=== PATIENT | female | born 1960 | race Caucasian/White ===

== ENCOUNTER → 2021-12-04 16:07 | Outpatient (BNVA) | payer OTHER, SELFPAY | PROVIDERS: PCP Pediatrics; Visit Provider Psychiatry & Neurology Psychiatry | DX: F41.8 Other specified anxiety disorders (principal); F43.12 Post-traumatic stress disorder, chronic; F34.1 Dysthymic disorder; F41.0 Panic disorder [episodic paroxysmal anxiety] | CPT/HCPCS: 90833 ==

== ENCOUNTER → 2022-02-12 12:57 | Outpatient (BNVA) | payer OTHER, SELFPAY | PROVIDERS: PCP Pediatrics; Visit Provider Psychiatry & Neurology Psychiatry | DX: F41.1 Generalized anxiety disorder (principal) ==

== ENCOUNTER → 2022-06-17 16:55 | Outpatient (BNVA) | payer OTHER, SELFPAY | PROVIDERS: PCP Pediatrics; Visit Provider Psychiatry & Neurology Psychiatry ==

== ENCOUNTER 2022-10-28 15:56 | Outpatient (AMB) | payer OTHER, SELFPAY ==
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
== END 2022-10-28 17:12 | disposition home or self-care (01) ==
LOC: HO.HOP 15:56
PROVIDERS: PCP Pediatrics; Visit Provider Psychiatry & Neurology Psychiatry
DX: F41.0 Panic disorder [episodic paroxysmal anxiety] (principal); F34.1 Dysthymic disorder; F43.12 Post-traumatic stress disorder, chronic; F41.1 Generalized anxiety disorder
CPT/HCPCS: 90833; 99213

== ENCOUNTER → 2022-10-28 15:56 | Outpatient (BNVA) | payer OTHER, SELFPAY | PROVIDERS: PCP Pediatrics; Visit Provider Psychiatry & Neurology Psychiatry ==

== ENCOUNTER 2023-02-18 12:26 | Outpatient (REF) | payer OTHER, SELFPAY ==
[2023-02-19 15:28] LABS: Influenza A PCR NEGATIVE (Negative); Influenza B PCR NEGATIVE (Negative); Resp Syncy Virus RNA Qual PCR POSITIVE (Negative); SARS COV2 PCR INHOUSE NEGATIVE (Negative)
== END 2023-02-18 12:27 | disposition home or self-care (01) ==
LOC: HO.LNP 12:26
PROVIDERS: Visit Provider Nurse Practitioner Family
DX: Z11.52 Encounter for screening for COVID-19 (principal); Z20.822 Contact with and (suspected) exposure to COVID-19; R68.89 Other general symptoms and signs
CPT/HCPCS: 0241U

== ENCOUNTER 2023-02-18 12:26 | Outpatient (AMB) | payer OTHER, SELFPAY ==
--- NOTE | 2023-02-18 12:35 | AM.OFFWIN_ITS ---
Intake Vital Signs 02/18/23 12:40 Height 5 ft 5.5 in Weight 169 lb 6 oz BMI 27.8 BP 130/78 Blood Pressure Location Lt brachial Position Sitting Pulse 73 Pulse Source Pulse Oximeter Temp 98.4 F Temp Source Oral Pulse Oximetry (%) 98 Oxygen Delivery Method Room Air Intake Visit Reasons: Cough sore throat,fever [id number] Intake Note: Patient si here with cough, sore throat, runny, stuffy nose for 1.5 weeks. She states she is coughing up green mucous, with chest congestion, and low grade fever. Patient Tobacco Use Status: Former Tobacco user Allergies erythromycin base [Erythromycin Base] Allergy (Mild, Verified 02/18/23 13:08) RASH sulfamethoxazole [From Bactrim] Allergy (Mild, Verified 02/18/23 13:08) RASH trimethoprim [From Bactrim] Allergy (Mild, Verified 02/18/23 13:08) RASH guaifenesin Allergy (Verified 02/18/23 13:08) Rash Medication List - Last Reconciled 02/18/23 by GENEVA Serrano atorvastatin 20 mg PO DAILY clonazepam 0.5 - 1 mg (1 - 2 x 0.5 mg) PO BEDTIME propranolol 10 mg PO DAILY PRN sertraline 150 mg (1.5 x 100 mg) PO DAILY 30 days Do you need a note to return to daycare/school/sports/work: Yes HPI HPI Comments History of Present Illness Details here today c/o flu like sx started about 10 days ago exposed to grandchild with RSV sx: fever, cough, runny nose, chest congestion, painful cough, sore throat. sore throat is now better at home: cough drops, nsaids w/o relief UTD on flu; did not have covid vaccines. home test x 3 negative [facility] Medical History (Updated 02/18/23 @ 13:20 by GENEVA Serrano) Panic disorder Dysthymic disorder Chronic post-traumatic stress disorder (PTSD) Generalized anxiety disorder Social History Patient Tobacco Use Status: Former Tobacco user Review of Systems Const All systems reviewed & are unremarkable except as noted in HPI and below Physical Exam Vital Signs: Last Vital Signs Temp 98.4 F 02/18/23 12:40 Pulse 73 02/18/23 12:40 BP 130/78 02/18/23 12:40 Pulse Ox 98 02/18/23 12:40 Oxygen Delivery Method Room Air 02/18/23 12:40 BMI result Body Mass Index 27.8 Const Other: awake alert mildly ill appearing eyes tearing, conjunctiva and sclera clear cerumen in R EAC, TM intact with mild injection on L Nares with clear drainage, turbinates wnl pharynx WNL voice hoarse LS CTAB, occassional cough RRR Assessment & Plan Assessment & Plan (1) Flu-like symptoms: Code(s): R68.89 - Other general symptoms and signs Plan: . Orders: Orders SARS-CoV2/FLU/RSV Today R68.89 - Other general symptoms and signs Medications: New prednisone 20 mg PO DAILY 5 tabs 0RF 5 days benzonatate 100 mg PO TID PRN 30 caps 1RF cough 10 days Patient Instructions: supportive care with above viral swab obtained will be called if + work note given edu on viral illness and no need for add'l tx. need to follow current CDC guidelines if viral swab + Coding Level of Care Code Est Pt Level 4 (77475) Diagnoses Flu-like symptoms R68.89 Time Spent (min) 30 Comment treatment plan, edu, answering questions
[2023-02-18 12:40] VITALS: BP 130/78; PULSE 73; TEMP 36.9; O2SAT 98; BMI 27.8
== END 2023-02-18 13:20 | disposition home or self-care (01) ==
PROVIDERS: PCP Pediatrics; Visit Provider Nurse Practitioner Family
DX: R68.89 Other general symptoms and signs (principal)
CPT/HCPCS: 99214

== ENCOUNTER 2023-04-13 15:32 | Outpatient (AMB) | payer OTHER, SELFPAY ==
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
== END 2023-04-13 17:23 | disposition home or self-care (01) ==
LOC: HO.HOP 15:33
PROVIDERS: PCP Pediatrics; Visit Provider Psychiatry & Neurology Psychiatry
DX: F34.1 Dysthymic disorder (principal); F43.12 Post-traumatic stress disorder, chronic; F41.1 Generalized anxiety disorder
CPT/HCPCS: 90833; 99213

== ENCOUNTER → 2023-04-13 15:32 | Outpatient (BNVA) | payer OTHER, SELFPAY | PROVIDERS: PCP Pediatrics; Visit Provider Psychiatry & Neurology Psychiatry ==

== ENCOUNTER 2023-05-18 14:35 | Outpatient (AMB) | payer OTHER, SELFPAY ==
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
== END 2023-05-18 16:40 | disposition home or self-care (01) ==
LOC: HO.HOP 14:35
PROVIDERS: PCP Pediatrics; Visit Provider Psychiatry & Neurology Psychiatry
DX: F41.0 Panic disorder [episodic paroxysmal anxiety] (principal); F34.1 Dysthymic disorder; F41.1 Generalized anxiety disorder; F43.12 Post-traumatic stress disorder, chronic
CPT/HCPCS: 99213

== ENCOUNTER → 2023-05-18 14:35 | Outpatient (BNVA) | payer OTHER, SELFPAY | PROVIDERS: PCP Pediatrics; Visit Provider Psychiatry & Neurology Psychiatry ==

== ENCOUNTER 2023-09-17 14:27 | Outpatient (AMB) | payer OTHER, SELFPAY ==
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
== END 2023-09-17 17:07 | disposition home or self-care (01) ==
LOC: HO.HOP 14:27
PROVIDERS: PCP Pediatrics; Visit Provider Psychiatry & Neurology Psychiatry
DX: F43.12 Post-traumatic stress disorder, chronic (principal); F41.1 Generalized anxiety disorder
CPT/HCPCS: 99213

== ENCOUNTER → 2023-09-17 14:27 | Outpatient (BNVA) | payer OTHER, SELFPAY | PROVIDERS: PCP Pediatrics; Visit Provider Psychiatry & Neurology Psychiatry ==

== ENCOUNTER 2023-11-19 14:59 | Outpatient (AMB) | payer MEDICARE, SELFPAY ==
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
== END 2023-11-19 18:32 | disposition home or self-care (01) ==
LOC: HO.HOP 14:59
PROVIDERS: PCP Pediatrics; Visit Provider Psychiatry & Neurology Psychiatry
DX: F43.12 Post-traumatic stress disorder, chronic (principal); F41.1 Generalized anxiety disorder; F33.9 Major depressive disorder, recurrent, unspecified
CPT/HCPCS: 90833; 99213

== ENCOUNTER → 2023-11-19 14:59 | Outpatient (BNVA) | payer OTHER, SELFPAY | PROVIDERS: PCP Pediatrics; Visit Provider Psychiatry & Neurology Psychiatry ==

== ENCOUNTER 2023-12-07 10:15 | Outpatient (RCR) | payer OTHER, SELFPAY ==
[2023-11-24 09:46] VITALS: BMI 27.7
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
[2023-11-24 11:28] VITALS: BP 140/60; PULSE 76
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
--- NOTE | 2023-11-26 15:02 | HO.PHP ---
Client's case has been opened and reviewed in team.
--- NOTE | 2023-11-27 13:19 | HO.PHP ---
Addendum entered by Uma Beach 11/30/23 15:29: OP therapy referral was placed not med management. Original Note: [facility] staff member faxed a referral over for med management for Nafisa to [facility]. [facility] staff member is awaiting a call with those appointment dates and times.
--- NOTE | 2023-11-30 15:27 | HO.PHP ---
[facility] staff member received a VM for Nafisa regarding her appointments for OP therapy intake appointment. The OP therapy appointment is scheduled with Iliana Boykin on December 11, 2023 at 10 AM at [address] [place] [address] .
--- NOTE | 2023-12-07 20:58 | P.PNPSP_ITS ---
Subjective Subjective Date of Service: 12/07/23 Reason For Visit: anxiety Interim History: Patient seen for follow-up, anticipating discharge at the end of program today.? Reports no acute issues or concerns. Medication compliant, medications well- tolerated. Denies any adverse effects.? Mood is stable.? Denies any hopelessness or SI. Denies thoughts of harming self or others at this time. Denies any aggressive ideation or HI. Denies any paranoia or AH or VH. Sleep, appetite, energy stable. Alert, oriented, in no acute distress. Calm, cooperative. Mood stable, affect appropriate. Speech normal. Thought process linear, coherent, more goal- directed. Thought content related to stressors, future-oriented, denies any helplessness, hopelessness or SI.? No aggressive ideation or HI. No paranoia or delusional content elicited. No evidence of psychosis. Insight and judgment fair-good. Discharge from [facility] Continue regular medications Refills sent to pharmacy Will defer further medication management to outpatient provider *Safety plan reviewed *Discharge diagnoses, treatment course, discharge plan have been reviewed with patient (including medication regime, medication management, potential side effects) as well as treatment rationale were also revisited *Discharge paperwork signed and given to patient, copy sent for scanning to chart Diagnostics Vital Signs (24Hr): BMI result Body Mass Index 27.7 Assessment & Plan Certification I certify that partial hospital treatment is medically necessary due to the symptoms and problems resulting from the patient's mental illness and the failure to treat the patient at the partial hospital level of care would likely result in the patient requiring inpatient psychiatric care which could not be prevented at a less intensive level of care. Total time managing care of this patient today ____ minutes. Discharge Plan Discharge Attending provider: Isabel Gu Additional Instructions: The OP therapy appointment is scheduled with Iliana Boykin on December 11, 2023 at 10 AM at [address] [place] [address] . Medications: Continued clonazepam 0.5 mg tablet 0.5 - 1 mg PO BEDTIME 30 Days Qty: 60 2RF Rx Instructions: administer 30 minutes before bedtime atorvastatin 20 mg tablet 20 mg PO DAILY propranolol 10 mg tablet 10 mg PO DAILY PRN (Reason: anxiety) Qty: 30 2RF sertraline 100 mg tablet 200 mg PO DAILY Patient Comments: Patient reports recently increased to 200 mg daily. No Action buspirone 10 mg tablet 10 mg PO BID Qty: 60 2RF Stand Alone Forms: Patient Portal Discharge page Patient Education: Depression (DC) Print Language: Tongan
== END 2023-12-07 23:59 | disposition home or self-care (01) ==
LOC: HO.PHPA 10:15
PROVIDERS: Visit Provider Psychiatry & Neurology Psychiatry
DX: F33.9 Major depressive disorder, recurrent, unspecified (principal); F43.12 Post-traumatic stress disorder, chronic; F41.1 Generalized anxiety disorder; F99 Mental disorder, not otherwise specified
CPT/HCPCS: 90853

== ENCOUNTER → 2023-12-07 10:15 | Outpatient (BNV) | payer OTHER, SELFPAY | PROVIDERS: Visit Provider Psychiatry & Neurology Psychiatry | DX: F33.9 Major depressive disorder, recurrent, unspecified (principal); F43.12 Post-traumatic stress disorder, chronic; F41.1 Generalized anxiety disorder; F99 Mental disorder, not otherwise specified | CPT/HCPCS: 99499 ==

== ENCOUNTER 2023-12-16 14:04 | Outpatient (AMB) | payer OTHER, SELFPAY ==
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
== END 2023-12-16 15:28 | disposition home or self-care (01) ==
LOC: HO.HOP 14:04
PROVIDERS: PCP Pediatrics; Visit Provider Psychiatry & Neurology Psychiatry
DX: F43.12 Post-traumatic stress disorder, chronic (principal); F33.9 Major depressive disorder, recurrent, unspecified
CPT/HCPCS: 90833; 99213

== ENCOUNTER 2023-12-22 14:31 | Outpatient (AMB) | payer OTHER, SELFPAY ==
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
== END 2023-12-22 15:42 | disposition home or self-care (01) ==
LOC: HO.HOP 14:31
PROVIDERS: PCP Pediatrics; Visit Provider Psychiatry & Neurology Psychiatry
DX: F43.12 Post-traumatic stress disorder, chronic (principal); F33.9 Major depressive disorder, recurrent, unspecified
CPT/HCPCS: 90833; 99213

== ENCOUNTER 2024-01-19 13:31 | Outpatient (AMB) | payer OTHER, SELFPAY ==
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
== END 2024-01-19 14:25 | disposition home or self-care (01) ==
LOC: HO.HOP 13:31
PROVIDERS: PCP Pediatrics; Visit Provider Psychiatry & Neurology Psychiatry
DX: F41.1 Generalized anxiety disorder (principal); F43.12 Post-traumatic stress disorder, chronic
CPT/HCPCS: 99214

== ENCOUNTER → 2024-01-19 13:31 | Outpatient (BNVA) | payer OTHER, SELFPAY | PROVIDERS: PCP Pediatrics; Visit Provider Psychiatry & Neurology Psychiatry ==

== ENCOUNTER 2024-02-09 13:25 | Outpatient (AMB) | payer OTHER, SELFPAY ==
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
== END 2024-02-09 13:26 | disposition home or self-care (01) ==
LOC: HO.HOP 13:25
PROVIDERS: PCP Pediatrics; Visit Provider Psychiatry & Neurology Psychiatry
DX: F43.12 Post-traumatic stress disorder, chronic (principal); F41.1 Generalized anxiety disorder; F33.9 Major depressive disorder, recurrent, unspecified
CPT/HCPCS: 99213

== ENCOUNTER 2024-03-17 11:53 | Outpatient (AMB) | payer OTHER, SELFPAY ==
--- OUTSIDE RECORDS SUMMARY | 2024-03-17 11:57 | XMS_ITS | Data Portability ---
Author Organization [facility], Main Office Address [address] [place] [address] Care Team Providers Care Interior Assemblies Installer Name Role Phone CARMELO LAU Primary Care Provider SANGEETA RANDLE Photographic Equipment Mechanic MILA MORENO Psychiatrist FRANCISCO HART Torpedo Worker [facility] Patent Drafter Assessment No assessment recorded. Plan of Treatment Reminders Order Date Submit Date Provider Last Modified By Organization Details Last Modified Time Details Appointments None recor ded. Lab TSH, serum or plasm a 2020 021 [facility], [address], [address], [place], [address], 20:54:48 CMP, serum or plasm a 2020 021 [facility], [address], [place], [address], 20:39:49 CBC w/ auto diff 2020 021 [facility], [address], [place], [address], 19:51:03 magne sium, serum or plasm a 2020 021 [facility], [address], [place], [address], 20:39:50 lipid panel , serum 2020 [facility], [address], [address], [place], [address], 17:08:07 CMP, serum or plasm a 2020 [facility], [address], [address], [place], [address], 17:08:06 CK (crea yassine kinas e), total , serum 2020 [facility], [address], [address], [place], [address], 17:08:03 vitam in D, 25-hy droxy , total , serum 2020 [facility], [address], [address], [place], [address], 17:14:40 JENNY (anti nucle ar antib odies ) scree n, serum 2020 [facility], [address], [address], [place], [address], 21:09:58 ESR (eryt hrocy te sedim entat ion rate) , blood 2020 021 [facility], [address], [address], [place], [address], 15:29:17 C-ok ctive prote in, quant itati ve, serum or plasm a 2020 021 [facility], [address], [address], [place], [address], 17:14:39 lipid panel , serum 2021 [facility], [address], [address], [place], [address], 2 14:15:30 CMP, serum or plasm a 2021 [facility], [address], [address], [place], [address], 14:15:27 varic thong- zoste r igg Ab scree n, serum 2021 [facility], [address], [address], [place], [address], 14:59:11 vitam in D, 25-hy droxy , total , serum 2021 [facility], [address], [address], [place], [address], 14:27:49 sjogr en antib freddie panel (ssa, ssb, ro, la), serum 2021 [facility], [address], [address], [place], [address], 11:06:36 CBC w/ auto diff 2021 [facility], [address], [address], [place], [address], 2 13:51:21 iron + total iron- dinorah ng capac ity (TIBC ), serum 2021 [facility], [address], [address], [place], [address], 08/05/202 2 14:15:29 TSH, serum or plasm a 2021 022 [facility], [address], [address], [place], [address], 2 14:27:47 gamma -glut amyl trans feras e (ggt) , serum 2022 023 [facility], [address], [address], [place], [address], 3 14:56:08 CMP, serum or plasm a 2022 023 [facility], [address], [address], [place], [address], 3 14:55:59 lipid panel , serum 2022 023 [facility], [address], [facility] [address], [place], [address], 3 14:56:20 vitam in D, 25-hy droxy , total , serum 2022 023 [facility], [address], [address], [place], [address], 3 16:51:29 lipid panel , serum 2023 024 [facility], [address] [facility] [address], [place], [address], 4 06:08:10 CMP, serum or plasm a 2023 024 [facility], [address], [facility] [address], [place], [address], 4 06:08:08 TSH, ultra -sens itive , serum 2023 024 [facility], [address], [facility] [address], [place], [address], 4 06:08:10 vitam in D, 25-hy droxy , total , serum 2023 024 [facility], [address], [address], [place], [address], 4 06:08:[address] refer ral - for hannah mora with evalu ation of palpi tatio ns. Stres s test and ECHO pendi ng. 2020 [facility] [address], [place], [address], 1 10:46:[address]/di etiti an refer ral 2020 021 [email or web address] Not available 1 09:26:[address] refer ral 2021 022 [email or web address] Not available 2 11:01:[address]/di etiti an refer ral 2021 022 [email or web address] Not available 2 14:39:[address] refer ral 2022 023 [email or web address] Not available 3 13:01:45 Procedures colon oscop y scree deana (PROC ) 2021 022 [email or web address] Not available 2 15:07:31 colon oscop y scree deana (PROC ) - for routi ne colon cance r scree deana 2022 023 [facility], [address] [facility] [address] [facility], [place], [address], 3 14:45:54 Surgeries None recor ded. Imaging elect roctone diogr am 2020 021 [email or web address] In-Office Order, Internal Use Only DO Not Attach Compendium DO Not Attach Compendium, Do Not Delete/merge, [id number] 16:19:35 US, echoc ardio gram, trans thora cic, compl ete - rule out struc tural heart disea se in pt with HTN and inter mitte nt palpi tatio ns. 2020 021 [facility]Outt Non-Invasive Cardiology Scheduling), [address], [place], [address], 1 12:10:45 exerc ise stres s test - Scree n for exerc ise induc ed ECG roy es 2020 021 awychowski [facility] (Outt Non-Invasive Cardiology Scheduling), [address], [place], [address], 1 10:32:03 bone densi ty 2020 021 [email or web address] Not available 1 14:42:08 MAMMO , scree deana, bilat eral - Perfo rm Diagn ostic Mammo gram and Breas t Ultra sound if neede d / Perfo rm Ultra sound Guide d Aspir ation and/o r Breas t Biops y if warra nted 2020 021 [email or web address] 6 Not available 09:19:03 XR, chest , 2 view - follo w up left upper lung abnor malit y 2021 022 FRANCISCO Not available 2 15:45:12 MAMMO , scree deana, bilat eral 2021 022 [email or web address] Not available 2 11:08:56 bone densi ty 2022 023 [email or web address] Not available 4 09:16:37 MAMMO , scree deana, bilat eral - Perfo rm Diagn ostic Mammo gram and Breas t Ultra sound if neede d / Perfo rm Ultra sound Guide d Aspir ation and/o r Breas t Biops y if warra nted 2022 023 FRANCISCO Not available 17:15:33 MAMMO , scree deana, bilat eral - Perfo rm Diagn ostic Mammo gram and Breas t Ultra sound if neede d / Perfo rm Ultra sound Guide d Aspir ation and/o r Breas t Biops y if warra nted 2023 024 [email or web address] Not available 10:30:09 Medication Orders None recor ded. Patient TargetsNo targets recorded. Patient Instructions Encounter Date Encounter Id Patient Instructions Last Modified By Organization Details Last Modified Time 03/15/2020 [id number] high blood pressure: care instructions awychowski Not available 03/15/2020 16:13:23 learning about high blood pressure awychowski Not available 03/15/2020 16:13:24 palpitations: care instructions awychowski Not available 03/15/2020 16:13:23 07/24/2020 [id number] Cervical Cancer Screening awychowski Not available 07/24/2020 09:14:26 anxiety disorder: care instructions awychowski Not available 07/24/2020 09:14:26 earwax blockage: care instructions awychowski Not available 07/24/2020 09:21:33 When You Want to Lose Weight: Care Instructions awychowski Not available 07/24/2020 09:14:26 Nutrition Referral and Weight Management Follow-up Information awychowski Not available 07/24/2020 09:14:26 psoriasis: care instructions awychowski Not available 07/24/2020 09:14:26 07/25/2021 [id number] Cervical Cancer Screening awychowski Not available 07/25/2021 14:32:58 anxiety disorder: care instructions awychowski Not available 07/25/2021 14:32:57 earwax blockage: care instructions awychowski Not available 07/25/2021 14:32:57 dry eyes: care instructions awychowski Not available 07/25/2021 14:32:57 hair loss from alopecia areata: care instructions awychowski Not available 07/25/2021 14:41:33 When You Want to Lose Weight: Care Instructions awychowski Not available 07/25/2021 14:32:57 Nutrition Referral and Weight Management Follow-up Information awychowski Not available 07/25/2021 14:32:57 psoriasis: care instructions awychowski Not available 07/25/2021 14:32:57 07/29/2022 [id number] learning about healthy weight awychowski Not available 07/29/2022 15:40:22 08/17/2023 [id number] learning about healthy weight awychowski Not available 08/17/2023 10:20:27 Reason for Referral Pediatric Pathologist Referral for In termittent palpitations for assistance with evaluation of palpitations. Stress test and ECHO pending. Referring Physician: Carmelo Lau [facility], Encounter Date: 03/15/2020 Operations Label Clerk/dietitian Refer ral for Body mass index 25-29 - overweight Referring Physician: Carmelo Lau [facility] Caleb, Encounter Date: 07/24/2020 Collective Bargaining Specialist Referral for Sc reening for malignant neoplasm of cervix Referring Physician: Carmelo Lau [facility] Caleb, Encounter Date: 07/25/2021 Operations Label Clerk/dietitian Refer ral for Body mass index 25-29 - overweight Referring Physician: Carmelo Lau [facility], Encounter Date: 07/25/2021 Collective Bargaining Specialist Referral for Sc reening for malignant neoplasm of cervix Referring Physician: Carmelo Lau [facility] Caleb, Encounter Date: 07/29/2022 Results Created Date Observation Date Name Description Value Unit Range Abnormal Flag Note LastModifiedBy Organization Detail LastModifiedTime 03/15/1903/15/2020 jacob chowdhury am done Not Available In-Office Order Internal Use Only DO Not Attach Compendium DO Not Attach Compendium, Do Not Delete/merge, [id number] 03/11/2020 19:25:10 03/19/1903/19/2020 CBC w/ auto diff WBC 8.0 K/mm3 (4.0-1 1.0) Not Available [facility] [address], [place], [address], 03/19/2020 19:51:03 02/08/03/19/2020 CBC w/ auto diff RBC 4.45 M/mm3 (4.20- 5.40) Not Available [facility] [address] [place], [address], 03/19/2020 19:51:03 03/19/19 21 03/19/2020 CBC w/ auto diff HGB 13.3 gm/dL (11.7- 15.5) Not Available [facility] [address] [place], [address], 03/19/2020 19:51:03 03/19/1903/19/2020 CBC w/ auto diff HCT 40.5 % (35.7- 45.8) Not Available [facility] [address] [place], [address], 03/19/2020 19:51:03 03/19/1903/19/2020 CBC w/ auto diff MCV 91.0 fL (80.0- 100.0) Not Available [facility] [address] [place], [address], 03/19/2020 19:51:03 03/19/19 21 03/19/2020 CBC w/ auto diff MCH 29.9 pg (27.0- 34.0) Not Available [facility] [address] [place], [address], 03/19/2020 19:51:03 03/19/1903/19/2020 CBC w/ auto diff MCHC 32.8 g/dL (33.0- 37.0) low Not Available [facility] [address] [place], [address], 03/19/2020 19:51:03 03/19/1903/19/2020 CBC w/ auto diff plt 274 K/mm3 (150-4 60) Not Available [facility] [address] [place], [address], 03/19/2020 19:51:03 03/19/1903/19/2020 CBC w/ auto diff RDW-SD 41.5 fL (<47.0 ) Not Available [facility] [address] [place], [address], 03/19/2020 19:51:03 03/19/19 21 03/19/2020 CBC w/ auto diff MPV 9.4 fL (9.4-1 2.4) Not Available [facility] [address] [place], [address], 03/19/2020 19:51:03 03/19/19 21 03/19/2020 CBC w/ auto diff automated NRBC 0.0 #/100 _WBC' s Not Available [facility] [address] [place], [address], 03/19/2020 19:51:03 03/19/19 21 03/19/2020 CBC w/ auto diff abs. NRBC 0.0 K/mm3 Not Available [facility] [address] [place], [address], 03/19/2020 19:51:03 03/19/19 21 03/19/2020 CBC w/ auto diff neut # 4.7 K/mm3 (1.3-7 .0) Not Available [facility] [address] [place], [address], 03/19/2020 19:51:03 03/19/19 21 03/19/2020 CBC w/ auto diff lymph # 2.4 K/mm3 (0.8-3 .1) Not Available [facility] [address] [place], [address], 03/19/2020 19:51:03 03/19/19 21 03/19/2020 CBC w/ auto diff mono# 0.7 K/mm3 (0.4-0 .9) Not Available [facility] [address] [place], [address], 03/19/2020 19:51:03 03/19/19 21 03/19/2020 CBC w/ auto diff eo # 0.1 K/mm3 (0.0-0 .4) Not Available [facility] [address] [place], [address], 03/19/2020 19:51:03 03/19/19 21 03/19/2020 CBC w/ auto diff baso # 0.1 K/mm3 (0.0-0 .1) Not Available [facility] [address] [place], [address], 03/19/2020 19:51:03 03/19/19 21 03/19/2020 CBC w/ auto diff abs. imm gran 0.0 K/mm3 Not Available [facility] [address] [place], [address], 03/19/2020 19:51:03 03/19/19 21 03/19/2020 CBC w/ auto diff neut 58.8 % (44-76 ) Not Available [facility] [address] [place], [address], 03/19/2020 19:51:03 03/19/19 21 03/19/2020 CBC w/ auto diff lymph 30.3 % (15-43 ) Not Available [facility] [address] [place], [address], 03/19/2020 19:51:03 03/19/19 21 03/19/2020 CBC w/ auto diff monocyte 8.4 % (4.5-1 0.5) Not Available [facility] [address] [place], [address], 03/19/2020 19:51:03 03/19/19 21 03/19/2020 CBC w/ auto diff eo 1.8 % (0-6) Not Available [facility] [address] [place], [address], 03/19/2020 19:51:03 03/19/19 21 03/19/2020 CBC w/ auto diff baso 0.6 % (0-2) Not Available [facility] [address] [place], [address], 03/19/2020 19:51:03 03/19/19 21 03/19/2020 CBC w/ auto diff imm gran 0.1 % Not Available [facility] [address] [place], [address], 03/19/2020 19:51:03 03/19/19 21 03/19/2020 CMP, serum or plasm a glucose 63 mg/dL (70-99 ) low Not Available [facility] [address] [place], [address], 03/19/2020 20:39:48 03/19/19 21 03/19/2020 CMP, serum or plasm a BUN 16 mg/dL (6-20) Not Available [facility] [address] [place], [address], 03/19/2020 20:39:48 03/19/19 21 03/19/2020 CMP, serum or plasm a creatinine 0.9 mg/dL (0.5-1 .0) Not Available [facility] [address], [address], 03/19/2020 20:39:48 03/19/19 21 03/19/2020 CMP, serum or plasm a sodium 142 mmol/ L (133-1 45) Not Available [facility] [address] [place], [address], 03/19/2020 20:39:48 03/19/19 21 03/19/2020 CMP, serum or plasm a potassium 3.8 mmol/ L (3.6-5 .2) Not Available [facility] [address] [place], [address], 03/19/2020 20:39:48 03/19/19 21 03/19/2020 CMP, serum or plasm a chloride 104 mmol/ L (98-10 7) Not Available [facility] [address] [place], [address], 03/19/2020 20:39:48 03/19/19 21 03/19/2020 CMP, serum or plasm a bicarbonate 29 mmol/ L (22-29 ) Not Available [facility] [address] [place], [address], 03/19/2020 20:39:48 03/19/19 21 03/19/2020 CMP, serum or plasm a anion gap 9 (4-17) Not Available [facility] [address] [place], [address], 03/19/2020 20:39:48 03/19/19 21 03/19/2020 CMP, serum or plasm a albumin 4.6 gm/dL (3.4-4 .8) Not Available [facility] [address], [address], 03/19/2020 20:39:48 03/19/19 21 03/19/2020 CMP, serum or plasm a calcium 9.5 mg/dL (8.6-1 0.5) Not Available [facility] [address], [address], 03/19/2020 20:39:48 03/19/19 21 03/19/2020 CMP, serum or plasm a bilirubin,to hiram 0.3 mg/dL (0-1.2 ) Not Available [facility] [address] [place], [address], 03/19/2020 20:39:48 03/19/19 21 03/19/2020 CMP, serum or plasm a total protein 7.0 gm/dL (6.2-8 .2) Not Available [facility] [address], [address], 03/19/2020 20:39:48 03/19/19 21 03/19/2020 CMP, serum or plasm a Ag ratio 1.9 Not Available [facility] [address] [place], [address], 03/19/2020 20:39:48 03/19/19 21 03/19/2020 CMP, serum or plasm a AST 17 U/L (0-32) Not Available [facility] [address] [place], [address], 03/19/2020 20:39:48 03/19/19 21 03/19/2020 CMP, serum or plasm a alk phos 104 U/L (35-10 4) Not Available [facility] [address] [place], [address], 03/19/2020 20:39:48 03/19/19 21 03/19/2020 CMP, serum or plasm a ALT 12 U/L (0-33) Not Available [facility] [address] [place], [address], 03/19/2020 20:39:48 03/19/19 21 03/19/2020 CMP, serum or plasm a est GFR non 67 mL/mi n/1.7 3_M2 Creat inine based estim ated glome rular filtr ation rate (eGFR ) is calcu lated using the Chron ic Kidne y Disea se Epide miolo gy Colla borat ion (CKD- EPI). The CKD-E PI creat inine equat ion has not been valid ated in child hawa (<18 years ), pregn ant women or in some racia l or ethni c subgr oups other than Cauca sians and Afric an Ameri cans. Not Available [facility] [address] [place], [address], 03/19/2020 20:39:48 03/19/19 21 03/19/2020 CMP, serum or plasm a est GFR 78 mL/mi n/1.7 3_M2 Creat inine based estim ated glome rular filtr ation rate (eGFR ) is calcu lated using the Chron ic Kidne y Disea se Epide miolo gy Colla borat ion (CKD- EPI). The CKD-E PI creat inine equat ion has not been valid ated in child hawa (<18 years ), pregn ant women or in some racia l or ethni c subgr oups other than Cauca sians and Afric an Ameri cans. Not Available [facility] [address], [address], 03/19/2020 20:39:48 03/19/19 21 03/19/2020 magne sium, serum or plasm a magnesium 2.2 mg/dL (1.6-2 .3) Not Available [facility] [address] [place], [address], 03/19/2020 20:39:50 03/19/19 21 03/19/2020 TSH, serum or plasm a TSH 1.71 uIU/m L (0.4-4 .00) Not Available [facility] [address], [place], [address], 03/19/2020 20:54:48 07/27/19 21 07/26/2020 ESR (eryt hrocy te sedim entat ion rate) , blood sedimentatio n rate,automat ed 2 mm/HR (0-20) In rare patie nts with multi ple myelo ma and other cance rs,Er ythro cyte Sedim entat ion Rate( ESR) by our curre nt metho d(iSE D)can be osmin l. If clini maurice relev ant,p lease use C-ok ctive prote in as an equiv alent measu re of acute phase react ion in these patie nts. Not Available [facility] [address] [place], [address], 07/26/2020 15:29:17 07/27/19 21 07/26/2020 CK (crea yassine kinas e), total , serum CK (creatine kinase) 72 U/L (0-190 ) TOTAL CPK SUNITA NTRAT ION TOO LOW FOR ISOEN ZYME AISHWARYA SIS Not Available [facility] [address] [place], [address], 07/26/2020 17:08:02 07/27/19 21 07/26/2020 CMP, serum or plasm a glucose 95 mg/dL (70-99 ) Not Available [facility] [address] [place], [address], 07/26/2020 17:08:06 07/27/19 21 07/26/2020 CMP, serum or plasm a BUN 12 mg/dL (6-20) Not Available [facility] [address] [place], [address], 07/26/2020 17:08:06 07/27/19 21 07/26/2020 CMP, serum or plasm a creatinine 0.9 mg/dL (0.5-1 .0) Not Available [facility] [address] [place], [address], 07/26/2020 17:08:06 07/27/19 21 07/26/2020 CMP, serum or plasm a sodium 144 mmol/ L (133-1 45) Not Available [facility] [address] [place], [address], 07/26/2020 17:08:06 07/27/19 21 07/26/2020 CMP, serum or plasm a potassium 4.1 mmol/ L (3.6-5 .2) Not Available [facility] [address] [place], [address], 07/26/2020 17:08:06 07/27/19 21 07/26/2020 CMP, serum or plasm a chloride 104 mmol/ L (98-10 7) Not Available [facility] [address] [place], [address], 07/26/2020 17:08:06 07/27/19 21 07/26/2020 CMP, serum or plasm a bicarbonate 29 mmol/ L (22-29 ) Not Available [facility] [address] [place], [address], 07/26/2020 17:08:06 07/27/19 21 07/26/2020 CMP, serum or plasm a anion gap 11 (4-17) Not Available [facility] [address] [place], [address], 07/26/2020 17:08:06 07/27/19 21 07/26/2020 CMP, serum or plasm a albumin 4.7 gm/dL (3.4-4 .8) Not Available [facility] [address] [place], [address], 07/26/2020 17:08:06 07/27/19 21 07/26/2020 CMP, serum or plasm a calcium 9.8 mg/dL (8.6-1 0.5) Not Available [facility] [address] [place], [address], 07/26/2020 17:08:06 07/27/19 21 07/26/2020 CMP, serum or plasm a bilirubin,to hiram 0.5 mg/dL (0-1.2 ) Not Available [facility] [address] [place], [address], 07/26/2020 17:08:06 07/27/19 21 07/26/2020 CMP, serum or plasm a total protein 7.1 gm/dL (6.2-8 .2) Not Available [facility] [address] [place], [address], 07/26/2020 17:08:06 07/27/19 21 07/26/2020 CMP, serum or plasm a Ag ratio 2.0 Not Available [facility] [address] [place], [address], 07/26/2020 17:08:06 07/27/19 21 07/26/2020 CMP, serum or plasm a AST 23 U/L (0-32) Not Available [facility] [address] [place], [address], 07/26/2020 17:08:06 07/27/19 21 07/26/2020 CMP, serum or plasm a alk phos 132 U/L (35-10 4) high Not Available [facility] [address] [place], [address], 07/26/2020 17:08:06 07/27/19 21 07/26/2020 CMP, serum or plasm a ALT 17 U/L (0-33) Not Available [facility] [address] [place], [address], 07/26/2020 17:08:06 07/27/19 21 07/26/2020 CMP, serum or plasm a est GFR non 74 mL/mi n/1.7 3_M2 Creat inine based estim ated glome rular filtr ation rate (eGFR ) is calcu lated using the Chron ic Kidne y Disea se Epide miolo gy Colla borat ion (CKD- EPI). The CKD-E PI creat inine equat ion has not been valid ated in child hawa (<18 years ), pregn ant women or in some racia l or ethni c subgr oups other than Cauca sians and Afric an Ameri cans. Not Available [facility] [address] [place], [address], 07/26/2020 17:08:06 07/27/19 21 07/26/2020 CMP, serum or plasm a est GFR 86 mL/mi n/1.7 3_M2 Creat inine based estim ated glome rular filtr ation rate (eGFR ) is calcu lated using the Chron ic Kidne y Disea se Epide miolo gy Colla borat ion (CKD- EPI). The CKD-E PI creat inine equat ion has not been valid ated in child hawa (<18 years ), pregn ant women or in some racia l or ethni c subgr oups other than Cauca sians and Afric an Ameri cans. Not Available [facility] [address] [place], [address], 07/26/2020 17:08:06 07/27/19 21 07/26/2020 lipid panel , serum cholesterol, total 170 mg/dL (<200) Not Available [facility] [address] [place], [address], 07/26/2020 17:08:07 07/27/19 21 07/26/2020 lipid panel , serum triglyceride 141 mg/dL (<150) Not Available [facility] [address] [place], [address], 07/26/2020 17:08:07 07/27/19 21 07/26/2020 lipid panel , serum HDL chol 40 mg/dL (>39) Not Available [facility] [address] [place], [address], 07/26/2020 17:08:07 07/27/19 21 07/26/2020 lipid panel , serum LDL cholesterol, calculated 102 mg/dL (0-130 ) Not Available [facility] [address] [place], [address], 07/26/2020 17:08:07 07/27/19 21 07/26/2020 lipid panel , serum non HDL cholesterol (calc) 130 mg/dL (<160) Not Available [facility] [address] [place], [address], 07/26/2020 17:08:07 07/27/19 21 07/26/2020 C-ok ctive prote in, quant itati ve, serum or plasm a C-reactive protein <0.3 mg/dL (0-0.5 ) Not Available [facility] [address] [place], [address], 07/26/2020 17:14:39 07/27/19 21 07/26/2020 vitam in D, 25-hy droxy , total , serum 25OH vitamin D 28.0 NG/mL (20-50 ) Not Available [facility] [address] [place], [address], 07/26/2020 17:14:40 07/27/19 21 07/27/2020 JENNY (anti nucle ar antib odies ) scree n, serum anti-nuclear antibody screen NEGATI VE (NOTE ) Negat nadia <1:80 Borde rline 1:80 Posit nadia >1:80 Test perfo rmed by [facility], [address], [place] [address] Not Available [facility] [address], [address], 07/27/2020 21:09:58 09/14/19 22 09/13/2021 COMPL ETE CBC WITH DIFF WBC 5.8 K/mm3 (4.0-1 1.0) Not Available [facility] [address] [place], [address], 09/13/2021 13:51:21 09/14/19 22 09/13/2021 COMPL ETE CBC WITH DIFF RBC 4.45 M/mm3 (4.20- 5.40) Not Available [facility] [address] [place], [address], 09/13/2021 13:51:21 09/14/19 22 09/13/2021 COMPL ETE CBC WITH DIFF HGB 13.6 gm/dL (11.7- 15.5) Not Available [facility] [address], [address], 09/13/2021 13:51:21 09/14/19 22 09/13/2021 COMPL ETE CBC WITH DIFF HCT 41.0 % (35.7- 45.8) Not Available [facility] [address] [place], [address], 09/13/2021 13:51:21 09/14/19 22 09/13/2021 COMPL ETE CBC WITH DIFF MCV 92.1 fL (80.0- 100.0) Not Available [facility] [address] [place] [place], [address], 09/13/2021 13:51:21 09/14/19 22 09/13/2021 COMPL ETE CBC WITH DIFF MCH 30.6 pg (27.0- 34.0) [facility] Available [facility] [address] [place], [address], 09/13/2021 13:51:21 09/14/19 22 09/13/2021 COMPL ETE CBC WITH DIFF MCHC 33.2 g/dL (33.0- 37.0) Not Available [facility] [address] [place], [id number], 09/13/2021 13:51:21 09/14/19 22 09/13/2021 COMPL ETE CBC WITH DIFF plt 254 K/mm3 (150-4 60) Not Available [facility] [address] [place], [id number], 09/13/2021 13:51:21 09/14/19 22 09/13/2021 COMPL ETE CBC WITH DIFF RDW-SD 43.8 fL (<47.0 ) Not Available [facility] [address] [place], [address], 09/13/2021 13:51:21 09/14/19 22 09/13/2021 COMPL ETE CBC WITH DIFF MPV 9.6 fL (9.4-1 2.4) Not Available [facility] [address], [address], 09/13/2021 13:51:21 09/14/19 22 09/13/2021 COMPL ETE CBC WITH DIFF automated NRBC 0.0 #/100 _WBC' s Not Available [facility] [address], [address], 09/13/2021 13:51:21 09/14/19 22 09/13/2021 COMPL ETE CBC WITH DIFF abs. NRBC 0.0 K/mm3 Not Available [facility] [address] [place], [address], 09/13/2021 13:51:21 09/14/19 22 09/13/2021 COMPL ETE CBC WITH DIFF neut # 3.5 K/mm3 (1.3-7 .0) Not Available [facility] [address] [place], [address], 09/13/2021 13:51:21 09/14/19 22 09/13/2021 COMPL ETE CBC WITH DIFF lymph # 1.7 K/mm3 (0.8-3 .1) Not Available [facility] [address] [place], [address], 09/13/2021 13:51:21 09/14/19 22 09/13/2021 COMPL ETE CBC WITH DIFF mono# 0.4 K/mm3 (0.4-0 .9) Not Available [facility] [address] [place], [address], 09/13/2021 13:51:21 09/14/19 22 09/13/2021 COMPL ETE CBC WITH DIFF eo # 0.1 K/mm3 (0.0-0 .4) Not Available [facility] [address] [place], [address], 09/13/2021 13:51:21 09/14/19 22 09/13/2021 COMPL ETE CBC WITH DIFF baso # 0.0 K/mm3 (0.0-0 .1) Not Available [facility] [address] [place], [address], 09/13/2021 13:51:21 09/14/19 22 09/13/2021 COMPL ETE CBC WITH DIFF abs. imm gran 0.0 K/mm3 Not Available [facility] [address] [place], [address], 09/13/2021 13:51:21 09/14/19 22 09/13/2021 COMPL ETE CBC WITH DIFF neut 60.7 % (44-76 ) Not Available [facility] [address] [place], [address], 09/13/2021 13:51:21 09/14/19 22 09/13/2021 COMPL ETE CBC WITH DIFF lymph 30.0 % (15-43 ) Not Available [facility] [address] [place], [address], 09/13/2021 13:51:21 09/14/19 22 09/13/2021 COMPL ETE CBC WITH DIFF monocyte 6.1 % (4.5-1 0.5) Not Available [facility] [address] [place], [address], 09/13/2021 13:51:21 09/14/19 22 09/13/2021 COMPL ETE CBC WITH DIFF eo 2.3 % (0-6) Not Available [facility] [address] [place], [address], 09/13/2021 13:51:21 09/14/19 22 09/13/2021 COMPL ETE CBC WITH DIFF baso 0.7 % (0-2) Not Available [facility] [address] [place], [address], 09/13/2021 13:51:21 09/14/19 22 09/13/2021 COMPL ETE CBC WITH DIFF imm gran 0.2 % Not Available [facility] [address] [place], [address], 09/13/2021 13:51:21 09/14/19 22 09/13/2021 COMPR EHENS NADIA METAB OLIC PANL glucose 93 mg/dL (70-99 ) Not Available [facility] [address] [place], [address], 09/13/2021 14:15:26 09/14/19 22 09/13/2021 COMPR EHENS NADIA METAB OLIC PANL BUN 15 mg/dL (8-23) Not Available [facility] [address] [place], [address], 09/13/2021 14:15:26 09/14/19 22 09/13/2021 COMPR EHENS NADIA METAB OLIC PANL creatinine 0.9 mg/dL (0.5-1 .0) Not Available [facility] [address] [place], [address], 09/13/2021 14:15:26 09/14/19 22 09/13/2021 COMPR EHENS NADIA METAB OLIC PANL sodium 143 mmol/ L (133-1 45) Not Available [facility] [address] [place], [address], 09/13/2021 14:15:26 09/14/19 22 09/13/2021 COMPR EHENS NADIA METAB OLIC PANL potassium 3.8 mmol/ L (3.6-5 .2) Not Available [facility] [address] [place], [address], 09/13/2021 14:15:26 09/14/19 22 09/13/2021 COMPR EHENS NADIA METAB OLIC PANL chloride 106 mmol/ L (98-10 7) Not Available [facility] [address] [place], [address], 09/13/2021 14:15:26 09/14/19 22 09/13/2021 COMPR EHENS NADIA METAB OLIC PANL bicarbonate 27 mmol/ L (22-29 ) Not Available [facility] [address] [place], [address], 09/13/2021 14:15:26 09/14/19 22 09/13/2021 COMPR EHENS NADIA METAB OLIC PANL anion gap 10 (4-17) Not Available [facility] [address] [place], [address], 09/13/2021 14:15:26 09/14/19 22 09/13/2021 COMPR EHENS NADIA METAB OLIC PANL albumin 4.9 gm/dL (3.4-4 .8) high Not Available [facility] [address] [place], [address], 09/13/2021 14:15:26 09/14/19 22 09/13/2021 COMPR EHENS NADIA METAB OLIC PANL calcium 9.5 mg/dL (8.6-1 0.5) Not Available [facility] [address] [place], [address], 09/13/2021 14:15:26 09/14/19 22 09/13/2021 COMPR EHENS NADIA METAB OLIC PANL bilirubin,to hiram 0.4 mg/dL (0-1.2 ) Not Available [facility] [address] [place], [address], 09/13/2021 14:15:26 09/14/19 22 09/13/2021 COMPR EHENS NADIA METAB OLIC PANL total protein 6.7 gm/dL (6.2-8 .2) Not Available [facility] [address] [place], [address], 09/13/2021 14:15:26 09/14/19 22 09/13/2021 COMPR EHENS NADIA METAB OLIC PANL Ag ratio 2.7 Not Available [facility] [address] [place], [address], 09/13/2021 14:15:26 09/14/19 22 09/13/2021 COMPR EHENS NADIA METAB OLIC PANL AST 18 U/L (0-32) Not Available [facility] [address] [place], [address], 09/13/2021 14:15:26 09/14/19 22 09/13/2021 COMPR EHENS NADIA METAB OLIC PANL alk phos 119 U/L (35-10 4) high Not Available [facility] [address] [place], [address], 09/13/2021 14:15:26 09/14/19 22 09/13/2021 COMPR EHENS NADIA METAB OLIC PANL ALT 14 U/L (0-33) Not Available [facility] [address] [place], [address], 09/13/2021 14:15:26 09/14/19 22 09/13/2021 COMPR EHENS NADIA METAB OLIC PANL estimated GFR creatinine 72 mL/mi n/1.7 3_M2 Creat inine based estim ated glome rular filtr ation (eGFR ) in adult s is calcu lated using the Natio nal Kidne y Found ation recom gloria d 2020 CKD-E PI equat ion. Estim ates GFR from serum creat inine , age and sex. Not Available [facility] [address] [place], [address], 09/13/2021 14:15:26 09/14/19 22 09/13/2021 IRON & TIBC iron 61 mcg/d L (30-16 0) Not Available [facility] [address] [place], [address], 09/13/2021 14:15:29 09/14/19 22 09/13/2021 IRON & TIBC unsaturated iron binding capac 193 mcg/d L (110-3 70) Not Available [facility] [address] [place], [address], 09/13/2021 14:15:29 09/14/19 22 09/13/2021 IRON & TIBC est T. iron bind capacity 254 mcg/d L (140-5 30) Not Available [facility] [address] [place], [address], 09/13/2021 14:15:29 09/14/19 22 09/13/2021 IRON & TIBC % iron saturation 24 % (20-55 ) Not Available [facility] [address] [place], [address], 09/13/2021 14:15:29 09/14/19 22 09/13/2021 LIPID PANEL cholesterol, total 169 mg/dL (<200) Not Available [facility] [address] [place], [address], 09/13/2021 14:15:30 09/14/19 22 09/13/2021 LIPID PANEL triglyceride 149 mg/dL (<150) Not Available [facility] [address] [place], [address], 09/13/2021 14:15:30 09/14/19 22 09/13/2021 LIPID PANEL HDL chol 38 mg/dL (>39) low Not Available [facility] [address] [place], [address], 09/13/2021 14:15:30 09/14/19 22 09/13/2021 LIPID PANEL LDL cholesterol, calculated 101 mg/dL (0-130 ) Not Available [facility] [address] [place], [address], 09/13/2021 14:15:30 09/14/19 22 09/13/2021 LIPID PANEL non HDL cholesterol (calc) 131 mg/dL (<160) Not Available [facility] [address] [place], [address], 09/13/2021 14:15:30 09/14/19 22 09/13/2021 TSH TSH 2.08 uIU/m L (0.4-4 .2) Not Available [facility] [address] [place], [address], 09/13/2021 14:27:47 09/14/19 22 09/13/2021 25OH VITAM IN D 25OH vitamin D 26.5 NG/mL (20-50 ) Not Available [facility] [address] [place], [address], 09/13/2021 14:27:48 09/14/19 22 09/14/2021 SJOGR ENS ANTIB ODIES anti-ssa (RO) Ab 0.2 Refer ence range : 0.0 to 0.9 Unit: AI Not Available [facility] [address] [place], [address], 09/14/2021 11:06:36 09/14/19 22 09/14/2021 SJOGR ENS ANTIB ODIES anti-ssb (la) Ab <0.2 Refer ence range : 0.0 to 0.9 Unit: AI Test perfo rmed by [facility], [address], [place] [address] Not Available [facility] [address] [place], [address], 09/14/2021 11:06:36 09/14/19 22 09/15/2021 VARIC THONG IGG ANTIB FREDDIE varicella IgG antibody EQUIV OCAL Consi silvia repea t testi ng on a fresh speci men in a recom gloria d inter shira of 2 to 3 weeks . Patie nts with a repea t equiv ocal resul t shoul d be consi dered susce ptibl e unles s they have other evide nce of immun ity or subse quent testi ng indic ates immun ity. This test was perfo rmed by the [employer] VIDAS 3 immun oassa y syste m. Not Available [facility] [address] [place], [address], 09/15/2021 14:59:11 08/05/19 23 08/04/2022 COMPR EHENS NADIA METAB OLIC PANL glucose 96 mg/dL (70-99 ) Not Available [facility] [address] [place], [address], 08/04/2022 14:37:21 08/05/19 23 08/04/2022 COMPR EHENS NADIA METAB OLIC PANL BUN 16 mg/dL (8-23) Not Available [facility] [address] [place], [address], 08/04/2022 14:37:21 08/05/19 23 08/04/2022 COMPR EHENS NADIA METAB OLIC PANL creatinine 1.0 mg/dL (0.5-1 .0) Not Available [facility] [address] [place], [address], 08/04/2022 14:37:21 08/05/19 23 08/04/2022 COMPR EHENS NADIA METAB OLIC PANL sodium 145 mmol/ L (133-1 45) Not Available [facility] [address] [place], [address], 08/04/2022 14:37:21 08/05/19 23 08/04/2022 COMPR EHENS NADIA METAB OLIC PANL potassium 4.0 mmol/ L (3.6-5 .2) Not Available [facility] [address] [place], [address], 08/04/2022 14:37:21 08/05/19 23 08/04/2022 COMPR EHENS NADIA METAB OLIC PANL chloride 106 mmol/ L (98-10 7) Not Available [facility] [address] [place], [address], 08/04/2022 14:37:21 08/05/19 23 08/04/2022 COMPR EHENS NADIA METAB OLIC PANL bicarbonate 28 mmol/ L (22-29 ) Not Available [facility] [address] [place], [address], 08/04/2022 14:37:21 08/05/19 23 08/04/2022 COMPR EHENS NADIA METAB OLIC PANL anion gap 11 (4-17) Not Available [facility] [address] [place], [address], 08/04/2022 14:37:21 08/05/19 23 08/04/2022 COMPR EHENS NADIA METAB OLIC PANL albumin 4.8 gm/dL (3.4-4 .8) Not Available [facility] [address] [place], [address], 08/04/2022 14:37:21 08/05/19 23 08/04/2022 COMPR EHENS NADIA METAB OLIC PANL calcium 9.6 mg/dL (8.6-1 0.5) Not Available [facility] [address] [place], [address], 08/04/2022 14:37:21 08/05/19 23 08/04/2022 COMPR EHENS NADIA METAB OLIC PANL bilirubin,to hiram 0.4 mg/dL (0-1.2 ) Not Available [facility] [address] [place], [address], 08/04/2022 14:37:21 08/05/19 23 08/04/2022 COMPR EHENS NADIA METAB OLIC PANL total protein 6.7 gm/dL (6.2-8 .2) Not Available [facility] [address] [place], [address], 08/04/2022 14:37:21 08/05/19 23 08/04/2022 COMPR EHENS NADIA METAB OLIC PANL Ag ratio 2.5 Not Available [facility] [address] [place], [address], 08/04/2022 14:37:21 08/05/19 23 08/04/2022 COMPR EHENS NADIA METAB OLIC PANL AST 19 U/L (0-32) Not Available [facility] [address] [place], [address], 08/04/2022 14:37:21 08/05/19 23 08/04/2022 COMPR EHENS NADIA METAB OLIC PANL alk phos 98 U/L (35-10 4) Not Available [facility] [address] [place], [address], 08/04/2022 14:37:21 08/05/19 23 08/04/2022 COMPR EHENS NADIA METAB OLIC PANL ALT 17 U/L (0-33) Not Available [facility] [address] [place], [address], 08/04/2022 14:37:21 08/05/19 23 08/04/2022 COMPR EHENS NADIA METAB OLIC PANL estimated GFR creatinine 65 mL/mi n/1.7 3_M2 Creat inine based estim ated glome rular filtr ation (eGFR ) in adult s is calcu lated using the Natio nal Kidne y Found ation recom gloria d 2020 CKD-E PI equat ion. Estim ates GFR from serum creat inine , age and sex. Not Available [facility] [address] [place], [address], 08/04/2022 14:37:21 08/05/19 23 08/04/2022 GGTP ggtp 17 U/L (5-36) Not Available [facility] [address] [place], [address], 08/04/2022 14:37:23 08/05/19 23 08/04/2022 LIPID PANEL cholesterol, total 168 mg/dL (<200) Not Available [facility] [address] [place], [address], 08/04/2022 14:37:24 08/05/19 23 08/04/2022 LIPID PANEL triglyceride 147 mg/dL (<150) Not Available [facility] [address] [place], [address], 08/04/2022 14:37:24 08/05/19 23 08/04/2022 LIPID PANEL HDL chol 39 mg/dL (>39) low Not Available [facility] [address] [place], [address], 08/04/2022 14:37:24 08/05/19 23 08/04/2022 LIPID PANEL LDL cholesterol, calculated 100 mg/dL (0-130 ) Not Available [facility] [address] [place], [address], 08/04/2022 14:37:24 08/05/19 23 08/04/2022 LIPID PANEL non HDL cholesterol (calc) 129 mg/dL (<160) Not Available [facility] [address] [place], [address], 08/04/2022 14:37:24 08/05/19 23 08/04/2022 25OH VITAM IN D 25OH vitamin D 20.5 NG/mL (20-50 ) Not Available [facility] [address] [place], [address], 08/04/2022 16:51:29 01/12/20 24 01/13/2024 COMP. METAB OLIC PANEL (14) glucose 98 mg/dL 70-99 normal Not Available [facility] ([facility]) [address], [place], [address], 01/13/2024 06:08:08 01/12/20 24 01/13/2024 COMP. METAB OLIC PANEL (14) BUN 14 mg/dL 8-27 normal Not Available [facility] ([facility]) [address] [place], [address], 01/13/2024 06:08:08 01/12/20 24 01/13/2024 COMP. METAB OLIC PANEL (14) creatinine 0.90 mg/dL 0.57-1 .00 normal Not Available [facility] ([facility]) [address] [place], [address], 01/13/2024 06:08:08 01/12/20 24 01/13/2024 COMP. METAB OLIC PANEL (14) eGFR 72 mL/mi n/1.7 3 >59 normal Not Available [facility] ([facility]) [address] [place], [address], 01/13/2024 06:08:08 01/12/20 24 01/13/2024 COMP. METAB OLIC PANEL (14) BUN/creatini ne ratio 16 12-28 normal Not Available [facility] ([facility]) [address] [place], [address], 01/13/2024 06:08:08 01/12/20 24 01/13/2024 COMP. METAB OLIC PANEL (14) sodium 145 mmol/ L 134-14 4 above high normal Not Available [facility] ([facility]) [address] [place], [address], 01/13/2024 06:08:08 01/12/20 24 01/13/2024 COMP. METAB OLIC PANEL (14) potassium 3.8 mmol/ L 3.5-5. 2 normal Not Available [facility] ([facility]) [address] [place], [address], 01/13/2024 06:08:08 01/12/20 24 01/13/2024 COMP. METAB OLIC PANEL (14) chloride 107 mmol/ L 96-106 above high normal Not Available [facility] ([facility]) [address] [place], [address], 01/13/2024 06:08:08 01/12/20 24 01/13/2024 COMP. METAB OLIC PANEL (14) carbon dioxide, total 24 mmol/ L 20-29 normal Not Available [facility] ([facility]) [address] [place], [address], 01/13/2024 06:08:08 01/12/20 24 01/13/2024 COMP. METAB OLIC PANEL (14) calcium 9.2 mg/dL 8.7-10 .3 normal Not Available [facility] ([facility]) [address] [place], [address], 01/13/2024 06:08:08 01/12/20 24 01/13/2024 COMP. METAB OLIC PANEL (14) protein, total 6.7 g/dL 6.0-8. 5 normal Not Available [facility] ([facility]) [address] [place], [address], 01/13/2024 06:08:08 01/12/20 24 01/13/2024 COMP. METAB OLIC PANEL (14) albumin 4.2 g/dL 3.9-4. 9 normal Not Available [facility] ([facility]) [address] [place], [address], 01/13/2024 06:08:08 01/12/20 24 01/13/2024 COMP. METAB OLIC PANEL (14) globulin, total 2.5 g/dL 1.5-4. 5 Not Available [facility] ([facility]) [address] [place], [address], 01/13/2024 06:08:08 01/12/20 24 01/13/2024 COMP. METAB OLIC PANEL (14) bilirubin, total 0.5 mg/dL 0.0-1. 2 normal Not Available [facility] ([facility]) [address] [place], [address], 01/13/2024 06:08:08 01/12/20 24 01/13/2024 COMP. METAB OLIC PANEL (14) alkaline phosphatase 111 IU/L 44-121 normal Not Available [facility] [address] [place], [address], 01/13/2024 06:08:08 01/12/20 24 01/13/2024 COMP. METAB OLIC PANEL (14) AST (SGOT) 24 IU/L 0-40 normal Not Available [facility] ([facility]) [address] [place], [address], 01/13/2024 06:08:08 01/12/20 24 01/13/2024 COMP. METAB OLIC PANEL (14) ALT (SGPT) 16 IU/L 0-32 normal Not Available [facility] ([facility]) [address] [place], [address], 01/13/2024 06:08:08 01/12/20 24 01/13/2024 LIPID PANEL cholesterol, total 150 mg/dL 100-19 9 normal Not Available [facility] ([facility]) [address] [place], [address], 01/13/2024 06:08:10 01/12/20 24 01/13/2024 LIPID PANEL triglyceride s 151 mg/dL 0-149 above high normal Not Available [facility] ([facility]) [address] [place], [address], 01/13/2024 06:08:10 01/12/20 24 01/13/2024 LIPID PANEL HDL cholesterol 37 mg/dL >39 below low normal Not Available [facility] ([facility]) [address] [place], [address], 01/13/2024 06:08:10 01/12/20 24 01/13/2024 LIPID PANEL VLDL cholesterol genna 27 mg/dL 5-40 Not Available [facility] ([facility]) [address] [place], [address], 01/13/2024 06:08:10 01/12/20 24 01/13/2024 LIPID PANEL LDL chol calc ([facility]) 86 mg/dL 0-99 Not Available [facility] ([facility]) [address] [place], [address], 01/13/2024 06:08:10 01/12/20 24 01/13/2024 LIPID PANEL LDL calc 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: 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 The Endoc rine Socie ty went on to furth er defin e vitam in D insuf ficie ncy as a level betwe en 21 and 29 ng/mL (2). 1. IOM (Inst itute of Medic ine). 2010. Dieta ry refer ence intminna es for calci um and D. Ricardo bah [place]: [facility] . 2. Holic k MF, Binkl ey [place], Bisch off-F errar i MELGAR, et al. Evalu ation , treat ment, and preve ntion of vitam in D defic iency : an Endoc rine Socie ty clini genna pract ice guide line. JCEM. 2010; 96(7) :1911 -30. Not Available [facility] ([facility]) [address], [place], [address], 01/13/2024 06:08:14 03/15/19 21 03/15/2020 elect sofya chowdhury am No observ ation record ed. LINDEN In-Office Order Internal Use Only DO Not Attach Compendium DO Not Attach Compendium, Do Not Delete/merge, [id number] 03/16/2020 20:45:16 04/02/19 21 04/02/2020 US, echoc ardio gram, trans thora cic, compl ete No observ ation record ed. [facility] [address] [place], [address], 04/03/2020 20:32:45 08/23/19 21 exerc ise stres s test No observ ation record ed. [facility] (Outt Non-Invasive Cardiology Scheduling) [address] [place], [address], 07/25/2021 14:45:21 02/01/20 21 01/31/2021 MAMMO , scree deana, digit al, bilat eral PROCED URE: MM Digita l Mammo Screen ing INDICA TION: Screen ing. No known palpab le abnorm alitie s. COMPAR ROZ: 2019 TECHNI QUE: Full-f ield digita l CC and MLO views of both breast s were obtain ed. In additi on, 3D tomosy nthesi s images of both breast s were acquir ed. Comput er-aid ed detect ion (CAD) was utiliz ed in the interp retati on of this study. DENSIT Y: The breast tissue is hetero geneou sly dense, which may obscur e masses . FINDIN GS: No suspic ious masses , suspic ious microc alcifi cation s, or areas of anca ectura l distor tion are seen in either breast to sugges t malign yogi. Bilate ral well-d efined breast asymme tries with calcif icatio ns appear stable . IMPRES KEVIN: No mammog raphic eviden ce of malign yogi. RECOMM ENDATI ON: Annual mammog raphic screen ing. BI-RAD S: BI-RAD S 2-josey gn Lay letter mailed to bryan paez WSN: [id number] Orderi ng Physic evelyn: Carmelo Vogel Dictat ed By: Reji Hwang MD Dictat ed Date/T elias: 2:09 pm Review ed By: Reji Hwang MD Signed By: Reji Hwang MD Signed Date/T elias: 2:09 pm Transc ribed By: CSB Transc riptio n Date/T elias: 2:08 pm Birads : Bryan paez Class: [facility]pat [facility] (Outpt [facility]) [address] [place], [address], 07/25/2021 14:45:21 02/12/19 22 01/31/2021 DEXA, axial skele ton ====== ====== ====== ====== ====== ====== ====== ====== ====== ====== ===== Bone Densit y Report ====== ====== ====== ====== ====== ====== ====== ====== ====== ====== ===== Name: NAFISA AGUILAR t ID: [id number] Age: 60 Sex: Female Ethnic ity: White Date of : 1960 ------ ------ ------ ------ ------ ------ ------ ------ ------ ------ ----- Indica tion: ALMA PUCKETT Referr ing [facility] er: CAPRICE NUNEZ MD, CARMELO Study: Bone densit ometry was perfor med. Exam Date: [facility] er 2020 Access ion number : [id number] Bone Densit y: ------ ------ ------ ------ ------ ------ ------ ------ ------ ------ ----- Region BMD T-scor e Z-scor e Classi ficati on ------ ------ ------ ------ ------ ------ ------ ------ ------ ------ ----- AP Spine (L1-L4 ) 1.072 0.2 1.6 Normal Femora l Neck (Left) 0.687 -1.5 -0.2 Osteop enia Total Hip (Left) 0.943 0.0 0.9 Normal ------ ------ ------ ------ ------ ------ ------ ------ ------ ------ ----- World Health Organi zation criter ia for BMD impres kevin classi edilia simental ts as: Normal (T-sco re at or above -1.0), Osteop enia (T-sco re betwee n -1.0 and -2.5), or Osteop orosis (T-sco re at or below -2.5). 10-yea r Fractu re Risk(1 ): ------ ------ ------ ------ ------ ------ ------ ------ ------ ------ ----- Major Osteop orotic Fractu re 12% Hip Fractu re 1.1% ------ ------ ------ ------ ------ ------ ------ ------ ------ ------ ----- Report ed Risk Factor s: US (Ghislaine frank), Neck BMD=0. 687, BMI=28 .3, glucoc ortico ids (1) FRAX(R ) Amrik n 3.08. Fractu re probab ility calcul ated for an untrea yunier bryan paez. Fractu re probab ility may be lower if the patien t has receiv ed treatm ent. Previo us Exams: ------ ------ ------ ------ ------ ------ ------ ------ ------ ------ ----- Region Exam Age BMD T-scor e BMD Change BMD Change Date g/cm2 vs Baseli ne vs Previo us ------ ------ ------ ------ ------ ------ ------ ------ ------ ------ ----- AP Spine( L1-L4) 2020 60 1.072 0.2 -0.085 (-7.4% )* -0.085 (-7.4% )* 2018 58 1.157 1.0 Total Hip(Le ft) 2020 60 0.943 0.0 -0.014 (-1.5% ) -0.014 (-1.5% ) 2018 58 0.957 0.1 Femora l Neck(L eft) 2020 60 0.687 -1.5 -0.040 (-5.5% )* -0.040 (-5.5% )* 2018 58 0.727 -1.1 ------ ------ ------ ------ ------ ------ ------ ------ ------ ------ ----- *Roman zamora signif icance at 95% confid ence level, LSC for AP Spine = 0.022 g/cm2, LSC for Total Hip = 0.027 g/cm2 [facility]: ------ ------ ------ ------ ------ ------ ------ ------ ------ ------ ----- Has taken Glucoc ortico ids Has used the follow ing medica tions: Aye Gómez Has the follow ing medica l condit ions: Asthma or Emphys renetta, Hyster ectomy Bryan ordazu m height was 65.0 Menopa use Age: 54 Onset of menses at age 13 Number of childr en 2 ------ ------ ------ ------ ------ ------ ------ ------ ------ ------ ----- Impres kevin: The bryan paez has osteop enia as determ ined by WHO criter ia. Report ed by: Katy Arreaga M.D. on 2021 6:21:0 0 PM. Dictat ed By: Katy Arreaga MD P Dictat ed Date/T elias: 6:22 pm Review ed By: Katy Arreaga MD Signed By: Katy Arreaga MD Signed Date/T elias: 6:22 pm Transc ribed By: BETH Transc ribed Date/T elias: 6:22 pm Patien t Class: Outpat ient [facility] (Outpt Imaging) [address] [place] [address], [id number], 07/25/2021 14:45:21 07/26/19 22 07/25/2021 XR, chest , 2 view Chest 2 Views Fronta l and Lat Reason : follow up left upper lung abnorm ality COMPAR ROZ: 021. FINDIN GS: LINES AND TUBES: None. LUNGS AND PLEURA : Mildly hypere xpande d, mild biapic al pleura l parenc hymal scarri ng. No pleura l effusi on. No pneumo thorax . HEART, MEDIAS TINUM AND MEGHA: Heart is normal in size. Normal upper medias tinal and hilar contou r. BONES AND SOFT TISSUE S: No acute abnorm ality. IMPRES KEVIN: No acute abnorm ality. WSN: [id number] Orderi ng Physic evelyn: Caprice nunezCarmelo Patien t Class: Outpat ient [facility] (Outpt Imaging) [address] [place] [address], [id number], 08/13/2022 21:06:27 02/13/19 24 02/13/2023 MAMMO , scree deana, digit al, bilat eral PROCED URE: MM Digita l Mammo Screen ing INDICA TION: Screen ing for breast cancer . No known palpab le abnorm alitie s. COMPAR ROZ: Priors , most recent dated 2020 TECHNI QUE: Full-f ield digita l CC and MLO 3D tomosy nthesi s images of both breast s were acquir ed. Comput er-aid ed detect ion (CAD) was utiliz ed in the interp retati on of this study. DENSIT Y: The breast tissue is hetero geneou sly dense, which may obscur e masses . FINDIN GS: No suspic ious masses , suspic ious microc alcifi cation s, or areas of anca ectura l distor tion are seen in either breast to sugges t malign yogi. Bilate ral well-d efined simila r appear ing circum scribe d masses , some of which are calcif ied, stable . IMPRES KEVIN: No mammog raphic eviden ce of malign yogi. RECOMM ENDATI ON: Routin e mammog raphic screen ing BI-RAD S: 2 (Benig n) Lay letter mailed to bryan paez WSN: [id number] Orderi ng Physic evelyn: Carmelo Vogel Dictat ed By: Joyce Newsome MD Dictat ed Date/T elias: 5:10 pm Review ed By: Joyce Newsome MD Signed By: Joyce Newsome MD Signed Date/T elias: 5:10 pm Transc ribed By: CSB Transc riptio n Date/T elias: 5:06 pm Birads : Jessicasami t Class: Outpat ient [facility] (Outpt Imaging) [address], [place], [address], 08/17/2023 10:17:59 02/13/19 24 02/13/2023 MAMMO , scree deana, bilat eral No observ ation record ed. [facility] [address], [place], [address], 08/17/2023 10:17:59 02/18/19 24 02/13/2023 DEXA, axial skele ton Name:Delvis paez ID: [id number] Age:62 years Sex:Fe male Ethnic ity:Wh ite Date of : 9[birth year] Reason : M85.88 M85.80 OSTEOP ENIA; Clinic al Questi on(s): Other: Referr ing Provid er:Erika nunez Study: Dexa Bone Densit y (Axial ) Bone Densit y: Region BMD T-Scor e Z-Scor e Classi ficati on AP Spine 1.097 0.5 2.0 Normal TOTAL HIP 0.942 0.0 1.0 Normal FEM NECK 0.708 -1.3 0.1 Osteop enia 10-yea r Fractu re Risk: 1 FRAX(R ) Versio n 3.08. Fractu re probab ility calcul ated for an untrea yunier patien t. Fractu re probab ility may be lower if the patien t has receiv ed treatm ent. Major Osteop orotic Fractu re 12% Hip Fractu re 1.0% RATE OF CHANGE (SPINE ): BMD values have increa sed 2.3% from previo us BMD values have decrea sed 5.2% from baseli ne RATE OF CHANGE (TOTAL HIP): BMD values have decrea sed 0.1% from previo us BMD values have decrea sed 1.6% from baseli ne RATE OF CHANGE (FEMOR AL NECK): BMD values have increa sed 3.0% from previo us BMD values have decrea sed 2.6% from baseli ne Impres kevin: The patien t has osteop enia as determ ined by WHO criter ia. WSN: [id number] Orderi Physic evelyn: Carmelo Vogel Dictaraceli ed By: Katy Arreaga MD Dictat ed Date/T elias: 12:35 p Review ed By: Katy Arreaga MD Signed By: Katy Arreaga MD Signed Date/T elias: 12:35 pm Transc ribed By: BETH Transc ribed Date/T elias: 12:33 pm Patien t Class: Outpat ient [facility] (Outpt Imaging) [address] [facility], [place], [address], 08/17/2023 10:17:59 Result Notes None recorded. Problems Name Problem SNOMED Code Status Onset Date Resolution Date Notes Provider Name and Address Organization Details Recorded Time Generali zed anxiety disorder 19324731 Active 2016 Carmelo Lau MD [address], [place], [address], [facility] 7 14:26:40 Uterine prolapse 34348978 Completed 201607/08/2017 Carmelo Lau MD [address], [place], [address], [facility] 8 15:39:51 Mild intermit tent asthma 333502228 Active 2016 Carmelo Lau MD [address], [place], [address], [facility] 7 14:28:22 Alopecia 09142606 Active 2016 Carmelo Lau MD [address], [place], [address], [facility] 7 14:28:27 Raynaud' s disease 415156219 Active 2016 Carmelo Lau MD [address], [place], [address], [facility] 7 14:51:43 Raised antinucl ear antibody 118463418 Completed 201607/08/2017 negative rheum eval 2012 Carmelo Lau MD [address], [place], [address], [facility] 8 15:39:44 Hypercho lesterol emia 93184598 Active 2015 Carmelo Lau MD [address], [place], [address], [facility] 7 08:36:54 Cystocel e 017022368 Completed 201607/08/2017 Carmelo Lau MD [address], [place], [address], [facility] 8 15:39:31 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 682394635 Completed 201607/08/2017 Carmelo Lau MD [address], [place], [address], [facility] 8 15:39:28 History of stress incontin ence 488126476 Active 2016 Carmelo Lau MD [address], [place], [address], [facility] 7 12:27:10 Female stress incontin ence 51362781 Completed 201607/08/2017 Carmelo Lau MD [address], [place], [address], [facility] 8 15:39:24 Increase d frequenc y of urinatio n 703262520 Completed 201607/08/2017 Carmelo Lau MD [address], [place], [address], [facility] 8 15:39:20 Psoriasi s 6609926 Active 2017 Carmelo Lau MD [address], [place], [address], [facility] 8 15:30:19 Hypernat remia Completed 201707/13/2018 Carmelo Lau MD [address], [place], [address], [facility] 9 13:23:42 Elevated blood-pr essure reading without diagnosi s of hyperten kevin 094565259 Completed 201701/07/2018 Carmelo Lau MD [address], [place], [address], [facility] 8 15:33:37 Body mass index 25-29 - overweig ht 604386680 Completed 201807/19/2019 Carmelo Lau MD [address], [place], [address], [facility] 0 09:54:18 History of tobacco use 37805452307 03 Active 2018 Carmelo Lau MD [address], [place], [address], [facility] 9 13:45:16 Herpes labialis 3042735 Active 2018 Carmelo Lau MD [address], [place], [address], [facility] 9 13:55:11 Hypercal cemia 01371904 Completed 201809/07/2019 Carmelo Lau MD [address], [place], [address], [facility] 0 08:45:04 Osteopen ia 604506538 Active 2018 Carmelo Lau MD [address], [place], [address], [facility] 9 06:46:53 History of total hysterec kyler 547830227 Active 2019 Carmelo Lau MD [address], [place], [address], [facility] 0 09:24:26 Insomnia 866344323 Active 2019 Carmelo Lau MD [address], [place], [address], [facility] 0 09:26:26 Body mass index 25-29 - overweig ht 238688473 Active 2019 Carmelo Lau MD [address], [place], [address], [facility] 0 09:54:18 Posttrau matic stress disorder 45947426 Active 2019 Carmelo Lau MD [address], [place], [address], [facility] 0 09:59:34 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 869917159 Active 2019 Carmelo Lau MD [address], [place], [address], [facility] 0 21:02:23 Alkaline phosphat ase above referenc e range 394806610 Completed 202108/06/2022 Carmelo Lau MD [address], [place], [address], [facility] 3 21:09:37 Alkaline phosphat ase above referenc e range 759397686 Completed 202208/13/2022 Carmelo Lau MD [address], [place], [address], [facility] 3 21:09:37 Vitamin D deficien cy 83915057 Active 2023 Carmelo Lau MD [address], [place], [address], [facility] 4 10:07:13 Problem Notes None recorded. Procedures Surgical History Date Name Laterality Status Provider Name and Address Organization Details Recorded Time 024 Most Recent Bone Density completed Noni Reese MA [facility] 08/17/2023 09:26:00 024 Most Recent Mammogram completed Noni Reese MA [facility] 08/17/2023 09:37:01 024 Mammogram screening completed Omayra Alejandro [facility] 02/14/2023 09:03:22 024 Dxa bone density abdirizak vrt fx completed Noni Eduard [place], [place] [facility] 08/17/2023 09:37:49 023 Date of Last Colonoscopy completed Noni Reese MA [facility] 08/17/2023 09:30:22 023 Colonoscopy completed Carmelo Lau MD [address] [address], [place], [address], [facility] 12/22/2022 05:54:42 021 Echo transthoracic completed Carmelo Lau MD [address] [address], [place], [address], [facility] 11/14/2020 08:11:01 021 electrocardiogram with exercise test completed Carmelo Lau MD [address] [address], [place], [address], [facility] 08/23/2020 21:02:05 019 Dxa bone density abdirizak vrt fx completed Mignon Walker MA [facility] 07/19/2019 09:00:31 017 Hysterectomy completed Mignon Walker MA [facility] 07/19/2019 08:56:20 017 Hysterectomy/revise vagina completed Carmelo Lau MD [address], [address], [facility] 07/13/2018 13:30:10 014 Date of Last Pap Smear completed Aislinn ny [facility] 07/31/2018 10:31:15 989 Breast Surgery completed Carmelo Lau MD [address], [address], [facility] 07/13/2018 13:28:56 Breast Biopsy completed Mignon Walker [facility] 07/25/2021 13:41:31 Imaging Results Imaging Date Name Status LastModified by Organization Details LastModified Time 03/15/2020 electrocardiogram completed LINDEN In-Offi ce Order Internal Use Only DO Not Attach Compendium DO Not Attach Compendium, Do Not Delete/merge, [address] 03/16/2020 20:45:16 04/02/2020 US, echocardiogram, transthoracic, complete completed [facility] [address], [place], [address], 04/03/2020 20:32:45 08/22/2020 exercise stress test completed [facility] (Outt Non-Invasive Cardiology Scheduling) [address], [place], [address], 07/25/2021 14:45:21 01/31/2021 MAMMO, screening, digital, bilateral completed [facility] (Outpt Imaging) [address] [place], [address], 07/25/2021 14:45:21 01/31/2021 DEXA, axial skeleton completed [facility] (Outpt Imaging) [address] [place], [address], 07/25/2021 14:45:21 07/25/2021 XR, chest, 2 view completed [facility] (Outpt Imaging) [address] , [place], [address], 08/13/2022 21:06:27 02/13/2023 MAMMO, screening, digital, bilateral completed [facility] (Outpt Imaging) [address] [place], [address], 08/17/2023 10:17:59 02/13/2023 MAMMO, screening, bilateral completed [facility] [address], [place], [address], 08/17/2023 10:17:59 02/13/2023 DEXA, axial skeleton completed [facility] (Outpt Imaging) [address] [place], [address], 08/17/2023 10:17:59 Procedure Notes None recorded. Medical Equipment None Reported. Allergies Allergen ID Allergen Name Allergen Category Reaction Reaction Severity Criticality Documentation Date Start Date Code Code System Note Provider Name and Address Organization Details Recorded Time 19317 Erythroci n medicatio n rash Not available Not available 07/02/2016 39595 3 RxNorm ANGELA Layton [facility] 7 14:03:13 65944 Substance with sulfonami de structure and antibacte rial mechanism of action (substanc e) medicatio n rash Not available Not available 07/02/2016 16866 8003 SNOMED ANGELA Layton [facility] 7 14:03:29 16271 cheese food abdominal pain diarrhea Not available Not available Not available 07/31/2018 98436 UNK ricot ta chees e Aislinn ANGELA Rapp, [facility] 9 10:46:51 81716 guaifenes in medicatio n rash Not available low 08/17/2023 5032 RxNorm Carmelo Lau MD [address], [place], [address] [facility] 4 10:02:26 Medications Name Sig Start Date Stop Date Status Note LastModified by Organization Details LastModified Time amoxicillin 500 mg capsule 07/08 completed Not Available Not Available Not Available atorvastati n 20 mg tablet TAKE ONE TABLET BY MOUTH EVERY DAY 2023 active Not Available Not Available Not Avai lable trazodone 50 mg tablet Take by oral route for 30 days. 07/02 completed Not Available Not Available Not Available benzonatate 200 mg capsule 07/08 completed Not Available Not Available Not Available valacyclovi r 1 gram tablet TAKE 2 TABLETS BY MOUTH EVERY 12 HOURS FOR 1 DAY 2024 active Not Available Not Available Not Avai lable prednisone 20 mg tablet TAKE ONE TABLET BY MOUTH EVERY DAY FOR 5 DAYS 08/16 completed Not Available Not Available Not Available alendronate 70 mg tablet Take 1 tablet every week by oral route as directed for 84 days. 11/20 completed Not Available Not Available Not Available clonazepam 0.5 mg tablet TAKE ONE TO TWO TABLETS BY MOUTH 30 MINUTES BEFORE BEDTIME active Not Available Not Available No t Available betamethaso ne, augmented 0.05 % topical cream Apply 1 applicati on every day by topical route as needed for 30 days. 2020 active Not Available Not Available Not Avai lable sertraline 100 mg tablet TAKE ONE AND ONE-HALF TABLETS BY MOUTH EVERY DAY active Not Available Not Available No t Available clobetasol 0.05 % topical gel 07/08 completed Not Available Not Available Not Available propranolol 10 mg tablet TAKE ONE TABLET BY MOUTH EVERY DAY NEEDED FOR ANXIETY active Not Available Not Available No t Available lorazepam 0.5 mg tablet Take 1 tablet every day by oral route as directed for 30 days. 07/13 completed Not Available Not Available Not Available benzonatate 100 mg capsule TAKE ONE CAPSULE BY MOUTH THREE TIMES A DAY NEEDED FOR COUGH FOR 10 DAYS 08/16 completed Not Available Not Available Not Available Pepto-Bismo l 262 mg tablet Take 2 tablets 4 times a day by oral route. 07/18 completed Not Available Not Available Not Available gabapentin 300 mg capsule 07/02 completed Not Available Not Available Not Available Varivax (PF) 1,350 unit/0.5 mL subcutaneou s suspension VACCINATI ON ADMINISTE RED BY PHARMACIS T 11/02 completed Not Available Not Available Not Available albuterol sulfate HFA 90 mcg/actuati on aerosol inhaler INHALE TWO PUFFS BY MOUTH TWICE A DAY NEEDED active Not Available Not Available No t Available ondansetron 4 mg disintegrat ing tablet 07/02 completed Not Available Not Available Not Available loratadine 10 mg tablet Take 1 tablet every day by oral route. 03/14 completed Not Available Not Available Not Available Vitamin D3 25 mcg (1,000 unit) capsule Take 1 capsule every day by oral route as directed. 07/08 completed Not Available Not Available Not Available Multivitami n 50 Plus tablet Take 1 tablet every day by oral route. 11/02 completed Not Available Not Available Not Available metoprolol tartrate 25 mg tablet Take 1 tablet twice a day by oral route for 30 days. 07/25 completed Not Available Not Available Not Available mirtazapine 7.5 mg tablet TAKE ONE TABLET BY MOUTH AT BEDTIME NEEDED FOR INSOMNIA 08/16 completed Not Available Not Available Not Available PreviDent 5000 Dry Mouth 1.1 % dental paste Take 1 applicati on twice a day by dental route for 30 days. 11/02 completed Not Available Not Available Not Available GaviLyte-G 236 gram-22.74 gram-6.74 gram-5.86 gram oral solution TAKE 8 OUNCES BY MOUTH DIRECTED FOLLOW PREP INSTRUCTI ONS GIVEN BY YOUR DOCTORS OFFICE 08/16 completed Not Available Not Available Not Available Fluvirin 1939-7346 45 mcg (15 mcg x 3)/0.5 mL intramuscul ar suspension 07/02 completed Not Available Not Available Not Available Flucelvax Quad 4096-3341 (PF) 60 mcg (15 mcg x 4)/0.5 mL IM syringe 07/08 completed Not Available Not Available Not Available Flucelvax Quad 6954-8094 (PF) 60 mcg (15 mcg x 4)/0.5 mL IM syringe 01/07 completed Not Available Not Available Not Available Flucelvax Quad (PF) 60 mcg (15 mcg x 4)/0.5 mL IM syringe 07/18 completed Not Available Not Available Not Available Vitals Date Recorded Body height Body mass index (BMI) Body weight Body temperature Oxygen saturation Oxygen saturation in Arterial blood by Pulse oximetry Heart rate Systolic blood pressure Diastolic blood pressure Provider Name and Address Organization Details Last Updated DateTime 1 166.37 cm 28.4 kg/m2 10043.4 8 g 98.24 [degF] 98 % 98 % 68 /min 148 mm[Hg] 75 mm[Hg] Mignon Walker MA [facility] 1 15:27:55 Date Recorded Body height Body mass index (BMI) Body weight Heart rate Oxygen saturation Oxygen saturation in Arterial blood by Pulse oximetry Body temperature Systolic blood pressure Diastolic blood pressure Provider Name and Address Organization Details Last Updated DateTime 1 166.37 cm 28.2 kg/m2 74576.8 9 g 66 /min 98 % 98 % 98.42 [degF] 114 mm[Hg] 70 mm[Hg] Mignon Walker MA [facility] 1 08:35:07 Date Recorded Body height Body mass index (BMI) Body weight Heart rate Oxygen saturation Oxygen saturation in Arterial blood by Pulse oximetry Body temperature Systolic blood pressure Diastolic blood pressure Provider Name and Address Organization Details Last Updated DateTime 2 166.37 cm 27.9 kg/m2 47185.7 g 73 /min 99 % 99 % 98.42 [degF] 125 mm[Hg] 70 mm[Hg] Mignon Walker MA [facility] 2 13:49:44 Date Recorded Body height Body mass index (BMI) Body weight Heart rate Oxygen saturation Oxygen saturation in Arterial blood by Pulse oximetry Body temperature Systolic blood pressure Diastolic blood pressure Provider Name and Address Organization Details Last Updated DateTime 3 166.37 cm 27.1 kg/m2 81826.8 4 g 67 /min 99 % 99 % 98 [degF] 129 mm[Hg] 78 mm[Hg] Noni Eduard [facility] 3 14:57:59 Date Recorded Body height Body mass index (BMI) Body weight Heart rate Oxygen saturation Oxygen saturation in Arterial blood by Pulse oximetry Body temperature Systolic blood pressure Diastolic blood pressure Provider Name and Address Organization Details Last Updated DateTime 4 166.37 cm 27.7 kg/m2 00349.5 1 g 56 /min 99 % 99 % 98 [degF] 125 mm[Hg] 70 mm[Hg] Noni Chapa [facility] 4 09:31:27 Social History Question Answer Notes LastModified by Organizat ion Details LastModified Time Tobacco Smoking Status Former Smoker quit 1994 Mignon Walker MA [facility] 07/02/2016 14:11:11 Do You Have An Advance Directive? Yes HCP/ -Xu Moonr-Chantell caraballo Information not available 07/25/2021 What Is Your Level Of Alcohol Consumption? Occasional Very Rarly Information not available 07/29/2022 Is Blood Transfusion Acceptable In An Emergency? Yes rashmi Information not available 07/02/2016 What Is Your Level Of Caffeine Consumption? Moderate 1 Cup Daily Information not available 07/29/2022 How Much Tobacco Do You Chew? None Information not available 07/08/2017 In The 14 Days Before Symptom Onset, Have You Had Close Contact With A Laboratory-confi rmed COVID-19 While That Case Was Ill? No Information not available 07/25/2021 In The 14 Days Before Symptom Onset, Have You Had Close Contact With A Person Who Is Under Investigation For COVID-19 While That Person Was Ill? No Information not available 07/25/2021 Have You Been To An Area Known To Be High Risk For COVID-19? No Information not available 07/25/2021 Are You Currently Employed? Yes Information not available 07/02/2016 What Type Of Diet Are You Following? REGULAR Information not available 07/02/2016 Which Illicit Or Recreational Drugs Have You Used? None awychowski Information not available 07/02/2016 Do You Or Have You Ever Used E-cigarettes Or Vape? Never Used Electronic Cigarettes Information not available 07/25/2021 What Is Your Occupation? [employer] Information not available 07/08/2017 When Did You Quit Smoking? 17+yearssincelas tcigarette Information not available 07/24/2020 Live Alone Or With Others? With Others (Jesus), 3 Dogs And Cat Information not available 07/29/2022 Do You Take Precautions To Prevent Distracted Driving? Yes Information not available 07/02/2016 How Often Do You Need To Have Someone Help You When You Read Instructions, Pamphlets, Or Other Written Material From Your Doctor Or Pharmacy? Never Information not available 07/02/2016 Have You Served In The ? No Information not available 07/02/2016 Have You Or Anyone In Your Household Had Any Of The Following Symptoms In The Last 14 Days: Sore Throat, Cough, Chills, Body Aches For Unknown Reasons, Shortness Of Breath For Unknown Reasons, Loss Of Smell, Loss Of Taste, Fever At Or Greater Than 100 Degrees Fahrenheit? No Information not available 11/03/2019 Are You Or Anyone In Your Household A Health Care Provider Or Emergency Responder? No Information not available 11/03/2019 To The Best Of Your Knowledge Have You Been In Close Proximity To Any Individual Who Tested Positive For COVID-19? No Information not available 11/03/2019 *AWV ONLY* Are You Presently Prescribed Opioid Medication By PCP Or Specialist? If YES -Provider Assess The Benefit For Other, Non-opioid Pain Therapies Instead, Even If The Patient Does Not Have OUD But Is Possibly At Risk. No Information not available 11/03/2019 Have You Recently Traveled To A COVID-19 High Risk Area Or Gathering In The Last 10 Days? No Information not available 03/15/2020 What Was The Date Of Your Most Recent Tobacco Screening? 08/17/2023 Information not available 08/17/2023 How Many Children Do You Have? 2 Dorinda, 1 Barron [place]) reagan Information not available 08/17/2023 What Is Your Current Pack Years? 20-29packyears Information not available 07/25/2021 Do You Use Your Seat Belt Or Car Seat Routinely? Yes Information not available 07/25/2021 Seat Belts Used Routinely Yes Information not available 07/25/2021 Are You Sexually Active? No Information not available 07/24/2020 Smoke Alarm In Home Yes Information not available 07/25/2021 Do You Have Smoke And Carbon Monoxide Detectors In Your Home? Yes Information not available 07/25/2021 At What Age Did You Start Smoking Tobacco? 14 Information not available 07/02/2016 Are You Passively Exposed To Smoke? No Information not available 07/02/2016 Do You Or Have You Ever Used Smokeless Tobacco? Never Used Smokeless Tobacco Information not available 07/19/2019 How Much Tobacco Do You Smoke? 1 PPD Information not available 07/25/2021 Do You Use Any Illicit Or Recreational Drugs? No Information not available 07/25/2021 Do You Use Sunscreen Routinely? Yes Information not available 07/02/2016 How Many Years Have You Smoked Tobacco? 20 Information not available 07/24/2020 Do You Or Have You Ever Used Any Other Forms Of Tobacco Or Nicotine? No Information not available 07/25/2021 Sex: Unknown Functional Status Question Answer Note LastModified by Organization D etails LastModified Time Are you able to walk? YESWOREST Information not available 07/25/2021 Are you able to care for yourself? Yes Information not available 07/02/2016 What is your exercise level? None Information not available 07/29/2022 Mental Status None recorded. Family History Relationship Description Onset Age of this Age Resolved Age Notes LastModified by Organization Details LastModified Time Brother Heart disease abolcun Not available 2016 14:09:35 Brother Bipolar disorder 56 abolcun Not available 2021 13:41:15 Brother Viral hepatitis C abolcun Not available 07/10 13:41:15 Brother Abdominal aortic aneurysm abolcun Not available 2021 13:41:15 Brother Intracranial hemorrhage abolcun Not available 07/25 13:41:15 Brother Hypercholest erolemia abolcun Not available 2019 08:55:55 Brother Hypertensive disorder abolcun Not available 2019 08:55:55 Brother Substance abuse abolcun Not available 2020 08:29:03 Brother Depressive disorder abolcun Not available 2020 08:29:03 Mother Heart disease 74 abolcun Not available 2021 13:41:15 Mother Hypercholest erolemia abolcun Not available 2021 13:41:15 Mother Alcohol abuse abolcun Not available 2020 08:29:04 Maternal Grandmother Heart disease 65 abolcun Not available 2021 13:41:15 Maternal Grandmother Diabetes mellitus abolcun Not available 2016 14:10:10 Maternal Grandmother Hypercholest erolemia abolcun Not available 2019 08:55:55 Maternal Grandmother Arthritis abolcun Not available 10/2019 08:55:55 Maternal Grandmother Osteoporosis abolcun Not available 0 07/19/2019 08:55:55 Maternal Grandmother Hypertensive disorder abolcun Not available 2021 13:41:15 Maternal Grandmother Obesity abolcun Not available 2020 08:29:04 Maternal Grandfather Malignant neoplastic disease abolcun Not available 2021 13:41:15 Sister Well adult abolcun Not availabl e 07/25/2021 13:41:15 Sister Heart disease abolcun Not available 2021 13:41:15 Sister Malignant tumor of breast 55 half sister awychowski Not available 08/18/2023 08:42:45 Son Well adult abolcun Not availabl e 07/25/2021 13:41:15 Son Asthma abolcun Not available 08:29:04 Son Allergy abolcun Not available 0 07/24/2020 08:29:04 Son Migraine abolcun Not available 07/25/2021 13:41:15 Daughter Well adult abolcun Not availa ble 07/25/2021 13:41:16 Daughter Attention deficit hyperactivit y disorder abolcun Not available 07/18 08:55:55 Daughter Anxiety disorder abolcun Not available 2020 08:29:04 Maternal Aunt Heart disease abolcun Not available 2021 13:41:16 Maternal Aunt Diabetes mellitus abolcun Not available 2021 13:41:16 Maternal Aunt Hypercholest erolemia abolcun Not available 2019 08:55:55 Maternal Aunt Obesity abolcun Not avai lable 07/25/2021 13:41:16 Unspecified Relation Obesity abolcun Not available 13:41:16 Medical History Condition Response Other N Gout N Kidney Stones N Blood Diseases N Hyperthyroidism N Breast Cancer N COPD N Depression Y Hypothyroidism N Lung Disease N Defects or Inherited Disease N Anesthesia Complications N Headaches/Migraines N Varicose Veins N Anxiety Disorder Y Obesity N Vision or Eye Problems N Arthritis N Head Injury/Concussion N Infertility N Polyps N Congenital Anomalies N Acid Reflux (GERD) Y Cancer Y Stroke N ADHD N Endometriosis N High Cholesterol Y Liver Disease N Fibromyalgia N Kidney Disease N Heart Problems N Ear or Hearing Problems N Hospitalizations N Thyroid Problems N GI Problems Y Acne N Skin Problems Y Eating Disorder N Anemia N Constipation Y Bladder Problems N Mental Illness N Ovarian Cancer N Diabetes N Blood Transfusions N Seizures/Epilepsy N Tuberculosis N AIDS/HIV N Congestive Heart Failure (CHF) N Eczema Y Diverticulitis N Abuse/Domestic Violence N Asthma Y Allergies Y Reflux/GERD Y Hepatitis N Pulmonary Embolism N Hypertension N Osteoporosis N Chicken Pox N Autism Spectrum Disorder (ASD) N Gynecological History Statement/Question Response Date of Last Pap Smear 07/28/2013 Date of Last Colonoscopy 12/18/2022 Most Recent Mammogram 02/13/2023 Most Recent Bone Density 02/13/2023 Obstetrics History GPAL:G 0 P 0 0 0 0 Immunizations Vaccine Type Date Status Note Provider Nam e and Address Organization Details Recorded Time Influenza, split virus, quadrivalent, preservative [facility] 14:34:39 [facility] 9 [facility] 13:41:44 Influenza, split virus, quadrivalent, preservative 7 [facility] 14:34:39 Influenza, split virus, quadrivalent, preservative 8 [facility] 14:34:39 Influenza, split virus, quadrivalent, preservative 9 [facility] 14:34:39 varicella 0 [facility] 13:41:45 COVID-19, mRNA, LNP-S, PF, 100 mcg/0.5mL dose or 50 mcg/0.25mL dose 1 completed ANGELA Layton [facility] 07/25/2021 13:41:44 COVID-19, mRNA, LNP-S, PF, 100 mcg/0.5mL dose or 50 mcg/0.25mL dose 1 completed ANGELA Layton, [facility] 07/25/2021 13:41:44 Influenza, MDCK, quadrivalent, PF 7 completed ANGELA Layton, [facility] 07/25/2021 13:41:44 Influenza, split virus, trivalent, preservative 5 [facility] 13:41:44 Novel [id number], preservative-free 9 [facility] 13:41:44 Influenza, MDCK, quadrivalent, PF 8 [facility] 13:41:44 varicella 0 [facility] 13:41:44 Influenza, MDCK, quadrivalent, PF 9 [facility] 13:41:44 COVID-19, mRNA, LNP-S, PF, 100 mcg/0.5mL dose or 50 mcg/0.25mL dose 1 completed ANGELA Layton [facility] 07/25/2021 13:41:44 Influenza, split virus, trivalent, preservative 0 [facility] 13:41:44 Influenza, MDCK, quadrivalent, PF 1 [facility] 13:41:44 Tdap 7 [facility] 13:41:44 Influenza, split virus, trivalent, preservative 6 completed ANGELA Layton [facility] 07/25/2021 13:41:44 Influenza, split virus, trivalent, preservative 1 completed ANGELA Layton [facility] 07/25/2021 13:41:45 Influenza, MDCK, quadrivalent, PF 2 completed ANGELA Rojas [facility] 07/29/2022 14:34:39 Influenza, MDCK, quadrivalent, PF 3 completed ANGELA Rojas [facility] 08/17/2023 09:20:52 RSV, bivalent, protein subunit RSVpreF, diluent reconstituted, 0.5 mL, PF 4 completed ANGELA Rojas [facility] 08/17/2023 09:20:52 Influenza, split virus, quadrivalent, PF 0 [facility] 09:17:37 Past Encounters Encounter ID Performer Location Encounter Start Date Encounter Closed Date Diagnosis/Indication Diagnosis SNOMED-CT Code Diagnosis ICD10 Code Diagnosis Note [id number] Carmelo Lau MD Main Office [address] [facility] [address] [place] [address] 07/02/2016 13:39:49 07/02/2016 14:58:01 Adult health examination 736131271 Z00.00 Immunizati on status updated, flu advised in the Fall. Pt will f/u with new shot lighter ayla to update PAP. Regular dental and ophtho care advised as well as seat belt and sunscreen use. Distracted driving discussed. Advance directives in place. Administra tion of diphtheria, pertussis, and tetanus vaccine 450329895 Z23 Body mass index 30+ - obesity 701315248 Z68.30 E66.9 Screening for malignant neoplasm of breast 876147412 Z12.39 Due for screening. Order provided while pt is pursuing a transition of shot lighter care. Autoimmune disease 38832 009 M35.9 On chronic prednisone and alendronat e for alopecia. Alopecia 14325569 L65.[address] Randle. [id number] Carmelo Lau MD Main Office [address] [facility] [address] [place] [address] 11/20/2016 10:47:28 11/20/2016 12:20:27 Multiple joint pain 14635613 M25.50 Steroid responsive with question history of MCTD if labs abnormal will refer to rheum. If normal then consider OA vs myofascial pain targeted treatment plan. Muscle pain 56799680 M79 .1 [id number] Carmelo Lau MD Main Office [address] [address] [place] [address] 07/08/2017 14:34:36 07/08/2017 16:08:59 Adult health examination 995644852 Z00.00 Immunizati on status updated, flu advised in the Fall. Cervical cancer screening not indicated post hysterecto my. Colon and breast cancer screening are utd. Regular dental and ophtho care advised as well as seat belt and sunscreen use. Distracted driving discussed. Advance directives in place. Hypercholesterolemia 136 03638 E78.00 Will reassess and discuss mgmt based on CVD risk score. Body mass index 25-29 - overweight 857397719 E66.3 Z68.25 Elevated blood-pressure reading without diagnosis of hypertension 788751264 R03.0 Screen for end organ damage. Pt will work on low Na diet. regular exercise and wt loss. Will treat if f/u BP is still >130/90. Generalize d anxiety disorder 95846471 F41.1 Well controlled and followed by psych. [id number] Carmelo Lau MD Main Office [address] [facility] [address] [place] [address] 01/07/2018 14:53:45 01/07/2018 15:41:49 Hypernatremia 32746965 E87.0 Will reassess and evaluate further if persistent /worse. Hypercholesterolemia 136 74641 E78.00 Based on current CVD risk score or 4% will manage with TLC and monitoring for now. [id number] Carmelo Lau MD Main Office [address] [address] [place] [address] 07/13/2018 12:55:15 07/13/2018 13:56:14 Adult health examination 320782252 Z00.00 Immunizati on status updated, flu advised in the Fall. Cervical cancer screening not indicated post hysterecto my. Colon and breast cancer screening are utd. Regular dental and ophtho care advised as well as seat belt and sunscreen use. Distracted driving discussed. Advance directives in place. Screening for malignant neoplasm of breast 060781049 Z12.39 Menopause present 100212 006 Z78.0 With post menopausal status and possible celiac disease screenign is warranted. Body mass index 25-29 - overweight 319250723 E66.3 Z68.27 Family his tory of Aortic aneurysm 744278617 Z82.49 Dry eyes 919945723 H04.1 29 History of tobacco use 5006913874 103 Z87.891 Gluten sensitivity 26027 1003 K90.41 Herpes labialis 8264558 B00.1 Hypercholesterolemia 136 80312 E78.00 Will reassess and discuss mgmt based on CVD risk score. Generalize d anxiety disorder 62431369 F41.1 Well controlled and followed by psych. [id number] Som Rene MD Main Office [address] [facility] [address] [facility] [place] [address] 07/31/2018 10:23:00 07/31/2018 11:39:13 Diarrhea 84332644 R19.7 Upper abdominal pain 831 02787 R10.10 [id number] Carmelo Lau MD Main Office [address] [facility] [address] [facility] [place] [address] 07/19/2019 08:43:41 07/19/2019 09:57:52 Adult health examination 241276377 Z00.00 Immunizati on status updated, flu advised in the Fall. Cervical cancer screening not indicated post hysterecto my. Colon and breast cancer screening are utd. Regular dental and ophtho care advised as well as seat belt and sunscreen use. Distracted driving discussed. Advance directives in place. Mild inter mittent asthma 592514211 J45.20 Seems to be aggravated by allergies. Advise to try different antihistam ine vs add nasal steroid spray. Screening for malignant neoplasm of breast 557073175 Z12.39 Trigger fi nger of right hand 5070067333 6035191 M65.341 Will call for rheum/orth o referral if worse. Hypercalcemia 86146953 E 83.52 Will reassess and evaluate further if persistent . Hypercholesterolemia 136 66445 E78.01 Will reassess and discuss mgmt based on CVD risk score. Body mass index 25-29 - overweight 426347443 E66.3 Z68.27 History of tobacco use 6665981668 103 Z87.891 Does not qualify for lung cancer screening. Herpes labialis 3731656 B00.1 Attacks infrequent , has valacyclov ir PRN. Generalize d anxiety disorder 07679603 F41.1 Well controlled and followed by psych. Intermitte nt palpitations 777614138 R00.2 Sound like SVT vs PVC's related to caffeine intake. Normal ECG last year. Will monitor for now. Elevated blood-pressure reading without diagnosis of hypertension 047157642 R03.0 Screen for end organ damage. Pt will work on low Na diet. regular exercise and wt loss. Will treat if f/u BP is still >130/90. Requires v aricella vaccination 553847305 Z28.3 Pt reports that she was seronegati ve when tested in the past. Will need varicella vaccinatio n if so. [id number] Carmelo Lau MD Main Office [address] [facility] [address] [facility] [address] 11/03/2019 08:55:00 11/03/2019 10:21:26 Hypercholesterolemia 33879433 E78.01 Based on current CVD risk score TLC advised. Reassess next year. Generalize d anxiety disorder 73504281 F41.1 Well controlled and followed by psych. Rx for anxiolytic refilled. Needs infl uenza immunization 266817715 Z23 Posttrauma tic stress disorder 13707288 F43.10 Followoign with psych. Declines therapy referral att this time. Advised to call if she changes her mind. [id number] Carmelo Lau MD Main Office [address] [facility] [address] [facility] [place] [address] 03/15/2020 15:15:50 03/15/2020 16:19:35 Intermittent palpitations 187434463 R00.2 Based on reported symptoms and comorbidit ies arrhythmia and ischemic evaluation is warranted. Will start with metabolic/ lab screening. ECG unchanged from prior so standard treadmill stress test is warranted. Will ask cardiology to help with arrthyrtjono anand. Essential hypertension 23578621 I10 Wants to work on low Na diet and weight loss. Is >130/90 at f/u will recommend starting ACEI/diure tic. [id number] Carmelo Lau MD Main Office [address] [facility] [address] [facility] [place] [address] 07/24/2020 08:25:37 07/24/2020 09:19:03 Adult health examination 407803759 Z00.00 Immunizati on status updated, flu advised in the Fall. Cervical cancer screening not indicated post hysterecto my. Colon and breast cancer screening are utd. Regular dental and ophtho care advised as well as seat belt and sunscreen use. Distracted driving discussed. Advance directives in place. Hypercholesterolemia 136 82791 E78.01 Started on statin by cards. Will arrange f/u labs. Screening for malignant neoplasm of breast 270714788 Z12.39 Screening for malignant neoplasm of cervix 074935172 Z12.4 s/p hysterecto my Osteopenia 447921526 M85 .80 Generalize d anxiety disorder 60572610 F41.1 Well controlled and followed by psych. Psoriasis 2497950 L40.9 Followed by derm. Multiple joint pain 3567 8005 M25.50 Steroid responsive with question history of MCTD if labs abnormal will refer to rheum. If normal then consider OA vs myofascial pain targeted treatment plan. Body mass index 25-29 - overweight 396158298 E66.3 Z68.28 Impacted c erumen in right ear 5851340001 304543 H61.21 [id number] Carmelo Lau MD Main Office [address] [facility] [address] [facility] [place] [address] 07/25/2021 13:36:31 07/25/2021 14:39:56 Adult health examination 865761337 Z00.00 Immunizati on status updated, 2nd COVID 19 booster advised as well as flu in the Fall. Cervical cancer screening not indicated post hysterecto my. Colon and breast cancer screening are utd. Regular dental and ophtho care advised as well as seat belt and sunscreen use. Distracted driving discussed. Advance directives in place. Generalize d anxiety disorder 06131632 F41.1 Well controlled and followed by psych. Hypercholesterolemia 136 72235 E78.01 On low dose statin, will reassess. Screening for malignant neoplasm of breast 122846882 Z12.39 Screening for malignant neoplasm of cervix 290957135 Z12.4 s/p hysterecto my Screening for malignant neoplasm of colon 358444212 Z12.11 Osteopenia 697832598 M85 .80 Regular weight bearing exercise encouraged . Reassess next year. Psoriasis 6014604 L40.9 Followed by derm. Body mass index 25-29 - overweight 262364061 E66.3 Z68.27 Impacted c erumen in right ear 4523850786 940502 H61.21 Standard c hest X-ray abnormal 464012760 R93.89 Had hazy density on Xray from last year that i did not receive. Will see if finding is persistent . Dry eyes 751024025 H04.1 29 Loss of hair 056455391 L 65.9 Should follow with derm if persistent /worse. [id number] Carmelo Lau MD Main Office [address] [facility] [address] [place] [address] 07/29/2022 14:31:22 07/29/2022 15:52:11 Adult health examination 434855127 Z00.00 PCV20, Shingrix, bivalent COVID 19 booster advised as well as flu in the Fall via local pharmacy. Cervical cancer screening not indicated post hysterecto my. Colon and breast cancer screening are utd. Regular dental and ophtho care advised as well as seat belt and sunscreen use. Distracted driving discussed. Advance directives in place. Body mass index 25-29 - overweight 184407799 E66.3 Z68.27 Mild inter mittent asthma 795780323 J45.20 Seems to be aggravated by allergies. Advise to try different antihistam ine vs add nasal steroid spray. Osteopenia 592973912 M85 .80 Regular weight bearing exercise encouraged . Will reassess Screening for malignant neoplasm of breast 947526066 Z12.39 Varicella vaccination 68 096871 Z23 History of total hysterectomy 845525280 Z90.710 No indication for PAP Administra tion of pneumococcal vaccine 98244251 Z23 Alkaline p hosphatase above reference range 457534113 R74.8 Will reassess and evaluate further if still elevated. Hypercholesterolemia 136 34834 E78.01 On low dose statin, will reassess CVD risk. Screening for malignant neoplasm of cervix 645245762 Z12.4 s/p hysterecto my Screening for malignant neoplasm of colon 317996759 Z12.11 [id number] Carmelo Lau MD Main Office [address], [place] [address] 08/17/2023 09:03:33 08/17/2023 10:30:08 Adult health examination 853914152 Z00.00 PCV20, COVID 19 booster advised as well as flu in the Fall via local pharmacy. Cervical cancer screening not indicated post hysterecto my. Colon and breast cancer screening are utd. Regular dental and ophtho care advised as well as seat belt and sunscreen use. Distracted driving discussed. Advance directives in place. Screening for malignant neoplasm of breast 114107006 Z12.39 Hypercholesterolemia 136 96206 E78.01 On low dose statin, will reassess CVD risk. Body mass index 25-29 - overweight 765824604 E66.3 Z68.27 Mild inter mittent asthma 839850556 J45.20 Seems to be aggravated by allergies. Osteopenia 290151951 M85 .80 Regular weight bearing exercise encouraged . Will reassess History of total hysterectomy 489824113 Z90.710 No indication for PAP Screening for malignant neoplasm of cervix 625630377 Z12.4 s/p hysterecto my Screening for malignant neoplasm of colon 010686473 Z12.11 Screening UTD, pt asymptomat ic. Administra tion of pneumococcal vaccine 13401498 Z23 Varicella vaccination 68 218055 Z23 Psoriasis 8692405 L40.9 Followed by derm. Vitamin D deficiency 347 23748 E55.9 Will start supplement if <30 Health Concerns Section Related Observation LastModified by Organization Detai ls LastModified Time None Recorded Concern Status LastModified by Organization Details LastModified Time None Recorded Advance Directives Directive Y: HCP/ -Jesus, Dtr-B rittany Payers Encounter Date Sequence Insurance Name Policy Number Policy Falk Covered Member ID Falk Member ID Guarantor Name 03/15/2020 1 [facility] [id number] 1 Nafisa Goldberg [id number] Nafisa Goldberg 07/24/2020 1 [facility] [id number] Nafisa Goldberg [id number] Nafisa Goldberg 07/25/2021 1 [facility] [id number] 1 Nafisa Goldberg [id number] Nafisa Goldberg 07/29/2022 1 [facility] [id number] 1 Nafisa Goldberg [id number] Nafisa Goldberg 08/17/2023 1 [facility] [id number] 1 Nafisa Goldberg [id number] Nafisa Goldberg Notes Date Note Type Note Provider Name and Address Organization Details Recorded Time 1 text/htm l Hypertension F/UReported bypatient.Associated Symptoms:no dizziness; no lightheadedness; no chest pain; no edema;shortness of breath;palpitations Lifestyle:regular exercise; limiting/avoiding saltpalpitationsReported bypatient.Notes:Has been having intermittent palpitations for over 6 months. Happens with exertion sometimes. Has dyslipidemia. Carmelo Lau MD [address], [address], [facility] 03/22/2020 06:56:03 1 text/htm l Generic HPI TemplateReported bypatient.Notes:Here for a physical. Feels well. Sees a dentist, and ophtho regularly. Carmelo Lau MD [address], [address], [facility] 07/24/2020 09:23:46 2 text/htm l Generic HPI TemplateReported bypatient.Notes:Here for a physical. Feels well. Sees a dentist, and ophtho regularly. Carmelo Lau MD [address], [address], [facility] 07/25/2021 14:45:52 3 text/htm l Generic HPI TemplateReported bypatient.Notes:Here for a physical. Feels well. Sees a dentist, and ophtho regularly. Carmelo Lau MD [address], [address], [facility] 08/13/2022 21:12:18 4 text/htm l Generic HPI TemplateReported bypatient.Notes:Here for a physical. Feels well. Sees a dentist, and ophtho regularly. Carmelo Lau MD [address] [address], [place], [address], [facility] 08/17/2023 10:32:22 OBGyn Episode No OBEpisode recorded.
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
== END 2024-03-17 13:49 | disposition home or self-care (01) ==
LOC: HO.HOP 11:53
PROVIDERS: PCP Pediatrics; Visit Provider Psychiatry & Neurology Psychiatry
DX: F43.12 Post-traumatic stress disorder, chronic (principal); F34.1 Dysthymic disorder; F41.1 Generalized anxiety disorder
CPT/HCPCS: 90833; 99213

== ENCOUNTER → 2024-03-17 11:53 | Outpatient (BNVA) | payer OTHER, SELFPAY | PROVIDERS: PCP Pediatrics; Visit Provider Psychiatry & Neurology Psychiatry ==

== ENCOUNTER 2024-04-21 10:59 | Outpatient (AMB) | payer OTHER, SELFPAY ==
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
--- OUTSIDE RECORDS SUMMARY | 2024-04-21 14:07 | XMS_ITS | Data Portability ---
Author Organization [facility], Main Office Address [address] [place] [address] [place] [id number] Care Team Providers Care Lye Boiler Name Role Phone CARMELO LAU Primary Care Provider SANGEETA RANDLE Architectural Draftsperson MILA MORENO Psychiatrist FRANCISCO HART Belt Tender [phone] [facility] Director Automotive Assessment No assessment recorded. Plan of Treatment Reminders Order Date Submit Date Provider Last Modified By Organization Details Last Modified Time Details Appointments PE EST 2024 09:30A M Carmelo Lau MD Not available Not available Not available Lab reggie mckeon 2023 024 FRANCISCO [facility] (Centralized Electronic Ordering - All Locations), Patient Can Go To The Location Of Their Choice, [id number] 01/13/2024 06:08:10 reggie STRONG or ricardo shah 2023 024 FRANCISCO [facility] (Centralized Electronic Ordering - All Locations), Patient Can Go To The Location Of Their Choice, [id number] 01/13/2024 06:08:08 TSH, ultr a-se amrikit reggie tobra 2023 024 FRANCISCO [facility] (Centralized Electronic Ordering - All Locations), Patient Can Go To The Location Of Their Choice, [id number] 01/13/2024 06:08:10 lizz min D, 25-h ydro chad banuelos seru m 2023 024 FRANCISCO [facility], [address], [address], [place], [address], 01/13/2024 06:08:14 gamm a-gl utam yl cristina sfer ase (ggt ), seru m 2022 023 FRANCISCO [facility], [address], [address], [place], [address], 08/04/2022 14:56:08 CMP, seru m or plas ma 2022 023 FRANCISCO [facility], [address], [address], [place], [address], 08/04/2022 14:55:59 lipi d pane l, seru m 2022 023 FR[facility]CO [facility], [address], [address], [place], [address], 08/04/2022 14:56:20 lizz min D, 25-h ydro xy, tota l, seru m 2022 023 [facility], [address], [address], [place], [address], 08/04/2022 16:51:29 lipi d pane l, seru m 2021 022 FRANCISCO [facility], [address], [address], [place], [address], 09/13/2021 14:15:30 CMP, seru m or plas ma 2021 022 FR[facility]CO [facility], [address], [address], [place], [address], 09/13/2021 14:15:27 vari cell a-zo ster igg Ab scre en, seru m 2021 022 FR[facility]ISCO [facility], [address], [address], [place], [address], 09/15/2021 14:59:11 lizz min D, 25-h ydro xy, tota l, seru m 2021 022 FR[facility], [address], [address], [place], [address], 09/13/2021 14:27:49 sjog hawa anti body pane l (ssa , ssb, ro, la), seru m 2021 022 FRANCISCO [facility], [address], [address], [place], [address], 09/14/2021 11:06:36 CBC w/ auto diff 2021 022 FR[facility]CO [facility], [address], [address], [place], [address], 09/13/2021 13:51:21 iron + tota l iron -[facility] (TIB C), seru m 2021 022 FRANCISCO [facility], [address], [address], [place], [address], 09/13/2021 14:15:29 TSH, seru m or plas ma 2021 022 FR[facility], [address], [address], [place], [address], 09/13/2021 14:27:47 lipi d pane l, seru m 2020 021 [facility], [address], [address], [place], [address], 07/26/2020 17:08:07 CMP, seru m or plas ma 2020 021 [facility], [address], [address], [place], [address], 07/26/2020 17:08:06 CK (cre atin e khushbu se), tota l, seru m 2020 021 FR[facility], [address], [address], [place], [address], 07/26/2020 17:08:03 lizz min D, 25-h ydro xy, tota l, seru m 2020 021 [facility], [address], [address], [place], [address], 07/26/2020 17:14:40 JENNY (ant inuc lear anti bodi es) scre en, seru m 2020 021 [facility], [address], [address], [place], [address], 07/27/2020 21:09:58 ESR (gregorio thro cyte sedi ment atio n rate ), bloo d 2020 021 FR[facility], [address], [address], [place], [address], 07/26/2020 15:29:17 C-re acti ve prot ein, maria fernanda piyush tive , seru m or plas ma 2020 021 [facility], [address], [address], [place], [address], 07/26/2020 17:14:39 TSH, seru m or plas ma 2020 021 [facility], [address], [address], [place], [address], 03/19/2020 20:54:48 CMP, seru m or plas ma 2020 021 [facility], [address], [address], [place], [address], 03/19/2020 20:39:49 CBC w/ auto diff 2020 021 [facility], [address], [address], [place], [address], 03/19/2020 19:51:03 magn esiu m, seru m or plas ma 2020 021 [facility], [address], [address], [place], [address], 03/19/2020 20:39:50 Referral gyne colo gist refe rral 2022 023 [email or web address] Not available 01/27/2023 13:01:45 gyne colo gist refe rral 2021 022 [email or web address] Not available 01/21/2022 11:01:27 nutr itio nist / marlee an refe rral 2021 022 [email or web address] Not available 07/25/2021 14:39:56 nutr itio nist / marlee an refe rral 2020 021 [email or web address] Not available 07/24/2020 09:26:05 card iolo gist refe rral - for assi shaunna ce with eval uati on of palp itat ions . Stre ss test and ECHO pend ing. 2020 [facility] [address] [facility], [facility] [address], [place], [address], 03/29/2020 10:46:14 Procedures colo nosc opy scre enin g (PRO C) - for rout ine colo n canc er scre enin g 2022 023 [facility], [address] [facility], [place], [address], 12/18/2022 14:45:54 colo nosc opy scre enin g (PRO C) 2021 022 [email or web address] Not available 07/25/2021 15:07:31 Surgeries None obie rded . Imaging MAMM O, scre enin g, bila yesica l - Perf orm Diag nost ic Mamm ogra m and [facility]phany st Ultr asou nd if need ed / Perf orm Ultr asou nd Guid ed Aspi rati on and/ or [facility] st Biop sy if estela ante d 2023 024 [email or web address] Not available 08/17/2023 10:30:09 bone dens ity 2022 023 [email or web address] Not available 08/17/2023 09:16:37 MAMM O, scre enin g, bila yesica l - Perf orm Diag nost ic Mamm ogra m and [place] Ultr asou nd if need ed / Perf orm Ultr asou nd Guid ed Aspi rati on and/ or [facility] st Biop sy if estela ante d 2022 023 FRANCISCO Not available 02/13/2023 17:15:33 XR, ches t, 2 view - foll ow up left uppe r lung abno rmal ity 2021 022 FRANCISCO Not available 07/25/2021 15:45:12 MAMM O, scre enin g, bila yesica l 2021 022 [email or web address] Not available 01/21/2022 11:08:56 bone dens ity 2020 021 [email or web address] Not available 10/22/2020 14:42:08 MAMM O, scre enin g, bila yesica l - Perf orm Diag nost ic Mamm ogra m and [facility] Ultr asou nd if need ed / Perf orm Ultr asou nd Guid ed Aspi rati on and/ or [place] [facility] Biop sy if estela ante d 2020 021 [email or web address] Not available 07/24/2020 09:19:03 elec troc dona youngblood 2020 021 [email or web address] 6 In-Office Order, Internal Use Only DO Not Attach Compendium DO Not Attach Compendium, Do Not Delete/merge, [id number] 03/15/2020 16:19:35 US, echo card iogr am, cristina stho raci c, comp lete - rule out stru ctur al hear t dise ase in pt with HTN and inte rmit tent palp itat ions . 2020 021 ATHENAFAX [facility] (Outt Non-Invasive Cardiology Scheduling), [address] [place], [address], 03/20/2020 12:10:45 exer cise stre ss test - Scre en for exer cise killian vivek ECG ramirez ges 2020 021 awychowski [facility] (Outt Non-Invasive Cardiology Scheduling), [address] [place], [address], 07/25/2020 10:32:03 Medication Orders None obie rded . Patient TargetsNo targets recorded. Patient Instructions Encounter Date Encounter Id Patient Instructions Last Modified By Organization Details Last Modified Time 03/15/2020 [id number] high blood pressure: care instructions reagan Not available 03/15/2020 16:13:23 learning about high blood pressure awychowski Not available 03/15/2020 16:13:24 palpitations: care instructions sudhaowski Not available 03/15/2020 16:13:23 07/24/2020 [id number] Cervical Cancer Screening awychowski Not available 07/24/2020 09:14:26 anxiety disorder: care instructions awychowski Not available 07/24/2020 09:14:26 earwax blockage: care instructions awychowski Not available 07/24/2020 09:21:33 When You Want to Lose Weight: Care Instructions awychowski Not available 07/24/2020 09:14:26 Nutrition Referral and Weight Management Follow-up Information awychowski Not available 07/24/2020 09:14:26 psoriasis: care instructions [email or web address] Not available 07/24/2020 09:14:26 07/25/2021 [id number] Cervical Cancer Screening awychowski Not available 07/25/2021 [...] instructions awychowski Not available 07/25/2021 14:32:57 07/29/2022 [id number] learning about healthy weight awychowski Not available 07/29/2022 15:40:22 08/17/2023 [id number] learning about healthy weight awychowski Not available 08/17/2023 10:20:27 Reason for Referral Gis Manager Referral for In termittent palpitations for assistance with evaluation of palpitations. Stress test and ECHO pending. Referring Physician: Family Caleb Mejia, Encounter Date: 03/15/2020 Nursing Informatics Analyst/dietitian Refer ral for Body mass index 25-29 - overweight Referring Physician: Family Caleb Mejia, Encounter Date: 07/24/2020 Rn Corrections Referral for Sc reening for malignant neoplasm of cervix Referring Physician: Family Caleb Mejia, Encounter Date: 07/25/2021 Nursing Informatics Analyst/dietitian Refer ral for Body mass index 25-29 - overweight Referring Physician: Family Caleb Mejia, Encounter Date: 07/25/2021 Rn Corrections Referral for Sc reening for malignant neoplasm of cervix Referring Physician: Family Caleb Mejia, Encounter Date: 07/29/2022 Results Created Date Observation Date Name Description Value Unit Range Abnormal Flag Note LastModifiedBy Organization Detail LastModifiedTime 03/15/1903/15/2020 jacob pittgr am done Not Available In-Office Order Internal Use Only DO Not Attach Compendium DO Not Attach Compendium, Do Not Delete/merge, [id number] 03/11/2020 19:25:10 03/19/1903/19/2020 CBC w/ auto diff WBC 8.0 K/mm3 (4.0-1 1.0) Not Available [facility] (Centralized Electronic Ordering - All Locations) Patient Can Go To The Location Of Their Choice, 03/19/2020 19:51:03 03/19/1903/19/2020 CBC w/ auto diff RBC 4.45 M/mm3 (4.20- 5.40) Not Available [facility] (Centralized Electronic Ordering - All Locations) Patient Can Go To The Location Of Their Choice, 03/19/2020 19:51:03 03/19/1903/19/2020 CBC w/ auto diff HGB 13.3 gm/dL (11.7- 15.5) Not Available [facility] (Centralized Electronic Ordering - All Locations) Patient Can Go To The Location Of Their Choice, 03/19/2020 19:51:03 03/19/1903/19/2020 CBC w/ auto diff HCT 40.5 % (35.7- 45.8) Not Available [facility] (Centralized Electronic Ordering - All Locations) Patient Can Go To The Location Of Their Choice, 03/19/2020 19:51:03 03/19/1903/19/2020 CBC w/ auto diff MCV 91.0 fL (80.0- 100.0) Not Available [facility] (Centralized Electronic Ordering - All Locations) Patient Can Go To The Location Of Their Choice, 03/19/2020 19:51:03 03/19/1903/19/2020 CBC w/ auto diff MCH 29.9 pg (27.0- 34.0) Not Available [facility] (Centralized Electronic Ordering - All Locations) Patient Can Go To The Location Of Their Choice, 03/19/2020 19:51:03 03/19/1903/19/2020 CBC w/ auto diff MCHC 32.8 g/dL (33.0- 37.0) low Not Available [facility] (Centralized Electronic Ordering - All Locations) Patient Can Go To The Location Of Their Choice, 03/19/2020 19:51:03 03/19/1903/19/2020 CBC w/ auto diff plt 274 K/mm3 (150-4 60) Not Available [facility] (Centralized Electronic Ordering - All Locations) Patient Can Go To The Location Of Their Choice, 03/19/2020 19:51:03 03/19/1903/19/2020 CBC w/ auto diff RDW-SD 41.5 fL (<47.0 ) Not Available [facility] (Centralized Electronic Ordering - All Locations) Patient Can Go To The Location Of Their Choice, 03/19/2020 19:51:03/19/1903/19/2020 CBC w/ auto diff MPV 9.4 fL (9.4-1 2.4) Not Available [facility] (Centralized Electronic Ordering - All Locations) Patient Can Go To The Location Of Their Choice, 03/19/2020 19:51:03 03/19/1903/19/2020 CBC w/ auto diff automated NRBC 0.0 #/100 _WBC' s Not Available [facility] (Centralized Electronic Ordering - All Locations) Patient Can Go To The Location Of Their Choice, 03/19/2020 19:51:03 03/19/1903/19/2020 CBC w/ auto diff abs. NRBC 0.0 K/mm3 Not Available [facility] (Centralized Electronic Ordering - All Locations) Patient Can Go To The Location Of Their Choice, 03/19/2020 19:51:03 03/19/1903/19/2020 CBC w/ auto diff neut # 4.7 K/mm3 (1.3-7 .0) Not Available [facility] (Centralized Electronic Ordering - All Locations) Patient Can Go To The Location Of Their Choice, 03/19/2020 19:51:03 03/19/1903/19/2020 CBC w/ auto diff lymph # 2.4 K/mm3 (0.8-3 .1) Not Available [facility] (Centralized Electronic Ordering - All Locations) Patient Can Go To The Location Of Their Choice, 03/19/2020 19:51:03 03/19/1903/19/2020 CBC w/ auto diff mono# 0.7 K/mm3 (0.4-0 .9) Not Available [facility] (Centralized Electronic Ordering - All Locations) Patient Can Go To The Location Of Their Choice, 03/19/2020 19:51:03 03/19/1903/19/2020 CBC w/ auto diff eo # 0.1 K/mm3 (0.0-0 .4) Not Available [facility] (Centralized Electronic Ordering - All Locations) Patient Can Go To The Location Of Their Choice, 03/19/2020 19:51:03 03/19/1903/19/2020 CBC w/ auto diff baso # 0.1 K/mm3 (0.0-0 .1) Not Available [facility] (Centralized Electronic Ordering - All Locations) Patient Can Go To The Location Of Their Choice, 03/19/2020 19:51:03 03/19/1903/19/2020 CBC w/ auto diff abs. imm gran 0.0 K/mm3 Not Available [facility] (Centralized [facility] Ordering - All Locations) Patient Can Go To The Location Of Their Choice, 03/19/2020 19:51:03 03/19/1903/19/2020 CBC w/ auto diff neut 58.8 % (44-76 ) Not Available [facility] (Centralized Electronic Ordering - All Locations) Patient Can Go To The Location Of Their Choice, 03/19/2020 19:51:03 03/19/1903/19/2020 CBC w/ auto diff lymph 30.3 % (15-43 ) Not Available [facility] (Centralized Electronic Ordering - All Locations) Patient Can Go To The Location Of Their Choice, 03/19/2020 19:51:03 03/19/1903/19/2020 CBC w/ auto diff monocyte 8.4 % (4.5-1 0.5) Not Available [facility] (Centralized Electronic Ordering - All Locations) Patient Can Go To The Location Of Their Choice, 03/19/2020 19:51:03 03/19/1903/19/2020 CBC w/ auto diff eo 1.8 % (0-6) Not Available [facility] (Centralized Electronic Ordering - All Locations) Patient Can Go To The Location Of Their Choice, 03/19/2020 19:51:03 03/19/1903/19/2020 CBC w/ auto diff baso 0.6 % (0-2) Not Available [facility] (Centralized Electronic Ordering - All Locations) Patient Can Go To The Location Of Their Choice, 03/19/2020 19:51:03 03/19/1903/19/2020 CBC w/ auto diff imm gran 0.1 % Not Available [facility] (Centralized Electronic Ordering - All Locations) Patient Can Go To The Location Of Their Choice, 03/19/2020 19:51:03 03/19/1903/19/2020 CMP, serum or plasm a glucose 63 mg/dL (70-99 ) low Not Available [facility] (Centralized Electronic Ordering - All Locations) Patient Can Go To The Location Of Their Choice, 03/19/2020 20:39:48 03/19/1903/19/2020 CMP, serum or plasm a BUN 16 mg/dL (6-20) Not Available [facility] (Centralized Electronic Ordering - All Locations) Patient Can Go To The Location Of Their Choice, 03/19/2020 20:39:48 03/19/1903/19/2020 CMP, serum or plasm a creatinine 0.9 mg/dL (0.5-1 .0) Not Available [facility] (Centralized Electronic Ordering - All Locations) Patient Can Go To The Location Of Their Choice, 03/19/2020 20:39:48 03/19/1903/19/2020 CMP, serum or plasm a sodium 142 mmol/ L (133-1 45) Not Available [facility] (Centralized Electronic Ordering - All Locations) Patient Can Go To The Location Of Their Choice, 03/19/2020 20:39:48 03/19/1903/19/2020 CMP, serum or plasm a potassium 3.8 mmol/ L (3.6-5 .2) Not Available [facility] (Centralized Electronic Ordering - All Locations) Patient Can Go To The Location Of Their Choice, 03/19/2020 20:39:48 03/19/1903/19/2020 CMP, serum or plasm a chloride 104 mmol/ L (98-10 7) Not Available [facility] (Centralized Electronic Ordering - All Locations) Patient Can Go To The Location Of Their Choice, 03/19/2020 20:39:48 03/19/1903/19/2020 CMP, serum or plasm a bicarbonate 29 mmol/ L (22-29 ) Not Available [facility] (Centralized Electronic Ordering - All Locations) Patient Can Go To The Location Of Their Choice, 03/19/2020 20:39:48 03/19/1903/19/2020 CMP, serum or plasm a anion gap 9 (4-17) Not Available [facility] (Centralized Electronic Ordering - All Locations) Patient Can Go To The Location Of Their Choice, 03/19/2020 20:39:48 03/19/1903/19/2020 CMP, serum or plasm a albumin 4.6 gm/dL (3.4-4 .8) Not Available [facility] (Centralized Electronic Ordering - All Locations) Patient Can Go To The Location Of Their Choice, 03/19/2020 20:39:48 03/19/1903/19/2020 CMP, serum or plasm a calcium 9.5 mg/dL (8.6-1 0.5) Not Available [facility] (Centralized Electronic Ordering - All Locations) Patient Can Go To The Location Of Their Choice, 03/19/2020 20:39:48 03/19/1903/19/2020 CMP, serum or plasm a bilirubin,to hiram 0.3 mg/dL (0-1.2 ) Not Available [facility] (Centralized Electronic Ordering - All Locations) Patient Can Go To The Location Of Their Choice, 03/19/2020 20:39:48 03/19/1903/19/2020 CMP, serum or plasm a total protein 7.0 gm/dL (6.2-8 .2) Not Available [facility] (Centralized Electronic Ordering - All Locations) Patient Can Go To The Location Of Their Choice, 03/19/2020 20:39:48 03/19/1903/19/2020 CMP, serum or plasm a Ag ratio 1.9 Not Available [facility] (Centralized Electronic Ordering - All Locations) Patient Can Go To The Location Of Their Choice, 03/19/2020 20:39:48 03/19/1903/19/2020 CMP, serum or plasm a AST 17 U/L (0-32) Not Available [facility] (Centralized Electronic Ordering - All Locations) Patient Can Go To The Location Of Their Choice, 03/19/2020 20:39:48 03/19/1903/19/2020 CMP, serum or plasm a alk phos 104 U/L (35-10 4) Not Available [facility] (Centralized Electronic Ordering - All Locations) Patient Can Go To The Location Of Their Choice, 03/19/2020 20:39:48 03/19/1903/19/2020 CMP, serum or plasm a ALT 12 U/L (0-33) Not Available [facility] (Centralized Electronic Ordering - All Locations) Patient Can Go To The Location Of Their Choice, 03/19/2020 20:39:48 03/19/1903/19/2020 CMP, serum or plasm a est GFR [...] Afric an Ameri cans. Not Available [facility] (Centralized Electronic Ordering - All Locations) Patient Can Go To The Location Of Their Choice, 03/19/2020 20:39:48 03/19/1903/19/2020 CMP, serum or plasm a est GFR [...] Afric an Ameri cans. Not Available [facility] (Centralized Electronic Ordering - All Locations) Patient Can Go To The Location Of Their Choice, 03/19/2020 20:39:48 03/19/1903/19/2020 magne sium, serum or plasm a magnesium 2.2 mg/dL (1.6-2 .3) Not Available [facility] (Centralized Electronic Ordering - All Locations) Patient Can Go To The Location Of Their Choice, 03/19/2020 20:39:50 03/19/1903/19/2020 TSH, serum or plasm a TSH 1.71 uIU/m L (0.4-4 .00) Not Available [facility] (Centralized Electronic Ordering - All Locations) Patient Can Go To The Location Of Their Choice, 03/19/2020 20:54:48 07/27/1907/26/2020 ESR (eryt hrocy te sedim entat ion [...] in these patie nts. Not Available [facility] (Centralized Electronic Ordering - All Locations) Patient Can Go To The Location Of Their Choice, 07/26/2020 15:29:17 07/27/1907/26/2020 CK (crea yassine kinas e), total , serum CK (creatine kinase) 72 U/L (0-190 ) TOTAL CPK SUNITA NTRAT ION TOO LOW FOR ISOEN ZYME AISHWARYA SIS Not Available [facility] (Centralized Electronic Ordering - All Locations) Patient Can Go To The Location Of Their Choice, 07/26/2020 17:08:02 07/27/19 21 07/26/2020 CMP, serum or plasm a glucose 95 mg/dL (70-99 ) Not Available [facility] (Centralized Electronic Ordering - All Locations) Patient Can Go To The Location Of Their Choice, 07/26/2020 17:08:06 07/27/19 21 07/26/2020 CMP, serum or plasm a BUN 12 mg/dL (6-20) Not Available [facility] (Centralized Electronic Ordering - All Locations) Patient Can Go To The Location Of Their Choice, 07/26/2020 17:08:07/27/1907/26/2020 CMP, serum or plasm a creatinine 0.9 mg/dL (0.5-1 .0) Not Available [facility] (Centralized Electronic Ordering - All Locations) Patient Can Go To The Location Of Their Choice, 07/26/2020 17:08:07/27/1907/26/2020 CMP, serum or plasm a sodium 144 mmol/ L (133-1 45) Not Available [facility] (Centralized Electronic Ordering - All Locations) Patient Can Go To The Location Of Their Choice, 07/26/2020 17:08:06 07/27/1907/26/2020 CMP, serum or plasm a potassium 4.1 mmol/ L (3.6-5 .2) Not Available [facility] (Centralized Electronic Ordering - All Locations) Patient Can Go To The Location Of Their Choice, 07/26/2020 17:08:07/27/1907/26/2020 CMP, serum or plasm a chloride 104 mmol/ L (98-10 7) Not Available [facility] (Centralized Electronic Ordering - All Locations) Patient Can Go To The Location Of Their Choice, 07/26/2020 17:08:06 07/27/1907/26/2020 CMP, serum or plasm a bicarbonate 29 mmol/ L (22-29 ) Not Available [facility] (Centralized Electronic Ordering - All Locations) Patient Can Go To The Location Of Their Choice, [id number] 07/26/2020 17:08:06 07/27/19 21 07/26/2020 CMP, serum or plasm a anion gap 11 (4-17) Not Available [facility] (Centralized Electronic Ordering - All Locations) Patient Can Go To The Location Of Their Choice, 07/26/2020 17:08:07/27/1907/26/2020 CMP, serum or plasm a albumin 4.7 gm/dL (3.4-4 .8) Not Available [facility] (Centralized Electronic Ordering - All Locations) Patient Can Go To The Location Of Their Choice, 07/26/2020 17:08:07/27/1907/26/2020 CMP, serum or plasm a calcium 9.8 mg/dL (8.6-1 0.5) Not Available [facility] (Centralized Electronic Ordering - All Locations) Patient Can Go To The Location Of Their Choice, 07/26/2020 17:08:07/27/1907/26/2020 CMP, serum or plasm a bilirubin,to hiram 0.5 mg/dL (0-1.2 ) Not Available [facility] (Centralized Electronic Ordering - All Locations) Patient Can Go To The Location Of Their Choice, 07/26/2020 17:08:07/27/1907/26/2020 CMP, serum or plasm a total protein 7.1 gm/dL (6.2-8 .2) Not Available [facility] (Centralized Electronic Ordering - All Locations) Patient Can Go To The Location Of Their Choice, 07/26/2020 17:08:07/27/1907/26/2020 CMP, serum or plasm a Ag ratio 2.0 Not Available [facility] (Centralized Electronic Ordering - All Locations) Patient Can Go To The Location Of Their Choice, 07/26/2020 17:08:07/27/1907/26/2020 CMP, serum or plasm a AST 23 U/L (0-32) Not Available [facility] (Centralized Electronic Ordering - All Locations) Patient Can Go To The Location Of Their Choice, 07/26/2020 17:08:07/27/1907/26/2020 CMP, serum or plasm a alk phos 132 U/L (35-10 4) high Not Available [facility] (Centralized Electronic Ordering - All Locations) Patient Can Go To The Location Of Their Choice, 07/26/2020 17:08:07/27/1907/26/2020 CMP, serum or plasm a ALT 17 U/L (0-33) Not Available [facility] (Centralized Electronic Ordering - All Locations) Patient Can Go To The Location Of Their Choice, 07/26/2020 17:08:06 07/27/19 21 07/26/2020 CMP, serum [...] [employer] an Amer[employer] cans. Not Available [facility] (Centralized Electronic Ordering - All Locations) Patient Can Go To The Location Of Their Choice, 07/26/2020 17:08:06 07/27/19 21 07/26/2020 CMP, serum [...] [employer] an [employer] cans. Not Available [facility] (Centralized Electronic Ordering - All Locations) Patient Can Go To The Location Of Their Choice, 07/26/2020 17:08:06 07/27/1907/26/2020 lipid panel , serum cholesterol, total 170 mg/dL (<200) Not Available [facility] ([facility] Ordering - All Locations) Patient Can Go To The Location Of Their Choice, 07/26/2020 17:08:07 07/27/1907/26/2020 lipid panel , serum triglyceride 141 mg/dL (<150) Not Available [facility] ([facility] Order[facility] - All Locations) Patient Can Go To The Location Of Their Choice, 07/26/2020 17:08:07 07/27/1907/26/2020 lipid panel , serum HDL chol 40 mg/dL (>39) Not Available [facility] (Centralized Electronic Ordering - All Locations) Patient Can Go To The Location Of Their Choice, 07/26/2020 17:08:07 07/27/1907/26/2020 lipid panel , serum LDL cholesterol, calculated 102 mg/dL (0-130 ) Not Available [facility] (Centralized Electronic Ordering - All Locations) Patient Can Go To The Location Of Their Choice, 07/26/2020 17:08:07 07/27/1907/26/2020 lipid panel , serum non HDL cholesterol (calc) 130 mg/dL (<160) Not Available [facility] (Central[facility] Ordering - All Locations) Patient Can Go To The Location Of Their Choice, 07/26/2020 17:08:07 07/27/1907/26/2020 C-ok ctive prote in, quant itati ve, serum or plasm a C-reactive protein <0.3 mg/dL (0-0.5 ) Not Available [facility] (Centralized Electronic Ordering - All Locations) Patient Can Go To The Location Of Their Choice, 07/26/2020 17:14:39 07/27/1907/26/2020 vitam in D, 25-hy droxy , total , serum 25OH vitamin D 28.0 NG/mL (20-50 ) Not Available [facility] (Centralized Electronic Ordering - All Locations) Patient Can Go To The Location Of Their Choice, 07/26/2020 17:14:40 07/27/1907/27/2020 JENNY (anti nucle ar antib odies ) scree n, serum anti-nuclear antibody screen NEGATI VE (NOTE ) Negat nadia <1:80 Borde rline 1:80 Posit nadia >1:80 Test perfo rmed by [facility], [address], [place] [address] Not Available [facility] (Centralized Electronic Ordering - All Locations) Patient Can Go To The Location Of Their Choice, 07/27/2020 21:09:58 09/14/1909/13/2021 COMPL ETE CBC WITH DIFF WBC 5.8 K/mm3 (4.0-1 1.0) Not Available [facility] (Centralized Electronic Ordering - All Locations) Patient Can Go To The Location Of Their Choice, 09/13/2021 13:51:21 09/14/1909/13/2021 COMPL ETE CBC WITH DIFF RBC 4.45 M/mm3 (4.20- 5.40) Not Available [facility] (Centralized Electronic Ordering - All Locations) Patient Can Go To The Location Of Their Choice, 09/13/2021 13:51:21 09/14/1909/13/2021 COMPL ETE CBC WITH DIFF HGB 13.6 gm/dL (11.7- 15.5) Not Available [facility] (Centralized Electronic Ordering - All Locations) Patient Can Go To The Location Of Their Choice, 09/13/2021 13:51:21 09/14/1909/13/2021 COMPL ETE CBC WITH DIFF HCT 41.0 % (35.7- 45.8) Not Available [facility] (Centralized Electronic Ordering - All Locations) Patient Can Go To The Location Of Their Choice, 09/13/2021 13:51:21 09/14/1909/13/2021 COMPL ETE CBC WITH DIFF MCV 92.1 fL (80.0- 100.0) Not Available [facility] (Centralized Electronic Ordering - All Locations) Patient Can Go To The Location Of Their Choice, 09/13/2021 13:51:21 09/14/1909/13/2021 COMPL ETE CBC WITH DIFF MCH 30.6 pg (27.0- 34.0) Not Available [facility] (Centralized Electronic Ordering - All Locations) Patient Can Go To The Location Of Their Choice, 09/13/2021 13:51:21 09/14/1909/13/2021 COMPL ETE CBC WITH DIFF MCHC 33.2 g/dL (33.0- 37.0) Not Available [facility] (Centralized Electronic Ordering - All Locations) Patient Can Go To The Location Of Their Choice, 09/13/2021 13:51:21 09/14/1909/13/2021 COMPL ETE CBC WITH DIFF plt 254 K/mm3 (150-4 60) Not Available [facility] (Centralized Electronic Ordering - All Locations) Patient Can Go To The Location Of Their Choice, 09/13/2021 13:51:21 09/14/19 22 09/13/2021 COMPL ETE CBC WITH DIFF RDW-SD 43.8 fL (<47.0 ) Not Available [facility] (Centralized Electronic Ordering - All Locations) Patient Can Go To The Location Of Their Choice, 09/13/2021 13:51:21 09/14/19 22 09/13/2021 COMPL ETE CBC WITH DIFF MPV 9.6 fL (9.4-1 2.4) Not Available [facility] (Centralized Electronic Ordering - All Locations) Patient Can Go To The Location Of Their Choice, 09/13/2021 13:51:21 09/14/1909/13/2021 COMPL ETE CBC WITH DIFF automated NRBC 0.0 #/100 _WBC' s Not Available [facility] (Centralized Electronic Ordering - All Locations) Patient Can Go To The Location Of Their Choice, 09/13/2021 13:51:21 09/14/1909/13/2021 COMPL ETE CBC WITH DIFF abs. NRBC 0.0 K/mm3 Not Available [facility] ([facility]ized Electronic Ordering - All Locations) Patient Can Go To The Location Of Their Choice, 09/13/2021 13:51:21 09/14/1909/13/2021 COMPL ETE CBC WITH DIFF neut # 3.5 K/mm3 (1.3-7 .0) Not Available [facility] ([facility]ized Electronic Ordering - All Locations) Patient Can Go To The Location Of Their Choice, 09/13/2021 13:51:21 09/14/1909/13/2021 COMPL ETE CBC WITH DIFF lymph # 1.7 K/mm3 (0.8-3 .1) Not Available [facility] ([facility]ized Electronic Ordering - All Locations) Patient Can Go To The Location Of Their Choice, 09/13/2021 13:51:21 09/14/1909/13/2021 COMPL ETE CBC WITH DIFF mono# 0.4 K/mm3 (0.4-0 .9) Not Available [facility] ([facility] Electronic Ordering - All Locations) Patient Can Go To The Location Of Their Choice, 09/13/2021 13:51:21 09/14/1909/13/2021 COMPL ETE CBC WITH DIFF eo # 0.1 K/mm3 (0.0-0 .4) Not Available [facility] ([facility] Electronic Ordering - All Locations) Patient Can Go To The Location Of Their Choice, 09/13/2021 13:51:21 09/14/1909/13/2021 COMPL ETE CBC WITH DIFF baso # 0.0 K/mm3 (0.0-0 .1) Not Available [facility] ([facility] Electronic Ordering - All Locations) Patient Can Go To The Location Of Their Choice, 09/13/2021 13:51:21 09/14/1909/13/2021 COMPL ETE CBC WITH DIFF abs. imm gran 0.0 K/mm3 Not Available [facility] ([facility] Ordering - All Locations) Patient Can Go To The Location Of Their Choice, 09/13/2021 13:51:21 09/14/1909/13/2021 COMPL ETE CBC WITH DIFF neut 60.7 % (44-76 ) Not Available [facility] ([facility] Electronic Ordering - All Locations) Patient Can Go To The Location Of Their Choice, 09/13/2021 13:51:21 09/14/1909/13/2021 COMPL ETE CBC WITH DIFF lymph 30.0 % (15-43 ) Not Available [facility] ([facility]ized Electronic Ordering - All Locations) Patient Can Go To The Location Of Their Choice, 09/13/2021 13:51:21 09/14/1909/13/2021 COMPL ETE CBC WITH DIFF monocyte 6.1 % (4.5-1 0.5) Not Available [facility] ([facility] Ordering - All Locations) Patient Can Go To The Location Of Their Choice, 09/13/2021 13:51:21 09/14/1909/13/2021 COMPL ETE CBC WITH DIFF eo 2.3 % (0-6) Not Available [facility] ([facility] Ordering - All Locations) Patient Can Go To The Location Of Their Choice, 09/13/2021 13:51:21 09/14/19 22 09/13/2021 COMPL ETE CBC WITH DIFF baso 0.7 % (0-2) Not Available [facility] ([facility] Electronic Ordering - All Locations) Patient Can Go To The Location Of Their Choice, 09/13/2021 13:51:21 09/14/19 22 09/13/2021 COMPL ETE CBC WITH DIFF imm gran 0.2 % Not Available [facility] ([facility] Ordering - All Locations) Patient Can Go To The Location Of Their Choice, 09/13/2021 13:51:21 09/14/19 22 09/13/2021 COMPR EHENS NADIA METAB OLIC PANL glucose 93 mg/dL (70-99 ) Not Available [facility] ([facility] Ordering - All Locations) Patient Can Go To The Location Of Their Choice, 09/13/2021 14:15:09/14/1909/13/2021 COMPR EHENS NADIA METAB OLIC PANL BUN 15 mg/dL (8-23) Not Available [facility] ([facility] Electronic Ordering - All Locations) Patient Can Go To The Location Of Their Choice, 09/13/2021 14:15:09/14/1909/13/2021 COMPR EHENS NADIA METAB OLIC PANL creatinine 0.9 mg/dL (0.5-1 .0) Not Available [facility] ([facility] Electronic Ordering - All Locations) Patient Can Go To The Location Of Their Choice, 09/13/2021 14:15:26 09/14/19 22 09/13/2021 COMPR EHENS NADIA METAB OLIC PANL sodium 143 mmol/ L (133-1 45) Not Available [facility] ([facility] Ordering - All Locations) Patient Can Go To The Location Of Their Choice, 09/13/2021 14:15:09/14/19 22 09/13/2021 COMPR EHENS NADIA METAB OLIC PANL potassium 3.8 mmol/ L (3.6-5 .2) Not Available [facility] ([facility] Electronic Ordering - All Locations) Patient Can Go To The Location Of Their Choice, 09/13/2021 14:15:09/14/1909/13/2021 COMPR EHENS NADIA METAB OLIC PANL chloride 106 mmol/ L (98-10 7) Not Available [facility] ([facility] Ordering - All Locations) Patient Can Go To The Location Of Their Choice, 09/13/2021 14:15:09/14/1909/13/2021 COMPR EHENS NADIA METAB OLIC PANL bicarbonate 27 mmol/ L (22-29 ) Not Available [facility] ([facility] Ordering - All Locations) Patient Can Go To The Location Of Their Choice, 09/13/2021 14:15:09/14/1909/13/2021 COMPR EHENS NADIA METAB OLIC PANL anion gap 10 (4-17) Not Available [facility] ([facility] Ordering - All Locations) Patient Can Go To The Location Of Their Choice, 09/13/2021 14:15:09/14/1909/13/2021 COMPR EHENS NADIA METAB OLIC PANL albumin 4.9 gm/dL (3.4-4 .8) high Not Available [facility] ([facility] Ordering - All Locations) Patient Can Go To The Location Of Their Choice, 09/13/2021 14:15:09/14/1909/13/2021 COMPR EHENS NADIA METAB OLIC PANL calcium 9.5 mg/dL (8.6-1 0.5) Not Available [facility] ([facility] Electronic Ordering - All Locations) Patient Can Go To The Location Of Their Choice, 09/13/2021 14:15:09/14/1909/13/2021 COMPR EHENS NADIA METAB OLIC PANL bilirubin,to hiram 0.4 mg/dL (0-1.2 ) Not Available [facility] ([facility] Ordering - All Locations) Patient Can Go To The Location Of Their Choice, 09/13/2021 14:15:09/14/1909/13/2021 COMPR EHENS NADIA METAB OLIC PANL total protein 6.7 gm/dL (6.2-8 .2) Not Available [facility] ([facility] Ordering - All Locations) Patient Can Go To The Location Of Their Choice, 09/13/2021 14:15:09/14/1909/13/2021 COMPR EHENS NADIA METAB OLIC PANL Ag ratio 2.7 Not Available [facility] ([facility] Ordering - All Locations) Patient Can Go To The Location Of Their Choice, 09/13/2021 14:15:09/14/19 22 09/13/2021 COMPR EHENS NADIA METAB OLIC PANL AST 18 U/L (0-32) Not Available [facility] ([facility] Ordering - All Locations) Patient Can Go To The Location Of Their Choice, 09/13/2021 14:15:09/14/19 22 09/13/2021 COMPR EHENS NADIA METAB OLIC PANL alk phos 119 U/L (35-10 4) high Not Available [facility] ([facility] Ordering - All Locations) Patient Can Go To The Location Of Their Choice, 09/13/2021 14:15:09/14/19 22 09/13/2021 COMPR EHENS NADIA METAB OLIC PANL ALT 14 U/L (0-33) Not Available [facility] ([facility] Ordering - All Locations) Patient Can Go To The Location Of Their Choice, 09/13/2021 14:15:09/14/1909/13/2021 COMPR EHENS NADIA METAB OLIC PANL estimated GFR creatinine 72 mL/mi n/1.7 3_M2 Creat inine based estim ated glome rular filtr ation (eGFR ) in adult s is calcu lated using the Natio nal Kidne y Found ation recom gloria d 2020 CKD-E PI equat ion. Estim ates GFR from serum creat inine , age and sex. Not Available [facility] (Centralized Electronic Ordering - All Locations) Patient Can Go To The Location Of Their Choice, 09/13/2021 14:15:09/14/1909/13/2021 IRON & TIBC iron 61 mcg/d L (30-16 0) Not Available [facility] ([facility] Ordering - All Locations) Patient Can Go To The Location Of Their Choice, 09/13/2021 14:15:29 09/14/1909/13/2021 IRON & TIBC unsaturated iron binding capac 193 mcg/d L (110-3 70) Not Available [facility] ([facility]ized [facility] Ordering - All Locations) Patient Can Go To The Location Of Their Choice, 09/13/2021 14:15:29 09/14/1909/13/2021 IRON & TIBC est T. iron bind capacity 254 mcg/d L (140-5 30) Not Available [facility] ([facility] Ordering - All Locations) Patient Can Go To The Location Of Their Choice, 09/13/2021 14:15:29 09/14/1909/13/2021 IRON & TIBC % iron saturation 24 % (20-55 ) Not Available [facility] ([facility] Ordering - All Locations) Patient Can Go To The Location Of Their Choice, 09/13/2021 14:15:09/14/1909/13/2021 LIPID PANEL cholesterol, total 169 mg/dL (<200) Not Available [facility] ([facility] Order[facility] - All Locations) Patient Can Go To The Location Of Their Choice, 09/13/2021 14:15:30 09/14/1909/13/2021 LIPID PANEL triglyceride 149 mg/dL (<150) Not Available [facility] ([facility] Order[facility] - All Locations) Patient Can Go To The Location Of Their Choice, 09/13/2021 14:15:30 09/14/1909/13/2021 LIPID PANEL HDL chol 38 mg/dL (>39) low Not Available [facility] ([facility] Electronic Ordering - All Locations) Patient Can Go To The Location Of Their Choice, 09/13/2021 14:15:09/14/1909/13/2021 LIPID PANEL LDL cholesterol, calculated 101 mg/dL (0-130 ) Not Available [facility] ([facility] Ordering - All Locations) Patient Can Go To The Location Of Their Choice, 09/13/2021 14:15:09/14/1909/13/2021 LIPID PANEL non HDL cholesterol (calc) 131 mg/dL (<160) Not Available [facility] ([facility] Order[facility] - All Locations) Patient Can Go To The Location Of Their Choice, 09/13/2021 14:15:09/14/1909/13/2021 TSH TSH 2.08 uIU/m L (0.4-4 .2) Not Available [facility] ([facility] Ordering - All Locations) Patient Can Go To The Location Of Their Choice, 09/13/2021 14:27:47 09/14/19 22 09/13/2021 25OH VITAM IN D 25OH vitamin D 26.5 NG/mL (20-50 ) Not Available [facility] ([facility] Ordering - All Locations) Patient Can Go To The Location Of Their Choice, 09/13/2021 14:27:48 09/14/19 22 09/14/2021 SJOGR ENS ANTIB ODIES anti-ssa (RO) Ab 0.2 Refer ence range : 0.0 to 0.9 Unit: AI Not Available [facility] ([facility] Ordering - All Locations) Patient Can Go To The Location Of Their Choice, 09/14/2021 11:06:36 09/14/19 22 09/14/2021 SJOGR ENS ANTIB ODIES anti-ssb (la) Ab <0.2 Refer ence range : 0.0 to 0.9 Unit: AI Test perfo rmed by [facility], [address], [place] [address] Not Available [facility] ([facility] Ordering - All Locations) Patient Can Go To The Location Of Their Choice, 09/14/2021 11:06:36 09/14/19 22 09/15/2021 VARIC LOW IGG ANTIB JAKY varicella IgG antibody EQUIV OCAL Consi silvia [...] oassa y syste m. Not Available [facility] ([facility] Ordering - All Locations) Patient Can Go To The Location Of Their Choice, 09/15/2021 14:59:11 08/05/19 23 08/04/2022 COMPR EHENS NADIA METAB OLIC PANL glucose 96 mg/dL (70-99 ) Not Available [facility] ([facility] Ordering - All Locations) Patient Can Go To The Location Of Their Choice, 08/04/2022 14:37:08/05/1908/04/2022 COMPR EHENS NADIA METAB OLIC PANL BUN 16 mg/dL (8-23) Not Available [facility] ([facility] Ordering - All Locations) Patient Can Go To The Location Of Their Choice, 08/04/2022 14:37:08/05/1908/04/2022 COMPR EHENS NADIA METAB OLIC PANL creatinine 1.0 mg/dL (0.5-1 .0) Not Available [facility] ([facility] Ordering - All Locations) Patient Can Go To The Location Of Their Choice, 08/04/2022 14:37:08/05/1908/04/2022 COMPR EHENS NADIA METAB OLIC PANL sodium 145 mmol/ L (133-1 45) Not Available [facility] ([facility] Ordering - All Locations) Patient Can Go To The Location Of Their Choice, 08/04/2022 14:37:08/05/1908/04/2022 COMPR EHENS NADIA METAB OLIC PANL potassium 4.0 mmol/ L (3.6-5 .2) Not Available [facility] ([facility] Ordering - All Locations) Patient Can Go To The Location Of Their Choice, 08/04/2022 14:37:08/05/1908/04/2022 COMPR EHENS NADIA METAB OLIC PANL chloride 106 mmol/ L (98-10 7) Not Available [facility] ([facility] Ordering - All Locations) Patient Can Go To The Location Of Their Choice, 08/04/2022 14:37:08/05/1908/04/2022 COMPR EHENS NADIA METAB OLIC PANL bicarbonate 28 mmol/ L (22-29 ) Not Available [facility] ([facility] Ordering - All Locations) Patient Can Go To The Location Of Their Choice, 08/04/2022 14:37:08/05/1908/04/2022 COMPR EHENS NADIA METAB OLIC PANL anion gap 11 (4-17) Not Available [facility] ([facility] Ordering - All Locations) Patient Can Go To The Location Of Their Choice, 08/04/2022 14:37:08/05/1908/04/2022 COMPR EHENS NADIA METAB OLIC PANL albumin 4.8 gm/dL (3.4-4 .8) Not Available [facility] ([facility] Ordering - All Locations) Patient Can Go To The Location Of Their Choice, 08/04/2022 14:37:08/05/1908/04/2022 COMPR EHENS NADIA METAB OLIC PANL calcium 9.6 mg/dL (8.6-1 0.5) Not Available [facility] ([facility] Electronic Ordering - All Locations) Patient Can Go To The Location Of Their Choice, 08/04/2022 14:37:08/05/1908/04/2022 COMPR EHENS NADIA METAB OLIC PANL bilirubin,to hiram 0.4 mg/dL (0-1.2 ) Not Available [facility] ([facility] Electronic Ordering - All Locations) Patient Can Go To The Location Of Their Choice, 08/04/2022 14:37:08/05/1908/04/2022 COMPR EHENS NADIA METAB OLIC PANL total protein 6.7 gm/dL (6.2-8 .2) Not Available [facility] ([facility] Ordering - All Locations) Patient Can Go To The Location Of Their Choice, 08/04/2022 14:37:08/05/1908/04/2022 COMPR EHENS NADIA METAB OLIC PANL Ag ratio 2.5 Not Available [facility] ([facility] Ordering - All Locations) Patient Can Go To The Location Of Their Choice, 08/04/2022 14:37:08/05/1908/04/2022 COMPR EHENS NADIA METAB OLIC PANL AST 19 U/L (0-32) Not Available [facility] ([facility] Ordering - All Locations) Patient Can Go To The Location Of Their Choice, 08/04/2022 14:37:21 08/05/1908/04/2022 COMPR EHENS NADIA METAB OLIC PANL alk phos 98 U/L (35-10 4) Not Available [facility] ([facility] Ordering - All Locations) Patient Can Go To The Location Of Their Choice, 08/04/2022 14:37:21 08/05/1908/04/2022 COMPR EHENS NADIA METAB OLIC PANL ALT 17 U/L (0-33) Not Available [facility] ([facility] Ordering - All Locations) Patient Can Go To The Location Of Their Choice, 08/04/2022 14:37:21 08/05/1908/04/2022 COMPR EHENS NADIA METAB OLIC PANL estimated GFR creatinine 65 mL/mi n/1.7 3_M2 Creat inine based estim ated glome rular filtr ation (eGFR ) in adult s is calcu lated using the Natio nal Kidne y Found ation recom gloria d 2020 CKD-E PI equat ion. Estim ates GFR from serum creat inine , age and sex. Not Available [facility] ([facility] Electronic Ordering - All Locations) Patient Can Go To The Location Of Their Choice, 08/04/2022 14:37:21 08/05/1908/04/2022 GGTP ggtp 17 U/L (5-36) Not Available [facility] ([facility] Ordering - All Locations) Patient Can Go To The Location Of Their Choice, 08/04/2022 14:37:23 08/05/1908/04/2022 LIPID PANEL cholesterol, total 168 mg/dL (<200) Not Available [facility] ([facility] Order[facility] - All Locations) Patient Can Go To The Location Of Their Choice, 08/04/2022 14:37:24 08/05/1908/04/2022 LIPID PANEL triglyceride 147 mg/dL (<150) Not Available [facility] ([facility] Order[facility] - All Locations) Patient Can Go To The Location Of Their Choice, 08/04/2022 14:37:24 08/05/1908/04/2022 LIPID PANEL HDL chol 39 mg/dL (>39) low Not Available [facility] ([facility] Order[facility] - All Locations) Patient Can Go To The Location Of Their Choice, 08/04/2022 14:37:24 08/05/1908/04/2022 LIPID PANEL LDL cholesterol, calculated 100 mg/dL (0-130 ) Not Available [facility] ([facility] Ordering - All Locations) Patient Can Go To The Location Of Their Choice, [id number] 08/04/2022 14:37:24 08/05/19 23 08/04/2022 LIPID PANEL non HDL cholesterol (calc) 129 mg/dL (<160) Not Available [facility] ([facility] Order[facility] - All Locations) Patient Can Go To The Location Of Their Choice, [id number] 08/04/2022 14:37:24 08/05/19 23 08/04/2022 25OH VITAM IN D 25OH vitamin D 20.5 NG/mL (20-50 ) Not Available [facility] ([facility] Order[facility] - All Locations) Patient Can Go To The Location Of Their Choice, [id number] 08/04/2022 16:51:29 01/12/20 24 01/13/2024 COMP. METAB OLIC PANEL (14) glucose 98 mg/dL 70-99 normal Not Available [facility] ([facility]) [address] [place], [address], 01/13/2024 06:08:08 01/12/20 24 01/13/2024 COMP. METAB OLIC PANEL (14) BUN 14 mg/dL 8-27 normal Not Available [facility] ([facility]) [address] [place], [address], 01/13/2024 06:08:08 01/12/20 24 01/13/2024 COMP. METAB OLIC PANEL (14) creatinine 0.90 mg/dL 0.57-1 .00 normal Not Available [facility] ([facility]) [address] [place], [address], 01/13/2024 06:08:08 01/12/20 24 01/13/2024 COMP. METAB OLIC PANEL (14) eGFR 72 mL/mi n/1.7 3 >59 normal Not Available [facility] ([facility]) [address] [place], [address], 01/13/2024 06:08:08 01/12/20 24 01/13/2024 COMP. METAB OLIC PANEL (14) BUN/creatini ne ratio 16 12-28 normal Not Available [facility] ([facility]) [address] [facility] [place], [address], 01/13/2024 06:08:08 01/12/20 24 01/13/2024 COMP. METAB OLIC PANEL (14) sodium 145 mmol/ L 134-14 4 above high normal Not Available [facility] ([facility]) [address] [facility] [place], [address], 01/13/2024 06:08:08 01/12/20 24 01/13/2024 COMP. METAB OLIC PANEL (14) potassium 3.8 mmol/ L 3.5-5. 2 normal Not Available [facility] ([facility]) [address] [facility] [place], [address], 01/13/2024 06:08:08 01/12/20 24 01/13/2024 COMP. METAB OLIC PANEL (14) chloride 107 mmol/ L 96-106 above high normal Not Available [facility] ([facility]) [address] [facility] [place], [address], 01/13/2024 06:08:08 01/12/20 24 01/13/2024 COMP. METAB OLIC PANEL (14) carbon dioxide, total 24 mmol/ L 20-29 normal Not Available [facility] ([facility]) [address] [place], [address], 01/13/2024 06:08:08 01/12/20 24 01/13/2024 COMP. METAB OLIC PANEL (14) calcium 9.2 mg/dL 8.7-10 .3 normal Not Available [facility] ([facility]) [address] [facility] [place], [address], 01/13/2024 06:08:08 01/12/20 24 01/13/2024 COMP. METAB OLIC PANEL (14) protein, total 6.7 g/dL 6.0-8. 5 normal Not Available [facility] ([facility]) [address] [place], [address], 01/13/2024 06:08:08 01/12/20 24 01/13/2024 COMP. METAB OLIC PANEL (14) albumin 4.2 g/dL 3.9-4. 9 normal Not Available [facility] ([facility]) [address] [place], [address], 01/13/2024 06:08:08 01/12/20 24 01/13/2024 COMP. METAB OLIC PANEL (14) globulin, total 2.5 g/dL 1.5-4. 5 Not Available [facility] ([facility]) [address] [place], [address], 01/13/2024 06:08:08 01/12/20 24 01/13/2024 COMP. METAB OLIC PANEL (14) bilirubin, total 0.5 mg/dL 0.0-1. 2 normal Not Available [facility] ([facility]) [address] [place], [address], 01/13/2024 06:08:08 01/12/20 24 01/13/2024 COMP. METAB OLIC PANEL (14) alkaline phosphatase 111 IU/L 44-121 normal Not Available [facility] ([facility]) [address] [place], [address], 01/13/2024 06:08:08 01/12/20 24 01/13/2024 COMP. METAB OLIC PANEL (14) AST (SGOT) 24 IU/L 0-40 normal Not Available [facility] ([facility]) [address] [place], [address], 01/13/2024 06:08:08 01/12/20 24 01/13/2024 COMP. METAB OLIC PANEL (14) ALT (SGPT) 16 IU/L 0-32 normal Not Available [facility] ([facility]) [address] [facility] [place], [address], 01/13/2024 06:08:08 01/12/20 24 01/13/2024 LIPID PANEL cholesterol, total 150 mg/dL 100-19 9 normal Not Available [facility] ([facility]) [address] [facility] [place], [address], 01/13/2024 06:08:10 01/12/20 24 01/13/2024 LIPID PANEL triglyceride s 151 mg/dL 0-149 above high normal Not Available [facility] ([facility]) [address] [facility] [place], [address], 01/13/2024 06:08:10 01/12/20 24 01/13/2024 LIPID PANEL HDL cholesterol 37 mg/dL >39 below low normal Not Available [facility] ([facility]) [address] [facility] [place], [address], 01/13/2024 06:08:10 01/12/20 24 01/13/2024 LIPID PANEL VLDL cholesterol genna 27 mg/dL 5-40 Not Available [facility] ([facility]) [address] [place], [address], 01/13/2024 06:08:10 01/12/20 24 01/13/2024 LIPID PANEL LDL chol calc ([facility]) 86 mg/dL 0-99 Not Available [facility] ([facility]) [address] [facility] [place], [address], 01/13/2024 06:08:10 01/12/20 24 01/13/2024 LIPID PANEL LDL calc comment: BROKERAGE COORDINATOR Not Available [facility] ([facility]) [address] [facility] [place], [address], 01/13/2024 06:08:10 01/12/20 24 01/13/2024 TSH TSH 1.720 uIU/m L 0.450- 4.500 normal Not Available [facility] ([facility]) [address] [facility] [place], [address], 01/13/2024 06:08:10 01/12/20 24 01/13/2024 VITAM IN [...] IOM (Inst itute of Medic ine). 2010. Dietnatalie ry refer ence kiarra es for calci um and D. Ricardo bah [place]: [facility] Press . 2. Amy marie MF, Kian andrade [place], Mady off-F errtone i MELGAR, et al. Evalu ation , treat ment, and preve ntion of vitam in D defic iency : an Endoc rine Socie ty clini genna pract ice guide line. JCEM. 2010; 96(7) :1911 -30. Not Available [facility] ([facility]) [address] [facility], [place], [address], 01/13/2024 06:08:14 03/15/19 21 03/15/2020 elect sofya chowdhury am No observ ation record ed. [facility] In-Office Order Internal Use Only DO Not Attach Compendium DO Not Attach Compendium, Do Not Delete/merge, [id number] 03/16/2020 20:45:16 04/02/19 21 04/02/2020 , echo aryoandy gram, trans thora cic, compl ete No observ ation record ed. [address] [facility], [place], [address], 04/03/2020 20:32:45 08/23/19 21 exerc ise stres s test No observ ation record ed. [facility] (Outt Non-Invasive Cardiology Scheduling) [address] [place], [address], 07/25/2021 14:45:21 02/01/20 21 01/31/2021 MAMMO , [...] Lay letter mailed to bryan paez WSN: [id number] Orderi ng Physic evelyn: Carmelo Vogel Dictat ed By: Reji Hwang MD Dictat ed Date/T elias: 2:09 pm Review ed By: Reji Hwang MD Signed By: Reji Hwang MD Signed Date/T elias: 2:09 pm Transc ribed By: BETH Transc riptio n Date/T elias: 2:08 pm Birads : Bryan paez Class: Outpat ient [facility] (Outpt Imaging) [address] [place], [address], 07/25/2021 14:45:21 02/12/19 22 01/31/2021 DEXA, axial skele ton ====== ====== ====== ====== ====== ====== ====== ====== ====== ====== ===== Bone Densit y Report ====== ====== ====== ====== ====== ====== ====== ====== ====== ====== ===== Name: NAFISA AGUILAR t ID: [id number] Age: 60 Sex: Female Ethnic ity: White Date of : 1960 ------ ------ ------ ------ ------ ------ ------ ------ ------ ------ ----- Indica tion: [place] PUCKETT [facility] er: JOHN NUNEZ MD, CARMELO Study: Bone densit ometry was perfor med. Exam Date: [facility] 2020 Access ion number : [id number] Bone Densit y: ------ ------ ------ [...] ------ ------ ------ ------ ------ ----- World [facility] Organi zalin criter ia for BMD impres kevin classi fy patien ts as: Normal (T-sco re at or [...] .3, glucoc ortico ids (1) FRAX(R ) Versio n 3.08. Fractu re [...] Hip = 0.027 g/cm2 Clinic al Inform ation Provid ed by Bryan paez: ------ ------ ------ ------ ------ ------ ------ ------ ------ ------ ----- Has taken Glucoc ortico ids Has used the follow ing medica tions: Aye Gómez Has the follow ing medica l condit ions: Asthma or Emphys renetta, Hyster ectomy Bryan youngblood height was 65.0 Menopa use Age: 54 Onset of menses at age 13 Number of childr en 2 ------ ------ ------ ------ ------ ------ ------ ------ ------ ------ ----- Impres kevin: The patisami paez has osteop enia as determ ined by WHO criter ia. Report ed by: Katy Arreaga M.D. on 2021 6:21:0 0 PM. Dictat ed By: Katy Arreaga MD Dictat ed Date/T elias: 6:22 pm Review ed By: Katy Arreaga MD Signed By: Katy Arreaga MD Signed Date/T elias: 6:22 pm Transc ribed By: BETH Transc ribed Date/T elias: 6:22 pm Patien t Class: Outpat [facility] (Outpt Imaging) [address] [place], [address], 07/25/2021 14:45:21 07/26/19 22 07/25/2021 XR, chest [...] IMPRES KEVIN: No acute abnorm ality. WSN: [id number] Orderi ng Physic evelyn: Carmelo Vogel Patien t Class: Outpat [facility] (Outpt Imaging) [address] [place], [address], 08/13/2022 21:06:27 02/13/19 24 02/13/2023 MAMMO , scree deana, dewey al, bilat eral PROCED URE: MM Digita [...] (Benig n) Lay letter mailed to bryan philippe WSN: [id number] Orderi ng Physic evelyn: Carmelo Vogel Dictat ed By: Joyce Newsome MD Dictat ed Date/T elias: 5:10 pm Review ed By: Joyce Newsome MD Signed By: Joyce Newsome MD Signed Date/T elias: 5:10 pm Transc ribed By: BETH Transc riptio n Date/T elias: 5:06 pm Birads : Bryan paez Class: Outpat ient [facility] (Outpt Imaging) [address] [facility], [place], [address], 08/17/2023 10:17:59 02/13/19 24 02/13/2023 MAMMO , tarsha leblanc, bilat eral No observ ation record ed. [facility] [address], [place], [address], 08/17/2023 10:17:59 02/18/1902/13/2023 DEXA, axial skele ton Name:Delvis paez ID: [id number] Age:62 years Sex:Fe male Ethnic ity:Wh [...] determ ined by WHO criter ia. WSN: [id number] Orderi ng Physic evelyn: Carmelo Vogelat ed By: Gibson PANTOJA, Katy Bauer Dictat ed Date/T elias: 12:35 p Review ed By: Katy Arreaga MD Signed By: Katy Arreaga MD Signed Date/T elias: 12:35 pm Transc ribed By: BETH Transc ribed Date/T elias: 12:33 pm Patien t Class: Outpat ient reagan [facility] (Outpt Imaging) [address] [facility], [place], [address], 08/17/2023 10:17:59 Result Notes None recorded. Problems Name Problem SNOMED Code Status Onset Date Resolution Date Notes Provider Name and Address Organization Details Recorded Time Generali zed anxiety disorder 21654776 Active 2016 Carmelo Lau MD [address] [address], [place], [address], [facility] 7 14:26:40 Uterine prolapse 77741759 Completed 201607/08/2017 Carmelo Lau MD [address] [address], [place], [address], [facility] 8 15:39:51 Mild intermit tent asthma 990905205 Active 2016 Carmelo Lau MD [address] [address], [place], [address], [facility] 7 14:28:22 Alopecia 91960138 Active 2016 Carmelo Lau MD [address] [facility] [address], [place], [address], [facility] 7 14:28:27 Raynaud' s disease 973031785 Active 2016 Carmelo Lau MD [address] [facility] [address], [place], [address], [facility] 7 14:51:43 Raised antinucl ear antibody 664994658 Completed 201607/08/2017 negative rheum eval 2012 Carmelo Lau MD [address] [address], [place], [address], [facility] 8 15:39:44 Hypercho lesterol emia 82246331 Active 2015 Carmelo Lau MD [address], [place], [address], [facility] 7 08:36:54 Cystocel e 575312629 Completed 201607/08/2017 Carmelo Lau MD [address], [place], [address], [facility] 8 15:39:31 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 322173858 Completed 201607/08/2017 Carmelo Lau MD [address], [place], [address], [facility] 8 15:39:28 History of stress incontin ence 018840424 Active 2016 Carmelo Lau MD [address], [place], [address], [facility] 7 12:27:10 Female stress incontin ence 87446496 Completed 201607/08/2017 Carmelo Lau MD [address], [place], [address], [facility] 8 15:39:24 Increase d frequenc y of urinatio n 669618622 Completed 201607/08/2017 Carmelo Lau MD [address], [place], [address], [facility] 8 15:39:20 Psoriasi s 4663858 Active 2017 Carmelo Lau MD [address], [place], [address], [facility] 8 15:30:19 Hypernat remia Completed 201707/13/2018 Carmelo Lau MD [address], [place], [address], [facility] 9 13:23:42 Elevated blood-pr essure reading without diagnosi s of hyperten kevin 241898933 Completed 201701/07/2018 Carmelo Lau MD [address] [facility] [address], [place], [address], [facility] 8 15:33:37 Body mass index 25-29 - overweig ht 101425644 Completed 201807/19/2019 Carmelo Lau MD [address], [place], [address], [facility] 0 09:54:18 History of tobacco use 98711514914 03 Active 2018 Carmelo Lau MD [address], [place], [address], [facility] 9 13:45:16 Herpes labialis 6500060 Active 2018 Carmelo Lau MD [address] [facility] [address], [place], [address], [facility] 9 13:55:11 Hypercal cemia 84485948 Completed 201809/07/2019 Carmelo Lau MD [address], [place], [address], [facility] 0 08:45:04 Osteopen ia 771583643 Active 2018 Carmelo Lau MD [address], [place], [address], [facility] 9 06:46:53 History of total hysterec kyler 971266001 Active 2019 Carmelo Lau MD [address], [place], [address], [facility] 0 09:24:26 Insomnia 470972945 Active 2019 Carmelo Lau MD [address] [facility] [address], [place], [address], [facility] 0 09:26:26 Body mass index 25-29 - overweig ht 168913103 Active 2019 Carmelo Lau MD [address] [facility] [address], [place], [address], [facility] 0 09:54:18 Posttrau matic stress disorder 56623426 Active 2019 Carmelo Lau MD [address] [facility] [address], [place], [address], [facility] 0 09:59:34 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 184569736 Active 2019 Carmelo Lau MD [address] [facility] [address], [place], [address], [facility] 0 21:02:23 Alkaline phosphat ase above referenc e range 420881239 Completed 202108/06/2022 Carmelo Lau MD [address] [facility] [address], [place], [address], [facility] 3 21:09:37 Alkaline phosphat ase above referenc e range 630643843 Completed 202208/13/2022 Carmelo Lau MD [address] [facility] [address], [place], [address], [facility] 3 21:09:37 Vitamin D deficien cy 02816833 Active 2023 Carmelo Lau MD [address] [facility] [address], [place], [address], [facility] 10:07:13 Problem Notes None recorded. Procedures Surgical History Date Name Laterality Status Provider Name and Address Organization Details Recorded Time 024 Most Recent Bone Density completed Noni Reese [facility] 08/17/2023 09:26:00 024 Most Recent [facility]ammogram [facility] 08/17/2023 09:37:01 024 Mammogram screening completed Omayra Alejandro [facility] 02/14/2023 09:03:22 024 Dxa bone density abdirizak vrt fx completed Noni Reese [facility] 08/17/2023 09:37:49 023 Date of Last Colonoscopy [facility] 08/17/2023 09:30:22 023 Colonoscopy completed Carmelo Lau MD [address], [address], [facility] 12/22/2022 05:54:42 021 Echo transthoracic completed Carmelo Lau MD [address], [address], [facility] 11/14/2020 08:11:01 021 electrocardiogram with exercise test completed Carmelo Lau MD [address], [address], [facility] 08/23/2020 21:02:05 019 Dxa bone density abdirizak vrt fx completed Mignon Walker [place] [facility] 07/19/2019 09:00:31 017 Hysterectomy completed Mignon Walker MA [facility] 07/19/2019 08:56:20 017 Hysterectomy/revise vagina completed Carmelo Lau MD [address], [address], [facility] 07/13/2018 13:30:10 014 Date of Last Pap Smear completed Aislinn ny [facility] 07/31/2018 10:31:15 989 Breast Surgery completed Carmelo Lau MD [address] [facility] [address], [place], [address], [facility] 07/13/2018 13:28:56 Breast Biopsy completed Mignon Walker MA [facility] 07/25/2021 13:41:31 Imaging Results Imaging Date Name Status LastModified by Organization Details LastModified Time 03/15/2020 electrocardiogram completed [facility] InOffi ce Order Internal Use Only DO Not Attach Compendium DO Not Attach Compendium, Do Not Delete/merge, 97000 03/16/2020 20:45:16 04/02/2020 US, echocardiogram, transthoracic, complete completed [facility] [address] [place], [address], 04/03/2020 20:32:45 08/22/2020 exercise stress test completed [facility] (Outt Non-Invasive Cardiology Scheduling) [address] [place], [address], 07/25/2021 14:45:21 01/31/2021 MAMMO, screening, digital, bilateral completed [facility] (Outpt Imaging) [address] [place], [address], 07/25/2021 14:45:21 01/31/2021 DEXA, axial skeleton completed [facility] (Outpt Imaging) [address] [place], [address], 07/25/2021 14:45:21 07/25/2021 XR, chest, 2 view completed [facility] (Outpt Imaging) [address] [place], [address], 08/13/2022 21:06:27 02/13/2023 MAMMO, screening, digital, bilateral completed [facility] (Outpt Imaging) [address] [place], [address], 08/17/2023 10:17:59 02/13/2023 MAMMO, screening, bilateral completed [facility] [address] [place], [address], 08/17/2023 10:17:59 02/13/2023 DEXA, axial skeleton completed [facility] (Outpt Imaging) [address] [place], [address], 08/17/2023 10:17:59 Procedure Notes None recorded. Medical Equipment None Reported. Allergies Allergen ID Allergen Name Allergen Category Reaction Reaction Severity Criticality Documentation Date Start Date Code Code System Note Provider Name and Address Organization Details Recorded Time 92313 Erythroci n medicatio n rash Not available Not available 07/02/2016 74754 3 RxNorm ANGELA Layton [facility] 7 14:03:13 87539 Substance with sulfonami de structure and antibacte rial mechanism of action (substanc e) medicatio n rash Not available Not available 07/02/2016 09464 8003 SNOMED ANGELA Layton [facility] 7 14:03:29 42235 cheese food abdominal pain diarrhea Not available Not available Not available 07/31/2018 60547 UNANGELA Muro [facility] 9 10:46:51 84148 guaifenes in medicatio n rash Not available low 08/17/2023 5032 RxNorm Carmelo Lau MD [address] [facility] [address], [place], [address], [facility] 4 10:02:26 Medications Name Sig Start Date [...] Not Available Not Available Not Available Fluvirin 4222-4263 45 mcg (15 mcg x 3)/0.5 mL intramuscul ar suspension 07/02 completed Not Available Not Available Not Available Flucelvax Quad 9040-2860 (PF) 60 mcg (15 mcg x 4)/0.5 [...] Updated DateTime 1 166.37 cm 28.4 kg/m2 04933.4 8 g 98.24 [degF] 98 % 98 % 68 /min 148 mm[Hg] 75 mm[Hg] Mignon Walker MA [facility] 1 15:27:55 Date Recorded Body height Body mass index (BMI) Body weight Heart rate Oxygen saturation Oxygen saturation in Arterial blood by Pulse oximetry Body temperature Systolic blood pressure Diastolic blood pressure Provider Name and Address Organization Details Last Updated DateTime 1 166.37 cm 28.2 kg/m2 98304.8 9 g 66 /min 98 % 98 % 98.42 [degF] 114 mm[Hg] 70 mm[Hg] Mignon Walker MA [facility] 1 08:35:07 Date Recorded Body height Body mass index (BMI) Body weight Heart rate Oxygen saturation Oxygen saturation in Arterial blood by Pulse oximetry Body temperature Systolic blood pressure Diastolic blood pressure Provider Name and Address Organization Details Last Updated DateTime 2 166.37 cm 27.9 kg/m2 76606.7 g 73 /min 99 % 99 % 98.42 [degF] 125 mm[Hg] 70 mm[Hg] Mignon Walker MA [facility] 2 13:49:44 Date Recorded Body height Body mass index (BMI) Body weight Heart rate Oxygen saturation Oxygen saturation in Arterial blood by Pulse oximetry Body temperature Systolic blood pressure Diastolic blood pressure Provider Name and Address Organization Details Last Updated DateTime 3 166.37 cm 27.1 kg/m2 76130.8 4 g 67 /min 99 % 99 % 98 [degF] 129 mm[Hg] 78 mm[Hg] Noni Chapa [facility] 3 14:57:59 Date Recorded Body height Body mass index (BMI) Body weight Heart rate Oxygen saturation Oxygen saturation in Arterial blood by Pulse oximetry Body temperature Systolic blood pressure Diastolic blood pressure Provider Name and Address Organization Details Last Updated DateTime 4 166.37 cm 27.7 kg/m2 48038.5 1 g 56 /min 99 % 99 % 98 [degF] 125 mm[Hg] 70 mm[Hg] Noni Reese MA [facility] 4 09:31:27 Social History Question Answer Notes LastModified by Organizat ion Details LastModified Time Tobacco Smoking Status Former Smoker quit 1994 ANGELA Layton [facility] 07/02/2016 14:11:11 Do You Have An Advance Directive? Yes HCP/ -Fr mehta, Dtr-Chantell talley Information not available 07/25/2021 What Is Your Level Of Alcohol Consumption? Occasional Very Rarly Information not available 07/29/2022 Is Blood Transfusion Acceptable In An Emergency? 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 2 Dorinda, 1 Barron (Cathy) reagan Information not available 08/17/2023 What Is [...] 08:55:55 Maternal Grandmother Arthritis abolcun Not available 0610/2019 08:55:55 Maternal Grandmother Osteoporosis abolcun Not available [...] Diseases N Hyperthyroidism N Breast Cancer N Depression Y COPD N Lung Disease N Hypothyroidism N Defects or Inherited Disease N Anesthesia Complications N Headaches/Migraines N Varicose Veins N Anxiety Disorder Y Obesity N Vision or Eye Problems N Arthritis N Head Injury/Concussion N Polyps N Infertility N Congenital Anomalies N Acid Reflux (GERD) Y Cancer Y Stroke N ADHD N Endometriosis N High Cholesterol Y Liver Disease N Fibromyalgia N Kidney Disease N Heart Problems N Ear or Hearing Problems N Hospitalizations N Thyroid Problems N GI Problems Y Acne N Eating Disorder N Skin Problems Y Anemia N Constipation Y Bladder Problems N Mental Illness N Ovarian Cancer N Diabetes N Blood Transfusions N Seizures/Epilepsy N Tuberculosis N AIDS/HIV N Congestive Heart Failure (CHF) N Eczema Y Diverticulitis N Abuse/Domestic Violence N Asthma Y Allergies Y Reflux/GERD Y Hepatitis N Pulmonary Embolism N Hypertension N Chicken Pox N Autism Spectrum Disorder (ASD) N Osteoporosis N Gynecological History Statement/Question Response Date of Last Pap Smear 07/28/2013 Date of Last Colonoscopy 12/18/2022 Most Recent Mammogram 02/13/2023 Most Recent Bone Density 02/13/2023 Obstetrics History GPAL:G 0 P 0 0 0 0 Immunizations Vaccine Type Date Status Note Provider Brandon e and Address Organization Details Recorded Time Influenza, split virus, quadrivalent, preservative 6 completed ANGELA Rojas [facility] 07/29/2022 14:34:39 Tdap 9 completed ANGELA Layton [facility] 07/25/2021 13:41:44 Influenza, split virus, quadrivalent, preservative 7 completed ANGELA Rojas [facility] 07/29/2022 14:34:39 Influenza, split virus, quadrivalent, preservative 8 completed ANGELA Rojas [facility] 07/29/2022 14:34:39 Influenza, split virus, quadrivalent, preservative 9 completed Noni Reese MA jona, [facility] 07/29/2022 14:34:39 varicella 0 completed ANGELA Layton, [facility] 07/25/2021 13:41:45 COVID-19, mRNA, LNP-S, PF, 100 mcg/0.5mL dose or 50 mcg/0.25mL dose 1 completed ANGELA Layton, [facility] 07/25/2021 13:41:44 COVID-19, mRNA, LNP-S, PF, 100 mcg/0.5mL dose or 50 mcg/0.25mL dose 1 [facility] 07/25/2021 13:41:44 Influenza, MDCK, quadrivalent, PF 7 completed ANGELA Layton, [facility] 07/25/2021 13:41:44 Influenza, split virus, trivalent, preservative 5 [facility] 07/25/2021 13:41:44 Novel hbleatavx-E8C3-43, preservative-free 9 completed Mignon Walker [facility] 07/25/2021 13:41:44 Influenza, MDCK, quadrivalent, PF 8 completed ANGELA Layton, [facility] 07/25/2021 13:41:44 varicella 0 completed ANGELA Layton, [facility] 07/25/2021 13:41:44 Influenza, MDCK, quadrivalent, PF 9 [facility] 07/25/2021 13:41:44 COVID-19, mRNA, LNP-S, PF, 100 mcg/0.5mL dose or 50 mcg/0.25mL dose 1 completed ANGELA Layton [facility] 07/25/2021 13:41:44 Influenza, split virus, trivalent, preservative 0 completed ANGELA Layton, [facility] 07/25/2021 13:41:44 Influenza, MDCK, quadrivalent, PF 1 completed ANGELA Layton [facility] 07/25/2021 13:41:44 Tdap 7 [facility] 07/25/2021 13:41:44 Influenza, split virus, trivalent, preservative 6 completed ANGELA Layton [facility] 07/25/2021 13:41:44 Influenza, split virus, trivalent, preservative 1 completed ANGELA Layton [facility] 07/25/2021 13:41:45 Influenza, MDCK, quadrivalent, PF 2 [facility] 07/29/2022 14:34:39 Influenza, MDCK, quadrivalent, PF 3 completed ANGELA Rojas [facility] 08/17/2023 09:20:52 RSV, bivalent, protein subunit RSVpreF, diluent reconstituted, 0.5 mL, PF 4 completed ANGELA Rojas [facility] 08/17/2023 09:20:52 Influenza, split virus, quadrivalent, PF 0 [facility] 11/03/2019 09:17:37 Past Encounters Encounter ID Performer Location Encounter Start Date Encounter Closed Date Diagnosis/Indication Diagnosis SNOMED-CT Code Diagnosis ICD10 Code Diagnosis Note [id number] Carmelo Lau MD Main Office [address] [facility] [address] [facility] [place] [address] 07/02/2016 13:39:49 07/02/2016 14:58:01 Adult health examination 210320345 Z00.00 Immunizati on status updated, flu advised in the Fall. Pt will f/u with new obstetrician gynecologist ayla to update PAP. Regular dental and ophtho care advised as well as seat belt and sunscreen use. Distracted driving discussed. Advance directives in place. Administra tion of diphtheria, pertussis, and tetanus vaccine 651035330 Z23 Body mass index 30+ - obesity 153845704 Z68.30 E66.9 Screening for malignant neoplasm of breast 667548522 Z12.39 Due for screening. Order provided while pt is pursuing a transition of obstetrician gynecologist care. Autoimmune disease 71913 009 M35.9 On chronic prednisone and alendronat e for alopecia. Alopecia 59976769 L65.[address] Randle. [id number] Carmelo Lau MD Main Office [address] [facility] [address] [facility] [place] [address] 11/20/2016 10:47:28 11/20/2016 12:20:27 Multiple joint pain 01977921 M25.50 Steroid responsive with question history of MCTD if labs abnormal will refer to rheum. If normal then consider OA vs myofascial pain targeted treatment plan. Muscle pain 35441325 M79 .1 [id number] Carmelo Lau MD Main Office [address] [place] [address] 07/08/2017 14:34:36 07/08/2017 16:08:59 Adult health examination 683809052 Z00.00 Immunizati on status updated, flu advised in the Fall. Cervical cancer screening not indicated post hysterecto my. Colon and breast cancer screening are utd. Regular dental and ophtho care advised as well as seat belt and sunscreen use. Distracted driving discussed. Advance directives in place. Hypercholesterolemia 136 79314 E78.00 Will reassess and discuss mgmt based on CVD risk score. Body mass index 25-29 - overweight 429995853 E66.3 Z68.25 Elevated blood-pressure reading without diagnosis of hypertension 599164012 R03.0 Screen for end organ damage. Pt will work on low Na diet. regular exercise and wt loss. Will treat if f/u BP is still >130/90. Generalize d anxiety disorder 89168640 F41.1 Well controlled and followed by psych. [id number] Carmelo Lau MD Main Office [address] [facility] [address] [place] [address] 01/07/2018 14:53:45 01/07/2018 15:41:49 Hypernatremia 71330784 E87.0 Will reassess and evaluate further if persistent /worse. Hypercholesterolemia 136 44411 E78.00 Based on current CVD risk score or 4% will manage with TLC and monitoring for now. [id number] Carmelo Lau MD Main Office [address] [facility] [address] [place] [address] 07/13/2018 12:55:15 07/13/2018 13:56:14 Adult health examination [id number] Z00.00 Immunizati on status updated, flu advised in the Fall. Cervical cancer screening not indicated post hysterecto my. Colon and breast cancer screening are utd. Regular dental and ophtho care advised as well as seat belt and sunscreen use. Distracted driving discussed. Advance directives in place. Screening for malignant neoplasm of breast 242731278 Z12.39 Menopause present 383249 006 Z78.0 With post menopausal status and possible celiac disease screenign is warranted. Body mass index 25-29 - overweight 704917899 E66.3 Z68.27 Family his tory of Aortic aneurysm 890971245 Z82.49 Dry eyes 809095993 H04.1 29 History of tobacco use 4859207106 103 Z87.891 Gluten sensitivity 97927 1003 K90.41 Herpes labialis 1804761 B00.1 Hypercholesterolemia 136 34472 E78.00 Will reassess and discuss mgmt based on CVD risk score. Generalize d anxiety disorder 09856359 F41.1 Well controlled and followed by psych. [id number] Som Rene MD Main Office [address] [facility] [address] [place] [address] 07/31/2018 10:23:00 07/31/2018 11:39:13 Diarrhea 97204864 R19.7 Upper abdominal pain 831 59353 R10.10 [id number] Carmelo Lau MD Main Office [address] [facility] [address] [place] [address] 07/19/2019 08:43:41 07/19/2019 09:57:52 Adult health examination 000776126 Z00.00 Immunizati on status updated, flu advised in the Fall. Cervical cancer screening not indicated post hysterecto my. Colon and breast cancer screening are utd. Regular dental and ophtho care advised as well as seat belt and sunscreen use. Distracted driving discussed. Advance directives in place. Mild inter mittent asthma 738015751 J45.20 Seems to be aggravated by allergies. Advise to try different antihistam ine vs add nasal steroid spray. Screening for malignant neoplasm of breast 339773620 Z12.39 Trigger fi nger of right hand [id number] 4109259 M65.341 Will call for rheum/orth o referral if worse. Hypercalcemia 51496991 E 83.52 Will reassess and evaluate further if persistent . Hypercholesterolemia 136 86224 E78.01 Will reassess and discuss mgmt based on CVD risk score. Body mass index 25-29 - overweight 924921464 E66.3 Z68.27 History of tobacco use 3850176958 103 Z87.891 Does not qualify for lung cancer screening. Herpes labialis 2726710 B00.1 Attacks infrequent , has valacyclov ir PRN. Generalize d anxiety disorder 22097627 F41.1 Well controlled and followed by psych. Intermitte nt palpitations 500950785 R00.2 Sound like SVT vs PVC's related to caffeine intake. Normal ECG last year. Will monitor for now. Elevated blood-pressure reading without diagnosis of hypertension 871299000 R03.0 Screen for end organ damage. Pt will work on low Na diet. regular exercise and wt loss. Will treat if f/u BP is still >130/90. Requires v aricella vaccination 840291466 Z28.3 Pt reports that she was seronegati ve when tested in the past. Will need varicella vaccinatio n if so. [id number] Carmelo Lau MD Main Office [address] [facility] [address] [place] [address] 11/03/2019 08:55:00 11/03/2019 10:21:26 Hypercholesterolemia 40109741 E78.01 Based on current CVD risk score TLC advised. Reassess next year. Generalize d anxiety disorder 19049073 F41.1 Well controlled and followed by psych. Rx for anxiolytic refilled. Needs infl uenza immunization 331992288 Z23 Posttrauma tic stress disorder 68193407 F43.10 Followoign with psych. Declines therapy referral att this time. Advised to call if she changes her mind. [id number] Carmelo Lau MD Main Office [address] [facility] [address] [facility] [place] [address] 03/15/2020 15:15:50 03/15/2020 16:19:35 Intermittent palpitations 603981714 R00.2 Based on reported symptoms and comorbidit ies arrhythmia and ischemic evaluation is warranted. Will start with metabolic/ lab screening. ECG unchanged from prior so standard treadmill stress test is warranted. Will ask cardiology to help with arrthyrthm ia eval. Essential hypertension 64343107 I10 Wants to work on low Na diet and weight loss. Is >130/90 at f/u will recommend starting ACEI/diure tic. [id number] Carmelo Lau MD Main Office [address] [facility] [address] [facility] [place] [address] 07/24/2020 08:25:37 07/24/2020 09:19:03 Adult health examination 752591095 Z00.00 Immunizati on status updated, flu advised in the Fall. Cervical cancer screening not indicated post hysterecto my. Colon and breast cancer screening are utd. Regular dental and ophtho care advised as well as seat belt and sunscreen use. Distracted driving discussed. Advance directives in place. Hypercholesterolemia 136 15412 E78.01 Started on statin by cards. Will arrange f/u labs. Screening for malignant neoplasm of breast 077331484 Z12.39 Screening for malignant neoplasm of cervix 710945482 Z12.4 s/p hysterecto my Osteopenia 798735721 M85 .80 Generalize d anxiety disorder 91854034 F41.1 Well controlled and followed by psych. Psoriasis 9831411 L40.9 Followed by derm. Multiple joint pain 3567 8005 M25.50 Steroid responsive with question history of MCTD if labs abnormal will refer to rheum. If normal then consider OA vs myofascial pain targeted treatment plan. Body mass index 25-29 - overweight 446926198 E66.3 Z68.28 Impacted c erumen in right ear 6438147000 984208 H61.21 [id number] Carmelo Lau MD Main Office [address] [facility] [address] [facility] [place] [address] 07/25/2021 13:36:31 07/25/2021 14:39:56 Adult health examination 871095919 Z00.00 Immunizati on status updated, 2nd COVID 19 booster advised as well as flu in the Fall. Cervical cancer screening not indicated post hysterecto my. Colon and breast cancer screening are utd. Regular dental and ophtho care advised as well as seat belt and sunscreen use. Distracted driving discussed. Advance directives in place. Generalize d anxiety disorder 15499496 F41.1 Well controlled and followed by psych. Hypercholesterolemia 136 17413 E78.01 On low dose statin, will reassess. Screening for malignant neoplasm of breast 087487378 Z12.39 Screening for malignant neoplasm of cervix 247239578 Z12.4 s/p hysterecto my Screening for malignant neoplasm of colon 802673998 Z12.11 Osteopenia 506169465 M85 .80 Regular weight bearing exercise encouraged . Reassess next year. Psoriasis 9605777 L40.9 Followed by derm. Body mass index 25-29 - overweight 431992335 E66.3 Z68.27 Impacted c erumen in right ear 9336872242 531797 H61.21 Standard c hest X-ray abnormal 001319951 R93.89 Had hazy density on Xray from last year that i did not receive. Will see if finding is persistent . Dry eyes 056818827 H04.1 29 Loss of hair 231776853 L 65.9 Should follow with derm if persistent /worse. [id number] Carmelo Lau MD Main Office [address] [facility] [address] [place] [address] 07/29/2022 14:31:22 07/29/2022 15:52:11 Adult health examination 964463618 Z00.00 PCV20, Shingrix, bivalent COVID 19 booster advised as well as flu in the Fall via local pharmacy. Cervical cancer screening not indicated post hysterecto my. Colon and breast cancer screening are utd. Regular dental and ophtho care advised as well as seat belt and sunscreen use. Distracted driving discussed. Advance directives in place. Body mass index 25-29 - overweight 013379556 E66.3 Z68.27 Mild inter mittent asthma 987077713 J45.20 Seems to be aggravated by allergies. Advise to try different antihistam ine vs add nasal steroid spray. Osteopenia 070108156 M85 .80 Regular weight bearing exercise encouraged . Will reassess Screening for malignant neoplasm of breast 480790650 Z12.39 Varicella vaccination 68 272893 Z23 History of total hysterectomy 829716228 Z90.710 No indication for PAP Administra tion of pneumococcal vaccine 11645978 Z23 Alkaline p hosphatase above reference range 995475560 R74.8 Will reassess and evaluate further if still elevated. Hypercholesterolemia 136 53204 E78.01 On low dose statin, will reassess CVD risk. Screening for malignant neoplasm of cervix 092425383 Z12.4 s/p hysterecto my Screening for malignant neoplasm of colon 430887857 Z12.11 [id number] Carmelo Lau MD Main Office [address] [facility] [address] [place] [address] 08/17/2023 09:03:33 08/17/2023 10:30:08 Adult health examination 383570570 Z00.00 PCV20, COVID 19 booster advised as well as flu in the Fall via local pharmacy. Cervical cancer screening not indicated post hysterecto my. Colon and breast cancer screening are utd. Regular dental and ophtho care advised as well as seat belt and sunscreen use. Distracted driving discussed. Advance directives in place. Screening for malignant neoplasm of breast 297262917 Z12.39 Hypercholesterolemia 136 65197 E78.01 On low dose statin, will reassess CVD risk. Body mass index 25-29 - overweight 776475318 E66.3 Z68.27 Mild inter mittent asthma 095099076 J45.20 Seems to be aggravated by allergies. Osteopenia 438221852 M85 .80 Regular weight bearing exercise encouraged . Will reassess History of total hysterectomy 995497327 Z90.710 No indication for PAP Screening for malignant neoplasm of cervix 583318249 Z12.4 s/p hysterecto my Screening for malignant neoplasm of colon 710288574 Z12.11 Screening UTD, pt asymptomat ic. Administra tion of pneumococcal vaccine 35295763 Z23 Varicella vaccination 68 074988 Z23 Psoriasis 6762647 L40.9 Followed by derm. Vitamin D deficiency 347 13686 E55.9 Will start supplement if <30 Health Concerns Section Related Observation LastModified by Organization Detai ls LastModified Time None Recorded Concern Status LastModified by Organization Details LastModified Time None Recorded Advance Directives Directive Y: HCP/ -Jesus, Dtr-B rittany Payers Encounter Date Sequence Insurance Name Policy Number Policy Falk Covered Member ID Falk Member ID Guarantor Name 03/15/2020 1 [facility] [id number] 1 Nafisa Estrada Yusuf [id number] Nafisa Estrada Yusuf 07/24/2020 1 [facility] [id number] 1 Nafisa Estrada Yusuf [id number] Nafisa Estrada Yusuf 07/25/2021 1 [facility] [id number] 1 Nafisa Estrada Yusuf [id number] Nafisa Estrada Yusuf 07/29/2022 1 [facility] [id number] 1 Nafisa Estrada Yusuf [id number] Nafisa Estrada Yusuf 08/17/2023 1 [facility] [id number] 1 Nafisa Estrada Yusuf [id number] Nafisa Goldberg Notes Date Note Type Note Provider Name and Address Organization Details Recorded Time 1 text/htm l Hypertension F/UReported bypatient.Associated Symptoms:no dizziness; no lightheadedness; no chest pain; no edema;shortness of breath;palpitations Lifestyle:regular exercise; limiting/avoiding saltpalpitationsReported bypatient.Notes:Has been having intermittent palpitations for over 6 months. Happens with exertion sometimes. Has dyslipidemia. Carmelo Lau MD [address], [address], [facility] [place] 03/22/2020 06:56:03 1 text/htm l Generic HPI TemplateReported bypatient.Notes:Here for a physical. Feels well. Sees a dentist, and ophtho regularly. Carmelo Lau MD [address] [address], [place], [address], [facility] 07/24/2020 09:23:46 2 text/htm l Generic HPI TemplateReported bypatient.Notes:Here for a physical. Feels well. Sees a dentist, and ophtho regularly. Carmelo Lau MD [address] [address], [place], [address], [facility] 07/25/2021 14:45:52 3 text/htm l Generic HPI TemplateReported bypatient.Notes:Here for a physical. Feels well. Sees a dentist, and ophtho regularly. Carmelo Lau MD [address] [address], [place], [address], [facility] 08/13/2022 21:12:18 4 text/htm l Generic HPI TemplateReported bypatient.Notes:Here for a physical. Feels well. Sees a dentist, and ophtho regularly. Carmelo Lau MD [address] [address], [place], [address], [facility] 08/17/2023 10:32:22 OBGyn Episode No OBEpisode recorded.
== END 2024-04-21 11:29 | disposition home or self-care (01) ==
LOC: HO.HOP 10:59
PROVIDERS: PCP Pediatrics; Visit Provider Psychiatry & Neurology Psychiatry
DX: F43.12 Post-traumatic stress disorder, chronic (principal); F33.9 Major depressive disorder, recurrent, unspecified
CPT/HCPCS: 99214

== ENCOUNTER 2024-06-21 14:06 | Outpatient (AMB) | payer OTHER, SELFPAY ==
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
--- OUTSIDE RECORDS SUMMARY | 2024-06-21 15:18 | XMS_ITS | Data Portability ---
Author Organization [facility], Main Office Address [address] [place] [address] [place] [phone] Care Team Providers Care Event Crew Technician Name Role Phone CARMELO LAU Primary Care Provider SANGEETA RANDLE Vocational Training Instructor MILA MORENO Psychiatrist FRANCISCO HART Stock Digger [facility] Emergency Medical Services Coordinator Assessment No assessment recorded. Plan of Treatment Reminders Order Date Submit Date Provider Last Modified By Organization Details Last Modified Time Details Appointments PE EST 2024 09:30A M Carmelo Lau MD Not available Not available Not available Lab reggie mckeon 2023 024 FRANCISCO [facility] (Centralized Electronic Ordering - All Locations), Patient Can Go To The Location Of Their Choice, [id number] 01/13/2024 06:08:10 reggie STRONG or ricardo shah 2023 024 FRANCISCO [facility] (Centralized Electronic Ordering - All Locations), Patient Can Go To The Location Of Their Choice, [id number] 01/13/2024 06:08:08 TSH, ultr a-se amrikit reggie tobar 2023 024 FRANCISCO [facility] (Centralized Electronic Ordering - All Locations), Patient Can Go To The Location Of Their Choice, [id number] 01/13/2024 06:08:10 lizz min D, 25-h ydro chad banuelos seru m 2023 024 FRANCISCO [facility], [address], [place], [address], 01/13/2024 06:08:14 gamm a-gl utam yl cristina sfer ase (ggt ), seru m 2022 023 FRANCISCO [facility], [address], [address], [place], [address], 08/04/2022 14:56:08 CMP, seru m or plas ma 2022 023 FRANCISCO [facility], [address], [address], [place], [address], 08/04/2022 14:55:59 lipi d pane l, seru m 2022 023 FRANCISCO [facility], [address], [address], [place], [address], 08/04/2022 14:56:20 lizz min D, 25-h ydro xy, tota l, seru m 2022 023 FRANCISCO [facility], [address], [address], [place], [address], 08/04/2022 16:51:29 lipi d pane l, seru m 2021 022 FRANCISCO [facility], [address], [address], [place], [address], 09/13/2021 14:15:30 CMP, seru m or plas ma 2021 022 FRANCISCO [facility], [address], [address], [place], [address], 09/13/2021 14:15:27 vari cell a-zo ster igg Ab scre en, seru m 2021 022 FRANCISCO [facility], [address], [address], [place], [address], 09/15/2021 14:59:11 lizz min D, 25-h ydro xy, tota l, seru m 2021 022 FRANCISCO [facility], [address], [address], [place], [address], 09/13/2021 14:27:49 sjog hawa anti body pane l (ssa , ssb, ro, la), seru m 2021 022 FRANCISCO [facility], [address], [address], [place], [address], 09/14/2021 11:06:36 CBC w/ auto diff 2021 022 FRANCISCO [facility], [address], [address], [place], [address], 09/13/2021 13:51:21 iron + tota l iron -[facility] ([facility]), seru m 2021 022 FRANCISCO [facility], [address], [address], [place], [address], 09/13/2021 14:15:29 TSH, seru m or plas ma 2021 022 FRANCISCO [facility], [address], [address], [place], [address], 09/13/2021 14:27:47 lipi d pane l, seru m 2020 021 FRANCISCO [facility], [address], [address], [place], [address], 07/26/2020 17:08:07 CMP, seru m or plas ma 2020 021 FRANCISCO [facility], [address], [address], [place], [address], 07/26/2020 17:08:06 CK (cre atin e khushbu se), tota l, seru m 2020 021 FRANCSICO [facility], [address], [address], [place], [address], 07/26/2020 17:08:03 lizz min D, 25-h ydro xy, tota l, seru m 2020 021 FRANCISCO [facility], [address], [address], [place], [address], 07/26/2020 17:14:40 JENNY (ant inuc lear anti bodi es) scre en, seru m 2020 021 FRANC[facility]CO [facility], [address], [address], [place], [address], 07/27/2020 21:09:58 ESR (gregorio thro cyte sedi ment atio n rate ), bloo d 2020 021 FRANCISCO [facility], [address], [address], [place], [address], 07/26/2020 15:29:17 C-re acti ve prot ein, maria fernanda piyush tive , seru m or plas ma 2020 021 FR[facility], [address], [address], [place], [address], 07/26/2020 17:14:39 TSH, seru m or plas ma 2020 021 FR[facility], [address], [address], [place], [address], 03/19/2020 20:54:48 CMP, seru m or plas ma 2020 021 FR[facility], [address], [address], [place], [address], 03/19/2020 20:39:49 CBC w/ auto diff 2020 021 [facility], [address], [address], [place], [address], 03/19/2020 19:51:03 magn esiu m, seru m or plas ma 2020 021 [facility], [address], [address], [place], [address], 03/19/2020 20:39:50 Referral gyne colo gist refe rral 2022 023 [email or web address] Not available 01/27/2023 13:01:45 gyne colo gist refe rral 2021 022 [email or web address] Not available 01/21/2022 11:01:27 nutr itio nist / marlee an refe rral 2021 022 [email or web address] Not available 07/25/2021 14:39:56 nutr itio nist / marlee an refe rral 2020 021 [email or web address] Not available 07/24/2020 09:26:05 card iolo gist refe rral - for assi shaunna ce with eval uati on of palp itat ions . Stre ss test and ECHO pend ing. 2020 [facility] [address] [facility], [facility] [address], [place], [address], 03/29/2020 10:46:14 Procedures colo nosc opy scre enin g (PRO C) - for rout ine colo n canc er scre enin g 2022 023 [facility], [address], [place], [address], 12/18/2022 14:45:54 colo nosc opy scre enin g (PRO C) 2021 022 [email or web address] Not available 07/25/2021 15:07:31 Surgeries None obie rded . Imaging MAMM O, scre enin g, bila yesica l - Perf orm Diag nost ic Mamm ogra m and Stephany st Ultr asou nd if need ed / Perf orm Ultr asou nd Guid ed Aspi rati on and/ or [facility]bell st Biop sy if estela ante d 2023 024 [email or web address] Not available 08/17/2023 10:30:09 bone dens ity 2022 023 [email or web address] Not available 08/17/2023 09:16:37 MAMM O, scre enin g, bila yesica l - Perf orm Diag nost ic Mamm ogra m and [address] st Ultr asou nd if need ed [...] enin g, bila yesica l 2021 022 [email or web address] Not available 01/21/2022 11:08:56 bone dens ity 2020 021 [email or web address] Not available 10/22/2020 14:42:08 MAMM O, scre enin g, bila yesica l - Perf orm Diag nost ic Mamm ogra m and Stephany st Ultr asou nd if need ed / Perf orm Ultr asou nd Guid ed Aspi rati on and/ or [facility] st Biop sy if estela ante d 2020 021 6 Not available 07/24/2020 09:19:03 elec troc dona youngblood 2020 021 [email or web address] 6 In-Office Order, Internal Use Only DO Not Attach Compendium DO Not Attach Compendium, Do Not Delete/merge, [id number] 03/15/2020 16:19:35 US, echo card iogr am, cristina stho raci c, comp lete - rule out stru ctur al hear t dise ase in pt with HTN and inte rmit tent palp itat ions . 2020 021 ATHENAFAX [facility] (Outt Non-Invasive Cardiology Scheduling), [address] [place], [address], 03/20/2020 12:10:45 exer cise stre ss test - Scre en for exer cise killian vivek ECG ramirez ges 2020 021 awychowski [facility] (Outt Non-Invasive Cardiology Scheduling), [address] [place], [address], 07/25/2020 10:32:03 Medication Orders None obie rded . Patient TargetsNo targets recorded. Patient Instructions Encounter Date Encounter Id Patient Instructions Last Modified By Organization Details Last Modified Time 03/15/2020 [id number] high blood pressure: care instructions reagan Not available 03/15/2020 16:13:23 learning about high blood pressure awychowski Not available 03/15/2020 16:13:24 palpitations: care instructions sudhaowski Not available 03/15/2020 16:13:23 07/24/2020 [id number] Cervical Cancer Screening awychowski Not available 07/24/2020 09:14:26 anxiety disorder: care instructions awychowski Not available 07/24/2020 09:14:26 earwax blockage: care instructions awychowski Not available 07/24/2020 09:21:33 When You Want to Lose Weight: Care Instructions awychowski Not available 07/24/2020 09:14:26 Nutrition Referral and Weight Management Follow-up Information awychowski Not available 07/24/2020 09:14:26 psoriasis: care instructions awcaliowski Not available 07/24/2020 09:14:26 07/25/2021 [id number] Cervical Cancer Screening awychowski Not available 07/25/2021 [...] instructions awychowski Not available 07/25/2021 14:32:57 07/29/2022 [id number] learning about healthy weight awychowski Not available 07/29/2022 15:40:22 08/17/2023 [id number] learning about healthy weight awychowski Not available 08/17/2023 10:20:27 Reason for Referral [employer] Librarian Referral for In termittent palpitations for assistance with evaluation of palpitations. Stress test and ECHO pending. Referring Physician: Family Caleb Mejia, Encounter Date: 03/15/2020 Car Sander/dietitian Refer ral for Body mass index 25-29 - overweight Referring Physician: Family Caleb Mejia, Encounter Date: 07/24/2020 Attending Anesthesiologist Referral for Sc reening for malignant neoplasm of cervix Referring Physician: Family Caleb Mejia, Encounter Date: 07/25/2021 Car Sander/dietitian Refer ral for Body mass index 25-29 - overweight Referring Physician: Family Caleb Mejia, Encounter Date: 07/25/2021 Attending Anesthesiologist Referral for Sc reening for malignant neoplasm of cervix Referring Physician: Family Caleb Mejia, Encounter Date: 07/29/2022 Results Created Date Observation Date Name Description Value Unit Range Abnormal Flag Note LastModifiedBy Organization Detail LastModifiedTime 03/15/1903/15/2020 jacob pittgr am done Not Available In-Office Order Internal Use Only DO Not Attach Compendium DO Not Attach Compendium, Do Not Delete/merge, [id number] 03/11/2020 19:25:10 03/19/1903/19/2020 CBC w/ auto diff [...] Go To The Location Of Their Choice, [id number] 07/26/2020 17:08:06 07/27/19 21 07/26/2020 CMP, serum [...] rp, [address], [place] [address] Not Available [facility] (Centralized Electronic Ordering - [...] Of Their Choice, 09/13/2021 14:15:09/14/1909/13/2021 COMPR EHENS NADAI METAB OLIC PANL total protein 6.7 gm/dL [...] rp, [address], [place] [address] Not Available [facility] (Centralized Electronic Ordering - [...] Go To The Location Of Their Choice, [id number] 08/04/2022 14:37:24 08/05/19 23 08/04/2022 LIPID PANEL non HDL cholesterol (calc) 129 mg/dL (<160) Not Available [facility] (Centralized Electronic Ordering - All Locations) Patient Can Go To The Location Of Their Choice, [id number] 08/04/2022 14:37:24 08/05/19 23 08/04/2022 25OH VITAM IN D 25OH vitamin D 20.5 NG/mL (20-50 ) Not Available [facility] (Centralized Electronic Ordering - All Locations) Patient Can Go To The Location Of Their Choice, [id number] 08/04/2022 16:51:29 01/12/20 24 01/13/2024 COMP. METAB OLIC PANEL (14) glucose 98 mg/dL 70-99 normal Not Available [facility] ([facility]) [address] [place], [address], 01/13/2024 06:08:08 01/12/20 24 01/13/2024 COMP. METAB OLIC PANEL (14) BUN 14 mg/dL 8-27 normal Not Available [facility] ([facility]) [address] [place], [address], 01/13/2024 06:08:08 01/12/20 24 01/13/2024 COMP. METAB OLIC PANEL (14) creatinine 0.90 mg/dL 0.57-1 .00 normal Not Available [facility] ([facility]) [address] [place], [address], 01/13/2024 06:08:08 01/12/20 24 01/13/2024 COMP. METAB OLIC PANEL (14) eGFR 72 mL/mi n/1.7 3 >59 normal Not Available [facility] ([facility]) [address] [place], [address], 01/13/2024 06:08:08 01/12/20 24 01/13/2024 COMP. METAB OLIC PANEL (14) BUN/creatini ne ratio 16 12-28 normal Not Available [facility] ([facility]) [address] [facility] [place], [address], 01/13/2024 06:08:08 01/12/20 24 01/13/2024 COMP. METAB OLIC PANEL (14) sodium 145 mmol/ L 134-14 4 above high normal Not Available [facility] ([facility]) [address] [facility] [place], [address], 01/13/2024 06:08:08 01/12/20 24 01/13/2024 COMP. METAB OLIC PANEL (14) potassium 3.8 mmol/ L 3.5-5. 2 normal Not Available [facility] ([facility]) [address] [facility] [place], [address], 01/13/2024 06:08:08 01/12/20 24 01/13/2024 COMP. METAB OLIC PANEL (14) chloride 107 mmol/ L 96-106 above high normal Not Available [facility] ([facility]) [address] [facility] [place], [address], 01/13/2024 06:08:08 01/12/20 24 01/13/2024 COMP. METAB OLIC PANEL (14) carbon dioxide, total 24 mmol/ L 20-29 normal Not Available [facility] ([facility]) [address] [place], [address], 01/13/2024 06:08:08 01/12/20 24 01/13/2024 COMP. METAB OLIC PANEL (14) calcium 9.2 mg/dL 8.7-10 .3 normal Not Available [facility] ([facility]) [address] [facility] [place], [address], 01/13/2024 06:08:08 01/12/20 24 01/13/2024 COMP. METAB OLIC PANEL (14) protein, total 6.7 g/dL 6.0-8. 5 normal Not Available [facility] ([facility]) [address] [place], [address], 01/13/2024 06:08:08 01/12/20 24 01/13/2024 COMP. METAB OLIC PANEL (14) albumin 4.2 g/dL 3.9-4. 9 normal Not Available [facility] ([facility]) [address] [place], [address], 01/13/2024 06:08:08 01/12/20 24 01/13/2024 COMP. METAB OLIC PANEL (14) globulin, total 2.5 g/dL 1.5-4. 5 Not Available [facility] ([facility]) [address] [place], [address], 01/13/2024 06:08:08 01/12/20 24 01/13/2024 COMP. METAB OLIC PANEL (14) bilirubin, total 0.5 mg/dL 0.0-1. 2 normal Not Available [facility] ([facility]) [address] [place], [address], 01/13/2024 06:08:08 01/12/20 24 01/13/2024 COMP. METAB OLIC PANEL (14) alkaline phosphatase 111 IU/L 44-121 normal Not Available [facility] ([facility]) [address] [place], [address], 01/13/2024 06:08:08 01/12/20 24 01/13/2024 COMP. METAB OLIC PANEL (14) AST (SGOT) 24 IU/L 0-40 normal Not Available [facility] ([facility]) [address] [place], [address], 01/13/2024 06:08:08 01/12/20 24 01/13/2024 COMP. METAB OLIC PANEL (14) ALT (SGPT) 16 IU/L 0-32 normal Not Available [facility] ([facility]) [address] [facility] [place], [address], 01/13/2024 06:08:08 01/12/20 24 01/13/2024 LIPID PANEL cholesterol, total 150 mg/dL 100-19 9 normal Not Available [facility] ([facility]) [address] [facility] [place], [address], 01/13/2024 06:08:10 01/12/20 24 01/13/2024 LIPID PANEL triglyceride s 151 mg/dL 0-149 above high normal Not Available [facility] ([facility]) [address] [facility] [place], [address], 01/13/2024 06:08:10 01/12/20 24 01/13/2024 LIPID PANEL HDL cholesterol 37 mg/dL >39 below low normal Not Available [facility] ([facility]) [address] [facility] [place], [address], 01/13/2024 06:08:10 01/12/20 24 01/13/2024 LIPID PANEL VLDL cholesterol genna 27 mg/dL 5-40 Not Available [facility] ([facility]) [address] [place], [address], 01/13/2024 06:08:10 01/12/20 24 01/13/2024 LIPID PANEL LDL chol calc ([facility]) 86 mg/dL 0-99 Not Available [facility] ([facility]) [address] [facility] [place], [address], 01/13/2024 06:08:10 01/12/20 24 01/13/2024 LIPID PANEL LDL calc comment: FREIGHT FORWARDER Not Available [facility] ([facility]) [address] [facility] [place], [address], 01/13/2024 06:08:10 01/12/20 24 01/13/2024 TSH TSH 1.720 uIU/m L 0.450- 4.500 normal Not Available [facility] ([facility]) [address] [facility] [place], [address], 01/13/2024 06:08:10 01/12/20 24 01/13/2024 VITAM IN [...] um and D. Ricardo bah DC: [facility] Acade [facility] Press . 2. Amy marie MF, Kian andrade [place], Mady off-F errtone i MELGAR, et al. Evalu ation , treat ment, and preve ntion of vitam in D defic iency : an Endoc rine Socie ty clini genna pract ice guide line. JCEM. 2010; 96(7) :1911 -30. Not Available [facility] ([facility]) [address] [facility] [address], [place], [address], 01/13/2024 06:08:14 03/15/19 21 03/15/2020 elect sofya chowdhury am No observ ation record ed. [place] In-Office Order Internal Use Only DO Not Attach Compendium DO Not Attach Compendium, Do Not Delete/merge, [id number] 03/16/2020 20:45:16 04/02/19 21 04/02/2020 , echo aryoandy gram, trans thora cic, compl ete No observ ation record ed. [address] [facility], [place], [address], 04/03/2020 20:32:45 08/23/19 21 exerc ise stres s test No observ ation record ed. [facility] (Outt Non-Invasive Cardiology Scheduling) [address] [place], [address], 07/25/2021 14:45:21 02/01/20 21 01/31/2021 MAMMO , [...] Lay letter mailed to bryan paez WSN: [id number] Orderi ng Physic evelyn: Carmelo Vogel Dictat ed By: Reji Hwang MD Dictat ed Date/T elias: 2:09 pm Review ed By: Reji Hwang MD Signed By: Reji Hwang MD Signed Date/T elias: 2:09 pm Transc ribed By: BETH Transc riptio n Date/T elias: 2:08 pm Birads : Bryan paez Class: Outpat ient [facility] (Outpt Imaging) [address] [place], [address], 07/25/2021 14:45:21 02/12/19 22 01/31/2021 DEXA, axial skele ton ====== ====== ====== ====== ====== ====== ====== ====== ====== ====== ===== Bone Densit y Report ====== ====== ====== ====== ====== ====== ====== ====== ====== ====== ===== Name: NAFISA AGUILAR t ID: [id number] Age: 60 Sex: Female Ethnic ity: White Date of : 1960 ------ ------ ------ ------ ------ ------ ------ ------ ------ ------ ----- Indica tion: AL[place] PUCKETT Referr [facility] er: JOHN NUNEZ MD, CARMELO Study: Bone densit ometry was perfor med. Exam Date: [facility] 2020 Access ion number : [id number] Bone Densit y: ------ ------ ------ [...] ------ ------ ------ ------ ------ ----- [facility] zalin criter ia for BMD impres [...] elias: 6:22 pm Patien t Class: Outpat [facility] (Outpt Imaging) [address] [place], [address], 07/25/2021 14:45:21 07/26/19 22 07/25/2021 XR, chest [...] IMPRES KEVIN: No acute abnorm ality. WSN: [id number] Orderi ng Physic evelyn: Carmelo Vogel Patien t Class: Outpat [facility] (Outpt Imaging) [address] [place], [address], 08/13/2022 21:06:27 02/13/19 24 02/13/2023 MAMMO , [...] Lay letter mailed to bryan philippe WSN: [id number] Orderi ng Physic evelyn: Carmelo Vogel Dictat ed By: Joyce Newsome MD Dictat ed Date/T elias: 5:10 pm Review ed By: Joyce Newsome MD Signed By: Joyce Newsome MD Signed Date/T elias: 5:10 pm Transc ribed By: BETH Transc riptio n Date/T elias: 5:06 pm Birads : Bryan paez Class: Outpat ient [facility] (Outpt Imaging) [address] [facility], [place], [address], 08/17/2023 10:17:59 02/13/19 24 02/13/2023 MAMMO , tarsha leblanc, bilat eral No observ ation record ed. [facility] [address], [place], [address], 08/17/2023 10:17:59 02/18/1902/13/2023 DEXA, axial skele ton Name:Delvis paez ID: [id number] Age:62 years Sex:Fe male Ethnic ity:Wh [...] determ ined by WHO criter ia. WSN: [id number] Orderi ng Physic evelyn: Carmelo Vogelat ed By: Gibson PANTOJA, Katy Bauer Dictat ed Date/T elias: 12:35 p Review ed By: Katy Arreaga MD Signed By: Katy Arreaga MD Signed Date/T elias: 12:35 pm Transc ribed By: BETH Transc ribed Date/T elias: 12:33 pm Patien t Class: Outpat ient reagan [facility] (Outpt Imaging) [address], [place], [address], 08/17/2023 10:17:59 Result Notes None recorded. Problems Name Problem SNOMED Code Status Onset Date Resolution Date Notes Provider Name and Address Organization Details Recorded Time Generali zed anxiety disorder 90201188 Active 2016 Carmelo Lau MD [address] [address], [place], [address], [facility] 7 14:26:40 Uterine prolapse 94886937 Completed 201607/08/2017 Carmelo Lau MD [address] [address], [place], [address], [facility] 8 15:39:51 Mild intermit tent asthma 051720817 Active 2016 Carmelo Lau MD [address] [address], [place], [address], [facility] 7 14:28:22 Alopecia 28999475 Active 2016 Carmelo Lau MD [address] [facility] [address], [place], [address], [facility] 7 14:28:27 Raynaud' s disease 686546573 Active 2016 Carmelo Lau MD [address] [facility] [address], [place], [address], [facility] 7 14:51:43 Raised antinucl ear antibody 333050225 Completed 201607/08/2017 negative rheum eval 2012 Carmelo Lau MD [address] [address], [place], [address], [facility] 8 15:39:44 Hypercho lesterol emia 57537165 Active 2015 Carmelo Lau MD [address], [place], [address], [facility] 7 08:36:54 Cystocel e 465056961 Completed 201607/08/2017 Carmelo Lau MD [address], [place], [address], [facility] 8 15:39:31 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 698643371 Completed 201607/08/2017 Carmelo Lau MD [address], [place], [address], [facility] 8 15:39:28 History of stress incontin ence 600241647 Active 2016 Carmelo Lau MD [address], [place], [address], [facility] 7 12:27:10 Female stress incontin ence 85299543 Completed 201607/08/2017 Carmelo Lau MD [address], [place], [address], [facility] 8 15:39:24 Increase d frequenc y of urinatio n 773309921 Completed 201607/08/2017 Carmelo Lau MD [address], [place], [address], [facility] 8 15:39:20 Psoriasi s 9142436 Active 2017 Carmelo Lau MD [address], [place], [address], [facility] 8 15:30:19 Hypernat remia Completed 201707/13/2018 Carmelo Lau MD [address], [place], [address], [facility] 9 13:23:42 Elevated blood-pr essure reading without diagnosi s of hyperten kevin 467958618 Completed 201701/07/2018 Carmelo Lau MD [address] [facility] [address], [place], [address], [facility] 8 15:33:37 Body mass index 25-29 - overweig ht 293035837 Completed 201807/19/2019 Carmelo Lau MD [address], [place], [address], [facility] 0 09:54:18 History of tobacco use 61681484233 03 Active 2018 Carmelo Lau MD [address], [place], [address], [facility] 9 13:45:16 Herpes labialis 1314177 Active 2018 Carmelo Lau MD [address] [facility] [address], [place], [address], [facility] 9 13:55:11 Hypercal cemia 89209801 Completed 201809/07/2019 Carmelo Lau MD [address], [place], [address], [facility] 0 08:45:04 Osteopen ia 747470004 Active 2018 Carmelo Lau MD [address], [place], [address], [facility] 9 06:46:53 History of total hysterec kyler 059832845 Active 2019 Carmelo Lau MD [address], [place], [address], [facility] 0 09:24:26 Insomnia 267231570 Active 2019 Carmelo Lau MD [address] [facility] [address], [place], [address], [facility] 0 09:26:26 Body mass index 25-29 - overweig ht 880361099 Active 2019 Carmelo Lau MD [address] [facility] [address], [place], [address], [facility] 0 09:54:18 Posttrau matic stress disorder 47277400 Active 2019 Carmelo Lau MD [address] 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 [address], [place], [address], [facility] 3 21:09:37 Alkaline phosphat ase above referenc e range [id number] Completed 202208/13/2022 Carmelo Lau MD [address] [facility] [address], [place], [address], [facility] 3 21:09:37 Vitamin D deficien cy [id number] Active 2023 Carmelo Lau MD [address] [facility] 207, [place], [address], [facility] 10:07:13 Problem Notes None recorded. Procedures Surgical History Date Name Laterality Status Provider Name and Address Organization Details Recorded Time 024 Most Recent Bone Density completed Noni Reese [facility] 08/17/2023 09:26:00 024 Most Recent [facility]ammogram [facility] 08/17/2023 09:37:01 024 Mammogram screening completed Omayra Alejadnro [facility] 02/14/2023 09:03:22 024 Dxa bone density abdirizak vrt fx completed Noni Reese [facility] 08/17/2023 09:37:49 023 Date of Last Colonoscopy [facility] 08/17/2023 09:30:22 023 Colonoscopy completed Carmelo Lau MD [address], [address], [facility] 12/22/2022 05:54:42 021 Echo transthoracic completed Carmelo Lau MD [address], [address], [facility] 11/14/2020 08:11:01 021 electrocardiogram with exercise test completed Carmelo Lau MD [address], [address], [facility] 08/23/2020 21:02:05 019 Dxa bone density abdirizak vrt fx completed Mignon Walker MA [facility] 07/19/2019 09:00:31 017 Hysterectomy completed Mignon Walker MA [facility] 07/19/2019 08:56:20 017 Hysterectomy/revise vagina completed Carmelo Lau MD [address], [address], [facility] 07/13/2018 13:30:10 014 Date of Last Pap Smear completed Aislinn ny [facility] 07/31/2018 10:31:15 989 Breast Surgery completed Carmelo Lau MD [address] [facility] [address], [place], [address], [facility] 07/13/2018 13:28:56 Breast Biopsy completed Mignon Walker MA [facility] 07/25/2021 13:41:31 Imaging Results Imaging Date Name Status LastModified by Organization Details LastModified Time 03/15/2020 electrocardiogram completed [facility] Order Internal Use Only DO Not Attach Compendium DO Not Attach Compendium, Do Not Delete/merge, [id number] 03/16/2020 20:45:16 04/02/2020 US, echocardiogram, transthoracic, complete completed [facility] [address] [place], [address], 04/03/2020 20:32:45 08/22/2020 exercise stress test completed [facility] (Outt Non-Invasive Cardiology Scheduling) [address] [place], [address], 07/25/2021 14:45:21 01/31/2021 MAMMO, screening, digital, bilateral completed [facility] (Outpt Imaging) [address] [place], [address], 07/25/2021 14:45:21 01/31/2021 DEXA, axial skeleton completed [facility] (Outpt Imaging) [address] [place], [address], 07/25/2021 14:45:21 07/25/2021 XR, chest, 2 view completed [facility] (Outpt Imaging) [address] [place], [address], 08/13/2022 21:06:27 02/13/2023 MAMMO, screening, digital, bilateral completed [facility] (Outpt Imaging) [address] [place], [address], 08/17/2023 10:17:59 02/13/2023 MAMMO, screening, bilateral completed [facility] [address] [place], [address], 08/17/2023 10:17:59 02/13/2023 DEXA, axial skeleton completed [facility] (Outpt Imaging) [address] [place], [address], 08/17/2023 10:17:59 Procedure Notes None recorded. Medical Equipment None Reported. Allergies Allergen ID Allergen Name Allergen Category Reaction Reaction Severity Criticality Documentation Date Start Date Code Code System Note Provider Name and Address Organization Details Recorded Time 44140 Erythroci n medicatio n rash Not available Not available 07/02/2016 53347 3 RxNorm ANGELA Layton [facility] 7 14:03:13 37414 Substance with sulfonami de structure and antibacte rial mechanism of action (substanc e) medicatio n rash Not available Not available 07/02/2016 50635 8003 SNOMED ANGELA Layton [facility] 7 14:03:29 22319 cheese food abdominal pain diarrhea Not available Not available Not available 07/31/2018 22491 UNANGELA Muro [facility] 9 10:46:51 23196 guaifenes in medicatio n rash Not available low 08/17/2023 5032 RxNorm Carmelo Lau MD [address] [facility] [address], [place], [address], [facility] 4 10:02:26 Medications Name Sig Start Date Stop Date Status Note LastModified by Organization Details LastModified Time amoxicillin 500 mg capsule 07/08 completed Not Available Not Available Not Available atorvastati n 20 mg tablet TAKE ONE TABLET BY MOUTH EVERY DAY 2024 active Not Available Not Available [...] Not Available Not Available Not Available Fluvirin 2652-5565 45 mcg (15 mcg x 3)/0.5 mL intramuscul ar suspension 07/02 completed Not Available Not Available Not Available Flucelvax Quad 6514-7745 (PF) 60 mcg (15 mcg x 4)/0.5 [...] Updated DateTime 1 166.37 cm 28.4 kg/m2 21927.4 8 g 98.24 [degF] 98 % 98 % 68 /min 148 mm[Hg] 75 mm[Hg] Mignon Walker MA [facility] 1 15:27:55 Date Recorded Body height Body mass index (BMI) Body weight Heart rate Oxygen saturation Oxygen saturation in Arterial blood by Pulse oximetry Body temperature Systolic blood pressure Diastolic blood pressure Provider Name and Address Organization Details Last Updated DateTime 1 166.37 cm 28.2 kg/m2 19980.8 9 g 66 /min 98 % 98 % 98.42 [degF] 114 mm[Hg] 70 mm[Hg] Mignon Walker MA [facility] 1 08:35:07 Date Recorded Body height Body mass index (BMI) Body weight Heart rate Oxygen saturation Oxygen saturation in Arterial blood by Pulse oximetry Body temperature Systolic blood pressure Diastolic blood pressure Provider Name and Address Organization Details Last Updated DateTime 2 166.37 cm 27.9 kg/m2 50546.7 g 73 /min 99 % 99 % 98.42 [degF] 125 mm[Hg] 70 mm[Hg] Mignon Walker MA [facility] 2 13:49:44 Date Recorded Body height Body mass index (BMI) Body weight Heart rate Oxygen saturation Oxygen saturation in Arterial blood by Pulse oximetry Body temperature Systolic blood pressure Diastolic blood pressure Provider Name and Address Organization Details Last Updated DateTime 3 166.37 cm 27.1 kg/m2 39444.8 4 g 67 /min 99 % 99 % 98 [degF] 129 mm[Hg] 78 mm[Hg] Noni Chapa [facility] 3 14:57:59 Date Recorded Body height Body mass index (BMI) Body weight Heart rate Oxygen saturation Oxygen saturation in Arterial blood by Pulse oximetry Body temperature Systolic blood pressure Diastolic blood pressure Provider Name and Address Organization Details Last Updated DateTime 4 166.37 cm 27.7 kg/m2 85477.5 1 g 56 /min 99 % 99 % 98 [degF] 125 mm[Hg] 70 mm[Hg] Noni Reese MA [facility] 4 09:31:27 Social History Question Answer Notes LastModified by Organizat ion Details LastModified Time Tobacco Smoking Status Former Smoker quit 1994 ANGELA Layton [facility] 07/02/2016 14:11:11 Do You Have An Advance Directive? Yes HCP/ -Lali zavala, Dtr-Mehul delgado Information not available 07/25/2021 Is Blood Transfusion Acceptable In An Emergency? Yes Information not available 07/02/2016 What Is Your Level Of Caffeine Consumption? Moderate 1 Cup Daily Information not available 07/29/2022 How Much Tobacco Do You Chew? None Information not available 07/08/2017 In The 14 Days Before Symptom Onset, Have You Had Close Contact With A Laboratory-confir med COVID-19 While That Case Was Ill? No Information not available 07/25/2021 In The 14 Days Before Symptom Onset, Have You Had Close Contact With A Person Who Is Under Investigation For COVID-19 While That Person Was Ill? No Information not available 07/25/2021 Have You Been To An Area Known To Be High Risk For COVID-19? No Information not available 07/25/2021 What Type Of Diet Are You Following? REGULAR Information not available 07/02/2016 Which Illicit Or Recreational Drugs Have You Used? None awychowski Information not available 07/02/2016 When Did You Quit Smoking? 16+yearssin jj guzmán Information not available 07/24/2020 Live Alone Or [...] 08/17/2023 What Is Your Current Pack Years? 20-29packye ars Information not available 07/25/2021 Do You Use [...] You Passively Exposed To Smoke? No Information no t available 07/02/2016 How Much Tobacco Do You Smoke? 1 PPD Information not available 07/25/2021 Do You Use Sunscreen Routinely? Yes Information not available 07/02/2016 How Many Years Have You Smoked Tobacco? 20 Information not available 07/24/2020 Sex: Unknown Functional Status Question Answer Note LastModified by Organizat ion Details LastModified Time Do you use any illicit or recreational drugs? No Information not available 07/25/2021 Do you or have you ever used any other forms of tobacco or nicotine? No Information not available 07/25/2021 What is your level of alcohol consumption? Occasional Very Rarly Information not available 07/29/2022 Do you or have you ever used smokeless tobacco? Never used smokeless tobacco Information not available 07/19/2019 Are you currently employed? Yes Information not available 07/02/2016 Are you able to walk? YESWOREST Information not available 07/25/2021 Are you able to care for yourself? 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 Never used electronic cigarettes Information not available 07/25/2021 What is your exercise level? None Information [...] erolemia abolcun Not available 2021 13:41:15 Mother Harmful pattern of use of alcohol abolcun Not available 2020 08:29:04 Maternal Grandmother [...] virus, quadrivalent, preservative 6 completed ANGELA Rojas [facility] 07/29/2022 14:34:39 Tdap 9 completed ANGELA Layton [facility] 07/25/2021 13:41:44 Influenza, split virus, quadrivalent, preservative 7 completed ANGELA Rojas [facility] 07/29/2022 14:34:39 Influenza, split virus, quadrivalent, preservative 8 completed ANGELA Rojas [facility] 07/29/2022 14:34:39 Influenza, split virus, quadrivalent, preservative 9 completed ANGEAL Rojas, [facility] 07/29/2022 14:34:39 varicella 0 completed Mignon Walker ANGELA jona, [facility] 07/25/2021 13:41:45 COVID-19, mRNA, LNP-S, PF, 100 mcg/0.5mL dose or 50 mcg/0.25mL dose 1 [facility] 13:41:44 COVID-19, mRNA, LNP-S, PF, 100 mcg/0.5mL dose or 50 mcg/0.25mL dose 1 completed [facility] 13:41:44 Influenza, MDCK, quadrivalent, PF 7 [facility] 13:41:44 Influenza, split virus, trivalent, preservative 5 [facility] 13:41:44 Novel [id number], preservative-free 9 completed [facility] 13:41:44 Influenza, MDCK, quadrivalent, PF 8 completed ANGELA Layton, [facility] 07/25/2021 13:41:44 varicella 0 completed ANGELA Layton, [facility] 07/25/2021 13:41:44 Influenza, MDCK, quadrivalent, PF 9 completed Mignon Walker ANGELA jona, [facility] 07/25/2021 13:41:44 COVID-19, mRNA, LNP-S, PF, 100 mcg/0.5mL dose or 50 mcg/0.25mL dose 1 completed ANGELA Layton [facility] 07/25/2021 13:41:44 Influenza, split virus, trivalent, preservative 0 [facility] 13:41:44 Influenza, MDCK, quadrivalent, PF 1 completed ANGELA Layton [facility] 07/25/2021 13:41:44 Tdap 7 [facility] 13:41:44 Influenza, split virus, trivalent, preservative 6 completed ANGELA Layton [facility] 07/25/2021 13:41:44 Influenza, split virus, trivalent, preservative 1 completed ANGEAL Layton [facility] 07/25/2021 13:41:45 Influenza, MDCK, quadrivalent, PF 2 [facility] 14:34:39 Influenza, MDCK, quadrivalent, PF 3 completed ANGELA Rojas [facility] 08/17/2023 09:20:52 RSV, bivalent, protein subunit RSVpreF, diluent reconstituted, 0.5 mL, PF 4 completed ANGELA Rojas [facility] 08/17/2023 09:20:52 Influenza, split virus, quadrivalent, PF 0 [facility] 09:17:37 Past Encounters Encounter ID Performer Location Encounter Start Date Encounter Closed Date Diagnosis/Indication Diagnosis SNOMED-CT Code Diagnosis ICD10 Code Diagnosis Note [id number] Carmelo Lau MD Main Office [address] [facility] [address] [place] [address] 07/02/2016 13:39:49 07/02/2016 14:58:01 Adult health examination 149190422 Z00.00 Immunizati on status updated, flu advised in the Fall. Pt will f/u with new package maker ayla to update PAP. Regular dental and ophtho care advised as well as seat belt and sunscreen use. Distracted driving discussed. Advance directives in place. Administra tion of diphtheria, pertussis, and tetanus vaccine 611002698 Z23 Body mass index 30+ - obesity 510460033 Z68.30 E66.9 Screening for malignant neoplasm of breast 591791772 Z12.39 Due for screening. Order provided while pt is pursuing a transition of package maker care. Autoimmune disease 38285 009 M35.9 On chronic prednisone and alendronat e for alopecia. Alopecia 02740778 L65.[address] Randle. [id number] Carmelo Lau MD Main Office [address] [facility] [address] [place] [address] 11/20/2016 10:47:28 11/20/2016 12:20:27 Pain of multiple joints 01435878 M25.50 Steroid responsive with question history of MCTD if labs abnormal will refer to rheum. If normal then consider OA vs myofascial pain targeted treatment plan. Muscle pain 42316414 M79 .1 [id number] Carmelo Lau MD Main Office [address] [facility] [address] [place] [address] 07/08/2017 14:34:36 07/08/2017 16:08:59 Adult health examination 705068950 Z00.00 Immunizati on status updated, flu advised in the Fall. Cervical cancer screening not indicated post hysterecto my. Colon and breast cancer screening are utd. Regular dental and ophtho care advised as well as seat belt and sunscreen use. Distracted driving discussed. Advance directives in place. Hypercholesterolemia 136 54053 E78.00 Will reassess and discuss mgmt based on CVD risk score. Body mass index 25-29 - overweight 710544182 E66.3 Z68.25 Elevated blood-pressure reading without diagnosis of hypertension 044089511 R03.0 Screen for end organ damage. Pt will work on low Na diet. regular exercise and wt loss. Will treat if f/u BP is still >130/90. Generalize d anxiety disorder 04312355 F41.1 Well controlled and followed by psych. [id number] Carmelo Lau MD Main Office [address] [facility] [address] [place] [address] 01/07/2018 14:53:45 01/07/2018 15:41:49 Hypernatremia 32011031 E87.0 Will reassess and evaluate further if persistent /worse. Hypercholesterolemia 136 58273 E78.00 Based on current CVD risk score or 4% will manage with TLC and monitoring for now. [id number] Carmelo Lau MD Main Office [address] [place] [address] [place] [address] 07/13/2018 12:55:15 07/13/2018 13:56:14 Adult health examination 730174490 Z00.00 Immunizati on status updated, flu advised in the Fall. Cervical cancer screening not indicated post hysterecto my. Colon and breast cancer screening are utd. Regular dental and ophtho care advised as well as seat belt and sunscreen use. Distracted driving discussed. Advance directives in place. Screening for malignant neoplasm of breast 330946255 Z12.39 Menopause present 241902 006 Z78.0 With post menopausal status and possible celiac disease screenign is warranted. Body mass index 25-29 - overweight 185229072 E66.3 Z68.27 Family his tory of Aortic aneurysm 137397157 Z82.49 Dry eyes 437917093 H04.1 29 History of tobacco use 1368344537 103 Z87.891 Gluten sensitivity 02478 1003 K90.41 Herpes labialis 0331673 B00.1 Hypercholesterolemia 136 45227 E78.00 Will reassess and discuss mgmt based on CVD risk score. Generalize d anxiety disorder 76022171 F41.1 Well controlled and followed by psych. [id number] Som Rene MD Main Office [address] [facility] [address] [place] [address] 07/31/2018 10:23:00 07/31/2018 11:39:13 Diarrhea 04554155 R19.7 Upper abdominal pain 831 40105 R10.10 [id number] Carmelo Lau MD Main Office [address] [facility] [address] [facility] [place] [address] 07/19/2019 08:43:41 07/19/2019 09:57:52 Adult health examination 739125854 Z00.00 Immunizati on status updated, flu advised in the Fall. Cervical cancer screening not indicated post hysterecto my. Colon and breast cancer screening are utd. Regular dental and ophtho care advised as well as seat belt and sunscreen use. Distracted driving discussed. Advance directives in place. Mild inter mittent asthma 778924752 J45.20 Seems to be aggravated by allergies. Advise to try different antihistam ine vs add nasal steroid spray. Screening for malignant neoplasm of breast 102636148 Z12.39 Trigger fi nger of right hand 9929646433 0502719 M65.341 Will call for rheum/orth o referral if worse. Hypercalcemia 01676179 E 83.52 Will reassess and evaluate further if persistent . Hypercholesterolemia 136 87193 E78.01 Will reassess and discuss mgmt based on CVD risk score. Body mass index 25-29 - overweight 872211564 E66.3 Z68.27 History of tobacco use 5467828400 103 Z87.891 Does not qualify for lung cancer screening. Herpes labialis 2692562 B00.1 Attacks infrequent , has valacyclov ir PRN. Generalize d anxiety disorder 80571670 F41.1 Well controlled and followed by psych. Intermitte nt palpitations 106162072 R00.2 Sound like SVT vs PVC's related to caffeine intake. Normal ECG last year. Will monitor for now. Elevated blood-pressure reading without diagnosis of hypertension 778131607 R03.0 Screen for end organ damage. Pt will work on low Na diet. regular exercise and wt loss. Will treat if f/u BP is still >130/90. Requires v aricella vaccination 043231381 Z28.3 Pt reports that she was seronegati ve when tested in the past. Will need varicella vaccinatio n if so. [id number] Carmelo Lau MD Main Office [address] [facility] [address] [facility] [place] [address] 11/03/2019 08:55:00 11/03/2019 10:21:26 Hypercholesterolemia 33831016 E78.01 Based on current CVD risk score TLC advised. Reassess next year. Generalize d anxiety disorder 44840413 F41.1 Well controlled and followed by psych. Rx for anxiolytic refilled. Needs infl uenza immunization 922118662 Z23 Posttrauma tic stress disorder 59644718 F43.10 Followoign with psych. Declines therapy referral att this time. Advised to call if she changes her mind. [id number] Carmelo Lau MD Main Office [address] [facility] [address] [facility] [place] [address] 03/15/2020 15:15:50 03/15/2020 16:19:35 Intermittent palpitations 586776203 R00.2 Based on reported symptoms and comorbidit ies arrhythmia and ischemic evaluation is warranted. Will start with metabolic/ lab screening. ECG unchanged from prior so standard treadmill stress test is warranted. Will ask cardiology to help with arrthyrthm ia eval. Essential hypertension 63195112 I10 Wants to work on low Na diet and weight loss. Is >130/90 at f/u will recommend starting ACEI/diure tic. [id number] Carmelo Lau MD Main Office [address] [facility] [address] [place] [address] 07/24/2020 08:25:37 07/24/2020 09:19:03 Adult health examination 131560007 Z00.00 Immunizati on status updated, flu advised in the Fall. Cervical cancer screening not indicated post hysterecto my. Colon and breast cancer screening are utd. Regular dental and ophtho care advised as well as seat belt and sunscreen use. Distracted driving discussed. Advance directives in place. Hypercholesterolemia 136 00595 E78.01 Started on statin by cards. Will arrange f/u labs. Screening for malignant neoplasm of breast 394538976 Z12.39 Screening for malignant neoplasm of cervix 242571510 Z12.4 s/p hysterecto my Osteopenia 940744502 M85 .80 Generalize d anxiety disorder 65897604 F41.1 Well controlled and followed by psych. Psoriasis 8917628 L40.9 Followed by derm. Pain of mu ltiple joints 31693202 M25.50 Steroid responsive with question history of MCTD if labs abnormal will refer to rheum. If normal then consider OA vs myofascial pain targeted treatment plan. Body mass index 25-29 - overweight 780481444 E66.3 Z68.28 Impacted c erumen in right ear 3720855457 191819 H61.21 [id number] Carmelo Lau MD Main Office [address] [facility] [address] [facility] [place] [address] 07/25/2021 13:36:31 07/25/2021 14:39:56 Adult health examination 763447949 Z00.00 Immunizati on status updated, 2nd COVID 19 booster advised as well as flu in the Fall. Cervical cancer screening not indicated post hysterecto my. Colon and breast cancer screening are utd. Regular dental and ophtho care advised as well as seat belt and sunscreen use. Distracted driving discussed. Advance directives in place. Generalize d anxiety disorder 71069779 F41.1 Well controlled and followed by psych. Hypercholesterolemia 136 31552 E78.01 On low dose statin, will reassess. Screening for malignant neoplasm of breast 047189226 Z12.39 Screening for malignant neoplasm of cervix 974509183 Z12.4 s/p hysterecto my Screening for malignant neoplasm of colon 947128339 Z12.11 Osteopenia 554488748 M85 .80 Regular weight bearing exercise encouraged . Reassess next year. Psoriasis 8034333 L40.9 Followed by derm. Body mass index 25-29 - overweight 840038659 E66.3 Z68.27 Impacted c erumen in right ear 7267472511 649955 H61.21 Standard c hest X-ray abnormal 595461969 R93.89 Had hazy density on Xray from last year that i did not receive. Will see if finding is persistent . Dry eyes 586125912 H04.1 29 Loss of hair 380432853 L 65.9 Should follow with derm if persistent /worse. [id number] Carmelo Lau MD Main Office [address] [facility] [address] [place] [address] 07/29/2022 14:31:22 07/29/2022 15:52:11 Adult health examination 381123743 Z00.00 PCV20, Shingrix, bivalent COVID 19 booster advised as well as flu in the Fall via local pharmacy. Cervical cancer screening not indicated post hysterecto my. Colon and breast cancer screening are utd. Regular dental and ophtho care advised as well as seat belt and sunscreen use. Distracted driving discussed. Advance directives in place. Body mass index 25-29 - overweight 299721333 E66.3 Z68.27 Mild inter mittent asthma 703138874 J45.20 Seems to be aggravated by allergies. Advise to try different antihistam ine vs add nasal steroid spray. Osteopenia 780908293 M85 .80 Regular weight bearing exercise encouraged . Will reassess Screening for malignant neoplasm of breast 994026647 Z12.39 Varicella vaccination 68 684180 Z23 History of total hysterectomy 596996487 Z90.710 No indication for PAP Administra tion of pneumococcal vaccine 37617013 Z23 Alkaline p hosphatase above reference range 683587676 R74.8 Will reassess and evaluate further if still elevated. Hypercholesterolemia 136 63663 E78.01 On low dose statin, will reassess CVD risk. Screening for malignant neoplasm of cervix 464325951 Z12.4 s/p hysterecto my Screening for malignant neoplasm of colon 553985960 Z12.11 [id number] Carmelo Lau MD Main Office [address] [facility] [address] [place] [address] 08/17/2023 09:03:33 08/17/2023 10:30:08 Adult health examination 443213118 Z00.00 PCV20, COVID 19 booster advised as well as flu in the Fall via local pharmacy. Cervical cancer screening not indicated post hysterecto my. Colon and breast cancer screening are utd. Regular dental and ophtho care advised as well as seat belt and sunscreen use. Distracted driving discussed. Advance directives in place. Screening for malignant neoplasm of breast [id number] Z12.39 Hypercholesterolemia 136 [id number] E78.01 On low dose statin, will reassess CVD risk. Body mass index 25-29 - overweight [id number] E66.3 Z68.27 Mild inter mittent asthma [id number] J45.20 Seems to be aggravated by allergies. Osteopenia [id number] M85 .80 Regular weight bearing exercise encouraged . Will reassess History of total hysterectomy [id number] Z90.710 No indication for PAP Screening for malignant neoplasm of cervix [id number] Z12.4 s/p hysterecto my Screening for malignant neoplasm of colon [id number] Z12.11 Screening UTD, pt asymptomat ic. Administra tion of pneumococcal vaccine [id number] Z23 Varicella vaccination 68 060206 Z23 Psoriasis 9783324 L40.9 Followed by derm. Vitamin D deficiency 347 98725 E55.9 Will start supplement if <30 Health Concerns Section Related Observation LastModified by Organization Detai ls LastModified Time None Recorded Concern Status LastModified by Organization Details LastModified Time None Recorded Advance Directives Directive Y: HCP/ -Jesus, Dtr-B rittany Payers Encounter Date Sequence Insurance Name Policy Number Policy Falk Covered Member ID Falk Member ID Guarantor Name 03/15/2020 1 [facility] [id number] 1 Nafisa Estrada Yusuf [id number] Nafisa Estrada Yusuf 07/24/2020 1 [facility] [id number] 1 Nafisa Estrada Yusuf [id number] Nafisa Estrada Yusuf 07/25/2021 1 [facility] [id number] 1 Nafisa Estrada Yusuf [id number] Nafisa Estrada Yusuf 07/29/2022 1 [facility] [id number] 1 Nafisa Estrada Yusuf [id number] Nafisa Estrada Yusuf 08/17/2023 1 [facility] [id number] 1 Nafisa Estrada Yusuf [id number] Nafisa Goldberg Notes Date Note Type Note Provider Name and Address Organization Details Recorded Time 1 text/htm l Hypertension F/UReported bypatient.Associated Symptoms:no dizziness; no lightheadedness; no chest pain; no edema;shortness of breath;palpitations Lifestyle:regular exercise; limiting/avoiding saltpalpitationsReported bypatient.Notes:Has been having intermittent palpitations for over 6 months. Happens with exertion sometimes. Has dyslipidemia. Carmelo Lau MD [address] [address], [place], [address], [facility] 03/22/2020 06:56:03 1 text/htm l Generic HPI TemplateReported bypatient.Notes:Here for a physical. Feels well. Sees a dentist, and ophtho regularly. Carmelo Lau MD [address] [address], [place], [address], [place] [facility] 07/24/2020 09:23:46 2 text/htm l Generic HPI TemplateReported bypatient.Notes:Here for a physical. Feels well. Sees a dentist, and ophtho regularly. Carmelo Lau MD [address] [address], [place], [address], [facility] 07/25/2021 14:45:52 3 text/htm l Generic HPI TemplateReported bypatient.Notes:Here for a physical. Feels well. Sees a dentist, and ophtho regularly. Carmelo Lau MD [address] [address], [place], [address], [facility] 08/13/2022 21:12:18 4 text/htm l Generic HPI TemplateReported bypatient.Notes:Here for a physical. Feels well. Sees a dentist, and ophtho regularly. Carmelo Lau MD [address] [address], [place], [address], [facility] 08/17/2023 10:32:22 OBGyn Episode No OBEpisode recorded.
== END 2024-06-21 14:58 | disposition home or self-care (01) ==
LOC: HO.HOP 14:06
PROVIDERS: PCP Pediatrics; Visit Provider Psychiatry & Neurology Psychiatry
DX: F43.12 Post-traumatic stress disorder, chronic (principal); F41.0 Panic disorder [episodic paroxysmal anxiety]
CPT/HCPCS: 99214

== ENCOUNTER → 2024-06-21 14:06 | Outpatient (BNVA) | payer OTHER, SELFPAY | PROVIDERS: PCP Pediatrics; Visit Provider Psychiatry & Neurology Psychiatry ==

== ENCOUNTER 2024-08-02 14:29 | Outpatient (AMB) | payer OTHER, SELFPAY ==
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
--- OUTSIDE RECORDS SUMMARY | 2024-08-02 17:40 | XMS_ITS | Data Portability ---
Author Organization [facility], Main Office Address [address] [place] [address] Care Team Providers Care Consumer Marketing Analyst Name Role Phone CARMELO LAU Primary Care Provider SANGEETA RANDLE Chemicals Distiller MILA MORENO Psychiatrist FRANCISCO HART Digital Account Supervisor [facility] Issuer Assessment No assessment recorded. Plan of Treatment Reminders Order Date Submit Date Provider Last Modified By Organization Details Last Modified Time Details Appointments PE EST 2024 09:30A M Carmelo Lau MD Not available Not available Not available Lab reggie mckeon 2023 024 FRANCISCO [facility] (Centralized Electronic Ordering - All Locations), Patient Can Go To The Location Of Their Choice, [id number] 01/13/2024 06:08:10 reggie STRONG or ricardo shah 2023 024 FRANCISCO [facility] (Centralized Electronic Ordering - All Locations), Patient Can Go To The Location Of Their Choice, [id number] 01/13/2024 06:08:08 TSH, ultr a-se reggie romano 2023 024 FRANCISCO [facility] (Centralized Electronic Ordering - All Locations), Patient Can Go To The Location Of Their Choice, [id number] 01/13/2024 06:08:10 lizz min D, 25-h ydro chad banuelos seru m 2023 024 FRANCISCO [facility], [address], [address], [place], [address], 01/13/2024 06:08:14 gamm a-gl utam yl cristina sfer ase (ggt ), seru m 2022 023 FRANC[facility], [address], [address], [place], [address], 08/04/2022 14:56:08 CMP, seru m or plas ma 2022 023 [facility], [address], [address], [place], [address], 08/04/2022 14:55:59 lipi d pane l, seru m 2022 023 [facility], [address], [address], [place], [address], 08/04/2022 14:56:20 lizz min D, 25-h ydro xy, tota l, seru m 2022 023 [facility], [address], [address], [place], [address], 08/04/2022 16:51:29 lipi d pane l, seru m 2021 022 [facility], [address], [address], [place], [address], 09/13/2021 14:15:30 CMP, seru m or plas ma 2021 022 [facility], [address], [address], [place], [address], 09/13/2021 14:15:27 vari cell a-zo ster igg Ab scre en, seru m 2021 022 FR[facility], [address], [address], [place], [address], 09/15/2021 14:59:11 lizz min D, 25-h ydro xy, tota l, seru m 2021 022 [facility], [address], [address], [place], [address], 09/13/2021 14:27:49 sjog hawa anti body pane l (ssa , ssb, ro, la), seru m 2021 022 [facility], [address], [address], [place], [address], 09/14/2021 11:06:36 CBC w/ auto diff 2021 022 [facility], [address], [address], [place], [address], 09/13/2021 13:51:21 iron + tota l iron -[facility] ([facility]), seru m 2021 022 FRANCISCO [facility], [address], [address], [place], [address], 09/13/2021 14:15:29 TSH, seru m or plas ma 2021 022 [facility], [address], [address], [place], [address], 09/13/2021 14:27:47 lipi d pane l, seru m 2020 021 [facility], [address], [address], [place], [address], 07/26/2020 17:08:07 CMP, seru m or plas ma 2020 021 [facility], [address], [address], [place], [address], 07/26/2020 17:08:06 CK (cre atin e khushbu se), tota l, seru m 2020 021 FR[facility], [address], [address], [place], [address], 07/26/2020 17:08:03 lizz min D, 25-h ydro xy, tota l, seru m 2020 021 [facility], [address], [address], [place], [address], 07/26/2020 17:14:40 JENNY (ant inuc lear anti bodi es) scre en, seru m 2020 021 [facility], [address], [address], [place], [address], 07/27/2020 21:09:58 ESR (gregorio thro enedinae sedi ment atio n rate ), bloo d 2020 021 [facility], [address], [address], [place], [address], 07/26/2020 15:29:17 C-re acti ve prot ein, maria fernanda piyush tive , seru m or plas ma 2020 021 [facility], [address], [address], [place], [address], 07/26/2020 17:14:39 TSH, seru m or plas ma 2020 021 [facility], [address], [address], [place], [address], 03/19/2020 20:54:48 CMP, seru m or plas ma 2020 021 [facility], [address], [address], [place], [address], 03/19/2020 20:39:49 CBC w/ auto diff 2020 021 [facility], [address], [address], [place], [address], 03/19/2020 19:51:03 magn esiu m, seru m or plas ma 2020 021 [facility], [address], [address], [place], [address], 03/19/2020 20:39:50 Referral gyne colo gist refe rral 2022 023 [email or web address] Not available 01/27/2023 13:01:45 gyne colo gist refe rral 2021 022 [email or web address] Not available 01/21/2022 11:01:27 nutr itio nist / marlee an refe rral 2021 022 [email or web address] Not available 07/25/2021 14:39:56 nutr itio nist / marlee an refe rral 2020 021 abigby Not available 07/24/2020 09:26:05 card iolo gist refe rral - for assi shaunna ce with eval uati on of palp itat ions . Stre ss test and ECHO pend ing. 2020 [facility] [address], [place], [address], 03/29/2020 10:46:14 Procedures colo nosc opy scre enin g (PRO C) - for rout ine colo n canc er scre enin g 2022 023 [facility], [address], [place], [address], 12/18/2022 14:45:54 colo nosc opy scre enin g (PRO C) 2021 022 [email or web address] Not available 07/25/2021 15:07:31 Surgeries None obie [...] Diag nost ic Mamm ogra m and [place] [address] Ultr asou nd if need ed [...] enin g, bila yesica l 2021 022 Not available 01/21/2022 11:08:56 bone dens ity 2020 021 abolcun Not available 10/22/2020 14:42:08 MAMM O, scre enin g, bila yesica l - Perf orm Diag nost ic Mamm ogra m and Stephany st Ultr asou nd if need ed / Perf orm Ultr asou nd Guid ed Aspi rati on and/ or [address] [address] Biop sy if estela ante d 2020 021 [email or web address] 6 Not available 07/24/2020 09:19:03 elec troc dona carranza m 2020 021 [email or web address] 6 In-Office Order, Internal Use Only DO Not Attach Compendium DO Not Attach Compendium, Do Not Delete/merge, [id number] 03/15/2020 16:19:35 US, echo card iogr am, cristina stho raci c, comp lete - rule out stru ctur al hear t dise ase in pt with HTN and inte rmit tent palp itat ions . 2020 021 ATHENAFAX [facility] (Outt Non-Invasive Cardiology Scheduling), [address] [place], [address], 03/20/2020 12:10:45 exer cise stre ss test - Scre en for exer cise killian vivek ECG ramirez ges 2020 021 awychowski [facility] (Outt Non-Invasive Cardiology Scheduling), [address] [place], [address], 07/25/2020 10:32:03 Medication Orders None obie rded . Patient TargetsNo targets recorded. Patient Instructions Encounter Date Encounter Id Patient Instructions Last Modified By Organization Details Last Modified Time 03/15/2020 [id number] high blood pressure: care instructions reagan Not available 03/15/2020 16:13:23 learning about high blood pressure awychowski Not available 03/15/2020 16:13:24 palpitations: care instructions sudhaowski Not available 03/15/2020 16:13:23 07/24/2020 [id number] Cervical Cancer Screening awychowski Not available 07/24/2020 09:14:26 anxiety disorder: care instructions awychowski Not available 07/24/2020 09:14:26 earwax blockage: care instructions sudhaowski Not available 07/24/2020 09:21:33 When You Want to Lose Weight: Care Instructions awcaliowski Not available 07/24/2020 09:14:26 Nutrition Referral and Weight Management Follow-up Information awychowski Not available 07/24/2020 09:14:26 psoriasis: care instructions sudhaowski Not available 07/24/2020 09:14:26 07/25/2021 [id number] Cervical Cancer Screening awychowski Not available 07/25/2021 [...] instructions awychowski Not available 07/25/2021 14:32:57 07/29/2022 [id number] learning about healthy weight awychowski Not available 07/29/2022 15:40:22 08/17/2023 [id number] learning about healthy weight awychowski Not available 08/17/2023 10:20:27 Reason for Referral [place] Program Coordinator Referral for In termittent palpitations for assistance with evaluation of palpitations. Stress test and ECHO pending. Referring Physician: Family Caleb Mejia, Encounter Date: 03/15/2020 Gold Cutter/dietitian Refer ral for Body mass index 25-29 - overweight Referring Physician: Family Caleb Mejia, Encounter Date: 07/24/2020 Director Independent Referral for Sc reening for malignant neoplasm of cervix Referring Physician: Family Caleb Mejia, Encounter Date: 07/25/2021 Gold Cutter/dietitian Refer ral for Body mass index 25-29 - overweight Referring Physician: Family Caleb Mejia, Encounter Date: 07/25/2021 Director Independent Referral for Sc reening for malignant neoplasm of cervix Referring Physician: Family Caleb Mejia, Encounter Date: 07/29/2022 Results Created Date Observation Date Name Description Value Unit Range Abnormal Flag Note LastModifiedBy Organization Detail LastModifiedTime 03/15/1903/15/2020 jacob pittgr am done Not Available In-Office Order Internal Use Only DO Not Attach Compendium DO Not Attach Compendium, Do Not Delete/merge, [id number] 03/11/2020 19:25:10 03/19/1903/19/2020 CBC w/ auto diff [...] The Location Of Their Choice, 03/19/2020 19:51:03 02/08/20 21 03/19/2020 CBC w/ auto diff eo [...] The Location Of Their Choice, 07/26/2020 17:08:02 07/27/1907/26/2020 CMP, serum or plasm a glucose 95 [...] 17:08:06 07/27/1907/26/2020 CMP, serum or plasm a creatinine 0.9 mg/dL (0.5-1 .0) Not Available [facility] (Centralized Electronic Ordering - All Locations) Patient Can Go To The Location Of Their Choice, 07/26/2020 17:08:06 07/27/1907/26/2020 CMP, serum or plasm a sodium 144 [...] 17:08:06 07/27/1907/26/2020 CMP, serum or plasm a chloride 104 [...] 17:08:06 07/27/1907/26/2020 CMP, serum or plasm a anion gap [...] To The Location Of Their Choice, 07/26/2020 17:08:07/27/19 21 07/26/2020 CMP, serum or plasm a [...] Go To The Location Of Their Choice, [id number] 07/26/2020 17:08:07 07/27/19 21 07/26/2020 lipid panel , serum triglyceride 141 mg/dL (<150) Not Available [facility] (Centralized Electronic Ordering - All Locations) Patient Can Go To The Location Of Their Choice, [id number] 07/26/2020 17:08:07 07/27/1907/26/2020 lipid panel , serum HDL chol 40 mg/dL (>39) Not Available [facility] (Centralized Electronic Ordering - All Locations) Patient Can Go To The Location Of Their Choice, [id number] 07/26/2020 17:08:07 07/27/1907/26/2020 lipid panel , serum LDL cholesterol, calculated 102 mg/dL (0-130 ) Not Available [facility] (Centralized Electronic Ordering - All Locations) Patient Can Go To The Location Of Their Choice, [id number] 07/26/2020 17:08:07 07/27/1907/26/2020 lipid panel , serum [...] Go To The Location Of Their Choice, [id number] 07/26/2020 17:14:39 07/27/1907/26/2020 vitam in D, 25-hy [...] rp, [address], [place] [address] Not Available [facility] (Centralized Electronic Ordering - [...] 13:51:21 09/14/1909/13/2021 COMPL ETE CBC WITH DIFF MPV 9.6 fL (9.4-1 2.4) Not Available [facility] (Centralized Electronic Ordering - All Locations) Patient Can Go To The Location Of Their Choice, 09/13/2021 13:51:09/14/1909/13/2021 COMPL ETE CBC WITH DIFF automated NRBC 0.0 #/100 _WBC' s Not Available [facility] (Centralized Electronic Ordering - All Locations) Patient Can Go To The Location Of Their Choice, 09/13/2021 13:51:09/14/1909/13/2021 COMPL ETE CBC WITH DIFF abs. NRBC [...] 09/14/1909/13/2021 COMPL ETE CBC WITH DIFF baso 0.7 [...] The Location Of Their Choice, 09/13/2021 14:15:26 09/14/1909/13/2021 COMPR EHENS NADIA METAB OLIC PANL BUN 15 mg/dL (8-23) Not Available [facility] (Centralized Electronic Ordering - All Locations) Patient Can Go To The Location Of Their Choice, 09/13/2021 14:15:26 09/14/1909/13/2021 COMPR EHENS NADIA METAB OLIC PANL creatinine 0.9 mg/dL (0.5-1 .0) Not Available [facility] (Centralized Electronic Ordering - All Locations) Patient Can Go To The Location Of Their Choice, 09/13/2021 14:15:26 09/14/1909/13/2021 COMPR EHENS NADIA METAB OLIC PANL sodium 143 mmol/ L (133-1 45) Not Available [facility] (Centralized Electronic Ordering - All Locations) Patient Can Go To The Location Of Their Choice, 09/13/2021 14:15:09/14/1909/13/2021 COMPR EHENS NADIA METAB OLIC PANL potassium [...] 14:15:09/14/1909/13/2021 COMPR EHENS NADIA METAB OLIC PANL ALT [...] Their Choice, 09/13/2021 14:15:30 09/14/1909/13/2021 LIPID PANEL LDL cholesterol, calculated 101 mg/dL [...] rmed by [facility], [address], [facility] [place] [address] Not Available [facility] (Centralized Electronic Ordering - [...] 08/05/1908/04/2022 COMPR EHENS NADIA METAB OLIC PANL albumin [...] 08/05/1908/04/2022 COMPR EHENS NADIA METAB OLIC PANL total [...] Go To The Location Of Their Choice, [id number] 08/04/2022 14:37:24 08/05/1908/04/2022 LIPID PANEL non HDL cholesterol (calc) 129 mg/dL (<160) Not Available [facility] (Centralized Electronic Ordering - All Locations) Patient Can Go To The Location Of Their Choice, [id number] 08/04/2022 14:37:24 08/05/1908/04/2022 25OH VITAM IN D 25OH vitamin D 20.5 NG/mL (20-50 ) Not Available [facility] (Centralized Electronic Ordering - All Locations) Patient Can Go To The Location Of Their Choice, [id number] 08/04/2022 16:51:29 01/12/20 24 01/13/2024 COMP. METAB OLIC PANEL (14) glucose 98 mg/dL 70-99 normal Not Available [facility] ([facility]) [address] [place], [address], 01/13/2024 06:08:08 01/12/20 24 01/13/2024 COMP. METAB OLIC PANEL (14) BUN 14 mg/dL 8-27 normal Not Available [facility] ([facility]) [address] [place], [address], 01/13/2024 06:08:08 01/12/20 24 01/13/2024 COMP. METAB OLIC PANEL (14) creatinine 0.90 mg/dL 0.57-1 .00 normal Not Available [facility] ([facility]) [address] [place], [address], 01/13/2024 06:08:08 01/12/20 24 01/13/2024 COMP. METAB OLIC PANEL (14) eGFR 72 mL/mi n/1.7 3 >59 normal Not Available [facility] ([facility]) [address] [place], [address], 01/13/2024 06:08:08 01/12/20 24 01/13/2024 COMP. METAB OLIC PANEL (14) BUN/creatini ne ratio 16 12-28 normal Not Available [facility] ([facility]) [address] [facility] [place], [address], 01/13/2024 06:08:08 01/12/20 24 01/13/2024 COMP. METAB OLIC PANEL (14) sodium 145 mmol/ L 134-14 4 above high normal Not Available [facility] ([facility]) [address] [facility] [place], [address], 01/13/2024 06:08:08 01/12/20 24 01/13/2024 COMP. METAB OLIC PANEL (14) potassium 3.8 mmol/ L 3.5-5. 2 normal Not Available [facility] ([facility]) [address] [facility] [place], [address], 01/13/2024 06:08:08 01/12/20 24 01/13/2024 COMP. METAB OLIC PANEL (14) chloride 107 mmol/ L 96-106 above high normal Not Available [facility] ([facility]) [address] [facility] [place], [address], 01/13/2024 06:08:08 01/12/20 24 01/13/2024 COMP. METAB OLIC PANEL (14) carbon dioxide, total 24 mmol/ L 20-29 normal Not Available [facility] ([facility]) [address] [facility] [place], [address], 01/13/2024 06:08:08 01/12/20 24 01/13/2024 COMP. METAB OLIC PANEL (14) calcium 9.2 mg/dL 8.7-10 .3 normal Not Available [facility] ([facility]) [address] [facility] [place], [address], 01/13/2024 06:08:08 01/12/20 24 01/13/2024 COMP. METAB OLIC PANEL (14) protein, total 6.7 g/dL 6.0-8. 5 normal Not Available [facility] ([facility]) [address] [facility] [place], [address], 01/13/2024 06:08:08 01/12/20 24 01/13/2024 COMP. METAB OLIC PANEL (14) albumin 4.2 g/dL 3.9-4. 9 normal Not Available [facility] ([facility]) [address] [facility] [place], [address], 01/13/2024 06:08:08 01/12/20 24 01/13/2024 COMP. METAB OLIC PANEL (14) globulin, total 2.5 g/dL 1.5-4. 5 Not Available [facility] ([facility]) [address] [facility] [place], [address], 01/13/2024 06:08:08 01/12/20 24 01/13/2024 COMP. METAB OLIC PANEL (14) bilirubin, total 0.5 mg/dL 0.0-1. 2 normal Not Available [facility] ([facility]) [address] [facility] [place], [address], 01/13/2024 06:08:08 01/12/20 24 01/13/2024 COMP. METAB OLIC PANEL (14) alkaline phosphatase 111 IU/L 44-121 normal Not Available [facility] ([facility]) [address] [facility] [place], [address], 01/13/2024 06:08:08 01/12/20 24 01/13/2024 COMP. METAB OLIC PANEL (14) AST (SGOT) 24 IU/L 0-40 normal Not Available [facility] ([facility]) [address] [facility] [place], [address], 01/13/2024 06:08:08 01/12/20 24 01/13/2024 COMP. METAB OLIC PANEL (14) ALT (SGPT) 16 IU/L 0-32 normal Not Available [facility] ([facility]) [address] [facility] [place], [address], 01/13/2024 06:08:08 01/12/20 24 01/13/2024 LIPID PANEL cholesterol, total 150 mg/dL 100-19 9 normal Not Available [facility] ([facility]) [address] [facility] [place], [address], 01/13/2024 06:08:10 01/12/20 24 01/13/2024 LIPID PANEL triglyceride s 151 mg/dL 0-149 above high normal Not Available [facility] ([facility]) [address] [facility] [place], [address], 01/13/2024 06:08:10 01/12/20 24 01/13/2024 LIPID PANEL HDL cholesterol 37 mg/dL >39 below low normal Not Available [facility] ([facility]) [address] [place], [address], 01/13/2024 06:08:10 01/12/20 24 01/13/2024 LIPID PANEL VLDL cholesterol genna 27 mg/dL 5-40 Not Available [facility] ([facility]) [address] [place], [address], 01/13/2024 06:08:10 01/12/20 24 01/13/2024 LIPID PANEL LDL chol calc ([facility]) 86 mg/dL 0-99 Not Available [facility] ([facility]) [address] [place], [address], 01/13/2024 06:08:10 01/12/20 24 01/13/2024 LIPID PANEL LDL calc comment: 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 2010. Bree ry refer normae kiarra es for calci um and D. Ricardo bah DC: The Natio nal [facility] Press . 2. Amy marie MF, Kian andrade [place], Mady off-F errar i MELGAR, et al. Evalu ation , treat ment, and preve ntion of vitam in D defic iency : an Endoc rine Socie ty clini genna pract ice guide line. JCEM. 2010; 96(7) :1911 -30. Not Available [facility] ([facility]) [address] [facility], [place], [address], 01/13/2024 06:08:14 03/15/19 21 03/15/2020 elect sofya chowdhury am No observ ation record ed. [facility] In-Office Order Internal Use Only DO Not Attach Compendium DO Not Attach Compendium, Do Not Delete/merge, [id number] 03/16/2020 20:45:16 04/02/19 21 04/02/2020 US, echoc ardio gram, trans thora cic, compl ete No observ ation record ed. [address], [place], [address], 04/03/2020 20:32:45 08/23/19 21 exerc ise stres s test No observ ation record ed. [facility] (Outt Non-Invasive Cardiology Scheduling) [address] [place], [address], 07/25/2021 14:45:21 02/01/20 21 01/31/2021 MAMMO , [...] Lay letter mailed to bryan paez WSN: [id number] Orderi ng Physic evelyn: Carmelo Vogel Dictat ed By: Reji Hwang MD Dictat ed Date/T elias: 2:09 pm Review ed By: Reji Hwang MD Signed By: Reji Hwang MD Signed Date/T elias: 2:09 pm Transc ribed By: BETH Transc riptio n Date/T elias: 2:08 pm Birads : Bryan paez Class: Outpat ient [facility] (Outpt Imaging) [address] [place], [address], 07/25/2021 14:45:21 02/12/19 22 01/31/2021 DEXA, axial skele ton ====== ====== ====== ====== ====== ====== ====== ====== ====== ====== ===== Bone Densit y Report ====== ====== ====== ====== ====== ====== ====== ====== ====== ====== ===== Name: NAFISA AGUILAR t ID: [id number] Age: 60 Sex: Female Ethnic ity: White Date of : 1960 ------ ------ ------ ------ ------ ------ ------ ------ ------ ------ ----- Indica tion: [place] PUCKETT Referr [facility] er: JOHN NUNEZ MD, CARMELO Study: Bone densit ometry was perfor med. Exam Date: [facility] 2020 Access ion number : [id number] Bone Densit y: ------ ------ ------ [...] calcul ated for an untrea yunier bryan t. Fractu re probab ility may be [...] al Inform ation Provid ed by Bryan t: ------ ------ ------ ------ ------ ------ ------ [...] BETH Transc ribed Date/T elias: 6:22 pm Patisami t Class: Outpat [facility] (Outpt Imaging) [address] [place] [address], [address], 07/25/2021 14:45:21 07/26/19 22 07/25/2021 XR, chest [...] IMPRES KEVIN: No acute abnorm ality. WSN: [id number] Orderi ng Physic evelyn: Carmelo Vogel Patisami t Class: Outpat [facility] (Outpt Imaging) [address] [place], [address], 08/13/2022 21:06:27 02/13/19 24 02/13/2023 MAMMO , [...] Lay letter mailed to bryan paez WSN: [id number] Orderi ng Physic evelyn: Carmelo Vogel Dictat ed By: Joyce Newsome MD Dictat ed Date/T elias: 5:10 pm Review ed By: Joyce Newsome MD Signed By: Joyce Newsome MD Signed Date/T elias: 5:10 pm Transc ribed By: BETH Transc riptio n Date/T elias: 5:06 pm Birads : Bryan paez Class: Outpat ient reagan [facility] (Outpt Imaging) [address] [facility], [place], [address], 08/17/2023 10:17:59 02/13/19 24 02/13/2023 MAMMO , scree deana, bilat eral No observ ation record ed. awychowski [facility] [address], [place], [address], 08/17/2023 10:17:59 02/18/19 24 02/13/2023 DEXA, axial skele ton Name:Delvis paez ID: [id number] Age:62 years Sex:Fe male Ethnic ity:Wh [...] determ ined by WHO criter ia. WSN: [id number] Orderi ng Physic evelyn: Carmelo Vogel Dictat ed By: Gibson PANTOJA, Katy Bauer Dictat ed Date/T elias: 12:35 p Review ed By: Katy Arreaga MD Signed By: Katy Arreaga MD Signed Date/T elias: 12:35 pm Transc ribed By: BETH Transc ribed Date/T elias: 12:33 pm Patien t Class: Outpat sue kirk [facility] (Outpt Imaging) [address] , [place], [address], 08/17/2023 10:17:59 Result Notes Documentation Provider Name and Address Organization Details Recorded Time Mammo, Screening, Digital, Bilateral : PROCEDURE: MM Digital Mammo Screening INDICATION: Screening. No known palpable abnormalities. COMPARISON: 01/30/2020 TECHNIQUE: Full-field digital CC and MLO views of both breasts were obtained. In addition, 3D tomosynthesis images of both breasts were acquired. Computer-aided detection (CAD) was utilized in the interpretation of this study. DENSITY: The breast tissue is heterogeneously dense, which may obscure masses. FINDINGS: No suspicious masses, suspicious microcalcifications, or areas of architectural distortion are seen in either breast to suggest malignancy. Bilateral well-defined breast asymmetries with calcifications appear stable. IMPRESSION: No mammographic evidence of malignancy. RECOMMENDATION: Annual mammographic screening. BI-RADS: BI-RADS 2-benign Lay letter mailed to patient WSN: [id number] Ordering Physician: Carmelo Lau Dictated By: Reji Hwang MD Dictated Date/Time: 01/31/21 2:09 pm Reviewed By: Reji Hwang MD Signed By: Reji Hwang MD Signed Date/Time: 01/31/21 2:09 pm Transcribed By: BETH Agency Owner Date/Time: 01/31/21 2:08 pm Birads: Patient Class: Outpatient Carmelo Lau MD [address] [facility] [address] [facility], [place], [address], [facility] 07/25/2021 14:45:21 Dexa, Axial Skeleton : Bone Density Report Name: NAFISA AGUILAR Age: 60 Sex: Female Ethnicity: White Date of : 1960 Indication: POSTMENOPAUSAL. Referring Provider: CARMELO LAU MD Study: Bone densitometry was performed. Exam Date: January 31, 2021 Accession number: [id number] Bone Density: Region BMD T-score Z-score Classification AP Spine (L1-L4) 1.072 0.2 1.6 Normal Femoral Neck (Left) 0.687 -1.5 -0.2 Osteopenia Total Hip (Left) 0.943 0.0 0.9 Normal World Health Organization criteria for BMD impression classify patients as: Normal (T-score at or above -1.0), Osteopenia (T-score between -1.0 and -2.5), or Osteoporosis (T-score at or below -2.5). 10-year Fracture Risk(1): Major Osteoporotic Fracture 12% Hip Fracture 1.1% Reported Risk Factors: [place] (), Neck BMD=0.687, BMI=28.3, glucocorticoids (1) FRAX(R) Version 3.08. Fracture probability calculated for an untreated patient. Fracture probability may be lower if the patient has received treatment. Previous Exams: Region Exam Age BMD T-score BMD Change BMD Change Date g/cm2 vs Baseline vs Previous AP Spine(L1-L4) 01/31/2021 60 1.072 0.2 -0.085(-7.4%)* -0.085(-7.4%)* 09/14/2018 58 1.157 1.0 Total Hip(Left) 01/31/2021 60 0.943 0.0 -0.014(-1.5%) -0.014(-1.5%) 09/14/2018 58 0.957 0.1 Femoral Neck(Left) 01/31/2021 60 0.687 -1.5 -0.040(-5.5%)* -0.040(-5.5%)* 09/14/2018 58 0.727 -1.1 *Denotes significance at 95% confidence level, LSC for AP Spine = 0.022 g/cm2, LSC for Total Hip = 0.027 g/cm2 Clinical Information Provided by Patient: Has taken Glucocorticoids Has used the following medications: Vitamin D Has the following medical conditions: Asthma or Emphysema, Hysterectomy Patient maximum height was 65.0 Menopause Age: 54 Onset of menses at age 13 Number of children 2 Impression: The patient has osteopenia as determined by WHO criteria. Reported by: Meng Arreaga M.D. on 02/12/2021 6:21:00 PM. Dictated By: Meng Arreaga MD Dictated Date/Time: 02/12/21 6:22 pm Reviewed By: Meng Arreaga MD Signed By: Meng Arreaga MD Signed Date/Time: 02/12/21 6:22 pm Transcribed By: BETH Transcribed Date/Time: 02/12/21 6:22 pm Patient Class: Outpatient Carmelo Lau MD [address], [address], [facility] 07/25/2021 14:45:21 Xr, Chest, 2 View : Chest 2 Views Frontal and Lat Reason: follow up left upper lung abnormality COMPARISON: 07/31/2020. FINDINGS: LINES AND TUBES: None. LUNGS AND PLEURA: Mildly hyperexpanded, mild biapical pleural parenchymal scarring. No pleural effusion. No pneumothorax. HEART, MEDIASTINUM AND MEGHA: Heart is normal in size. Normal upper mediastinal and hilar contour. BONES AND SOFT TISSUES: No acute abnormality. IMPRESSION: No acute abnormality. WSN: [id number] Ordering Physician: Carmelo Lau Patient Class: Outpatient Carmelo Lau MD [address], [address], [facility] 08/13/2022 21:06:27 Mammo, Screening, Digital, Bilateral : PROCEDURE: MM Digital Mammo Screening INDICATION: Screening for breast cancer. No known palpable abnormalities. COMPARISON: Priors, most recent dated 01/31/2021 TECHNIQUE: Full-field digital CC and MLO 3D tomosynthesis images of both breasts were acquired. Computer-aided detection (CAD) was utilized in the interpretation of this study. DENSITY: The breast tissue is heterogeneously dense, which may obscure masses. FINDINGS: No suspicious masses, suspicious microcalcifications, or areas of architectural distortion are seen in either breast to suggest malignancy. Bilateral well-defined similar appearing circumscribed masses, some of which are calcified, stable. IMPRESSION: No mammographic evidence of malignancy. RECOMMENDATION: Routine mammographic screening BI-RADS: 2 (Benign) Lay letter mailed to patient WSN: [id number] Ordering Physician: Carmelo aLu Dictated By: Meri Newsome MD Dictated Date/Time: 02/13/23 5:10 pm Reviewed By: Meri Newsome MD Signed By: Meri Newsome MD Signed Date/Time: 02/13/23 5:10 pm Transcribed By: BETH Agency Owner Date/Time: 02/13/23 5:06 pm Birads: Patient Class: Outpatient Carmelo Lau MD [address] [facility] [address], [address], [facility] 08/17/2023 10:17:59 Dexa, Axial Skeleton : Name:NAFISA QUISPE Age:62 years Sex:Female Ethnicity:White Date of :1960 Reason: M85.88 M85.80 OSTEOPENIA; Clinical Question(s): Other: Referring Provider:Carmelo Lau Study:Dexa Bone Density (Axial) Bone Density: Region BMD T-Score Z-Score Classification AP Spine 1.097 0.5 2.0 Normal TOTAL HIP 0.942 0.0 1.0 Normal FEM NECK 0.708 -1.3 0.1 Osteopenia 10-year Fracture Risk: 1 FRAX(R) Version 3.08. Fracture probability calculated for an untreated patient. Fracture probability may be lower if the patient has received treatment. Major Osteoporotic Fracture 12% Hip Fracture 1.0% RATE OF CHANGE(SPINE): BMD values have increased 2.3% from previous BMD values have decreased 5.2% from baseline RATE OF CHANGE(TOTAL HIP): BMD values have decreased 0.1% from previous BMD values have decreased 1.6% from baseline RATE OF CHANGE(FEMORAL NECK): BMD values have increased 3.0% from previous BMD values have decreased 2.6% from baseline Impression: The patient has osteopenia as determined by WHO criteria. WSN: [id number] Ordering Physician: Carmelo Lau Dictated By: Meng Arreaga MD Dictated Date/Time: 02/18/23 12:35 p Reviewed By: Meng Arreaga MD Signed By: Meng Arreaga MD Signed Date/Time: 02/18/23 12:35 pm Transcribed By: BETH Transcribed Date/Time: 02/18/23 12:33 pm Patient Class: Outpatient Carmelo Lau MD [address], [address], [facility] 08/17/2023 10:17:59 Problems Name Problem SNOMED Code Status Onset Date Resolution Date Notes Provider Name and Address Organization Details Recorded Time Generali zed anxiety disorder 51871587 Active 2016 Carmelo Lau MD [address], [address], [facility] 14:26:40 Uterine prolapse 57372209 Completed 201607/08/2017 Carmelo Lau MD [address], [place], [address], [facility] 8 15:39:51 Mild intermit tent asthma 401080155 Active 2016 Carmelo Lau MD [address], [place], [address], [facility] 7 14:28:22 Alopecia 00146895 Active 2016 Carmelo Lau MD [address], [place], [address], [facility] 7 14:28:27 Raynaud' s disease 590699055 Active 2016 Carmelo Lau MD [address], [place], [address], [facility] 7 14:51:43 Raised antinucl ear antibody 081311953 Completed 201607/08/2017 negative rheum eval 2012 Carmelo Lau MD [address], [place], [address], [facility] 8 15:39:44 Hypercho lesterol emia 75760374 Active 2015 Carmelo Lau MD [address], [place], [address], [facility] 7 08:36:54 Cystocel e 933144917 Completed 201607/08/2017 Carmelo Lau MD [address], [place], [address], [facility] 8 15:39:31 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 718497263 Completed 201607/08/2017 Carmelo Lau MD [address], [place], [address], [facility] 8 15:39:28 History of stress incontin ence 594258447 Active 2016 Carmelo Lau MD [address], [place], [address], [facility] 7 12:27:10 Female stress incontin ence 88936503 Completed 201607/08/2017 Carmelo Lau MD [address], [place], [address], [facility] 8 15:39:24 Increase d frequenc y of urinatio n 786409429 Completed 201607/08/2017 Carmelo Lau MD [address], [place], [address], [facility] 8 15:39:20 Psoriasi s 7505697 Active 2017 Carmelo Lau MD [address], [place], [address], [facility] 8 15:30:19 Hypernat remia Completed 201707/13/2018 Carmelo Lau MD [address], [place], [address], [facility] 9 13:23:42 Elevated blood-pr essure reading without diagnosi s of hyperten kevin 997029482 Completed 201701/07/2018 Carmelo Lau MD [address], [place], [address], [facility] 8 15:33:37 Body mass index 25-29 - overweig ht 981650068 Completed 201807/19/2019 Carmelo Lau MD [address], [place], [address], [facility] 0 09:54:18 History of tobacco use 45545559642 03 Active 2018 Carmelo Lau MD [address] [facility] [address], [place], [address], [facility] 9 13:45:16 Herpes labialis 9838297 Active 2018 Carmelo Lau MD [address] [facility] [address], [place], [address], [facility] 9 13:55:11 Hypercal cemia 87786328 Completed 201809/07/2019 Carmelo Lau MD [address] [facility] [address], [place], [address], [facility] 0 08:45:04 Osteopen ia 262940545 Active 2018 Carmelo Lau MD [address] [facility] [address], [place], [address], [facility] 9 06:46:53 History of total hysterec kyler 783417350 Active 2019 Carmelo Lau MD [address] [facility] [address], [place], [address], [facility] 0 09:24:26 Insomnia 363539955 Active 2019 Carmelo Lau MD [address] [facility] [address], [place], [address], [facility] 0 09:26:26 Body mass index 25-29 - overweig ht 718706777 Active 2019 Carmelo Lau MD [address] [facility] [address], [place], [address], [facility] 0 09:54:18 Posttrau matic stress disorder 13041347 Active 2019 Carmelo Lau MD [address] [facility] [address], [place], [address], [facility] 0 09:59:34 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 468671584 Active 2019 Carmelo Lau MD [address], [place], [address], [facility] 0 21:02:23 Alkaline phosphat ase above referenc e range 627655134 Completed 202108/06/2022 Carmelo Lau MD [address], [place], [address], [facility] 3 21:09:37 Alkaline phosphat ase above referenc e range 413270669 Completed 202208/13/2022 Carmelo Lau MD [address], [place], [address], [facility] 3 21:09:37 Vitamin D deficien cy 89766618 Active 2023 Carmelo Lau MD [address], [place], [address], [facility] 4 10:07:13 Problem Notes None recorded. Procedures Surgical History Date Name Laterality Status Provider Name and Address Organization Details Recorded Time 024 Most Recent Bone Density completed Noni Reese MA [facility] 08/17/2023 09:26:00 024 Most Recent Mammogram completed Noni Reese MA [facility] 08/17/2023 09:37:01 024 Mammogram screening completed Omayra Alejandro [facility] Shira [facility] 02/14/2023 09:03:22 024 Dxa bone density abdirizak vrt fx completed Noni Reese MA [facility] 08/17/2023 09:37:49 023 Date of Last Colonoscopy completed Noni Reese MA [facility] 08/17/2023 09:30:22 023 Colonoscopy completed Carmelo Lau MD [address], [address], [facility] 12/22/2022 05:54:42 021 Echo transthoracic completed Carmelo Lau MD [address], [address], [facility] 11/14/2020 08:11:01 021 electrocardiogram with exercise test completed Carmelo Lau MD [address], [address], [facility] 08/23/2020 21:02:05 019 Dxa bone density abdirizak vrt fx completed Mignon Walker MA [facility] 07/19/2019 09:00:31 017 Hysterectomy completed Mignon Walker MA [facility] 07/19/2019 08:56:20 017 Hysterectomy/revise vagina completed Carmelo Lau MD [address], [address], [facility] 07/13/2018 13:30:10 014 Date of Last Pap Smear completed Aislinn ny MA [facility] 07/31/2018 10:31:15 989 Breast Surgery completed Carmelo Lau MD [address], [address], [facility] 07/13/2018 13:28:56 Breast Biopsy completed Mignon Walker MA [facility] 07/25/2021 13:41:31 Imaging Results None recorded. Procedure Notes None recorded. Medical Equipment None Reported. Allergies Allergen ID Allergen Name Allergen Category Reaction Reaction Severity Criticality Documentation Date Start Date Code Code System Note Provider Name and Address Organization Details Recorded Time 33792 Erythroci n medicatio n rash Not available Not available 07/02/2016 44573 3 RxNorm Mignon Walker ANGELA jona, [facility] 7 14:03:13 26650 Substance with sulfonami de structure and antibacte rial mechanism of action (substanc e) medicatio n rash Not available Not available 07/02/2016 10161 8003 SNOMED ANGELA Layton, [facility] 7 14:03:29 22372 cheese food abdominal pain diarrhea Not available Not available Not available 07/31/2018 54774 UNK ricot ta chees e Aislinn ANGELA Rapp, [facility] 9 10:46:51 53069 guaifenes in medicatio n rash Not available [facility] 08/17/2023 5032 RxNorm Carmelo Lau MD [address] [place], [address] 4 10:02:26 Medications Name Sig Start [...] Not Available Not Available Not Available Fluvirin 6845-9496 45 mcg (15 mcg x 3)/0.5 mL intramuscul ar suspension 07/02 completed Not Available Not Available Not Available Flucelvax Quad 9150-2430 (PF) 60 mcg (15 mcg x 4)/0.5 [...] Updated DateTime 1 166.37 cm 28.4 kg/m2 80130.4 8 g 98.24 [degF] 98 % 98 % 68 /min 148 mm[Hg] 75 mm[Hg] [facility] [place] 1 15:27:55 Date Recorded Body height Body mass index (BMI) Body weight Heart rate Oxygen saturation Oxygen saturation in Arterial blood by Pulse oximetry Body temperature Systolic blood pressure Diastolic blood pressure Provider Name and Address Organization Details Last Updated DateTime 1 166.37 cm 28.2 kg/m2 11228.8 9 g 66 /min 98 % 98 % 98.42 [degF] 114 mm[Hg] 70 mm[Hg] Mignon [facility] 1 08:35:07 Date Recorded Body height Body mass index (BMI) Body weight Heart rate Oxygen saturation Oxygen saturation in Arterial blood by Pulse oximetry Body temperature Systolic blood pressure Diastolic blood pressure Provider Name and Address Organization Details Last Updated DateTime 2 166.37 cm 27.9 kg/m2 23381.7 g 73 /min 99 % 99 % 98.42 [degF] 125 mm[Hg] 70 mm[Hg] Mignon Walker MA [facility] 2 13:49:44 Date Recorded Body height Body mass index (BMI) Body weight Heart rate Oxygen saturation Oxygen saturation in Arterial blood by Pulse oximetry Body temperature Systolic blood pressure Diastolic blood pressure Provider Name and Address Organization Details Last Updated DateTime 3 166.37 cm 27.1 kg/m2 29384.8 4 g 67 /min 99 % 99 % 98 [degF] 129 mm[Hg] 78 mm[Hg] [facility] 3 14:57:59 Date Recorded Body height Body mass index (BMI) Body weight Heart rate Oxygen saturation Oxygen saturation in Arterial blood by Pulse oximetry Body temperature Systolic blood pressure Diastolic blood pressure Provider Name and Address Organization Details Last Updated DateTime 4 166.37 cm 27.7 kg/m2 07570.5 1 g 56 /min 99 % 99 % 98 [degF] 125 mm[Hg] 70 mm[Hg[facility] 4 09:31:27 Social History Question Answer Notes LastModified by Organizat ion Details LastModified Time Tobacco Smoking Status Former Smoker quit 1994 Mignon Walker [facility] 07/02/2016 14:11:11 Do You Have An Advance Directive? Yes HCP/ -Lali zavala, Dtr-Mehul y Information not available 07/25/2021 Is Blood Transfusion [...] How Many Children Do You Have? 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 Information not available 07/08/2017 [...] Vaccine Type Date Status Note Provider Brandon parham and Address Organization Details Recorded Time Influenza, split virus, quadrivalent, preservative 6 completed ANGELA Rojas, [facility] 07/29/2022 14:34:39 [facility]dap 9 [facility] 13:41:44 Influenza, split virus, quadrivalent, preservative 7 completed ANGELA Rojas [facility] 07/29/2022 14:34:39 Influenza, split virus, quadrivalent, preservative 8 [facility]/2022 14:34:39 Influenza, split virus, quadrivalent, preservative 9 completed ANGELA Rojas, [facility] 07/29/2022 14:34:39 varicella 0 [facility] 07/25/2021 13:41:45 COVID-19, mRNA, LNP-S, PF, 100 mcg/0.5mL dose or 50 mcg/0.25mL dose 1 completed ANGELA Layton, [facility] 07/25/2021 13:41:44 COVID-19, mRNA, LNP-S, PF, 100 mcg/0.5mL dose or 50 mcg/0.25mL dose 1 completed ANGELA Layton, [facility] 07/25/2021 13:41:44 Influenza, MDCK, quadrivalent, PF 7 [facility]/25/2021 13:41:44 Influenza, split virus, trivalent, preservative 5 completed ANGELA Layton, [facility] 07/25/2021 13:41:44 Novel [id number]-[id number], preservative-free 9 [facility]/25/2021 13:41:44 Influenza, MDCK, quadrivalent, PF 8 completed ANGELA Layton, [facility] 07/25/2021 13:41:44 varicella 0 [facility]/25/2021 13:41:44 Influenza, MDCK, quadrivalent, PF 9 [facility] 07/25/2021 13:41:44 COVID-19, mRNA, LNP-S, PF, 100 mcg/0.5mL dose or 50 mcg/0.25mL dose 1 [facility] 07/25/2021 13:41:44 Influenza, split virus, trivalent, preservative 0 [facility] 07/25/2021 13:41:44 Influenza, MDCK, quadrivalent, PF 1 completed ANGELA Layton, [facility] 07/25/2021 13:41:44 Tdap 7 completed ANGELA Layton, [facility] 07/25/2021 13:41:44 Influenza, split virus, trivalent, preservative 6 [facility]/25/2021 13:41:44 Influenza, split virus, trivalent, preservative 1 completed ANGELA Layton, [facility] 07/25/2021 13:41:45 Influenza, MDCK, quadrivalent, PF 2 completed Noni Eduard Garciabrett [facility] 07/29/2022 14:34:39 Influenza, MDCK, quadrivalent, PF 3 completed Noni Eduardmary Garciabrett [facility] 08/17/2023 09:20:52 RSV, bivalent, protein subunit RSVpreF, diluent reconstituted, 0.5 mL, PF 4 completed Noni Eduardmary Garciabrett [facility] 08/17/2023 09:20:52 Influenza, split virus, quadrivalent, PF 0 completed Mignon Walker ANGELA jona, [facility] 11/03/2019 09:17:37 Past Encounters Encounter ID Performer Location Encounter Start Date Encounter Closed Date Diagnosis/Indication Diagnosis SNOMED-CT Code Diagnosis ICD10 Code Diagnosis Note [id number] Carmelo Lau MD Main Office [address] [facility] [address] [place] [address] 07/02/2016 13:39:49 07/02/2016 14:58:01 Adult health examination 307579647 Z00.00 Immunizati on status updated, flu advised in the Fall. Pt will f/u with new tire and tube repairer ayla to update PAP. Regular dental and ophtho care advised as well as seat belt and sunscreen use. Distracted driving discussed. Advance directives in place. Administra tion of diphtheria, pertussis, and tetanus vaccine 491356471 Z23 Body mass index 30+ - obesity 154139531 Z68.30 E66.9 Screening for malignant neoplasm of breast 220732879 Z12.39 Due for screening. Order provided while pt is pursuing a transition of tire and tube repairer care. Autoimmune disease 15890 009 M35.9 On chronic prednisone and alendronat e for alopecia. Alopecia 45628470 L65.[address] Randle. [id number] Carmelo Lau MD Main Office [address] [facility] [address] [facility] [place] [address] 11/20/2016 10:47:28 11/20/2016 12:20:27 Pain of multiple joints 81115657 M25.50 Steroid responsive with question history of MCTD if labs abnormal will refer to rheum. If normal then consider OA vs myofascial pain targeted treatment plan. Muscle pain 72774916 M79 .1 [id number] Carmelo Lau MD Main Office [address] [place] [address] [place] [address] 07/08/2017 14:34:36 07/08/2017 16:08:59 Adult health examination 887487647 Z00.00 Immunizati on status updated, flu advised in the Fall. Cervical cancer screening not indicated post hysterecto my. Colon and breast cancer screening are utd. Regular dental and ophtho care advised as well as seat belt and sunscreen use. Distracted driving discussed. Advance directives in place. Hypercholesterolemia 136 [address]407 E78.00 Will reassess and discuss mgmt based on CVD risk score. Body mass index 25-29 - overweight 551187968 E66.3 Z68.25 Elevated blood-pressure reading without diagnosis of hypertension 692007810 R03.0 Screen for end organ damage. Pt will work on low Na diet. regular exercise and wt loss. Will treat if f/u BP is still >130/90. Generalize d anxiety disorder 60812457 F41.1 Well controlled and followed by psych. [id number] Carmelo Lau MD Main Office [address] [place] [address] [place] [address] 01/07/2018 14:53:45 01/07/2018 15:41:49 Hypernatremia 84344842 E87.0 Will reassess and evaluate further if persistent /worse. Hypercholesterolemia 136 88868 E78.00 Based on current CVD risk score or 4% will manage with TLC and monitoring for now. [id number] Carmelo Lau MD Main Office [address] [place] [address] [place] [address] 07/13/2018 12:55:15 07/13/2018 13:56:14 Adult health examination 447455757 Z00.00 Immunizati on status updated, flu advised in the Fall. Cervical cancer screening not indicated post hysterecto my. Colon and breast cancer screening are utd. Regular dental and ophtho care advised as well as seat belt and sunscreen use. Distracted driving discussed. Advance directives in place. Screening for malignant neoplasm of breast 522032546 Z12.39 Menopause present 563219 006 Z78.0 With post menopausal status and possible celiac disease screenign is warranted. Body mass index 25-29 - overweight 334806903 E66.3 Z68.27 Family his tory of Aortic aneurysm 773810670 Z82.49 Dry eyes 445130504 H04.1 29 History of tobacco use 8053943602 103 Z87.891 Gluten sensitivity 82489 1003 K90.41 Herpes labialis 9414016 B00.1 Hypercholesterolemia 136 13935 E78.00 Will reassess and discuss mgmt based on CVD risk score. Generalize d anxiety disorder 42923898 F41.1 Well controlled and followed by psych. [id number] Som Rene MD Main Office [address] [facility] [address] [facility] [place] [address] 07/31/2018 10:23:00 07/31/2018 11:39:13 Diarrhea 89396317 R19.7 Upper abdominal pain 831 80273 R10.10 [id number] Carmelo Lau MD Main Office [address] [facility] [address] [facility] [place] [address] 07/19/2019 08:43:41 07/19/2019 09:57:52 Adult health examination 157160535 Z00.00 Immunizati on status updated, flu advised in the Fall. Cervical cancer screening not indicated post hysterecto my. Colon and breast cancer screening are utd. Regular dental and ophtho care advised as well as seat belt and sunscreen use. Distracted driving discussed. Advance directives in place. Mild inter mittent asthma 843724289 J45.20 Seems to be aggravated by allergies. Advise to try different antihistam ine vs add nasal steroid spray. Screening for malignant neoplasm of breast 371154678 Z12.39 Trigger fi nger of right hand [id number] 5852504 M65.341 Will call for rheum/orth o referral if worse. Hypercalcemia 25183724 E 83.52 Will reassess and evaluate further if persistent . Hypercholesterolemia 136 19432 E78.01 Will reassess and discuss mgmt based on CVD risk score. Body mass index 25-29 - overweight 887762406 E66.3 Z68.27 History of tobacco use [id number] 103 Z87.891 Does not qualify for lung cancer screening. Herpes labialis 2889225 B00.1 Attacks infrequent , has valacyclov ir PRN. Generalize d anxiety disorder 57812995 F41.1 Well controlled and followed by psych. Intermitte nt palpitations 032793597 R00.2 Sound like SVT vs PVC's related to caffeine intake. Normal ECG last year. Will monitor for now. Elevated blood-pressure reading without diagnosis of hypertension 810964883 R03.0 Screen for end organ damage. Pt will work on low Na diet. regular exercise and wt loss. Will treat if f/u BP is still >130/90. Requires v aricella vaccination 062058926 Z28.3 Pt reports that she was seronegati ve when tested in the past. Will need varicella vaccinatio n if so. [id number] Carmelo Lau MD Main Office [address] [facility] [address] [facility] [place] [address] 11/03/2019 08:55:00 11/03/2019 10:21:26 Hypercholesterolemia 80958508 E78.01 Based on current CVD risk score TLC advised. Reassess next year. Generalize d anxiety disorder 31184115 F41.1 Well controlled and followed by psych. Rx for anxiolytic refilled. Needs infl uenza immunization 529176915 Z23 Posttrauma tic stress disorder 10537296 F43.10 Followoign with psych. Declines therapy referral att this time. Advised to call if she changes her mind. [id number] Carmelo Lau MD Main Office [address] [facility] [address] [facility] [place] [address] 03/15/2020 15:15:50 03/15/2020 16:19:35 Intermittent palpitations 816676188 R00.2 Based on reported symptoms and comorbidit ies arrhythmia and ischemic evaluation is warranted. Will start with metabolic/ lab screening. ECG unchanged from prior so standard treadmill stress test is warranted. Will ask cardiology to help with arrthyrthm ia eval. Essential hypertension 69338780 I10 Wants to work on low Na diet and weight loss. Is >130/90 at f/u will recommend starting ACEI/diure tic. [id number] Carmelo Lau MD Main Office [address] [facility] [address] [facility] [place] [address] 07/24/2020 08:25:37 07/24/2020 09:19:03 Adult health examination 453330639 Z00.00 Immunizati on status updated, flu advised in the Fall. Cervical cancer screening not indicated post hysterecto my. Colon and breast cancer screening are utd. Regular dental and ophtho care advised as well as seat belt and sunscreen use. Distracted driving discussed. Advance directives in place. Hypercholesterolemia 136 65508 E78.01 Started on statin by cards. Will arrange f/u labs. Screening for malignant neoplasm of breast 905924390 Z12.39 Screening for malignant neoplasm of cervix 524392929 Z12.4 s/p hysterecto my Osteopenia 395749755 M85 .80 Generalize d anxiety disorder 48480958 F41.1 Well controlled and followed by psych. Psoriasis 2530999 L40.9 Followed by derm. Pain of mu ltiple joints 53087323 M25.50 Steroid responsive with question history of MCTD if labs abnormal will refer to rheum. If normal then consider OA vs myofascial pain targeted treatment plan. Body mass index 25-29 - overweight 603125152 E66.3 Z68.28 Impacted c erumen in right ear 4366758054 606119 H61.21 [id number] Carmelo Lau MD Main Office [address] [facility] [address] [facility] [place] [address] 07/25/2021 13:36:31 07/25/2021 14:39:56 Adult health examination 441107796 Z00.00 Immunizati on status updated, 2nd COVID 19 booster advised as well as flu in the Fall. Cervical cancer screening not indicated post hysterecto my. Colon and breast cancer screening are utd. Regular dental and ophtho care advised as well as seat belt and sunscreen use. Distracted driving discussed. Advance directives in place. Generalize d anxiety disorder 16987616 F41.1 Well controlled and followed by psych. Hypercholesterolemia 136 04129 E78.01 On low dose statin, will reassess. Screening for malignant neoplasm of breast 880524250 Z12.39 Screening for malignant neoplasm of cervix 782337362 Z12.4 s/p hysterecto my Screening for malignant neoplasm of colon 688640008 Z12.11 Osteopenia 983188442 M85 .80 Regular weight bearing exercise encouraged . Reassess next year. Psoriasis 0146987 L40.9 Followed by derm. Body mass index 25-29 - overweight 587017894 E66.3 Z68.27 Impacted c erumen in right ear 7491056811 470735 H61.21 Standard c hest X-ray abnormal 092004603 R93.89 Had hazy density on Xray from last year that i did not receive. Will see if finding is persistent . Dry eyes 407204148 H04.1 29 Loss of hair 668212661 L 65.9 Should follow with derm if persistent /worse. [id number] Carmelo Lau MD Main Office [address] [facility] [address] [place] [address] 07/29/2022 14:31:22 07/29/2022 15:52:11 Adult health examination 121811482 Z00.00 PCV20, Shingrix, bivalent COVID 19 booster advised as well as flu in the Fall via local pharmacy. Cervical cancer screening not indicated post hysterecto my. Colon and breast cancer screening are utd. Regular dental and ophtho care advised as well as seat belt and sunscreen use. Distracted driving discussed. Advance directives in place. Body mass index 25-29 - overweight 815084501 E66.3 Z68.27 Mild inter mittent asthma 230517375 J45.20 Seems to be aggravated by allergies. Advise to try different antihistam ine vs add nasal steroid spray. Osteopenia 516468979 M85 .80 Regular weight bearing exercise encouraged . Will reassess Screening for malignant neoplasm of breast 959150157 Z12.39 Varicella vaccination 68 525402 Z23 History of total hysterectomy 452765040 Z90.710 No indication for PAP Administra tion of pneumococcal vaccine 99036658 Z23 Alkaline p hosphatase above reference range 085349974 R74.8 Will reassess and evaluate further if still elevated. Hypercholesterolemia 136 38279 E78.01 On low dose statin, will reassess CVD risk. Screening for malignant neoplasm of cervix 723820632 Z12.4 s/p hysterecto my Screening for malignant neoplasm of colon 597759895 Z12.11 [id number] Carmelo Lau MD Main Office [address] [facility] [address] [facility] [place] [place] [address] 08/17/2023 09:03:33 08/17/2023 10:30:08 Adult health examination 139658526 Z00.00 PCV20, COVID 19 booster advised as well as flu in the Fall via local pharmacy. Cervical cancer screening not indicated post hysterecto my. Colon and breast cancer screening are utd. Regular dental and ophtho care advised as well as seat belt and sunscreen use. Distracted driving discussed. Advance directives in place. Screening for malignant neoplasm of breast 059500290 Z12.39 Hypercholesterolemia 136 41347 E78.01 On low dose statin, will reassess CVD risk. Body mass index 25-29 - overweight 831350416 E66.3 Z68.27 Mild inter mittent asthma 615230862 J45.20 Seems to be aggravated by allergies. Osteopenia 982895888 M85 .80 Regular weight bearing exercise encouraged . Will reassess History of total hysterectomy 384751862 Z90.710 No indication for PAP Screening for malignant neoplasm of cervix 954094785 Z12.4 s/p hysterecto my Screening for malignant neoplasm of colon 378033350 Z12.11 Screening UTD, pt asymptomat ic. Administra tion of pneumococcal vaccine 61733668 Z23 Varicella vaccination 68 101384 Z23 Psoriasis 5828973 L40.9 Followed by derm. Vitamin D deficiency 347 74985 E55.9 Will start supplement if <30 Health Concerns Section Related Observation LastModified by Organization Detai ls LastModified Time None Recorded Concern Status LastModified by Organization Details LastModified Time None Recorded Advance Directives Directive Y: HCP/ -Jesus, Dtr-B rittany Payers Insurance Date Sequence Insurance Name Policy Number Policy Falk Covered Member ID Falk Member ID Guarantor Name 04/06/2024 1 [facility] [id number] 1 Nafisa Quispe [id number] Nafisa Quispe Notes Date Note Type Note Provider Name and Address Organization Details Recorded Time 1 text/htm l Hypertension F/UReported bypatient.Associated Symptoms:no dizziness; no lightheadedness; no chest pain; no edema;shortness of breath;palpitations Lifestyle:regular exercise; limiting/avoiding saltpalpitationsReported bypatient.Notes:Has been having intermittent palpitations for over 6 months. Happens with exertion sometimes. Has dyslipidemia. Carmelo Lau MD [address] [address], [place], [address], [facility] 03/22/2020 06:56:03 1 text/htm l Generic HPI TemplateReported bypatient.Notes:Here for a physical. Feels well. Sees a dentist, and ophtho regularly. Carmelo Lau MD [address] [address], [place], [address], [facility] 07/24/2020 09:23:46 2 text/htm l Generic HPI TemplateReported bypatient.Notes:Here for a physical. Feels well. Sees a dentist, and ophtho regularly. Carmelo Lau MD [address] [address], [place], [address], [facility] 07/25/2021 14:45:52 3 text/htm l Generic HPI TemplateReported bypatient.Notes:Here for a physical. Feels well. Sees a dentist, and ophtho regularly. Carmelo Lau MD [address] [address], [place], [address], [facility] 08/13/2022 21:12:18 4 text/htm l Generic HPI TemplateReported bypatient.Notes:Here for a physical. Feels well. Sees a dentist, and ophtho regularly. Carmelo Lau MD [address] [address], [place], [address], [facility] 08/17/2023 10:32:22 OBGyn Episode No OBEpisode recorded.
== END 2024-08-02 17:15 | disposition home or self-care (01) ==
LOC: HO.HOP 14:29
PROVIDERS: PCP Pediatrics; Visit Provider Psychiatry & Neurology Psychiatry
DX: F43.12 Post-traumatic stress disorder, chronic (principal)
CPT/HCPCS: 99214

== ENCOUNTER 2024-10-03 15:04 | Outpatient (AMB) | payer OTHER, SELFPAY ==
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
== END 2024-10-03 15:27 | disposition home or self-care (01) ==
LOC: HO.HOP 15:04
PROVIDERS: PCP Pediatrics; Visit Provider Psychiatry & Neurology Psychiatry
DX: F41.1 Generalized anxiety disorder (principal); F43.12 Post-traumatic stress disorder, chronic
CPT/HCPCS: 99214

== ENCOUNTER 2024-10-05 10:27 | Outpatient (AMB) | payer OTHER, SELFPAY ==
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
== END 2024-10-05 12:26 | disposition home or self-care (01) ==
LOC: HO.HOP 10:27
PROVIDERS: PCP Pediatrics; Visit Provider Psychiatry & Neurology Psychiatry
DX: F43.12 Post-traumatic stress disorder, chronic (principal)
CPT/HCPCS: 99214

== ENCOUNTER 2024-11-07 14:08 | Outpatient (AMB) | payer OTHER, SELFPAY ==
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
--- OUTSIDE RECORDS SUMMARY | 2024-11-07 15:58 | XMS_ITS | Data Portability ---
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 Plan of Treatment Reminders Order Date Submit Date Provider Last Modified By Organization Details Last Modified Time Details Appointments None recor ded. Lab lipid panel , serum 2024 025 FRANCISCO [facility] (Centralized Electronic Ordering - All Locations), Patient Can Go To The Location Of Their Choice, [id number] 5 10:08:16 CMP, serum or plasm a 2024 025 FRANCISCO [facility] (Centralized Electronic Ordering - All Locations), Patient Can Go To The Location Of Their Choice, [address] 5 10:08:15 vitam in D, 25-hy droxy , total , serum 2024 025 FRANCISCO [facility], [address] [facility], [facility], [place], [address], 5 10:08:14 lipid panel , serum 2023 024 FRANCISCO [facility] (Centralized Electronic Ordering - All Locations), Patient Can Go To The Location Of Their Choice, [address] 4 06:08:10 CMP, serum or plasm a 2023 024 FRANCISCO [facility] (Centralized Electronic Ordering - All Locations), Patient Can Go To The Location Of Their Choice, [address] 4 06:08:08 TSH, ultra -sens itive , serum 2023 024 FRANCISCO [facility] (Centralized Electronic Ordering - All Locations), Patient Can Go To The Location Of Their Choice, [address] 4 06:08:10 vitam in D, 25-hy droxy , total , serum 2023 024 FRANCISCO [facility], [address], [address], [place], [address], 4 06:08:14 gamma -glut amyl trans feras e (ggt) , serum 2022 023 FRANCISCO [facility], [address], [address], [place], [address], 3 14:56:08 CMP, serum or plasm a 2022 023 FRANCISCO [facility], [address], [address], [place], [address], 3 14:55:59 lipid panel , serum 2022 023 FRANCISCO [facility], [address], [address], [place], [address], 3 14:56:20 vitam in D, 25-hy droxy , total , serum 2022 023 FRANCISCO [facility], [address], [address], [place], [address], 3 16:51:29 lipid panel , serum 2021 022 FRANCISCO [facility], [address], [address], [place], [address], 14:15:30 CMP, serum or plasm a 2021 FRANCISCO [facility], [address], [address], [place], [place], [address], 14:15:27 varic thong- zoste r igg Ab scree n, serum 2021 FRANCISCO [facility], [address], [address], [place], [place], [address], 14:59:11 vitam in D, 25-hy droxy , total , serum 2021 FRANCISCO [facility], [address], [address], [place], [place], [address], 14:27:49 sjogr en antib freddie panel (ssa, ssb, ro, la), serum 2021 FRANCISCO [facility], [address], [address], [place], [address], 11:06:36 CBC w/ auto diff 2021 FRANCISCO [facility], [address], [address], [place], [place], [address], 13:51:21 iron + total iron- dinorah ng capac ity (TIBC ), serum 2021 FRANCISCO [facility], [address], [address], [place], [place], [address], 14:15:29 TSH, serum or plasm a 2021 FRANCISCO [facility], [address], [address], [place], [address], 08/05/202 2 14:27:47 lipid panel , serum 2020 FRANCISCO [facility], [address], [address], [place], [address], 1 17:08:07 CMP, serum or plasm a 2020 FRANCISCO [facility], [address], [address], [place], [address], 1 17:08:06 CK (crea yassine kinas e), total , serum 2020 FRANCISCO [facility], [address], [address], [place], [address], 17:08:03 vitam in D, 25-hy droxy , total , serum 2020 021 FRANCISCO [facility], [address], [address], [place], [address], 1 17:14:40 JENNY (anti nucle ar antib odies ) scree n, serum 2020 021 FRANCISCO [facility], [address], [address], [place], [address], 21:09:58 ESR (eryt hrocy te sedim entat ion rate) , blood 2020 FRANCISCO [facility], [address], [address], [place], [address], 1 15:29:17 C-ok ctive prote in, quant itati ve, serum or plasm a 2020 FRANCISCO [facility], [address], [address], [place], [address], 06/17/202 1 17:14:[address] refer ral 2022 023 [email or web address] Not available 3 13:01:[address] refer ral 2021 022 Not available 2 11:01:[address]/di etiti an refer ral 2021 022 [email or web address] Not available 2 14:39:[address]/di etiti an refer ral 2020 021 [email or web address] Not available 1 09:26:05 Procedures colon oscop y scree deana (PROC ) - for routi ne colon cance r scree deana 2022 023 [facility], [address] [place] [address], [place], [address], 3 14:45:54 colon oscop y scree deana (PROC ) 2021 022 [email or web address] Not available 2 15:07:31 Surgeries None recor ded. Imaging MAMMO , scree deana, bilat eral - Perfo rm Diagn ostic Mammo gram and Breas t Ultra sound if neede d / Perfo rm Ultra sound Guide d Aspir ation and/o r Breas t Biops y if warra nted 2024 025 [email or web address] Not available 5 10:19:16 MAMMO , scree deana, bilat eral - Perfo rm Diagn ostic Mammo gram and Breas t Ultra sound if neede d / Perfo rm Ultra sound Guide d Aspir ation and/o r Breas t Biops y if warra nted 2023 024 [email or web address] Not available 4 10:30:09 bone densi ty 2022 023 [email or web address] Not available 4 09:16:37 MAMMO , scree deana, bilat eral - Perfo rm Diagn ostic Mammo gram and Breas t Ultra sound if neede d / Perfo rm Ultra sound Guide d Aspir ation and/o r Breas t Biops y if warra nted 2022 023 FRANCISCO Not available 4 17:15:33 XR, chest , 2 view - follo w up left upper lung abnor malit y 2021 022 FRANCISCO Not available 15:45:12 MAMMO , scree deana, bilat eral 2021 022 Not available 11:08:56 bone densi ty 2020 021 [email or web address] Not available 14:42:08 MAMMO , scree deana, bilat eral - Perfo rm Diagn ostic Mammo gram and Breas t Ultra sound if neede d / Perfo rm Ultra sound Guide d Aspir ation and/o r Breas t Biops y if warra nted 2020 021 [email or web address] Not available 09:19:03 Medication Orders None recor ded. Patient TargetsNo targets recorded. Patient Instructions Encounter Date Encounter Id Patient Instructions Last Modified By Organization Details Last Modified Time 07/24/2020 [id number] Cervical Cancer Screening awychowski Not available 07/24/2020 09:14:26 anxiety disorder: care instructions awychowski Not available 07/24/2020 09:14:26 earwax blockage: care instructions awychowski Not available 07/24/2020 09:21:33 When You Want to Lose Weight: Care Instructions awychowski Not available 07/24/2020 09:14:26 Nutrition Referral and Weight Management Follow-up Information awychowski Not available 07/24/2020 09:14:26 psoriasis: care instructions awychowski Not available 07/24/2020 09:14:26 07/25/2021 [id number] Cervical Cancer Screening awychowski Not available 07/25/2021 [...] instructions awychowski Not available 07/25/2021 14:32:57 07/29/2022 [id number] learning about healthy weight awychowski Not available 07/29/2022 15:40:22 08/17/2023 [id number] learning about healthy weight awychowski Not available 08/17/2023 10:20:27 08/19/2024 [id number] post-traumatic stress disorder (PTSD): care instructions awychowski Not available 08/19/2024 10:08:00 learning about healthy weight awychowski Not available 08/19/2024 10:08:01 Reason for Referral Principal Statistical Scientist/dietitian Refer ral for Body mass index 25-29 - overweight Referring Physician: Family Jackie Medicine, Encounter Date: 07/24/2020 Revenue Agent Referral for Sc reening for malignant neoplasm of cervix Referring Physician: Family Caleb Mejia, Encounter Date: 07/25/2021 Principal Statistical Scientist/dietitian Refer ral for Body mass index 25-29 - overweight Referring Physician: Family Caleb Mejia, Encounter Date: 07/25/2021 Revenue Agent Referral for Sc reening for malignant neoplasm of cervix Referring Physician: Family Caleb Mejia, Encounter Date: 07/29/2022 Results Created Date Observation Date Name Description Value Unit Range Abnormal Flag Note LastModifiedBy Organization Detail LastModifiedTime 07/27/19 21 07/26/2020 ESR (eryt hrocy te sedim entat ion rate) , blood sedimentatio n rate,automat ed 2 mm/HR (0-20) In rare patie nts with multi ple myelo ma and other cance rs,Er ythro cyte Sedim entat ion Rate( ESR) by our curre nt metho d(iSE D)can be osmin l. If clini maurice relev leo duffy use C-ok ctive prote in as an equiv alent measu re of acute phase react ion in these patie nts. Not Available [facility] (Centralized Electronic Ordering - All Locations) Patient Can Go To The Location Of Their Choice, 07/26/2020 15:29:17 07/27/19 21 07/26/2020 CK (crea [...] 07/26/2020 17:08:07/27/1907/26/2020 CMP, serum or plasm a bicarbonate 29 mmol/ L (22-29 ) Not Available [facility] (Centralized Electronic Ordering - All Locations) Patient Can Go To The Location Of Their Choice, 07/26/2020 17:08:07/27/1907/26/2020 CMP, serum or plasm a anion gap [...] Go To The Location Of Their Choice, [id number] 07/26/2020 17:08:06 07/27/19 21 07/26/2020 CMP, serum [...] Chron ic Kidne y Disea se Epide miaurora gy Prem banks (CKD- EPI). The CKD-E PI torsten banks has not been valid ated in child hawa (<18 years ), pregn ant women or in some racia l or ethni c subgr oups other than Cauca sians and Afric an Ameri cans. Not Available [facility] (Centralized Electronic Ordering - All Locations) Patient Can Go To The Location Of Their Choice, [id number] 07/26/2020 17:08:06 07/27/1907/26/2020 lipid panel , serum cholesterol, total 170 mg/dL (<200) Not Available [facility] ([facility] Order[facility] - All Locations) Patient Can Go To The Location Of Their Choice, [id number] 07/26/2020 17:08:07 07/27/19 21 07/26/2020 lipid panel , serum triglyceride 141 mg/dL (<150) Not Available [facility] (Centralized [facility] Ordering - All Locations) Patient Can Go To The Location Of Their Choice, [id number] 07/26/2020 17:08:07 07/27/19 21 07/26/2020 lipid panel , serum HDL chol 40 mg/dL (>39) Not Available [facility] (Centralized Electronic Ordering - All Locations) Patient Can Go To The Location Of Their Choice, [id number] 07/26/2020 17:08:07 07/27/19 21 07/26/2020 lipid panel , serum LDL cholesterol, calculated 102 mg/dL (0-130 ) Not Available [facility] (Centralized Electronic Ordering - All Locations) Patient Can Go To The Location Of Their Choice, [id number] 07/26/2020 17:08:07 07/27/19 21 07/26/2020 lipid panel , serum non HDL cholesterol (calc) 130 mg/dL (<160) Not Available [facility] ([facility] Ordering - All Locations) Patient Can Go To The Location Of Their Choice, [id number] 07/26/2020 17:08:07 07/27/19 21 07/26/2020 C-ok ctive [...] perfo rmed by [facility], [address] [place] [address] Not Available [facility] (Centralized Electronic Ordering - [...] 09/13/2021 13:51:09/14/1909/13/2021 COMPL ETE CBC WITH DIFF MCHC 33.2 g/dL (33.0- 37.0) Not Available [facility] (Centralized Electronic Ordering - All Locations) Patient Can Go To The Location Of Their Choice, 09/13/2021 13:51:09/14/1909/13/2021 COMPL ETE CBC WITH DIFF plt 254 K/mm3 (150-4 60) Not Available [facility] (Centralized Electronic Ordering - All Locations) Patient Can Go To The Location Of Their Choice, 09/13/2021 13:51:09/14/1909/13/2021 COMPL ETE CBC WITH DIFF RDW-SD 43.8 [...] 13:51:21 09/14/1909/13/2021 COMPL ETE CBC WITH DIFF imm gran 0.2 % Not Available [facility] (Centralized Electronic Ordering - All Locations) Patient Can Go To The Location Of Their Choice, 09/13/2021 13:51:21 09/14/1909/13/2021 COMPR EHENS NADIA METAB OLIC PANL glucose 93 mg/dL (70-99 ) Not Available [facility] (Centralized Electronic Ordering - All Locations) Patient Can Go To The Location Of Their Choice, 09/13/2021 14:15:09/14/1909/13/2021 COMPR EHENS NADIA METAB OLIC PANL BUN 15 mg/dL (8-23) Not Available [facility] (Centralized Electronic Ordering - All Locations) Patient Can Go To The Location Of Their Choice, 09/13/2021 14:15:26 09/14/192022 COMPR EHENS NADIA METAB OLIC PANL creatinine 0.9 mg/dL (0.5-1 .0) Not Available [facility] (Centralized Electronic Ordering - All Locations) Patient Can Go To The Location Of Their Choice, 09/13/2021 14:15:09/14/1909/13/2021 COMPR EHENS NADIA METAB OLIC PANL sodium [...] 14:15:09/14/1909/13/2021 COMPR EHENS NADIA METAB OLIC PANL AST 18 U/L (0-32) Not Available [facility] (Centralized Electronic Ordering - All Locations) Patient Can Go To The Location Of Their Choice, 09/13/2021 14:15:09/14/1909/13/2021 COMPR EHENS NADIA METAB OLIC PANL alk [...] Location Of Their Choice, 09/13/2021 14:15:26 09/14/1909/13/2021 IRON & TIBC iron 61 mcg/d L [...] Location Of Their Choice, 09/13/2021 14:15:29 09/14/1909/13/2021 LIPID PANEL cholesterol, total 169 mg/dL (<200) [...] The Location Of Their Choice, 09/13/2021 14:15:30 09/14/19 22 09/13/2021 LIPID PANEL LDL cholesterol, calculated 101 mg/dL (0-130 ) Not Available [facility] (Centralized Electronic Ordering - All Locations) Patient Can Go To The Location Of Their Choice, 09/13/2021 14:15:30 09/14/19 22 09/13/2021 LIPID PANEL non HDL cholesterol (calc) 131 mg/dL (<160) Not Available [facility] ([facility] Ordering - All Locations) Patient Can Go To The Location Of Their Choice, 09/13/2021 14:15:30 09/14/1909/13/2021 TSH TSH 2.08 uIU/m L (0.4-4 .2) Not Available [facility] (Centralized Electronic Ordering - All Locations) Patient Can Go To The Location Of Their Choice, 09/13/2021 14:27:47 09/14/1909/13/2021 25OH VITAM IN D 25OH vitamin D 26.5 NG/mL (20-50 ) Not Available [facility] (Centralized Electronic Ordering - All Locations) Patient Can Go To The Location Of Their Choice, 09/13/2021 14:27:48 09/14/1909/14/2021 SJOGR ENS ANTIB ODIES anti-ssa (RO) Ab 0.2 Refer ence range : 0.0 to 0.9 Unit: AI Not Available [facility] (Centralized Electronic Ordering - All Locations) Patient Can Go To The Location Of Their Choice, 09/14/2021 11:06:36 09/14/1909/14/2021 SJOGR ENS ANTIB ODIES anti-ssb (la) Ab <0.2 Refer ence range : 0.0 to 0.9 Unit: AI Test perfo rmed by [facility], [address], [place] [address] Not Available [facility] (Centralized Electronic Ordering - All Locations) Patient Can Go To The Location Of Their Choice, 09/14/2021 11:06:36 09/14/19 22 09/15/2021 VARIC THONG [...] The Location Of Their Choice, 08/04/2022 14:37:21 08/05/19 23 08/04/2022 COMPR EHENS NADIA METAB OLIC PANL BUN 16 mg/dL (8-23) Not Available [facility] (Centralized Electronic Ordering - All Locations) Patient Can Go To The Location Of Their Choice, 08/04/2022 14:37:21 08/05/19 23 08/04/2022 COMPR EHENS NADIA METAB OLIC PANL creatinine 1.0 mg/dL (0.5-1 .0) Not Available [facility] (Centralized Electronic Ordering - All Locations) Patient Can Go To The Location Of Their Choice, 08/04/2022 14:37:21 08/05/19 23 08/04/2022 COMPR EHENS NADIA METAB OLIC PANL sodium 145 mmol/ L (133-1 45) Not Available [facility] ([facility]ized Electronic Ordering - All Locations) Patient Can Go To The Location Of Their Choice, 08/04/2022 14:37:21 08/05/19 23 08/04/2022 COMPR EHENS [...] To The Location Of Their Choice, 08/04/2022 14:37:08/05/19 23 08/04/2022 COMPR EHENS NADIA METAB OLIC [...] 14:37:08/05/1908/04/2022 COMPR EHENS NADIA METAB OLIC PANL estimated [...] Go To The Location Of Their Choice, [id number] 08/04/2022 14:37:23 08/05/19 23 08/04/2022 LIPID PANEL cholesterol, total 168 mg/dL (<200) Not Available [facility] ([facility] Ordering - All Locations) Patient Can Go To The Location Of Their Choice, [facility] 08/04/2022 14:37:24 08/05/19 23 08/04/2022 LIPID PANEL triglyceride 147 mg/dL (<150) Not Available [facility] ([facility] Ordering - All Locations) Patient Can Go To The Location Of Their Choice, [id number] 08/04/2022 14:37:24 08/05/19 23 08/04/2022 LIPID PANEL HDL chol 39 mg/dL (>39) low Not Available [facility] ([facility]ized Electronic Ordering - All Locations) Patient Can Go To The Location Of Their Choice, [id number] 08/04/2022 14:37:24 08/05/19 23 08/04/2022 LIPID PANEL LDL cholesterol, calculated 100 mg/dL (0-130 ) Not Available [facility] ([facility]ized Electronic Ordering - All Locations) Patient Can Go To The Location Of Their Choice, [id number] 08/04/2022 14:37:24 08/05/19 23 08/04/2022 LIPID PANEL non HDL cholesterol (calc) 129 mg/dL (<160) Not Available [facility] ([facility] Ordering - All Locations) Patient Can Go To The Location Of Their Choice, [facility] 08/04/2022 14:37:24 08/05/19 23 08/04/2022 25OH VITAM IN D 25OH vitamin D 20.5 NG/mL (20-50 ) Not Available [facility] ([facility]ized Electronic Ordering - All Locations) Patient Can Go To The Location Of Their Choice, [facility] 08/04/2022 16:51:29 01/12/20 24 01/13/2024 COMP. METAB OLIC PANEL (14) glucose 98 mg/dL 70-99 normal Not Available [facility] ([facility]) [address] [facility], [place], [address], 01/13/2024 06:08:08 01/12/20 24 01/13/2024 COMP. METAB OLIC PANEL (14) BUN 14 mg/dL 8-27 normal Not Available [facility] ([facility]) [address] [facility] [place], [address], 01/13/2024 06:08:08 01/12/20 24 01/13/2024 COMP. METAB OLIC PANEL (14) creatinine 0.90 mg/dL 0.57-1 .00 normal Not Available [facility] ([facility]) [address] [facility] [place], [address], 01/13/2024 06:08:08 01/12/20 24 01/13/2024 COMP. METAB OLIC PANEL (14) eGFR 72 mL/mi n/1.7 3 >59 normal Not Available [facility] ([facility]) [address] [facility] [place], [address], 01/13/2024 06:08:08 01/12/20 24 01/13/2024 COMP. METAB OLIC PANEL (14) BUN/creatini ne ratio 16 12-28 normal Not Available [facility] ([facility]) [address] [facility] [place], [address], 01/13/2024 06:08:08 01/12/20 24 01/13/2024 COMP. METAB OLIC PANEL (14) sodium 145 mmol/ L 134-14 4 above high normal Not Available [facility] ([facility]) [address] [facility] [place], [address], 01/13/2024 06:08:08 01/12/20 24 01/13/2024 COMP. METAB OLIC PANEL (14) potassium 3.8 mmol/ L 3.5-5. 2 normal Not Available [facility] ([facility]) [address] [facility] [place], [address], 01/13/2024 06:08:08 01/12/20 24 01/13/2024 COMP. METAB OLIC PANEL (14) chloride 107 mmol/ L 96-106 above high normal Not Available [facility] ([facility]) [address] [place], [address], 01/13/2024 06:08:08 01/12/20 24 01/13/2024 COMP. METAB OLIC PANEL (14) carbon dioxide, total 24 mmol/ L 20-29 normal Not Available [facility] ([facility]) [address] [place], [address], 01/13/2024 06:08:08 01/12/20 24 01/13/2024 COMP. METAB OLIC PANEL (14) calcium 9.2 mg/dL 8.7-10 .3 normal Not Available [facility] ([facility]) [address] [place], [address], 01/13/2024 06:08:08 01/12/20 24 01/13/2024 COMP. METAB OLIC PANEL (14) protein, total 6.7 g/dL 6.0-8. 5 normal Not Available [facility] ([facility]) [address] [place], [address], 01/13/2024 06:08:08 01/12/20 24 01/13/2024 COMP. METAB OLIC PANEL (14) albumin 4.2 g/dL 3.9-4. 9 normal Not Available [facility] ([facility]) [address] [place], [address], 01/13/2024 06:08:08 01/12/20 24 01/13/2024 COMP. METAB OLIC PANEL (14) globulin, total 2.5 g/dL 1.5-4. 5 Not Available [facility] ([facility]) [address] [place], [address], 01/13/2024 06:08:08 01/12/20 24 01/13/2024 COMP. METAB OLIC PANEL (14) bilirubin, total 0.5 mg/dL 0.0-1. 2 normal Not Available [facility] ([facility]) [address] [place], [address], 01/13/2024 06:08:08 01/12/20 24 01/13/2024 COMP. METAB OLIC PANEL (14) alkaline phosphatase 111 IU/L 44-121 normal Not Available [facility] ([facility]) [address] [place], [address], 01/13/2024 06:08:08 01/12/20 24 01/13/2024 COMP. METAB OLIC PANEL (14) AST (SGOT) 24 IU/L 0-40 normal Not Available [facility] ([facility]) [address] [place], [address], 01/13/2024 06:08:08 01/12/20 24 01/13/2024 COMP. METAB OLIC PANEL (14) ALT (SGPT) 16 IU/L 0-32 normal Not Available [facility] ([facility]) [address] [place], [address], 01/13/2024 06:08:08 01/12/20 24 01/13/2024 LIPID PANEL cholesterol, total 150 mg/dL 100-19 9 normal Not Available [facility] ([facility]) [address] [place], [address], 01/13/2024 06:08:10 01/12/20 24 01/13/2024 LIPID PANEL triglyceride s 151 mg/dL 0-149 above high normal Not Available [facility] ([facility]) [address] [place], [address], 01/13/2024 06:08:10 01/12/20 24 01/13/2024 LIPID PANEL HDL cholesterol 37 mg/dL >39 below low normal Not Available [facility] ([facility]) [address] [place], [address], 01/13/2024 06:08:10 01/12/20 24 01/13/2024 LIPID PANEL VLDL cholesterol genna 27 mg/dL 5-40 Not Available [facility] ([facility]) [address], [place], [address], 01/13/2024 06:08:10 01/12/20 24 01/13/2024 LIPID PANEL LDL chol calc ([facility]) 86 mg/dL 0-99 Not Available [facility] ([facility]) [address] [place], [address], 01/13/2024 06:08:10 01/12/20 24 01/13/2024 LIPID 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 IOM (Inst itute of Medic ine). 2009. Dieta ry refer ence kiarra es for calci um and D. Ricardo bah [place]: The Natio nal [facility] [facility] . 2. Amy marie MF, Kian ey [place], Bisch off-F errar i MELGAR, et al. Evalu ation , treat ment, and preve ntion of vitam in D defic iency : an Endoc rine Socie ty clini genna pract ice guide line. JCEM. 2010; 96(7) :1911 -30. Not Available [facility] ([facility]) [address] [facility], [place], [address], 01/13/2024 06:08:14 08/23/19 21 exerc ise stres s test No observ ation record ed. [facility] (Outt Non-Invasive Cardiology Scheduling) [address] [facility], [place], [address], 07/25/2021 14:45:21 02/01/20 21 01/31/2021 MAMMO , [...] Lay letter mailed to bryan paez WSN: [id number] Orderi ng Physic evelyn: Carmelo Vogel Dictat ed By: Reji Hwang MD Dictat ed Date/T elias: 2:09 pm Review ed By: Reji Hwang MD Signed By: Reji Hwang MD Signed Date/T elias: 2:09 pm Transc ribed By: CSB Transc riptio n Date/T elias: 2:08 pm Birads : Bryan paez Class: Outpat sue kirk [facility] (Outpt Imaging) [address], [place], [address], 07/25/2021 14:45:21 02/12/19 22 01/31/2021 DEXA, axial skele ton ====== ====== ====== ====== ====== ====== ====== ====== ====== ====== ===== Bone Densit y Report ====== ====== ====== ====== ====== ====== ====== ====== ====== ====== ===== Name: NAFISA AGUILAR t ID: [id number] Age: 60 Sex: Female Ethnic ity: White Date of : 1960 ------ ------ ------ ------ ------ ------ ------ ------ ------ ------ ----- Indica tion: AL[place] PUCKETT Referr ing [facility] er: JOHN NUNEZ MD, CARMELO Study: Bone densit ometry was perfor med. Exam Date: [facility] er 2020 Access ion number : [id number] Bone Densit y: ------ ------ ------ [...] ------ ------ ------ ----- [employer] zalin [place] for BMD rees kevin rodriguez shanita as: Normal (T-sco re at or above [...] ility calcul ated for an untrea yunier patisami t. Fractu re probab ility may be [...] ------ ------ ------ ------ ------ ------ ----- *Denot es signif icance at 95% confid ence level, LSC for AP Spine = 0.022 g/cm2, LSC for Total Hip = 0.027 g/cm2 [facility] Bryan t: ------ ------ ------ [...] BETH Transc ribed Date/T elias: 6:22 pm Bryan paez Class: Outpat ient [facility] (Outpt Imaging) [address] [place], [address], 07/25/2021 14:45:21 07/26/19 22 07/25/2021 XR, chest [...] IMPRES KEVIN: No acute abnorm ality. WSN: [id number] Orderi ng Physic evelyn: Carmelo Vogel Bryan paez Class: Outpat ient [facility] (Outpt Imaging) [address], [place], [address], 08/13/2022 21:06:27 02/13/19 24 02/13/2023 MAMMO , [...] (Benig n) Lay letter mailed to bryan t WSN: [id number] Orderi ng Physic evelyn: Carmelo Vogel Dictat ed By: Joyce Newsome MD Dictat ed Date/T elias: 5:10 pm Review ed By: Joyce Newsome MD Signed By: Joyce Newsome MD Signed Date/T elias: 5:10 pm Transc ribed By: BETH Transc riptio n Date/T elias: 5:06 pm Birads : Bryan t Class: Outpat ient [facility] (Outpt Imaging) [address], [place], [address], 08/17/2023 10:17:59 02/13/19 24 02/13/2023 MAMMO , scree deana, bilat eral No observ ation record ed. Formerly [facility] [address], [place], [address], 08/17/2023 10:17:59 02/18/19 24 02/13/2023 DEXA, axial skele ton Name:Delvis Adams t ID: [id number] Age:62 years Sex:Fe male Ethnic ity:Wh [...] determ ined by WHO criter ia. WSN: [id number] Orderi ng Physic evelyn: Carmelo Vogel Dictat ed By: Katy Arreaga MD Dictat ed Date/T elias: 12:35 p Review ed By: Katy Arreaga MD Signed By: Katy Arreaga MD Signed Date/T elias: 12:35 pm Transc ribed By: BETH Transc ribed Date/T elias: 12:33 pm Patien t [facility] [address] [place], [address], 08/17/2023 10:17:59 Result Notes Documentation Provider Name [...] 2-benign Lay letter mailed to patient WSN: [id number] Ordering Physician: Carmelo Lau Dictated By: Reji Hwang MD Dictated Date/Time: 01/31/21 2:09 pm Reviewed By: Reji Hwang MD Signed By: Reji Hwang MD Signed Date/Time: 01/31/21 2:09 pm Transcribed By: BETH Survey And Mapping Technician Date/Time: 01/31/21 2:08 pm Birads: Patient Class: Outpatient Carmelo Lau MD [address] [address], [place], [address], [facility] 07/25/2021 14:45:21 Dexa, Axial Skeleton : Bone Density Report Name: NAFISA AGUILAR Age: 60 Sex: Female Ethnicity: White Date of : 1960 Indication: POSTMENOPAUSAL. Referring Provider: CARMELO LAU MD Study: Bone densitometry was performed. Exam Date: January 31, 2021 Accession number: [id number] Bone Density: Region BMD T-score Z-score Classification [...] Patient Class: Outpatient Carmelo Lau MD [address] [facility] [address] [place] [address], [address], [facility] 07/25/2021 14:45:21 Xr, Chest, 2 View : [...] acute abnormality. IMPRESSION: No acute abnormality. WSN: [id number] Ordering Physician: Carmelo Lau Patient Class: Outpatient Carmelo Lau MD [address], [address], [facility] 08/13/2022 21:06:27 Mammo, Screening, Digital, Bilateral : [...] (Benign) Lay letter mailed to patient WSN: [id number] Ordering Physician: Carmelo Lau Dictated By: Meri Newsome MD Dictated Date/Time: 02/13/23 5:10 pm Reviewed By: Meri Newsome MD Signed By: Meri Newsome MD Signed Date/Time: 02/13/23 5:10 pm Transcribed By: BETH Survey And Mapping Technician Date/Time: 02/13/23 5:06 pm Birads: Patient Class: Outpatient Carmelo Lau MD [address], [address], [facility] 08/17/2023 10:17:59 Dexa, Axial Skeleton : Name:NAFISA [...] osteopenia as determined by WHO criteria. WSN: [id number] Ordering Physician: Carmelo Lau Dictated By: Meng Arreaga MD Dictated Date/Time: 02/18/23 12:35 p Reviewed By: Meng Arreaga MD Signed By: Meng Arreaga MD Signed Date/Time: 02/18/23 12:35 pm Transcribed By: BETH Transcribed Date/Time: 02/18/23 12:33 pm Patient Class: Outpatient Carmelo Lau MD [address], [address], [facility] 08/17/2023 10:17:59 Problems Name Problem SNOMED Code Status Onset Date Resolution Date Notes Provider Name and Address Organization Details Recorded Time Hypercho lesterol emia 77433906 Active 2015 Carmelo Lau MD [address], [place], [address], [facility] 7 08:36:54 Generali zed anxiety disorder 97936620 Active 2016 Carmelo Lau MD [address], [place], [address], [facility] 7 14:26:40 Uterine prolapse 45994140 Completed 201607/08/2017 Carmelo Lau MD [address], [place], [address], [facility] 8 15:39:51 Mild intermit tent asthma 843610571 Active 2016 Carmelo Lau MD [address], [place], [address], [facility] 7 14:28:22 Alopecia 82884344 Active 2016 Carmelo Lau MD [address], [place], [address], [facility] 7 14:28:27 Raynaud' s disease 213158010 Active 2016 Carmelo Lau MD [address], [place], [address], [facility] 7 14:51:43 Raised antinucl ear antibody 422987034 Completed 201607/08/2017 negative rheum eval 2012 Carmelo Lau MD [address], [place], [address], [facility] 8 15:39:44 Cystocel e 521275641 Completed 201607/08/2017 Carmelo Lau MD [address], [place], [address], [facility] 8 15:39:31 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 156183513 Completed 201607/08/2017 Carmelo Lau MD [address], [place], [address], [facility] 8 15:39:28 History of stress incontin ence 803391961 Active 2016 Carmelo Lau MD [address], [place], [address], [facility] 7 12:27:10 Female stress incontin ence 09770932 Completed 201607/08/2017 Carmelo Lau MD [address], [place], [place], [address], [facility] 8 15:39:24 Increase d frequenc y of urinatio n 655916948 Completed 201607/08/2017 Carmelo Lau MD [address], [place], [address], [facility] 8 15:39:20 Psoriasi s 4231366 Active 2017 Carmelo Lau MD [address], [place], [address], [facility] 8 15:30:19 Hypernat remia Completed 201707/13/2018 Carmelo Lau MD [address], [place], [address], [facility] 9 13:23:42 Elevated blood-pr essure reading without diagnosi s of hyperten kevin 525261245 Completed 201701/07/2018 Carmelo Lau MD [address], [place], [address], [facility] 8 15:33:37 Body mass index 25-29 - overweig 273004027 Completed 201807/19/2019 Carmelo Lau MD [address] [facility] [address], [place], [address], [facility] 0 09:54:18 History of tobacco use 27328352582 03 Active 2018 Carmelo Lau MD [address] [facility] [address], [place], [address], [facility] 9 13:45:16 Herpes labialis 4918633 Active 2018 Carmelo Lau MD [address] [facility] [address], [place], [address], [facility] 9 13:55:11 Hypercal cemia 41601007 Completed 201809/07/2019 Carmelo Lau MD [address] [facility] [address], [place], [address], [facility] 0 08:45:04 Osteopen ia 605651855 Active 2018 Carmelo Lau MD [address] [facility] [address], [place], [address], [facility] 9 06:46:53 History of total hysterec kyler 390732504 Active 2019 Carmelo Lau MD [address] [facility] [address], [place], [address], [facility] 0 09:24:26 Insomnia 581436488 Active 2019 Carmelo Lau MD [address] [facility] [address], [place], [address], [facility] 0 09:26:26 Body mass index 25-29 - overweig 959276032 Active 2019 Carmelo Lau MD [address] [facility] [address], [place], [address], [facility] 0 09:54:18 Posttrau matic stress disorder 94123609 Active 2019 Carmelo Lau MD [address], [place], [address], [facility] 0 09:59:34 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 837966423 Active 2019 Carmelo Lau MD [address], [place], [address], [facility] 0 21:02:23 Alkaline phosphat ase above referenc e range 140892784 Completed 202108/06/2022 Carmelo Lau MD [address], [place], [address], [facility] 3 21:09:37 Alkaline phosphat ase above referenc e range 724447041 Completed 202208/13/2022 Carmelo Lau MD [address] [facility] [address], [place], [address], [facility] 3 21:09:37 Vitamin D deficien cy 65822357 Active 2023 Carmelo Lau MD [address] [facility] [address], [place], [address], [facility] 4 10:07:13 Problem Notes None recorded. Procedures Surgical History Date Name Laterality Status Provider Name and Address Organization Details Recorded Time 024 Most Recent Bone Density completed Noni Reese MA [facility] 08/17/2023 09:26:00 024 Most Recent Mammogram completed Noni Reese MA [facility] 08/17/2023 09:37:01 024 Mammogram screening completed Omayra Alejandro [facility] 02/14/2023 09:03:22 01/05/2 024 Dxa bone density abdriizak vrt fx completed Noni Reese MA [facility] 08/17/2023 09:37:49 023 Date of Last Colonoscopy completed Noni Reese MA [facility] 08/17/2023 09:30:22 023 Colonoscopy completed Carmelo Lau MD [address], [address], [facility] 12/22/2022 05:54:42 021 Echo transthoracic completed Carmelo Lau MD [address], [address], [facility] 11/14/2020 08:11:01 021 electrocardiogram with exercise test completed Carmelo Lau MD [address], [address], [facility] 08/23/2020 21:02:05 019 Dxa bone density abdirizak vrt fx completed Mignon Walker MA [facility] 07/19/2019 09:00:31 017 Hysterectomy completed Mignon Walker MA [facility] 07/19/2019 08:56:20 017 Hysterectomy/revise vagina completed Carmelo Lau MD [address], [address], [facility] 07/13/2018 13:30:10 014 Date of Last Pap Smear completed Aislinn ny MA [facility] 07/31/2018 10:31:15 989 Breast Surgery completed Carmelo Lau MD [address], [address], [facility] 07/13/2018 13:28:56 Breast Biopsy completed Mignon Walker MA [facility] 07/25/2021 13:41:31 Imaging Results None recorded. Procedure Notes None recorded. Medical Equipment None Reported. Allergies Allergen ID Allergen Name Allergen Category Reaction Reaction Severity Criticality Documentation Date Start Date Code Code System Note Provider Name and Address Organization Details Recorded Time 17738 Erythroci n medicatio n rash Not available Not available 07/02/2016 87732 3 RxNorm ANGELA Layton [facility] 7 14:03:13 01904 Substance with sulfonami de structure and antibacte rial mechanism of action (substanc e) medicatio n rash Not available Not available 07/02/2016 82918 8003 SNOMED ANGELA Layton [facility] 7 14:03:29 72192 cheese food abdominal pain diarrhea Not available Not available Not available 07/31/2018 terry mcfarlane e [facility]islinn [facility] 9 10:46:51 95906 guaifenes in medicatio n rash Not available low 08/17/2023 5032 RxNorm Carmelo Lau MD [address] [facility] [address], [place], [address] 4 10:02:26 Medications Name Sig Start Date Stop Date Status Note LastModified by Organization Details LastModified Time amoxicillin 500 mg capsule 07/08 completed Not Available Not Available Not Available buspirone 5 mg tablet TAKE ONE TABLET BY MOUTH TWICE A DAY 08/19 completed Not Available Not Available Not Available [...] Available valacyclovi r 1 gram tablet TAKE TWO TABLETS BY MOUTH EVERY 12 HOURS FOR 1 DAY active prn Not Available Not Available No t Available prednisone 20 mg tablet TAKE ONE TABLET BY MOUTH EVERY DAY FOR 5 DAYS 08/16 completed Not Available Not Available Not Available alendronate 70 mg tablet Take 1 tablet every week by oral route as directed for 84 days. 11/20 completed Not Available Not Available Not Available clonazepam 0.5 mg tablet TAKE 1-2 TABLETS BY MOUTH AT BEDTIME ; ADMINISTE R 30 MINUTES BEFORE BEDTIME active Not Available Not Available No t Available betamethaso ne, augmented 0.05 % topical cream Apply 1 applicati on every day by topical route as needed for 30 days. 2020 active Not Available Not Available Not Avai lable sertraline 100 mg tablet TAKE 2 TABLETS BY MOUTH DAILY active Not Available Not Available No t [...] completed Not Available Not Available Not Available calcipotrie ne 0.005 % topical cream Apply to psoriasis twice daily. active Not Available Not Available No t Available buspirone 10 mg tablet TAKE ONE TABLET BY MOUTH TWICE A DAY active Not Available Not Available No t Available Pepto-Bismo l 262 mg tablet Take [...] completed Not Available Not Available Not Available sodium fluoride 1.1 %-potassium nitrate 5 % dental paste APPLY A THIN RIBBON TO TOOTHBRUS H ; BRUSH FOR 2 MINUTES AT BEDTIME ; DO NOT EAT, DRINK OR RINSE FOR 30 MINUTES 08/19 completed Not Available Not Available Not Available [...] Not Available Not Available Not Available Fluvirin 0234-5243 45 mcg (15 mcg x 3)/0.5 mL intramuscul ar suspension 07/02 completed Not Available Not Available Not Available Flucelvax Quad 1981-1708 (PF) 60 mcg (15 mcg x 4)/0.5 [...] blood by Pulse oximetry Body temperature Systolic And Diastolic Provider Name and Address Organization Details Last Updated DateTime 1 166.37 cm 28.2 kg/m2 66178.8 9 g 66 /min 98 % 98 % 98.42 [degF] 114/70 mm[Hg] Mignon Walker MA [facility] 1 08:35:07 Date Recorded Body height Body mass index (BMI) Body weight Heart rate Oxygen saturation Oxygen saturation in Arterial blood by Pulse oximetry Body temperature Systolic And Diastolic Provider Name and Address Organization Details Last Updated DateTime 2 166.37 cm 27.9 kg/m2 86015.7 g 73 /min 99 % 99 % 98.42 [degF] 125/70 mm[Hg] Mignon Walker MA [facility] 2 13:49:44 Date Recorded Body height Body mass index (BMI) Body weight Heart rate Oxygen saturation Oxygen saturation in Arterial blood by Pulse oximetry Body temperature Systolic And Diastolic Provider Name and Address Organization Details Last Updated DateTime 3 166.37 cm 27.1 kg/m2 50164.8 4 g 67 /min 99 % 99 % 98 [degF] 129/78 mm[Hg] Noni Eduardmary Reese MA [facility] 3 14:57:59 Date Recorded Body height Body mass index (BMI) Body weight Heart rate Oxygen saturation Oxygen saturation in Arterial blood by Pulse oximetry Body temperature Systolic And Diastolic Provider Name and Address Organization Details Last Updated DateTime 4 166.37 cm 27.7 kg/m2 56666.5 1 g 56 /min 99 % 99 % 98 [degF] 125/70 mm[Hg] Noni Reese MA [facility] 4 09:31:27 Date Recorded Body height Body mass index (BMI) Body weight Heart rate Oxygen saturation Oxygen saturation in Arterial blood by Pulse oximetry Body temperature Systolic And Diastolic Provider Name and Address Organization Details Last Updated DateTime 5 166.37 cm 27.5 kg/m2 95712.5 2 g 66 /min 97 % 97 % 97.8 [degF] 131/71 mm[Hg] Noni Reese MA [facility] 5 09:22:55 Social History Question Answer Notes LastModified by Organizat ion Details LastModified Time Tobacco Smoking Status Former Smoker quit 1994 ANGELA Layton [facility] 07/02/2016 14:11:11 Do You Have An Advance [...] Or Recreational Drugs Have You Used? None Information not available 07/02/2016 When Did You Quit Smoking? 17+yearssin celastcishawna ette Information not available 07/24/2020 Live Alone Or With Others? With Others (Jesus), 3 Dogs Information not available 08/19/2024 Do You Take Precautions To Prevent Distracted [...] Date Of Your Most Recent Tobacco Screening? 08/19/2024 Information not available 08/19/2024 How Many Children Do You Have? 2 Dorinda, 1 Granddtr (Cathy 2y/o) reagan Information not available 08/19/2024 What Is Your Current Pack Years? 20-29packye [...] not available 07/19/2019 Are you currently employed? No Fired by [employer] Information not available 08/19/2024 Are you able to walk independently without assistance or assistive devices? [employer]ORE[employer] Information not available 07/25/2021 Are you able to care for yourself independently? Yes Information not available 07/02/2016 Do you or have you ever used [...] Diseases N Hyperthyroidism N Breast Cancer N Hypothyroidism N Lung Disease N COPD N Depression Y Defects or Inherited Disease N Anesthesia Complications [...] virus, quadrivalent, preservative 6 completed ANGELA Rojas [facility] 07/29/2022 14:34:39 Tdap 9 [facility] 13:41:44 Influenza, split virus, quadrivalent, preservative 7 [facility]22 14:34:39 Influenza, split virus, quadrivalent, preservative 8 [facility]/2022 14:34:39 Influenza, split virus, quadrivalent, preservative 9 completed ANGELA Rojas [facility] 07/29/2022 14:34:39 varicella 0 completed ANGELA Layton [facility] 07/25/2021 13:41:45 COVID-19, mRNA, LNP-S, PF, 100 mcg/0.5mL dose or 50 mcg/0.25mL dose 1 completed Mignon Walker MA jona, [facility] 07/25/2021 13:41:44 COVID-19, mRNA, LNP-S, PF, 100 mcg/0.5mL dose or 50 mcg/0.25mL dose 1 [facility]21 13:41:44 Influenza, MDCK, quadrivalent, PF 7 completed [place] [facility]/25/2021 13:41:44 Influenza, split virus, trivalent, preservative 5 [facility]/2021 13:41:44 Novel [id number], preservative-free 9 completed [facility] 07/25/[facility]21 13:41:44 Influenza, MDCK, quadrivalent, PF 8 completed ANGELA Layton, [facility] 07/25/2021 13:41:44 varicella 0 completed [facility]21 13:41:44 Influenza, MDCK, quadrivalent, PF 9 completed [facility] 07/25/2021 13:41:44 COVID-19, mRNA, LNP-S, PF, 100 mcg/0.5mL dose or 50 mcg/0.25mL dose 1 completed Mignon Walker MA jona, [facility] 07/25/2021 13:41:44 Influenza, split virus, trivalent, preservative 0 completed Mignon Walker MA jona, [facility] 07/25/2021 13:41:44 Influenza, MDCK, quadrivalent, PF 1 completed ANGELA Layton [facility] 07/25/2021 13:41:44 Tdap 7 [facility]21 13:41:44 Influenza, split virus, trivalent, preservative 6 completed ANGELA Layton [facility] 07/25/2021 13:41:44 Influenza, split virus, trivalent, preservative 1 completed ANGELA Layton [facility] 07/25/2021 13:41:45 Influenza, MDCK, quadrivalent, PF 2 completed ANGELA Rojas [facility] 07/29/2022 14:34:39 Influenza, MDCK, quadrivalent, PF 3 [facility]23 09:20:52 RSV, bivalent, protein subunit RSVpreF, diluent reconstituted, 0.5 mL, PF 4 completed [facility]23 09:20:52 Pneumococcal conjugate PCV20, polysaccharide RCS522 conjugate, adjuvant, PF 5 completed Not Available Counts include 234 beds at the [facility] 08/19/2024 09:18:24 Influenza, split virus, trivalent, PF 4 completed Not Available Counts include 234 beds at the [facility] 08/19/2024 09:18:24 Influenza, split virus, quadrivalent, PF 0 completed ANGELA Layton [facility] 11/03/2019 09:17:37 Past Encounters Encounter ID Performer Location Encounter Start Date Encounter Closed Date Diagnosis/Indication Diagnosis SNOMED-CT Code Diagnosis ICD10 Code Diagnosis IMO Codes Diagnosis Note [id number] Carmelo Lau MD Main Office [address] [facility] [address] [place] [address] 07/02/2016 13:39:49 07/02/2016 14:58:01 Adult health examination 979397052 Z00.00 Immunizati on status updated, flu advised in the Fall. Pt will f/u with new [facility] carpenter ayla to update PAP. Regular dental and ophtho care advised as well as seat belt and sunscreen use. Distracted driving discussed. Advance directives in place. Administra tion of diphtheria, pertussis, and tetanus vaccine 231801857 Z23 Body mass index 30+ - obesity 222977690 Z68.30 E66.9 Screening for malignant neoplasm of breast 263225713 Z12.39 Due for screening. 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 Autoimmune disease 51305 009 M35.9 On chronic prednisone and alendronat e for alopecia. Alopecia 56227902 L65.[address] Randle. [id number] Carmelo Lau MD Main Office [address] [place] [address] 11/20/2016 10:47:28 11/20/2016 12:20:27 Pain of multiple joints 99686439 M25.50 Steroid responsive with question history of MCTD if labs abnormal will refer to rheum. If normal then consider OA vs myofascial pain targeted treatment plan. Muscle pain 90249691 M79 .1 [id number] Carmelo Lau MD Main Office [address] [place] [address] 07/08/2017 14:34:36 07/08/2017 16:08:59 Adult health examination 579029983 Z00.00 Immunizati on status updated, flu advised in the Fall. Cervical cancer screening not indicated post hysterecto my. Colon and breast cancer screening are utd. Regular dental and ophtho care advised as well as seat belt and sunscreen use. Distracted driving discussed. Advance directives in place. Hypercholesterolemia 136 97674 E78.00 Will reassess and discuss mgmt based on CVD risk score. Body mass index 25-29 - overweight 864690442 E66.3 Z68.25 Elevated blood-pressure reading without diagnosis of hypertension 839309355 R03.0 Screen for end organ damage. Pt will work on low Na diet. regular exercise and wt loss. Will treat if f/u BP is still >130/90. Generalize d anxiety disorder 07041033 F41.1 Well controlled and followed by psych. [id number] Carmelo Lau MD Main Office [address] [facility] [address] [place] [address] 01/07/2018 14:53:45 01/07/2018 15:41:49 Hypernatremia 58213639 E87.0 Will reassess and evaluate further if persistent /worse. Hypercholesterolemia 136 22341 E78.00 Based on current CVD risk score or 4% will manage with TLC and monitoring for now. [id number] Carmelo Lau MD Main Office [address] [facility] [address] [place] [address] 07/13/2018 12:55:15 07/13/2018 13:56:14 Adult health examination 617705372 Z00.00 Immunizati on status updated, flu advised in the Fall. Cervical cancer screening not indicated post hysterecto my. Colon and breast cancer screening are utd. Regular dental and ophtho care advised as well as seat belt and sunscreen use. Distracted driving discussed. Advance directives in place. Screening for malignant neoplasm of breast 664859450 Z12.39 Menopause present 922558 006 Z78.0 With post menopausal status and possible celiac disease screenign is warranted. Body mass index 25-29 - overweight 745350457 E66.3 Z68.27 Family his tory of Aortic aneurysm 266626198 Z82.49 Dry eyes 515979624 H04.1 29 History of tobacco use 4306316172 103 Z87.891 Gluten sensitivity 68216 1003 K90.41 Herpes labialis 4980901 B00.1 Hypercholesterolemia 136 61196 E78.00 Will reassess and discuss mgmt based on CVD risk score. Generalize d anxiety disorder [id number] F41.1 Well controlled and followed by psych. [id number] Som Rene MD Main Office [address] [place] [address] 07/31/2018 10:23:00 07/31/2018 11:39:13 Diarrhea 93199360 R19.7 Upper abdominal pain 831 91193 R10.10 [id number] Carmelo Lau MD Main Office [address] [place] [address] 07/19/2019 08:43:41 07/19/2019 09:57:52 Adult health examination 931692629 Z00.00 Immunizati on status updated, flu advised in the Fall. Cervical cancer screening not indicated post hysterecto my. Colon and breast cancer screening are utd. Regular dental and ophtho care advised as well as seat belt and sunscreen use. Distracted driving discussed. Advance directives in place. Mild inter mittent asthma 433526554 J45.20 Seems to be aggravated by allergies. Advise to try different antihistam ine vs add nasal steroid spray. Screening for malignant neoplasm of breast 402893861 Z12.39 Trigger fi nger of right hand [id number] 6281508 M65.341 Will call for rheum/orth o referral if worse. Hypercalcemia 50586392 E 83.52 Will reassess and evaluate further if persistent . Hypercholesterolemia 136 74579 E78.01 Will reassess and discuss mgmt based on CVD risk score. Body mass index 25-29 - overweight 922837007 E66.3 Z68.27 History of tobacco use [id number] 103 Z87.891 Does not qualify for lung cancer screening. Herpes labialis 7374737 B00.1 Attacks infrequent , has valacyclov ir PRN. Generalize d anxiety disorder 54977325 F41.1 Well controlled and followed by psych. Intermitte nt palpitations 812264760 R00.2 Sound like SVT vs PVC's related to caffeine intake. Normal ECG last year. Will monitor for now. Elevated blood-pressure reading without diagnosis of hypertension 434473811 R03.0 Screen for end organ damage. Pt will work on low Na diet. regular exercise and wt loss. Will treat if f/u BP is still >130/90. Requires v aricella vaccination 974061854 Z28.3 Pt reports that she was seronegati ve when tested in the past. Will need varicella vaccinatio n if so. [id number] Carmelo Lau MD Main Office [address] [facility] [address] [place] [address] 11/03/2019 08:55:00 11/03/2019 10:21:26 Hypercholesterolemia 93155845 E78.01 Based on current CVD risk score TLC advised. Reassess next year. Generalize d anxiety disorder 31000799 F41.1 Well controlled and followed by psych. Rx for anxiolytic refilled. Needs infl uenza immunization 744713414 Z23 Posttrauma tic stress disorder 80257412 F43.10 Followoign with psych. Declines therapy referral att this time. Advised to call if she changes her mind. [id number] Carmelo Lau MD Main Office [address] [place] [address] 03/15/2020 15:15:50 03/15/2020 16:19:35 Intermittent palpitations 148602037 R00.2 Based on reported symptoms and comorbidit ies arrhythmia and ischemic evaluation is warranted. Will start with metabolic/ lab screening. ECG unchanged from prior so standard treadmill stress test is warranted. Will ask cardiology to help with arrthyrthm ia eval. Essential hypertension 92962375 I10 Wants to work on low Na diet and weight loss. Is >130/90 at f/u will recommend starting ACEI/diure tic. [id number] Carmelo Lau MD Main Office [address] [place] [address] 07/24/2020 08:25:37 07/24/2020 09:19:03 Adult health examination 293193032 Z00.00 Immunizati on status updated, flu advised in the Fall. Cervical cancer screening not indicated post hysterecto my. Colon and breast cancer screening are utd. Regular dental and ophtho care advised as well as seat belt and sunscreen use. Distracted driving discussed. Advance directives in place. Hypercholesterolemia 136 77829 E78.01 Started on statin by cards. Will arrange f/u labs. Screening for malignant neoplasm of breast 048102729 Z12.39 Screening for malignant neoplasm of cervix 571956876 Z12.4 s/p hysterecto my Osteopenia 215661695 M85 .80 Generalize d anxiety disorder 55620235 F41.1 Well controlled and followed by psych. Psoriasis 7094603 L40.9 Followed by derm. Pain of mu ltiple joints 66730104 M25.50 Steroid responsive with question history of MCTD if labs abnormal will refer to rheum. If normal then consider OA vs myofascial pain targeted treatment plan. Body mass index 25-29 - overweight 740786998 E66.3 Z68.28 Impacted c erumen in right ear 2736072697 834131 H61.21 [id number] Carmelo Lau MD Main Office [address] [place] [address] 07/25/2021 13:36:31 07/25/2021 14:39:56 Adult health examination 889848134 Z00.00 Immunizati on status updated, 2nd COVID 19 booster advised as well as flu in the Fall. Cervical cancer screening not indicated post hysterecto my. Colon and breast cancer screening are utd. Regular dental and ophtho care advised as well as seat belt and sunscreen use. Distracted driving discussed. Advance directives in place. Generalize d anxiety disorder 06900189 F41.1 Well controlled and followed by psych. Hypercholesterolemia 136 74461 E78.01 On low dose statin, will reassess. Screening for malignant neoplasm of breast 358820003 Z12.39 Screening for malignant neoplasm of cervix 796049544 Z12.4 s/p hysterecto my Screening for malignant neoplasm of colon 284195921 Z12.11 Osteopenia 444435150 M85 .80 Regular weight bearing exercise encouraged . Reassess next year. Psoriasis 1436414 L40.9 Followed by derm. Body mass index 25-29 - overweight 934047333 E66.3 Z68.27 Impacted c erumen in right ear 8507885663 635708 H61.21 Standard c hest X-ray abnormal 800900500 R93.89 Had hazy density on Xray from last year that i did not receive. Will see if finding is persistent . Dry eyes 214537510 H04.1 29 Loss of hair 131351432 L 65.9 Should follow with derm if persistent /worse. [id number] Carmelo Lau MD Main Office [address] [place] [address] 07/29/2022 14:31:22 07/29/2022 15:52:11 Adult health examination 386542984 Z00.00 PCV20, Shingrix, bivalent COVID 19 booster advised as well as flu in the Fall via local pharmacy. Cervical cancer screening not indicated post hysterecto my. Colon and breast cancer screening are utd. Regular dental and ophtho care advised as well as seat belt and sunscreen use. Distracted driving discussed. Advance directives in place. Body mass index 25-29 - overweight 653145668 E66.3 Z68.27 Mild inter mittent asthma 085096162 J45.20 Seems to be aggravated by allergies. Advise to try different antihistam ine vs add nasal steroid spray. Osteopenia 703358459 M85 .80 Regular weight bearing exercise encouraged . Will reassess Screening for malignant neoplasm of breast 560278395 Z12.39 Varicella vaccination 68 226833 Z23 History of total hysterectomy 430501061 Z90.710 No indication for PAP Administra tion of pneumococcal vaccine 97742535 Z23 Alkaline p hosphatase above reference range 519884010 R74.8 Will reassess and evaluate further if still elevated. Hypercholesterolemia 136 92686 E78.01 On low dose statin, will reassess CVD risk. Screening for malignant neoplasm of cervix 519007258 Z12.4 s/p hysterecto my Screening for malignant neoplasm of colon 077137252 Z12.11 [id number] Carmelo Lau MD Main Office [address] [facility] [address] [place] [address] 08/17/2023 09:03:33 08/17/2023 10:30:08 Adult health examination 294216371 Z00.00 PCV20, COVID 19 booster advised as well as flu in the Fall via local pharmacy. Cervical cancer screening not indicated post hysterecto my. Colon and breast cancer screening are utd. Regular dental and ophtho care advised as well as seat belt and sunscreen use. Distracted driving discussed. Advance directives in place. Screening for malignant neoplasm of breast 794863527 Z12.39 Hypercholesterolemia 136 56808 E78.01 On low dose statin, will reassess CVD risk. Body mass index 25-29 - overweight 374820608 E66.3 Z68.27 Mild inter mittent asthma 228020169 J45.20 Seems to be aggravated by allergies. Osteopenia 265458451 M85 .80 Regular weight bearing exercise encouraged . Will reassess History of total hysterectomy 251522977 Z90.710 No indication for PAP Screening for malignant neoplasm of cervix 244552433 Z12.4 s/p hysterecto my Screening for malignant neoplasm of colon 547338386 Z12.11 Screening UTD, pt asymptomat ic. Administra tion of pneumococcal vaccine 26781705 Z23 Varicella vaccination 68 544114 Z23 Psoriasis 1353090 L40.9 Followed by derm. Vitamin D deficiency 347 05230 E55.9 Will start supplement if <30 [id number] Carmelo Lau MD Main Office [address] [facility] [address] [facility] [place] [address] 08/19/2024 09:17:12 08/19/2024 10:19:15 Adult health examination 580641400 Z00.00 Shingrix, COVID 19 booster advised as well as flu in the Fall via local pharmacy. Cervical cancer screening not indicated post hysterecto my. Colon and breast cancer screening are utd. Regular dental and ophtho care advised as well as seat belt and sunscreen use. Distracted driving discussed. Advance directives in place. Screening for malignant neoplasm of breast 595752469 Z12.39 Body mass index 25-29 - overweight 075573713 E66.3 Z68.27 Hypercholesterolemia 136 88634 E78.01 On low dose statin, will reassess CVD risk. Mild inter mittent asthma 076547696 J45.20 Seems to be aggravated by allergies. Osteopenia 438331866 M85 .80 Regular weight bearing exercise encouraged . Will reassess next year History of total hysterectomy 957359117 Z90.710 No indication for PAP Screening for malignant neoplasm of cervix 843833499 Z12.4 s/p hysterecto my Screening for malignant neoplasm of colon 828493467 Z12.11 Screening UTD, pt asymptomat ic. Varicella vaccination 68 706321 Z23 Psoriasis 4735552 L40.9 Followed by derm. Vitamin D deficiency 347 22505 E55.9 Will start supplement if <30 Posttrauma tic stress disorder 34930024 F43.10 Flared around her work terminatio n last Fall which required partial hospitaliz ation. Following with psych, and working with therapist. Health Concerns Section Related Observation LastModified by Organization Sharlene garza LastModified Time None Recorded Concern Status LastModified by Organization Details LastModified Time None Recorded Advance Directives Directive Y: HCP/ -Jesus, Dtr-B rittany Payers Insurance Date Sequence Insurance Name Policy Number Policy Falk Covered Member ID Falk Member ID Guarantor Name 08/29/[address] [place] [address] [id number] Nafisa Quispe [id number] Nafisa Quispe Notes Date Note Type Note Provider Name and Address Organization Details Recorded Time 07/24/2020 text/html Generic HPI TemplateReported by [facility] for a physical. Feels well. Sees a dentist, and ophtho regularly. Carmelo Lau MD [address] [address], [place], [address], [facility] 07/24/2020 09:23:46 07/25/2021 text/html Generic HPI TemplateReported by [facility] for a physical. Feels well. Sees a dentist, and ophtho regularly. Carmelo Lau MD [address] [address], [place], [address], [facility] 07/25/2021 14:45:52 07/29/2022 text/html Generic [facility] Feels well. Sees a dentist, and ophtho regularly. Carmelo Lau MD [address] [address], [place], [address], [facility] 08/13/2022 21:12:18 08/17/2023 text/html Generic HPI [facility]Rep[facility]. Feels well. Sees a dentist, and ophtho regularly. Carmelo Lau MD [address] [address], [place], [address], [facility] 08/17/2023 10:32:22 08/19/2024 text/html Generic HPI [facility]Rep[facility]. Feels well. Sees a dentist, due for ophtho exam. Carmelo Lau MD [address] [address], [place], [address], [facility] 08/19/2024 10:16:25 OBGyn Episode No OBEpisode recorded.
== END 2024-11-07 15:39 | disposition home or self-care (01) ==
LOC: HO.HOP 14:08
PROVIDERS: PCP Pediatrics; Visit Provider Psychiatry & Neurology Psychiatry
DX: F43.12 Post-traumatic stress disorder, chronic (principal); F41.0 Panic disorder [episodic paroxysmal anxiety]
CPT/HCPCS: 99214

== ENCOUNTER 2025-01-09 13:31 | Outpatient (AMB) | payer OTHER, SELFPAY ==
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
--- OUTSIDE RECORDS SUMMARY | 2025-01-09 17:05 | XMS_ITS | Data Portability ---
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 Plan of Treatment Reminders Order Date Submit Date Provider Last Modified By Organization Details Last Modified Time Details Appointments None recor ded. Lab lipid panel , serum 2024 025 FRANCISCO [facility] (Centralized Electronic Ordering - All Locations), Patient Can Go To The Location Of Their Choice, [id number] 5 10:08:16 CMP, serum or plasm a 2024 025 FRANCISCO [facility] (Centralized Electronic Ordering - All Locations), Patient Can Go To The Location Of Their Choice, [address] 5 10:08:15 vitam in D, 25-hy droxy , total , serum 2024 025 FRANCISCO [facility], [address] [facility] [address], [facility], [place], [address], 5 10:08:14 lipid panel , serum 2023 024 FRANCISCO [facility] (Centralized Electronic Ordering - All Locations), Patient Can Go To The Location Of Their Choice, [address] 4 06:08:10 CMP, serum or plasm a 2023 024 FRANCISCO [facility] (Centralized Electronic Ordering - All Locations), Patient Can Go To The Location Of Their Choice, [address] 4 06:08:08 TSH, ultra -sens itive , serum 2023 024 FRANCISCO [facility] (Centralized Electronic Ordering - All Locations), Patient Can Go To The Location Of Their Choice, [address] 4 06:08:10 vitam in D, 25-hy droxy , total , serum 2023 024 FRANCISCO [facility], [address], [address], [place], [address], 4 06:08:14 gamma -glut amyl trans feras e (ggt) , serum 2022 023 FRANCISCO [facility], [address], [address], [place], [address], 3 14:56:08 CMP, serum or plasm a 2022 023 FRANCISCO [facility], [address], [address], [place], [address], 3 14:55:59 lipid panel , serum 2022 023 FRANCISCO [facility], [address], [address], [place], [address], 3 14:56:20 vitam in D, 25-hy droxy , total , serum 2022 023 FRANCISCO [facility], [address], [address], [place], [address], 3 16:51:29 lipid panel , serum 2021 022 FRANCISCO [facility], [address], [address], [place], [address], 14:15:30 CMP, serum or plasm a 2021 FRANCISCO [facility], [address], [address], [place], [place], [address], 14:15:27 varic thong- zoste r igg Ab scree n, serum 2021 FRANCISCO [facility], [address], [address], [place], [place], [address], 14:59:11 vitam in D, 25-hy droxy , total , serum 2021 FRANCISCO [facility], [address], [address], [place], [place], [address], 14:27:49 sjogr en antib freddie panel (ssa, ssb, ro, la), serum 2021 FR[facility], [address], [address], [place], [address], 11:06:36 CBC w/ auto diff 2021 FRANCISCO [facility], [address], [address], [place], [place], [address], 13:51:21 iron + total iron- dinorah ng capac ity (TIBC ), serum 2021 FRANCISCO [facility], [address], [address], [place], [place], [address], 14:15:29 TSH, serum or plasm a 2021 FRANCISCO [facility], [address], [address], [place], [address], 08/05/202 2 14:27:47 lipid panel , serum 2020 FRANC[facility]CO [facility], [address], [address], [place], [address], 1 17:08:07 CMP, serum or plasm a 2020 [facility], [address], [address], [place], [address], 1 17:08:06 CK (crea yassine kinas e), total , serum 2020 FR[facility]CO [facility], [address], [address], [place], [address], 17:08:03 vitam in D, 25-hy droxy , total , serum 2020 021 FRANC[facility]CO [facility], [address], [address], [place], [address], 1 17:14:40 JENNY (anti nucle ar antib odies ) scree n, serum 2020 021 FRANCISCO [facility], [address], [address], [place], [address], 21:09:58 ESR (eryt hrocy te sedim entat ion rate) , blood 2020 FRANC[facility]CO [facility], [address], [address], [place], [address], 1 15:29:17 C-ok ctive prote in, quant itati ve, serum or plasm a 2020 FRANCISCO [facility], [address], [address], [place], [address], 06/17/202 1 17:14:[address] refer ral 2022 023 [email or web address] Not available 3 13:01:[address] refer ral 2021 022 Not available 2 11:01:[address]/di etiti an refer ral 2021 022 [email or web address] Not available 2 14:39:[address]/di etiti an refer ral 2020 021 [email or web address] Not available 1 09:26:05 Procedures colon oscop y scree deana (PROC ) - for routi ne colon cance r scree deana 2022 023 [facility], [address] [place] [address], [place], [address], 3 14:45:54 colon oscop y scree deana (PROC ) 2021 022 [email or web address] Not available 2 15:07:31 Surgeries None recor [...] , scree deana, bilat eral 2021 022 [email or web address] Not available 11:08:56 bone densi ty 2020 021 [email or web address] Not available 14:42:08 MAMMO , scree deana, bilat eral - Perfo rm Diagn ostic Mammo gram and Breas t Ultra sound if neede d / Perfo rm Ultra sound Guide d Aspir ation and/o r Breas t Biops y if warra nted 2020 021 [email or web address] Not available 09:19:03 Medication Orders None recor ded. Patient TargetsNo targets recorded. Patient Instructions Encounter Date Encounter Id Patient Instructions Last Modified By Organization Details Last Modified Time 07/24/2020 [id number] Cervical Cancer Screening awychowski Not available 07/24/2020 09:14:26 anxiety disorder: care instructions awychowski Not available 07/24/2020 09:14:26 earwax blockage: care instructions awychowski Not available 07/24/2020 09:21:33 When You Want to Lose Weight: Care Instructions awychowski Not available 07/24/2020 09:14:26 Nutrition Referral and Weight Management Follow-up Information awychowski Not available 07/24/2020 09:14:26 psoriasis: care instructions awychowski Not available 07/24/2020 09:14:26 07/25/2021 [id number] Cervical Cancer Screening awychowski Not available 07/25/2021 [...] instructions awychowski Not available 07/25/2021 14:32:57 07/29/2022 [id number] learning about healthy weight awychowski Not available 07/29/2022 15:40:22 08/17/2023 [id number] learning about healthy weight awychowski Not available 08/17/2023 10:20:27 08/19/2024 [id number] post-traumatic stress disorder (PTSD): care instructions awychowski Not available 08/19/2024 10:08:00 learning about healthy weight awychowski Not available 08/19/2024 10:08:01 Reason for Referral Leather Splitter/dietitian Refer ral for Body mass index 25-29 - overweight Referring Physician: Family Jackie Medicine, Encounter Date: 07/24/2020 [employer] Consultant Referral for Sc reening for malignant neoplasm of cervix Referring Physician: Family Caleb Mejia, Encounter Date: 07/25/2021 Leather Splitter/dietitian Refer ral for Body mass index 25-29 - overweight Referring Physician: Family Caleb Mejia, Encounter Date: 07/25/2021 Oracle Fusion Consultant Referral for Sc reening for malignant neoplasm [...] Go To The Location Of Their Choice, [id number] 07/26/2020 17:08:06 07/27/19 21 07/26/2020 CMP, serum [...] Go To The Location Of Their Choice, [id number] 07/26/2020 17:08:06 07/27/1907/26/2020 lipid panel , serum cholesterol, total 170 mg/dL (<200) Not Available [facility] (Centralized [facility] Ordering - All Locations) Patient Can Go To The Location Of Their Choice, [id number] 07/26/2020 17:08:07 07/27/19 21 07/26/2020 lipid panel , serum triglyceride 141 mg/dL (<150) Not Available [facility] ([facility] Ordering - All Locations) Patient Can Go To The Location Of Their Choice, [id number] 07/26/2020 17:08:07 07/27/19 21 07/26/2020 lipid panel , serum HDL chol 40 mg/dL (>39) Not Available [facility] (Centralized Electronic Ordering - All Locations) Patient Can Go To The Location Of Their Choice, [id number] 07/26/2020 17:08:07 07/27/19 21 07/26/2020 lipid panel , serum LDL cholesterol, calculated 102 mg/dL (0-130 ) Not Available [facility] (Centralized Electronic Ordering - All Locations) Patient Can Go To The Location Of Their Choice, [id number] 07/26/2020 17:08:07 07/27/19 21 07/26/2020 lipid panel , serum non HDL cholesterol (calc) 130 mg/dL (<160) Not Available [facility] (Centralized Electronic Ordering - All Locations) Patient Can Go To The Location Of Their Choice, [id number] 07/26/2020 17:08:07 07/27/19 21 07/26/2020 C-ok ctive [...] rmed by [facility], [address] [facility] [place] [address] Not Available [facility] (Centralized Electronic Ordering - [...] rp, [address], [place] [address] Not Available [facility] (Centralized Electronic Ordering - [...] Go To The Location Of Their Choice, [id number] 08/04/2022 14:37:23 08/05/19 23 08/04/2022 LIPID PANEL cholesterol, total 168 mg/dL (<200) Not Available [facility] (Centralized Electronic Ordering - All Locations) Patient Can Go To The Location Of Their Choice, [id number] 08/04/2022 14:37:24 08/05/19 23 08/04/2022 LIPID PANEL triglyceride 147 mg/dL (<150) Not Available [facility] (Centralized Electronic Ordering - All Locations) Patient Can Go To The Location Of Their Choice, [id number] 08/04/2022 14:37:24 08/05/19 23 08/04/2022 LIPID PANEL HDL chol 39 mg/dL (>39) low Not Available [facility] (Centralized Electronic Ordering - All Locations) Patient Can Go To The Location Of Their Choice, [id number] 08/04/2022 14:37:24 08/05/19 23 08/04/2022 LIPID PANEL LDL cholesterol, calculated 100 mg/dL (0-130 ) Not Available [facility] (Centralized Electronic Ordering - All Locations) Patient Can Go To The Location Of Their Choice, [id number] 08/04/2022 14:37:24 08/05/19 23 08/04/2022 LIPID PANEL non HDL cholesterol (calc) 129 mg/dL (<160) Not Available [facility] (Centralized Electronic Ordering - All Locations) Patient Can Go To The Location Of Their Choice, [facility] 08/04/2022 14:37:24 08/05/19 23 08/04/2022 25OH VITAM IN D 25OH vitamin D 20.5 NG/mL (20-50 ) Not Available [facility] (Centralized Electronic Ordering - All Locations) Patient Can Go To The Location Of Their Choice, [facility] 08/04/2022 16:51:29 01/12/20 24 01/13/2024 COMP. METAB OLIC PANEL (14) glucose 98 mg/dL 70-99 normal Not Available [facility] ([facility]) [address] [facility], [place], [address], 01/13/2024 06:08:08 01/12/20 24 01/13/2024 COMP. METAB OLIC PANEL (14) BUN 14 mg/dL 8-27 normal Not Available [facility] ([facility]) [address] [facility] [place], [address], 01/13/2024 06:08:08 01/12/20 24 01/13/2024 COMP. METAB OLIC PANEL (14) creatinine 0.90 mg/dL 0.57-1 .00 normal Not Available [facility] ([facility]) [address] [facility] [place], [address], 01/13/2024 06:08:08 01/12/20 24 01/13/2024 COMP. METAB OLIC PANEL (14) eGFR 72 mL/mi n/1.7 3 >59 normal Not Available [facility] ([facility]) [address] [facility] [place], [address], 01/13/2024 06:08:08 01/12/20 24 01/13/2024 COMP. METAB OLIC PANEL (14) BUN/creatini ne ratio 16 12-28 normal Not Available [facility] ([facility]) [address] [facility] [place], [address], 01/13/2024 06:08:08 01/12/20 24 01/13/2024 COMP. METAB OLIC PANEL (14) sodium 145 mmol/ L 134-14 4 above high normal Not Available [facility] ([facility]) [address] [facility] [place], [address], 01/13/2024 06:08:08 01/12/20 24 01/13/2024 COMP. METAB OLIC PANEL (14) potassium 3.8 mmol/ L 3.5-5. 2 normal Not Available [facility] ([facility]) [address] [facility] [place], [address], 01/13/2024 06:08:08 01/12/20 24 01/13/2024 COMP. METAB OLIC PANEL (14) chloride 107 mmol/ L 96-106 above high normal Not Available [facility] ([facility]) [address] [place], [address], 01/13/2024 06:08:08 01/12/20 24 01/13/2024 COMP. METAB OLIC PANEL (14) carbon dioxide, total 24 mmol/ L 20-29 normal Not Available [facility] ([facility]) [address] [place], [address], 01/13/2024 06:08:08 01/12/20 24 01/13/2024 COMP. METAB OLIC PANEL (14) calcium 9.2 mg/dL 8.7-10 .3 normal Not Available [facility] ([facility]) [address] [place], [address], 01/13/2024 06:08:08 01/12/20 24 01/13/2024 COMP. METAB OLIC PANEL (14) protein, total 6.7 g/dL 6.0-8. 5 normal Not Available [facility] ([facility]) [address] [place], [address], 01/13/2024 06:08:08 01/12/20 24 01/13/2024 COMP. METAB OLIC PANEL (14) albumin 4.2 g/dL 3.9-4. 9 normal Not Available [facility] ([facility]) [address] [place], [address], 01/13/2024 06:08:08 01/12/20 24 01/13/2024 COMP. METAB OLIC PANEL (14) globulin, total 2.5 g/dL 1.5-4. 5 Not Available [facility] ([facility]) [address] [place], [address], 01/13/2024 06:08:08 01/12/20 24 01/13/2024 COMP. METAB OLIC PANEL (14) bilirubin, total 0.5 mg/dL 0.0-1. 2 normal Not Available [facility] ([facility]) [address] [place], [address], 01/13/2024 06:08:08 01/12/20 24 01/13/2024 COMP. METAB OLIC PANEL (14) alkaline phosphatase 111 IU/L 44-121 normal Not Available [facility] ([facility]) [address] [place], [address], 01/13/2024 06:08:08 01/12/20 24 01/13/2024 COMP. METAB OLIC PANEL (14) AST (SGOT) 24 IU/L 0-40 normal Not Available [facility] ([facility]) [address] [place], [address], 01/13/2024 06:08:08 01/12/20 24 01/13/2024 COMP. METAB OLIC PANEL (14) ALT (SGPT) 16 IU/L 0-32 normal Not Available [facility] ([facility]) [address] [place], [address], 01/13/2024 06:08:08 01/12/20 24 01/13/2024 LIPID PANEL cholesterol, total 150 mg/dL 100-19 9 normal Not Available [facility] ([facility]) [address] [place], [address], 01/13/2024 06:08:10 01/12/20 24 01/13/2024 LIPID PANEL triglyceride s 151 mg/dL 0-149 above high normal Not Available [facility] ([facility]) [address] [place], [address], 01/13/2024 06:08:10 01/12/20 24 01/13/2024 LIPID PANEL HDL cholesterol 37 mg/dL >39 below low normal Not Available [facility] ([facility]) [address] [place], [address], 01/13/2024 06:08:10 01/12/20 24 01/13/2024 LIPID PANEL VLDL cholesterol genna 27 mg/dL 5-40 Not Available [facility] ([facility]) [address], [place], [address], 01/13/2024 06:08:10 01/12/20 24 01/13/2024 LIPID PANEL LDL chol calc ([facility]) 86 mg/dL 0-99 Not Available [facility] ([facility]) [address] [place], [address], 01/13/2024 06:08:10 01/12/20 24 01/13/2024 LIPID PANEL LDL calc comment: HABILITATION SPECIALIST Not Available [facility] ([facility]) [address] [place], [address], 01/13/2024 06:08:10 01/12/20 24 01/13/2024 TSH TSH 1.720 uIU/m L 0.450- 4.500 normal Not Available [facility] ([facility]) [address] [place], [address], 01/13/2024 06:08:10 01/12/20 24 01/13/2024 VITAM IN [...] Ricardo bah [place]: [facility] Press . 2. Amy marie MF, Kian ey [place], Bisch off-F errar i MELGAR, et al. Evalu ation , treat ment, and preve ntion of vitam in D defic iency : an Endoc rine Socie ty clini genna pract ice guide line. JCEM. 2010; 96(7) :1911 -30. Not Available [facility] ([facility]) [address] [facility], [place], [address], 01/13/2024 06:08:14 08/23/19 21 exerc ise stres s test No observ ation record ed. [facility] (Outt Non-Invasive Cardiology Scheduling) [address] [facility], [place], [address], 07/25/2021 14:45:21 02/01/20 21 01/31/2021 MAMMO , [...] No mammog raphic eviden ce of malign ygoi. RECOMM ENDATI ON: Annual mammog raphic screen ing. BI-RAD S: BI-RAD S 2-josey gn Lay letter mailed to bryan paez WSN: [id number] Orderi ng Physic evelyn: Carmelo Vogel Dictat ed By: Reji Hwang MD Dictat ed Date/T elias: 2:09 pm Review ed By: Reji Hwang MD Signed By: Reji Hwang MD Signed Date/T elias: 2:09 pm Transc ribed By: CSB Transc riptio n Date/T elias: 2:08 pm Birads : Bryan paez Class: Outpat [facility] (Outpt Imaging) [address], [place], [address], 07/25/2021 14:45:21 02/12/19 22 01/31/2021 DEXA, axial skele ton ====== ====== ====== ====== ====== ====== ====== ====== ====== ====== ===== Bone Densit y Report ====== ====== ====== ====== ====== ====== ====== ====== ====== ====== ===== Name: NAFISA AGUILAR t ID: [id number] Age: 60 Sex: Female Ethnic ity: White Date of : 1960 ------ ------ ------ ------ ------ ------ ------ ------ ------ ------ ----- Indica tion: ALMA PUCKETT Referr ing [facility] er: JOHN NUNEZ MD, CARMELO Study: Bone densit ometry was perfor med. Exam Date: [facility] er 2020 Access ion number : [id number] Bone Densit y: ------ ------ ------ [...] Hip = 0.027 g/cm2 [facility] Bryan t: ------ ------ ------ [...] 6:22 pm Bryan paez Class: Outpat ient [facility] (Outpt Imaging) [address] [place], [address], 07/25/2021 14:45:21 07/26/19 22 07/25/2021 XR, chest [...] IMPRES KEVIN: No acute abnorm ality. WSN: [id number] Orderi ng Physic evelyn: Carmelo Vogel Bryan paez Class: Outpat ient [facility] (Outpt Imaging) [address], [place], [address], 08/13/2022 21:06:27 02/13/19 24 02/13/2023 MAMMO , [...] Lay letter mailed to bryan t WSN: [id number] Orderi ng Physic evelyn: Carmelo Vogel Dictat ed By: Joyce Newsome MD Dictat ed Date/T elias: 5:10 pm Review ed By: Joyce Newsome MD Signed By: Joyce Newsome MD Signed Date/T elias: 5:10 pm Transc ribed By: BETH Transc riptio n Date/T elias: 5:06 pm Birads : Bryan t Class: Outpat ient [facility] (Outpt Imaging) [address], [place], [address], 08/17/2023 10:17:59 02/13/19 24 02/13/2023 MAMMO , scree deana, bilat eral No observ ation record ed. [facility] [address], [place], [address], 08/17/2023 10:17:59 02/18/19 24 02/13/2023 DEXA, axial skele ton Name:Delvis Adams t ID: [id number] Age:62 years Sex:Fe male Ethnic ity:Wh [...] determ ined by WHO criter ia. WSN: [id number] Orderi ng Physic evelyn: Carmelo Vogel Dictat ed By: Katy Arreaga MD Dictat ed Date/T elias: 12:35 p Review ed By: Katy Arreaga MD Signed By: Katy Arreaga MD Signed Date/T elias: 12:35 pm Transc ribed By: BETH Transc ribed Date/T elias: 12:33 pm Patien t [facility] [address] [place], [address], 08/17/2023 10:17:59 Result Notes Documentation Provider Name [...] 2-benign Lay letter mailed to patient WSN: [id number] Ordering Physician: Carmelo Lau Dictated By: Reji Hwang MD Dictated Date/Time: 01/31/21 2:09 pm Reviewed By: Reji Hwang MD Signed By: Reji Hwang MD Signed Date/Time: 01/31/21 2:09 pm Transcribed By: BETH Community Education Coordinator Date/Time: 01/31/21 2:08 pm Birads: Patient Class: Outpatient Carmelo Lau MD [address] [address], [place], [address], [facility] 07/25/2021 14:45:21 Dexa, Axial Skeleton : Bone Density Report Name: NAFISA AGUIALR Age: 60 Sex: Female Ethnicity: White Date of : 1960 Indication: POSTMENOPAUSAL. Referring Provider: CARMELO LAU MD Study: Bone densitometry was performed. Exam Date: January 31, 2021 Accession number: [id number] Bone Density: Region BMD T-score Z-score Classification [...] Patient Class: Outpatient Carmelo Lau MD [address] [facility] [address] [place] [address], [address], [facility] 07/25/2021 14:45:21 Xr, Chest, 2 View : [...] acute abnormality. IMPRESSION: No acute abnormality. WSN: [id number] Ordering Physician: Carmelo Lau Patient Class: Outpatient Carmelo Lau MD [address], [address], [facility] 08/13/2022 21:06:27 Mammo, Screening, Digital, Bilateral : [...] (Benign) Lay letter mailed to patient WSN: [id number] Ordering Physician: Carmelo Lau Dictated By: Meri Newsome MD Dictated Date/Time: 02/13/23 5:10 pm Reviewed By: Meri Newsome MD Signed By: Meri Newsome MD Signed Date/Time: 02/13/23 5:10 pm Transcribed By: BETH Community Education Coordinator Date/Time: 02/13/23 5:06 pm Birads: Patient Class: Outpatient Carmelo Lau MD [address], [address], [facility] 08/17/2023 10:17:59 Dexa, Axial Skeleton : Name:NAFISA [...] osteopenia as determined by WHO criteria. WSN: [id number] Ordering Physician: Carmelo Lau Dictated By: Meng Arreaga MD Dictated Date/Time: 02/18/23 12:35 p Reviewed By: Meng Arreaga MD Signed By: Meng Arreaga MD Signed Date/Time: 02/18/23 12:35 pm Transcribed By: BETH Transcribed Date/Time: 02/18/23 12:33 pm Patient Class: Outpatient Carmelo Lau MD [address], [address], [facility] 08/17/2023 10:17:59 Problems Name Problem SNOMED Code Status Onset Date Resolution Date Notes Provider Name and Address Organization Details Recorded Time Hypercho lesterol emia [id number] Active 2015 Carmelo Lau MD [address], [place], [address], [facility] 7 08:36:54 Generali zed anxiety disorder 98308275 Active 2016 Carmelo Lau MD [address], [place], [address], [facility] 7 14:26:40 Uterine prolapse 73896391 Completed 201607/08/2017 Carmelo Lau MD [address], [place], [address], [facility] 8 15:39:51 Mild intermit tent asthma 212677592 Active 2016 Carmelo Lau MD [address], [place], [address], [facility] 7 14:28:22 Alopecia 85018721 Active 2016 Carmelo Lau MD [address], [place], [address], [facility] 7 14:28:27 Raynaud' s disease 567151506 Active 2016 Carmelo Lau MD [address], [place], [address], [facility] 7 14:51:43 Raised antinucl ear antibody 866504635 Completed 201607/08/2017 negative rheum eval 2012 Carmelo Lau MD [address], [place], [address], [facility] 8 15:39:44 Cystocel e 914009677 Completed 201607/08/2017 Carmelo Lau MD [address], [place], [address], [facility] 8 15:39:31 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 277907445 Completed 201607/08/2017 Carmelo Lau MD [address], [place], [address], [facility] 8 15:39:28 History of stress incontin ence 098131370 Active 2016 Carmelo Lau MD [address], [place], [address], [facility] 7 12:27:10 Female urinary stress incontin ence 13155821 Completed 201607/08/2017 Carmelo Lau MD [address], [place], [place], [address], [facility] 8 15:39:24 Increase d frequenc y of urinatio n 539607588 Completed 201607/08/2017 Carmelo Lau MD [address], [place], [address], [facility] 8 15:39:20 Psoriasi s 0651148 Active 2017 Carmelo Lau MD [address], [place], [address], [facility] 8 15:30:19 Hypernat remia Completed 201707/13/2018 Carmelo Lau MD [address], [place], [address], [facility] 9 13:23:42 Elevated blood-pr essure reading without diagnosi s of hyperten kevin 620186960 Completed 201701/07/2018 Carmelo Lau MD [address], [place], [address], [facility] 8 15:33:37 Body mass index 25-29 - overweig 962822390 Completed 201807/19/2019 Carmelo Lau MD [address] [facility] [address], [place], [address], [facility] 0 09:54:18 History of tobacco use 34225807159 03 Active 2018 Carmelo Lau MD [address] [facility] [address], [place], [address], [facility] - [place] 9 13:45:16 Herpes labialis 2123933 Active 2018 Carmelo Lau MD [address] [facility] [address], [place], [address], [facility] [place] 9 13:55:11 Hypercal cemia 84201352 Completed 201809/07/2019 Carmelo Lau MD [address] [facility] [address], [place], [address], [facility] [place] 0 08:45:04 Osteopen ia 847315573 Active 2018 Carmelo Lau MD [address] [facility] [address], [place], [address], [facility] [place] 9 06:46:53 History of total hysterec kyler 035438437 Active 2019 Carmelo Lau MD [address] [facility] [address], [place], [address], [facility] [place] 0 09:24:26 Insomnia 110770398 Active 2019 Carmelo Lau MD [address] [facility] [address], [place], [address], [facility] [place] 0 09:26:26 Body mass index 25-29 - overweig 393083132 Active 2019 Carmelo Lua MD [address] [facility] [address], [place], [address], [facility] [place] 0 09:54:18 Post-tra umatic stress disorder 00816027 Active 2019 Carmelo Lau MD [address], [place], [address], [facility] [place] 0 09:59:34 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 165186197 Active 2019 Carmelo Lau MD [address], [place], [address], [facility] [place] 0 21:02:23 Alkaline phosphat ase above referenc e range 373801793 Completed 202108/06/2022 Carmelo Lau MD [address] [facility] [address], [place], [address], [facility] [place] 3 21:09:37 Alkaline phosphat ase above referenc e range 999564065 Completed 202208/13/2022 Carmelo Lau MD [address] [facility] [address], [place], [address], [facility] [place] 3 21:09:37 Vitamin D deficien cy 35558326 Active 2023 Carmelo Lau MD [address] [facility] [address], [place], [address], [facility] [place] 4 10:07:13 Problem Notes None recorded. Procedures Surgical History Date Name Laterality Status Provider Name and Address Organization Details Recorded Time 024 Most Recent Bone Density completed Noni Reese MA [facility] 08/17/2023 09:26:00 024 Most Recent Mammogram completed Noni Reese MA [facility] 08/17/2023 09:37:01 024 Mammogram screening completed Omayra Alejandro [facility] 02/14/2023 09:03:22 024 Dxa bone density abdirizak vrt fx completed Noni Reese MA [facility] 08/17/2023 09:37:49 023 Date of Last Colonoscopy completed Noni Reese MA [facility] 08/17/2023 09:30:22 023 Colonoscopy completed Carmelo Lau MD [address], [address], [facility] [place] 12/22/2022 05:54:42 021 Echo transthoracic completed Carmelo Lau MD [address], [address], [facility] [place] 11/14/2020 08:11:01 021 electrocardiogram with exercise test completed Carmelo Lau MD [address], [address], [facility] [place] 08/23/2020 21:02:05 019 Dxa bone density abdirizak vrt fx completed Mignon Walker MA [facility] 07/19/2019 09:00:31 017 Hysterectomy completed Mignon Walker MA [facility] 07/19/2019 08:56:20 017 Hysterectomy/revise vagina completed Carmelo Lau MD [address], [address], [facility] [place] 07/13/2018 13:30:10 014 Date of Last Pap Smear completed Aislinn ny MA [facility] 07/31/2018 10:31:15 989 Breast Surgery completed Carmelo Lau MD [address], [address], [facility] 07/13/2018 13:28:56 Breast Biopsy completed Mignon Walker MA [facility] 07/25/2021 13:41:31 Imaging Results None recorded. Procedure Notes None recorded. Medical Equipment None Reported. Allergies Allergen ID Allergen Name Allergen Category Reaction Reaction Severity Criticality Documentation Date Start Date Code Code System Note Provider Name and Address Organization Details Recorded Time 95145 Erythroci n medicatio n rash Not available Not available 07/02/2016 35890 3 RxNorm ANGELA Layton [facility] 7 14:03:13 61790 Substance with sulfonami de structure and antibacte rial mechanism of action (substanc e) medicatio n rash Not available Not available 07/02/2016 04575 8003 SNOMED ANGELA Layton [facility] 7 14:03:29 42982 cheese food abdominal pain diarrhea Not available Not available Not available 07/31/2018 ricot jenifer chesera e [facility] 9 10:46:51 28818 guaifenes in medicatio n rash Not available low 08/17/2023 5032 RxNorm Carmelo Lau MD [address] [facility] [address], [place], [address] 4 10:02:26 Medications Name Sig Start Date [...] Not Available Not Available Not Available Fluvirin 5652-1127 45 mcg (15 mcg x 3)/0.5 mL intramuscul ar suspension 07/02 completed Not Available Not Available Not Available Flucelvax Quad 8531-8314 (PF) 60 mcg (15 mcg x 4)/0.5 [...] (BMI) Body weight Heart rate Oxygen saturation Body temperature Systolic And Diastolic Provider Name and Address Organization Details Last Updated DateTime 1 166.37 cm 28.2 kg/m2 97919.8 9 g 66 /min 98 % 98.42 [degF] 114/70 mm[Hg] Mignon Walker MA [facility] 1 08:35:07 Date Recorded Body height Body mass index (BMI) Body weight Heart rate Oxygen saturation Body temperature Systolic And Diastolic Provider Name and Address Organization Details Last Updated DateTime 2 166.37 cm 27.9 kg/m2 14949.7 g 73 /min 99 % 98.42 [degF] 125/70 mm[Hg] Mignon Walkre [facility] 2 13:49:44 Date Recorded Body height Body mass index (BMI) Body weight Heart rate Oxygen saturation Body temperature Systolic And Diastolic Provider Name and Address Organization Details Last Updated DateTime 3 166.37 cm 27.1 kg/m2 41814.8 4 g 67 /min 99 % 98 [degF] 129/78 mm[Hg] [facility] 3 14:57:59 Date Recorded Body height Body mass index (BMI) Body weight Heart rate Oxygen saturation Body temperature Systolic And Diastolic Provider Name and Address Organization Details Last Updated DateTime 4 166.37 cm 27.7 kg/m2 95741.5 1 g 56 /min 99 % 98 [degF] 125/70 mm[Hg] Noni Reese [facility] 4 09:31:27 Date Recorded Body height Body mass index (BMI) Body weight Heart rate Oxygen saturation Body temperature Systolic And Diastolic Provider Name and Address Organization Details Last Updated DateTime 5 166.37 cm 27.5 kg/m2 86008.5 2 g 66 /min 97 % 97.8 [degF] 131/71 mm[Hg] Noni Eduard [facility] 5 09:22:55 Social History Question Answer Notes LastModified by Organizat ion Details LastModified Time Tobacco Smoking Status Former Smoker quit 1994 ANGELA Layton [facility] 07/02/2016 14:11:11 Do You Have An Advance Directive? Yes HCP/ -Fra nk, Dtr-Mehul caraballo Information not available 07/25/2021 Is Blood Transfusion [...] 11/03/2019 Have You Recently Traveled To A [place] [address] High Risk Area Or Gathering In The Last 10 Days? No Information not available 03/15/2020 What Was The Date Of Your Most Recent Tobacco Screening? 08/19/2024 Information not available 08/19/2024 How Many Children Do You Have? 2 Fátima And Rodriguez, 1 Granddtr (Cathy 2y/o) awcaliowski Information not available 08/19/2024 What Is Your [...] Are you currently employed? No Fired by [employer] Information not available 08/19/2024 Are you able [...] abolcun Not available 2021 13:41:15 Sister Malignant neoplasm of breast 55 half sister awychowski Not [...] Not available 13:41:16 Medical History Condition Response Gout N Other N Kidney Stones N Blood Diseases N Hyperthyroidism N Breast Cancer N Hypothyroidism N Lung Disease N Depression Y COPD N Defects or Inherited Disease N Anesthesia Complications N Headaches/Migraines N Anxiety Disorder Y Varicose Veins N Obesity N Vision or Eye Problems N [...] Y Bladder Problems N Mental Illness N Diabetes N Ovarian Cancer N Blood Transfusions N Seizures/Epilepsy N Tuberculosis N AIDS/HIV N Congestive Heart Failure (CHF) N Eczema Y Abuse/Domestic Violence N Diverticulitis N Asthma Y Allergies Y Reflux/GERD Y [...] virus, quadrivalent, preservative 6 completed ANGELA Rojas [facility] 07/29/2022 14:34:39 Tdap 9 completed ANGELA Layton [facility] 07/25/2021 13:41:44 Influenza, split virus, quadrivalent, preservative 7 completed ANGELA Rojas [facility] 07/29/2022 14:34:39 Influenza, split virus, quadrivalent, preservative 8 completed ANGELA Rojas [facility] 07/29/2022 14:34:39 Influenza, split virus, quadrivalent, preservative 9 completed ANGELA Rojas [facility] 07/29/2022 14:34:39 varicella 0 completed ANGELA Layton [facility] 07/25/2021 13:41:45 COVID-19, mRNA, LNP-S, PF, 100 mcg/0.5mL dose or 50 mcg/0.25mL dose 1 completed ANGELA Layton [facility] 07/25/2021 13:41:44 COVID-19, mRNA, LNP-S, PF, 100 mcg/0.5mL dose or 50 mcg/0.25mL dose 1 completed Oakwoodjenifer Walker MA null, [facility] 07/25/2021 13:41:44 Influenza, MDCK, quadrivalent, PF 7 completed Mignon Aaron MA null, [facility] 07/25/2021 13:41:44 Influenza, split virus, trivalent, preservative 5 completed Oakwood Aaron MA null, [facility] 07/25/2021 13:41:44 Novel fieobbpoy-[id number], preservative-free 9 completed Mignon Walker MA null, [facility] 07/25/2021 13:41:44 Influenza, MDCK, quadrivalent, PF 8 completed Mignon Walker MA null, [facility] 07/25/2021 13:41:44 varicella 0 completed Oakwoodjenifer Walker MA null, [facility] 07/25/2021 13:41:44 Influenza, MDCK, quadrivalent, PF 9 completed Mignon Walker MA null, [facility] 07/25/2021 13:41:44 COVID-19, mRNA, LNP-S, PF, 100 mcg/0.5mL dose or 50 mcg/0.25mL dose 1 completed Mignonjenifer Walker MA null, [facility] 07/25/2021 13:41:44 Influenza, split virus, trivalent, preservative 0 completed Mignon Walker MA null, [facility] 07/25/2021 13:41:44 Influenza, MDCK, quadrivalent, PF 1 completed Mignonjenifer Walker MA null, [facility] 07/25/2021 13:41:44 Tdap 7 completed ANGELA Layton [facility] 07/25/2021 13:41:44 Influenza, split virus, trivalent, preservative 6 completed ANGELA Layton [facility] 07/25/2021 13:41:44 Influenza, split virus, trivalent, preservative 1 completed ANGELA Layton [facility] 07/25/2021 13:41:45 Influenza, MDCK, quadrivalent, PF 2 completed ANGELA Rojas [facility] 07/29/2022 14:34:39 Influenza, MDCK, quadrivalent, PF 3 completed ANGELA Rojas [facility] 08/17/2023 09:20:52 RSV, bivalent, protein subunit RSVpreF, diluent reconstituted, 0.5 mL, PF 4 completed ANGELA Rojas [facility] 08/17/2023 09:20:52 Pneumococcal conjugate PCV20, polysaccharide [id number] conjugate, adjuvant, PF 5 completed Not Available [facility] 08/19/2024 09:18:24 Influenza, split virus, trivalent, PF 4 completed Not Available [facility] 08/19/2024 09:18:24 Influenza, split virus, quadrivalent, PF 0 completed ANGELA Layton [facility] 11/03/2019 09:17:37 Past Encounters Encounter ID Performer Location Encounter Start Date Encounter Closed Date Diagnosis/Indication Diagnosis SNOMED-CT Code Diagnosis ICD10 Code Diagnosis IMO Codes Diagnosis Note [id number] Carmelo Lau MD Main Office [address] [facility] [address] [facility] [place] [address] 07/02/2016 13:39:49 07/02/2016 14:58:01 Adult health examination 259388566 Z00.00 Immunizati on status updated, flu advised in the Fall. Pt will f/u with new client retention specialist ayla to update PAP. Regular dental and ophtho care advised as well as seat belt and sunscreen use. Distracted driving discussed. Advance directives in place. Administra tion of diphtheria, pertussis, and tetanus vaccine 475382352 Z23 Body mass index 30+ - obesity 747622976 Z68.30 E66.9 Screening for malignant neoplasm of breast 212249420 Z12.39 Due for screening. Order provided while pt is pursuing a transition of client retention specialist care. Autoimmune disease 99605 009 M35.9 On chronic prednisone and alendronat e for alopecia. Alopecia 15807199 L65.[address] Randle. [id number] Carmelo Lau MD Main Office [address] [facility] [address] [place] [address] 11/20/2016 10:47:28 11/20/2016 12:20:27 Pain of multiple joints 83046849 M25.50 Steroid responsive with question history of MCTD if labs abnormal will refer to rheum. If normal then consider OA vs myofascial pain targeted treatment plan. Muscle pain 40480683 M79 .1 [id number] Carmelo Lau MD Main Office [address] [facility] [address] [place] [address] 07/08/2017 14:34:36 07/08/2017 16:08:59 Adult health examination 653708934 Z00.00 Immunizati on status updated, flu advised in the Fall. Cervical cancer screening not indicated post hysterecto my. Colon and breast cancer screening are utd. Regular dental and ophtho care advised as well as seat belt and sunscreen use. Distracted driving discussed. Advance directives in place. Hypercholesterolemia 136 26652 E78.00 Will reassess and discuss mgmt based on CVD risk score. Body mass index 25-29 - overweight 558956640 E66.3 Z68.25 Elevated blood-pressure reading without diagnosis of hypertension 101426707 R03.0 Screen for end organ damage. Pt will work on low Na diet. regular exercise and wt loss. Will treat if f/u BP is still >130/90. Generalize d anxiety disorder 19610099 F41.1 Well controlled and followed by psych. [id number] Carmelo Lau MD Main Office [address] [facility] [address] [place] [address] 01/07/2018 14:53:45 01/07/2018 15:41:49 Hypernatremia 34810331 E87.0 Will reassess and evaluate further if persistent /worse. Hypercholesterolemia 136 95802 E78.00 Based on current CVD risk score or 4% will manage with TLC and monitoring for now. [id number] Carmelo Lau MD Main Office [address] [place] [address] [place] [address] 07/13/2018 12:55:15 07/13/2018 13:56:14 Adult health examination 367169794 Z00.00 Immunizati on status updated, flu advised in the Fall. Cervical cancer screening not indicated post hysterecto my. Colon and breast cancer screening are utd. Regular dental and ophtho care advised as well as seat belt and sunscreen use. Distracted driving discussed. Advance directives in place. Screening for malignant neoplasm of breast 647432790 Z12.39 Menopause present 499474 006 Z78.0 With post menopausal status and possible celiac disease screenign is warranted. Body mass index 25-29 - overweight 352102725 E66.3 Z68.27 Family his tory of Aortic aneurysm 643731780 Z82.49 Dry eyes 012193609 H04.1 29 History of tobacco use 7353160794 103 Z87.891 Gluten sensitivity 26983 1003 K90.41 Herpes labialis 2349298 B00.1 Hypercholesterolemia 136 28443 E78.00 Will reassess and discuss mgmt based on CVD risk score. Generalize d anxiety disorder 79810820 F41.1 Well controlled and followed by psych. [id number] Som Rene MD Main Office [address] [place] [address] [place] [address] 07/31/2018 10:23:00 07/31/2018 11:39:13 Diarrhea 84413625 R19.7 Upper abdominal pain 831 75074 R10.10 [id number] Carmelo Lau MD Main Office [address] [place] [address] [place] [address] 07/19/2019 08:43:41 07/19/2019 09:57:52 Adult health examination 701087187 Z00.00 Immunizati on status updated, flu advised in the Fall. Cervical cancer screening not indicated post hysterecto my. Colon and breast cancer screening are utd. Regular dental and ophtho care advised as well as seat belt and sunscreen use. Distracted driving discussed. Advance directives in place. Mild inter mittent asthma 504100650 J45.20 Seems to be aggravated by allergies. Advise to try different antihistam ine vs add nasal steroid spray. Screening for malignant neoplasm of breast 890045289 Z12.39 Trigger fi nger of right hand 1782338355 7326974 M65.341 Will call for rheum/orth o referral if worse. Hypercalcemia 62862344 E 83.52 Will reassess and evaluate further if persistent . Hypercholesterolemia 136 85008 E78.01 Will reassess and discuss mgmt based on CVD risk score. Body mass index 25-29 - overweight 615671903 E66.3 Z68.27 History of tobacco use 1531873715 103 Z87.891 Does not qualify for lung cancer screening. Herpes labialis 9655420 B00.1 Attacks infrequent , has valacyclov ir PRN. Generalize d anxiety disorder 77368740 F41.1 Well controlled and followed by psych. Intermitte nt palpitations 300030388 R00.2 Sound like SVT vs PVC's related to caffeine intake. Normal ECG last year. Will monitor for now. Elevated blood-pressure reading without diagnosis of hypertension 379721876 R03.0 Screen for end organ damage. Pt will work on low Na diet. regular exercise and wt loss. Will treat if f/u BP is still >130/90. Requires v aricella vaccination 037916976 Z28.3 Pt reports that she was seronegati ve when tested in the past. Will need varicella vaccinatio n if so. [id number] Carmelo Lau MD Main Office [address] [facility] [address] [facility] [place] [address] 11/03/2019 08:55:00 11/03/2019 10:21:26 Hypercholesterolemia 25024657 E78.01 Based on current CVD risk score TLC advised. Reassess next year. Generalize d anxiety disorder 96431634 F41.1 Well controlled and followed by psych. Rx for anxiolytic refilled. Needs infl uenza immunization 963808679 Z23 Post-traum atic stress disorder 53676100 F43.10 Followoign with psych. Declines therapy referral att this time. Advised to call if she changes her mind. [id number] Carmelo Lau MD Main Office [address] [place] [address] [place] [address] 03/15/2020 15:15:50 03/15/2020 16:19:35 Intermittent palpitations 713646350 R00.2 Based on reported symptoms and comorbidit ies arrhythmia and ischemic evaluation is warranted. Will start with metabolic/ lab screening. ECG unchanged from prior so standard treadmill stress test is warranted. Will ask cardiology to help with arrthyrthm ia eval. Essential hypertension 61483032 I10 Wants to work on low Na diet and weight loss. Is >130/90 at f/u will recommend starting ACEI/diure tic. [id number] Carmelo Lau MD Main Office [address] [place] [address] [place] [address] 07/24/2020 08:25:37 07/24/2020 09:19:03 Adult health examination 057325410 Z00.00 Immunizati on status updated, flu advised in the Fall. Cervical cancer screening not indicated post hysterecto my. Colon and breast cancer screening are utd. Regular dental and ophtho care advised as well as seat belt and sunscreen use. Distracted driving discussed. Advance directives in place. Hypercholesterolemia 136 45724 E78.01 Started on statin by cards. Will arrange f/u labs. Screening for malignant neoplasm of breast 345351900 Z12.39 Screening for malignant neoplasm of cervix 089098015 Z12.4 s/p hysterecto my Osteopenia 260401701 M85 .80 Generalize d anxiety disorder 47131018 F41.1 Well controlled and followed by psych. Psoriasis 1029896 L40.9 Followed by derm. Pain of mu ltiple joints 88800607 M25.50 Steroid responsive with question history of MCTD if labs abnormal will refer to rheum. If normal then consider OA vs myofascial pain targeted treatment plan. Body mass index 25-29 - overweight 769650742 E66.3 Z68.28 Impacted c erumen in right ear 9257534204 296865 H61.21 [id number] Carmelo Lau MD Main Office [address] [place] [address] [place] [address] 07/25/2021 13:36:31 07/25/2021 14:39:56 Adult health examination 242044714 Z00.00 Immunizati on status updated, 2nd COVID 19 booster advised as well as flu in the Fall. Cervical cancer screening not indicated post hysterecto my. Colon and breast cancer screening are utd. Regular dental and ophtho care advised as well as seat belt and sunscreen use. Distracted driving discussed. Advance directives in place. Generalize d anxiety disorder 29178150 F41.1 Well controlled and followed by psych. Hypercholesterolemia 136 20257 E78.01 On low dose statin, will reassess. Screening for malignant neoplasm of breast 711456252 Z12.39 Screening for malignant neoplasm of cervix 158579458 Z12.4 s/p hysterecto my Screening for malignant neoplasm of colon 909735117 Z12.11 Osteopenia 891024520 M85 .80 Regular weight bearing exercise encouraged . Reassess next year. Psoriasis 1356035 L40.9 Followed by derm. Body mass index 25-29 - overweight 941674048 E66.3 Z68.27 Impacted c erumen in right ear 3204478482 149292 H61.21 Standard c hest X-ray abnormal 976454248 R93.89 Had hazy density on Xray from last year that i did not receive. Will see if finding is persistent . Dry eyes 359909669 H04.1 29 Loss of hair 152337379 L 65.9 Should follow with derm if persistent /worse. [id number] Carmelo Lau MD Main Office [address] [facility] [address] [place] [address] 07/29/2022 14:31:22 07/29/2022 15:52:11 Adult health examination 257727914 Z00.00 PCV20, Shingrix, bivalent COVID 19 booster advised as well as flu in the Fall via local pharmacy. Cervical cancer screening not indicated post hysterecto my. Colon and breast cancer screening are utd. Regular dental and ophtho care advised as well as seat belt and sunscreen use. Distracted driving discussed. Advance directives in place. Body mass index 25-29 - overweight 564841978 E66.3 Z68.27 Mild inter mittent asthma 439602144 J45.20 Seems to be aggravated by allergies. Advise to try different antihistam ine vs add nasal steroid spray. Osteopenia 635028482 M85 .80 Regular weight bearing exercise encouraged . Will reassess Screening for malignant neoplasm of breast 116157897 Z12.39 Varicella vaccination 68 530123 Z23 History of total hysterectomy 795396349 Z90.710 No indication for PAP Administra tion of pneumococcal vaccine 83093771 Z23 Alkaline p hosphatase above reference range 924112108 R74.8 Will reassess and evaluate further if still elevated. Hypercholesterolemia 136 14216 E78.01 On low dose statin, will reassess CVD risk. Screening for malignant neoplasm of cervix 879673876 Z12.4 s/p hysterecto my Screening for malignant neoplasm of colon 532115182 Z12.11 [id number] Carmelo Lau MD Main Office [address] [place] [address] 08/17/2023 09:03:33 08/17/2023 10:30:08 Adult health examination 130935304 Z00.00 PCV20, COVID 19 booster advised as well as flu in the Fall via local pharmacy. Cervical cancer screening not indicated post hysterecto my. Colon and breast cancer screening are utd. Regular dental and ophtho care advised as well as seat belt and sunscreen use. Distracted driving discussed. Advance directives in place. Screening for malignant neoplasm of breast 313397436 Z12.39 Hypercholesterolemia 136 46104 E78.01 On low dose statin, will reassess CVD risk. Body mass index 25-29 - overweight 570518213 E66.3 Z68.27 Mild inter mittent asthma 837320242 J45.20 Seems to be aggravated by allergies. Osteopenia 699285947 M85 .80 Regular weight bearing exercise encouraged . Will reassess History of total hysterectomy 011281424 Z90.710 No indication for PAP Screening for malignant neoplasm of cervix 509853453 Z12.4 s/p hysterecto my Screening for malignant neoplasm of colon 328477549 Z12.11 Screening UTD, pt asymptomat ic. Administra tion of pneumococcal vaccine 87526479 Z23 Varicella vaccination 68 214950 Z23 Psoriasis 8016161 L40.9 Followed by derm. Vitamin D deficiency 347 62789 E55.9 Will start supplement if <30 [id number] Carmelo Lau MD Main Office [address] [facility] [address] [facility] [facility] [id number] 08/19/2024 09:17:12 08/19/2024 10:19:15 Adult health examination [id number] Z00.00 Shingrix, COVID 19 booster advised as well as flu in the Fall via local pharmacy. Cervical cancer screening not indicated post hysterecto my. Colon and breast cancer screening are utd. Regular dental and ophtho care advised as well as seat belt and sunscreen use. Distracted driving discussed. Advance directives in place. Screening for malignant neoplasm of breast [id number] Z12.39 Body mass index 25-29 - overweight [id number] E66.3 Z68.27 Hypercholesterolemia 136 45800 E78.01 On low dose statin, will reassess CVD risk. Mild inter mittent asthma [id number] J45.20 Seems to be aggravated by allergies. Osteopenia 859068331 M85 .80 Regular weight bearing exercise encouraged . Will reassess next year History of total hysterectomy 165786402 Z90.710 No indication for PAP Screening for malignant neoplasm of cervix 412431476 Z12.4 s/p hysterecto my Screening for malignant neoplasm of colon 028402189 Z12.11 Screening UTD, pt asymptomat ic. Varicella vaccination 68 658582 Z23 Psoriasis 2709336 L40.9 Followed by derm. Vitamin D deficiency 347 18231 E55.9 Will start supplement if <30 Post-traum atic stress disorder 46577972 F43.10 Flared around her work terminatio n [...] ID Falk Member ID Guarantor Name 08/29/2024 1 VODECLIC CONWAY [id number] 1 Nafisa Estrada Natalie Quispe [id number] Nafisa Quispe Notes Date Note Type Note Provider Name and Address Organization Details Recorded Time 07/24/2020 text/html Generic HPI TemplateReported by [facility] for a physical. Feels well. Sees a dentist, and ophtho regularly. Carmelo Lau MD [address] [address], [place], [address], [facility] [place] 07/24/2020 09:23:46 07/25/2021 text/html Generic H[facility]Rep[facility] Feels well. Sees a dentist, and ophtho regularly. Carmelo Lau MD [address] [address], [place], [phone], [facility] [place] 07/25/2021 14:45:52 07/29/2022 text/html Generic HPI TemplateRep[facility]. Feels well. Sees a dentist, and ophtho regularly. Carmelo Lau MD [address] [address], [place], [phone], [facility] [place] 08/13/2022 21:12:18 08/17/2023 text/html Generic HPI TemplateRep[facility] Feels well. Sees a dentist, and ophtho regularly. Carmelo Lau MD [address] [address], [place], [address], [facility] [place] 08/17/2023 10:32:22 08/19/2024 text/html Generic HPI TemplateRep[facility] Feels well. Sees a dentist, due for ophtho exam. Carmelo Lau MD [address] [address], [place], [address], [facility] [place] 08/19/2024 10:16:25 OBGyn Episode No OBEpisode recorded.
== END 2025-01-09 14:58 | disposition home or self-care (01) ==
LOC: HO.HOP 13:31
PROVIDERS: PCP Pediatrics; Visit Provider Psychiatry & Neurology Psychiatry
DX: F43.12 Post-traumatic stress disorder, chronic (principal); F33.9 Major depressive disorder, recurrent, unspecified
CPT/HCPCS: 99214